=== PATIENT | female | born 1940 | race Caucasian/White ===

== ENCOUNTER → 2017-08-13 13:48 | Outpatient (CLI) | payer MEDICARE, OTHER, SELFPAY ==
[2017-08-13 14:34] LABS: Absolute Lymphocyte Count 2.51 X10^3/ul (0.83-4.51); Absolute Neutrophil Count 3.9 X10^3/uL (2.0-7.7); Basophil# 0.02 X10^3/uL; Basophil% 0.3 % (0-1); Eosinophil# 0.12 X10^3/uL; Eosinophils% 1.7 % (0-5); Hematocrit 40.3 % (37-47); Hemoglobin 13.5 g/dl (12.0-15.0); Lymphocyte # 2.51 X10^3/ul (4.0); Lymphocyte % 35.5 % (19-41); Mean Corp Hgb Conc 33.5 g/gl (32-36); Mean Corpuscular Volume 98.5 fL (81-99); Mean Platelet Vol. 10.6 fl (6.2-12.0); Monocyte# 0.53 X10^3/uL; Monocyte% 7.5 % (0-10); Neutrophil # 3.89 X10^3/uL (2.7-7.7); Neutrophil % 54.9 % (47-70); Platelet Count 187 K/mm3 (150-450); RBC Distribution Width CV 12.5 % (11.6-14.6); Red Blood Count 4.09 M/mm3 (4.2-5.4); White Blood Count 7.1 K/mm3 (4.4-11.0)
[2017-08-13 14:36] LABS: POSITIVE COUNT NO; POSITIVE DIFFERENTIAL NO; POSITIVE MORPHOLOGY NO
[2017-08-13 14:52] LABS: ALB/GLOB Ratio 0.8 RATIO (0.9-2.4); AST(SGOT) 29 U/L (15-37); Alanine Aminotransfer ALT/SGPT 38 U/L (13-56); Albumin, Serum 3.3 g/dL (3.2-5.0); Alkaline Phosphatase 55 U/L (45-117); Anion Gap 8 (5-15); BUN 12 mg/dL (7-18); Calcium,Total 9.1 mg/dL (8.5-10.1); Chloride 104 mmol/L (98-107); Creatinine, Serum 0.86 mg/dL (0.55-1.02); EST Glomerular Filtration Rate 68 mL/min (>60); Est Glom Filt Rate - Afr Amer 82 mL/min (>60); Glucose 127 mg/dL (74-106); Potassium 4.2 mmol/L (3.5-5.1); Protein, Total 7.3 g/dL (6.4-8.2); Sodium Level 137 mmol/L (136-145); Thyroid Stim Hormone (TSH) 1.18 uIU/mL (0.358-3.74)
[2017-08-14 09:05] LABS: Vitamin D,25 Hydroxy 72.5 ng/mL (19.95-100.01)
== END ==
PROVIDERS: Family Provider Family Medicine Geriatric Medicine; PCP Family Medicine Geriatric Medicine; Visit Provider Family Medicine Geriatric Medicine
DX: E11.9 Type 2 diabetes mellitus without complications (principal); I10 Essential (primary) hypertension; E55.9 Vitamin D deficiency, unspecified
CPT/HCPCS: 36415; 80053; 82306; 84443; 85025

== ENCOUNTER → 2017-09-24 14:10 | Outpatient (CLI) | payer MEDICARE, OTHER, SELFPAY ==
--- NOTE | 2017-09-24 14:12 | RAD_ITS ---
STUDY: X-RAY - LUMBAR SPINE REASON FOR EXAM: Female, 77 years old. Lower back pain. TECHNIQUE: 3 view(s) of the lumbar spine were obtained. COMPARISON: None FINDINGS: There is an exaggerated lumbar lordosis. There is no substantial scoliosis. There is a normal alignment of the vertebrae. There is diffuse demineralization with multi-level endplate spondylosis. There is multi-level degenerative disc disease with multi-level disc space narrowing. This is most marked at L4-5. There is no evidence of acute fracture or loss of vertebral axial height. There is degenerative facet disease. There is atherosclerotic calcification of the abdominal aorta without a demonstrated aneurysm. RAD/Lumbar Spine 2 or 3 Views IMPRESSION: Degenerative changes of the spine, as detailed above. Electronically Signed: Jez Blackwell DO at 16:58 EDT Tel [phone], Service support ,
== END ==
PROVIDERS: Family Provider Family Medicine Geriatric Medicine; PCP Family Medicine Geriatric Medicine; Visit Provider Family Medicine Geriatric Medicine
DX: M54.5 Low back pain (principal)
CPT/HCPCS: 72100

== ENCOUNTER → 2017-10-02 06:49 | Outpatient (CLI) | payer MEDICARE, OTHER, SELFPAY ==
--- NOTE | 2017-10-02 09:03 | CDU_ITS ---
Reason For Study: vertigo Rt. Velocities/BP Lt. Velocities/BP Prox CCA 88.3/12.5 cm/sec. Prox CCA 104.0/15.2 cm/sec. Mid CCA 85.6/16.4 cm/sec. Mid CCA 99.7/19.3 cm/sec. Dist CCA 79.2/15.2 cm/sec. Dist CCA 73.9/13.5 cm/sec. Prox ICA 72.7/18.5 cm/sec. Prox ICA 59.8/13.5 cm/sec. Mid ICA 77.4/21.1 cm/sec. Mid ICA 72.7/21.7 cm/sec. Dist ICA 102.0/29.9 cm/sec. Dist ICA 116.0/32.2 cm/sec. Rt. ICA/CCA = 102.0/85.6=1.2. Lt. ICA/CCA = 116.0/99.7=1.2. Prox ECA 73.9/0.0 cm/sec. Prox ECA 62.7/0.0 cm/sec. Rt. Vert. 61.7/16.9 cm/sec. Lt. Vert. 50.3/9.04 cm/sec. Right Extracranial There is intimal thickening but no significant atherosclerotic plaque noted in the right common carotid artery. There is heterogeneous, irregular atherosclerotic plaque noted in the right internal carotid artery. There is no significant atherosclerotic plaque noted in the right external carotid artery. Antegrade flow is noted in the right vertebral artery. Left Extracranial There is intimal thickening but no significant atherosclerotic plaque noted in the left common carotid artery. There is homogeneous, smooth atherosclerotic plaque noted in the left internal carotid artery. There is no significant atherosclerotic plaque noted in the left external carotid artery. Antegrade flow is noted in the left vertebral artery. Procedure Carotid Duplex [id number]. Exam performed in department. Interpretation Summary Calcific irregular plague at the proximal right internal carotid with <50% stenosis. Minimal smooth plague at the proximal left internal carotid with <50% stenosis. Normal flow bilateral external carotids Patent and antegrade vertebrals bilaterally. Ordering Physician: Trent Marie Referring Physician: Bud Duncan Chi Performed By: Sienna Davison, FILIPPO, RVT
--- NOTE | 2017-10-02 13:56 | STRESSREP ---
Stress Test Report Pharmacologic myocardial perfusion stress test. 77-year-old lady with a history of atypical chest pain. Stress protocol: Resting EKG demonstrates normal sinus rhythm with a rate of 74 bpm normal intervals are noted. 0.4 mg regadenoson was infused per usual protocol followed by rapid intravenous saline flush injection. Continuous EKG monitoring was performed. The patient maintained sinus rhythm throughout the recording. At rest there were no ST or T-wave changes noted suggest abnormal flow reserve at peak infusion no ST or T-wave changes were noted suggest abnormal flow reserve maximum heart rate attained was 95 beats minute which was 66% maximum predicted heart rate. Myocardial perfusion protocol. 14.6 mCi of technetium 99m sestamibi was injected at rest. 0.4 mg regadenoson was infused per usual protocol. Continuous EKG monitoring was performed. At peak infusion 44.7 mCi of technetium 99m sestamibi was injected stress images were obtained stress and rest images were reconstructed and compared in the short axis vertical long horizontal long axis. Gated images were also obtained. Perfusion SPECT analysis. Review of the images demonstrate normal uptake of tracer noted in all areas of the myocardium. The resting images similarly demonstrate normal uptake of tracer noted in all areas of the myocardium. No areas of ischemia are noted and no infarct is present. Gated SPECT analysis: The gated ejection fraction is noted to be 61%. Conclusion: Normal pharmacologic myocardial perfusion stress test. Preserved ejection fraction.
== END ==
PROVIDERS: Family Provider Family Medicine Geriatric Medicine; PCP Family Medicine Geriatric Medicine; Visit Provider Internal Medicine Cardiovascular Disease
DX: R07.89 Other chest pain (principal); R09.89 Other specified symptoms and signs involving the circulatory and respiratory systems; R42 Dizziness and giddiness
CPT/HCPCS: 78452; 93017; 93880; A9500; A4216; J2785

== ENCOUNTER → 2017-10-09 09:24 | Outpatient (CLI) | payer MEDICARE, OTHER, SELFPAY ==
[2017-10-09 13:26] LABS: Absolute Lymphocyte Count 2.99 X10^3/ul (0.83-4.51); Absolute Neutrophil Count 5.7 X10^3/uL (2.0-7.7); Basophil# 0.04 X10^3/uL; Basophil% 0.4 % (0-1); Eosinophil# 0.13 X10^3/uL; Eosinophils% 1.4 % (0-5); Hematocrit 41.4 % (37-47); Hemoglobin 13.6 g/dl (12.0-15.0); Lymphocyte # 2.99 X10^3/ul (4.0); Lymphocyte % 31.3 % (19-41); Mean Corp Hgb Conc 32.9 g/gl (32-36); Mean Corpuscular Hgb 33.1 pg (27.0-32.0); Mean Corpuscular Volume 100.7 fL (81-99); Mean Platelet Vol. 10.8 fl (6.2-12.0); Monocyte# 0.72 X10^3/uL; Monocyte% 7.5 % (0-10); Neutrophil # 5.67 X10^3/uL (2.7-7.7); Neutrophil % 59.3 % (47-70); Platelet Count 176 K/mm3 (150-450); RBC Distribution Width CV 13.2 % (11.6-14.6); RBC Distribution Width SD 48.4 fl (35.1-43.9); Red Blood Count 4.11 M/mm3 (4.2-5.4); White Blood Count 9.6 K/mm3 (4.4-11.0)
[2017-10-09 13:28] LABS: POSITIVE COUNT NO; POSITIVE DIFFERENTIAL NO; POSITIVE MORPHOLOGY NO
[2017-10-09 13:52] LABS: Anion Gap 5 (5-15); BUN 20 mg/dL (7-18); BUN/Creat Ratio 21.3 RATIO (10-20); Calcium,Total 8.9 mg/dL (8.5-10.1); Chloride 105 mmol/L (98-107); Creatinine, Serum 0.94 mg/dL (0.55-1.02); EST Glomerular Filtration Rate 61 mL/min (>60); Est Glom Filt Rate - Afr Amer 74 mL/min (>60); Glucose 127 mg/dL (74-106); Potassium 4.7 mmol/L (3.5-5.1); Sodium Level 138 mmol/L (136-145)
== END ==
PROVIDERS: Family Provider Family Medicine Geriatric Medicine; PCP Family Medicine Geriatric Medicine; Visit Provider Family Medicine Geriatric Medicine
DX: E86.0 Dehydration (principal); R53.83 Other fatigue
CPT/HCPCS: 36415; 80048; 84443; 85025

== ENCOUNTER 2017-11-05 13:46 | Outpatient (RCR) | payer MEDICARE, OTHER, SELFPAY | END 2017-11-05 15:48 | disposition home or self-care (01) | LOC: PT 13:46 | PROVIDERS: Family Provider Family Medicine Geriatric Medicine; PCP Family Medicine Geriatric Medicine; Visit Provider Family Medicine Geriatric Medicine | DX: M17.0 Bilateral primary osteoarthritis of knee (principal) ==

== ENCOUNTER → 2017-11-19 14:11 | Outpatient (CLI) | payer MEDICARE, OTHER, SELFPAY ==
[2017-11-19 17:23] LABS: Thyroid Stim Hormone (TSH) 2.37 uIU/mL (0.358-3.74)
== END ==
PROVIDERS: Family Provider Family Medicine Geriatric Medicine; PCP Family Medicine Geriatric Medicine; Visit Provider Family Medicine Geriatric Medicine
DX: E03.9 Hypothyroidism, unspecified (principal)
CPT/HCPCS: 36415; 84443

== ENCOUNTER → 2018-02-18 13:33 | Outpatient (CLI) | payer MEDICARE, OTHER, SELFPAY ==
[2018-02-18 16:13] LABS: Absolute Lymphocyte Count 2.58 X10^3/ul (0.83-4.51); Absolute Neutrophil Count 3.8 X10^3/uL (2.0-7.7); Basophil# 0.02 X10^3/uL; Basophil% 0.3 % (0-1); Eosinophil# 0.14 X10^3/uL; Hemoglobin 13.5 g/dl (12.0-15.0); Lymphocyte # 2.58 X10^3/ul (4.0); Lymphocyte % 36.9 % (19-41); Mean Corp Hgb Conc 32.9 g/gl (32-36); Mean Corpuscular Hgb 32.8 pg (27.0-32.0); Mean Corpuscular Volume 99.8 fL (81-99); Mean Platelet Vol. 10.1 fl (6.2-12.0); Monocyte# 0.45 X10^3/uL; Monocyte% 6.4 % (0-10); Neutrophil # 3.79 X10^3/uL (2.7-7.7); Neutrophil % 54.3 % (47-70); Platelet Count 209 K/mm3 (150-450); RBC Distribution Width CV 12.4 % (11.6-14.6); RBC Distribution Width SD 44.8 fl (35.1-43.9); Red Blood Count 4.11 M/mm3 (4.2-5.4)
[2018-02-18 16:21] LABS: POSITIVE COUNT NO; POSITIVE DIFFERENTIAL NO; POSITIVE MORPHOLOGY NO
[2018-02-18 17:09] LABS: ALB/GLOB Ratio 0.9 RATIO (0.9-2.4); AST(SGOT) 32 U/L (15-37); Alanine Aminotransfer ALT/SGPT 45 U/L (13-56); Albumin, Serum 3.4 g/dL (3.2-5.0); Alkaline Phosphatase 55 U/L (45-117); Anion Gap 12 (5-15); BUN 15 mg/dL (7-18); BUN/Creat Ratio 15.9 RATIO (10-20); Calcium,Total 9.3 mg/dL (8.5-10.1); Chloride 105 mmol/L (98-107); Creatinine, Serum 0.94 mg/dL (0.55-1.02); EST Glomerular Filtration Rate 61 mL/min (>60); Est Glom Filt Rate - Afr Amer 74 mL/min (>60); Globulin 3.9 g/dL (2.2-4.2); Glucose 204 mg/dL (74-106); Potassium 4.3 mmol/L (3.5-5.1); Protein, Total 7.3 g/dL (6.4-8.2); Sodium Level 141 mmol/L (136-145); Thyroid Stim Hormone (TSH) 1.01 uIU/mL (0.358-3.74)
[2018-02-19 09:14] LABS: Vitamin D,25 Hydroxy 89.2 ng/mL (29.95-100.01)
== END ==
PROVIDERS: Family Provider Family Medicine Geriatric Medicine; PCP Family Medicine Geriatric Medicine; Visit Provider Family Medicine Geriatric Medicine
DX: E11.9 Type 2 diabetes mellitus without complications (principal); I10 Essential (primary) hypertension; E55.9 Vitamin D deficiency, unspecified; R19.7 Diarrhea, unspecified
CPT/HCPCS: 36415; 74019; 80053; 82306; 84443; 85025

== ENCOUNTER → 2018-04-29 14:23 | Outpatient (CLI) | payer MEDICARE, OTHER, SELFPAY ==
--- NOTE | 2018-04-29 14:24 | BI_ITS ---
MAMMOGRAPHY - BILATERAL SCREENING REASON FOR EXAM: Female, 77 years old. Routine annual screening examination. PERTINENT HISTORY: Aunt with breast cancer. Keratosis. TECHNIQUE: Digital bilateral breast jeff (3D mammographic acquisition) in the CC and MLO projections. 2-D mediolateral oblique (MLO) and craniocaudad (CC) views of both breasts were obtained. CAD: Full Field Digital Mammography with Computer Added Detection was performed. COMPARISON: Comparison is made with prior study dated March 26, 2017 and February 28, 2016. FINDINGS: Breast Composition: The breasts are almost entirely fatty. There are no dominant masses or suspicious calcifications. Stable small well-defined nodules in both breasts. Stable 7.4 mm nodule in the mid lateral portion of the right breast and stable 5.3 mm nodule in the upper lateral portion of the left breast. No other significant abnormalities are identified. There has been no significant change since the prior study. BI/SCREENING MAMM (CAD), BILAT IMPRESSION: Stable bilateral screening mammogram. Yearly follow-up mammogram recommended. (A) ASSESSMENT CATEGORY: BIRADS Category 2: Benign. A letter regarding these results will be sent to the patient by the facility within 30 days. Approximately 10% of breast cancers are not detected by mammography. A normal mammogram should not delay biopsy of a clinically suspicious abnormality. [id number] Electronically Signed: Tony Grover MD at 15:38 EDT Tel [phone], Service support ,
== END ==
PROVIDERS: Family Provider Family Medicine Geriatric Medicine; PCP Family Medicine Geriatric Medicine; Referring Provider Family Medicine Geriatric Medicine; Visit Provider Family Medicine Geriatric Medicine
DX: Z12.31 Encounter for screening mammogram for malignant neoplasm of breast (principal)
CPT/HCPCS: 77063; 77067

== ENCOUNTER → 2018-08-19 14:28 | Outpatient (CLI) | payer MEDICARE, OTHER, SELFPAY ==
[2017-10-08 14:47] VITALS: BMI 34.4
[2018-08-19 16:27] LABS: Absolute Lymphocyte Count 2.59 X10^3/ul (0.83-4.51); Absolute Neutrophil Count 3.7 X10^3/uL (2.0-7.7); Basophil# 0.04 X10^3/uL; Basophil% 0.6 % (0-1); Eosinophil# 0.36 X10^3/uL; Hematocrit 37.9 % (37-47); Hemoglobin 12.7 g/dl (12.0-15.0); Lymphocyte # 2.59 X10^3/ul (4.0); Mean Corp Hgb Conc 33.5 g/gl (32-36); Mean Corpuscular Volume 98.4 fL (81-99); Mean Platelet Vol. 10.6 fl (6.2-12.0); Monocyte# 0.53 X10^3/uL; Monocyte% 7.4 % (0-10); Neutrophil # 3.67 X10^3/uL (2.7-7.7); Neutrophil % 50.9 % (47-70); Platelet Count 188 K/mm3 (150-450); RBC Distribution Width CV 12.4 % (11.6-14.6); RBC Distribution Width SD 44.8 fl (35.1-43.9); Red Blood Count 3.85 M/mm3 (4.2-5.4); White Blood Count 7.2 K/mm3 (4.4-11.0)
[2018-08-19 16:32] LABS: POSITIVE COUNT NO; POSITIVE DIFFERENTIAL NO; POSITIVE MORPHOLOGY NO
[2018-08-19 16:37] LABS: Vitamin D,25 Hydroxy 66.6 ng/mL (29.95-100.01)
[2018-08-19 16:45] LABS: ALB/GLOB Ratio 0.9 RATIO (0.9-2.4); AST(SGOT) 31 U/L (15-37); Alanine Aminotransfer ALT/SGPT 43 U/L (13-56); Albumin, Serum 3.2 g/dL (3.2-5.0); Alkaline Phosphatase 59 U/L (45-117); Anion Gap 7 (5-15); BUN 14 mg/dL (7-18); BUN/Creat Ratio 14.9 RATIO (10-20); Calcium,Total 8.6 mg/dL (8.5-10.1); Chloride 104 mmol/L (98-107); Creatinine, Serum 0.94 mg/dL (0.55-1.02); EST Glomerular Filtration Rate 61 mL/min (>60); Est Glom Filt Rate - Afr Amer 74 mL/min (>60); Globulin 3.5 g/dL (2.2-4.2); Glucose 307 mg/dL (74-106); Potassium 4.2 mmol/L (3.5-5.1); Protein, Total 6.7 g/dL (6.4-8.2); Sodium Level 135 mmol/L (136-145); Thyroid Stim Hormone (TSH) 1.63 uIU/mL (0.358-3.74)
== END ==
PROVIDERS: Family Provider Family Medicine Geriatric Medicine; PCP Family Medicine Geriatric Medicine; Visit Provider Family Medicine Geriatric Medicine
DX: E11.9 Type 2 diabetes mellitus without complications (principal); E55.9 Vitamin D deficiency, unspecified; I10 Essential (primary) hypertension
CPT/HCPCS: 36415; 80053; 82306; 84443; 85025

== ENCOUNTER → 2018-10-21 | Outpatient (CLI) | payer MEDICARE, OTHER, SELFPAY ==
[2018-09-10 12:39] VITALS: BMI 35.3
[2018-10-21 16:23] LABS: Thyroid Stim Hormone (TSH) 3.52 uIU/mL (0.358-3.74)
== END | disposition home or self-care (01) ==
LOC: POLAB3 14:39
PROVIDERS: Family Provider Family Medicine Geriatric Medicine; PCP Family Medicine Geriatric Medicine; Visit Provider Family Medicine Geriatric Medicine
DX: E03.9 Hypothyroidism, unspecified (principal)
CPT/HCPCS: 36415; 84443

== ENCOUNTER → 2018-10-26 16:21 | Outpatient (CLI) | payer MEDICARE, OTHER, SELFPAY ==
[2018-09-10 12:39] VITALS: BMI 35.3
--- NOTE | 2018-10-26 09:00 | LES_PTH ---
PATIENT: BEN SHAFFER LOC: [facility] U#:[id number] AGE/SX: 84/F ROOM: RE10/26/[address]: Dr. Bud Duncan MD : 1940 BED: DIS: SPEC #: [id number] RECD: 10/26/18 09:00 STATUS: LYLY CANDELARIA #: [id number] PATRIC: 10/26/18 09:[address]: Bud Duncan Chi DEPT: SURGICAL PATHOLOGY RECD BY: Agustin Garibay Tissues: A - Skin of neck, NOS B - Skin of neck, NOS C - Skin of neck, NOS Procedures: Surgery Specimen Level IV HEADER OPERATION: Not noted PRE-OP DIAGNOSIS: Not noted TISSUE SUBMITTED: A - Right neck, B - Middle neck, C - Left neck MICROSCOPIC DIAGNOSIS A. Right neck lesion, biopsy: Seborrheic keratosis. B. Middle neck lesion, biopsy: Seborrheic keratosis. C. Left neck lesion, biopsy: Seborrheic keratosis. SJ:norma 10/29/18 MICROSCOPIC DESCRIPTION Slides are reviewed. GROSS DESCRIPTION A - Received in fixative is one container labeled with the patient's name and designated right neck. The specimen consists of a huston portion of skin measuring 1.5 x 1 cm and shaved to a depth of 0.3 cm. The skin surface is covered by a huston-brown irregular, slightly verrucoid lesion. The base of the specimen is inked black and the tissue is serially cross-sectioned. The specimen is totally submitted in one cassette. B - Received in fixative is one container labeled with the patient's name and designated middle neck. The specimen consists of a circular skin biopsy measuring 1.3 x 1.3 cm and shaved to a depth of 0.4 cm. The skin surface is huston-brown with a diffuse verrucoid appearance. The base of the specimen is inked black and the tissue is serially cross-sectioned. The specimen is totally submitted in one cassette. C - Received in fixative is one container labeled with the patient's name and designated left neck. The specimen consists of an elongated skin biopsy measuring 2.5 x 0.5 x 0.4 cm. The skin surface is huston-brown with a verrucoid appearance. The base of the specimen is inked black. The specimen is totally submitted in one cassette. / CE:norma 10/28/18 TC:1 CPT: 22271 x3
== END ==
PROVIDERS: Family Provider Family Medicine Geriatric Medicine; PCP Family Medicine Geriatric Medicine; Visit Provider Family Medicine Geriatric Medicine
DX: L98.9 Disorder of the skin and subcutaneous tissue, unspecified (principal)
CPT/HCPCS: 88305

== ENCOUNTER → 2018-11-18 | Outpatient (CLI) | payer MEDICARE, OTHER, SELFPAY ==
[2018-09-10 12:39] VITALS: BMI 35.3
[2018-11-18 17:35] LABS: Absolute Lymphocyte Count 2.57 X10^3/ul (0.83-4.51); Absolute Neutrophil Count 3.5 X10^3/uL (2.0-7.7); Basophil# 0.02 X10^3/uL; Basophil% 0.3 % (0-1); Eosinophil# 0.14 X10^3/uL; Eosinophils% 2.1 % (0-5); Hematocrit 40.2 % (37-47); Hemoglobin 13.5 g/dl (12.0-15.0); Lymphocyte # 2.57 X10^3/ul (4.0); Lymphocyte % 38.8 % (19-41); Mean Corp Hgb Conc 33.6 g/gl (32-36); Mean Corpuscular Hgb 32.8 pg (27.0-32.0); Mean Corpuscular Volume 97.8 fL (81-99); Mean Platelet Vol. 10.5 fl (6.2-12.0); Monocyte# 0.44 X10^3/uL; Monocyte% 6.6 % (0-10); Neutrophil # 3.45 X10^3/uL (2.7-7.7); Platelet Count 181 K/mm3 (150-450); RBC Distribution Width CV 12.1 % (11.6-14.6); RBC Distribution Width SD 42.5 fl (35.1-43.9); Red Blood Count 4.11 M/mm3 (4.2-5.4); White Blood Count 6.6 K/mm3 (4.4-11.0)
[2018-11-18 17:47] LABS: POSITIVE COUNT NO; POSITIVE DIFFERENTIAL NO; POSITIVE MORPHOLOGY NO
[2018-11-18 17:54] LABS: Vitamin D,25 Hydroxy 75.2 ng/mL (29.95-100.01)
[2018-11-18 17:56] LABS: ALB/GLOB Ratio 0.9 RATIO (0.9-2.4); AST(SGOT) 22 U/L (15-37); Alanine Aminotransfer ALT/SGPT 42 U/L (13-56); Albumin, Serum 3.3 g/dL (3.2-5.0); Alkaline Phosphatase 71 U/L (45-117); Anion Gap 5 (5-15); BUN 17 mg/dL (7-18); BUN/Creat Ratio 15.6 RATIO (10-20); Calcium,Total 8.6 mg/dL (8.5-10.1); Chloride 104 mmol/L (98-107); Creatinine, Serum 1.09 mg/dL (0.55-1.02); EST Glomerular Filtration Rate 51 mL/min (>60); Est Glom Filt Rate - Afr Amer 62 mL/min (>60); Globulin 3.7 g/dL (2.2-4.2); Glucose 304 mg/dL (74-106); Potassium 4.6 mmol/L (3.5-5.1); Sodium Level 137 mmol/L (136-145)
== END | disposition home or self-care (01) ==
LOC: POLAB3 13:32
PROVIDERS: Family Provider Family Medicine Geriatric Medicine; PCP Family Medicine Geriatric Medicine; Visit Provider Family Medicine Geriatric Medicine
DX: E11.9 Type 2 diabetes mellitus without complications (principal); E55.9 Vitamin D deficiency, unspecified; I10 Essential (primary) hypertension
CPT/HCPCS: 36415; 80053; 82306; 84443; 85025

== ENCOUNTER → 2019-02-24 | Outpatient (CLI) | payer MEDICARE, OTHER, SELFPAY ==
[2018-09-10 12:39] VITALS: BMI 35.3
[2019-02-24 17:12] LABS: Absolute Lymphocyte Count 2.17 X10^3/uL (0.83-4.51); Absolute Neutrophil Count 3.1 X10^3/uL (2.0-7.7); Basophil# 0.04 X10^3/uL; Basophil% 0.7 % (0-1); Eosinophil# 0.11 X10^3/uL; Eosinophils% 1.9 % (0-5); Hematocrit 38.9 % (37-47); Lymphocyte # 2.17 X10^3/ul (4.0); Lymphocyte % 36.8 % (19-41); Mean Corp Hgb Conc 33.4 g/dL (32-36); Mean Corpuscular Volume 98.7 fL (81-99); Mean Platelet Vol. 10.9 fl (6.2-12.0); Monocyte# 0.49 X10^3/uL; Monocyte% 8.3 % (0-10); NRBC Flagged by Analyzer 0 % (0-5); Neutrophil # 3.07 X10^3/uL (2.7-7.7); Neutrophil % 52.1 % (47-70); Platelet Count 182 K/mm3 (150-450); RBC Distribution Width CV 12.4 % (11.6-14.6); Red Blood Count 3.94 M/mm3 (4.2-5.4); White Blood Count 5.9 K/mm3 (4.4-11.0)
[2019-02-24 17:51] LABS: Vitamin D,25 Hydroxy 59.9 ng/mL (29.95-100.01)
[2019-02-24 18:22] LABS: ALB/GLOB Ratio 0.9 RATIO (0.9-2.4); AST(SGOT) 35 U/L (15-37); Alanine Aminotransfer ALT/SGPT 54 U/L (13-56); Albumin, Serum 3.3 g/dL (3.2-5.0); Alkaline Phosphatase 68 U/L (45-117); Anion Gap 10 (5-15); BUN 14 mg/dL (7-18); Calcium,Total 8.9 mg/dL (8.5-10.1); Chloride 104 mmol/L (98-107); Creatinine, Serum 1.08 mg/dL (0.55-1.02); EST Glomerular Filtration Rate 52 mL/min (>60); Est Glom Filt Rate - Afr Amer 63 mL/min (>60); Globulin 3.7 g/dL (2.2-4.2); Glucose 323 mg/dL (74-106); Potassium 4.3 mmol/L (3.5-5.1); Sodium Level 138 mmol/L (136-145); Thyroid Stim Hormone (TSH) 3.26 uIU/mL (0.358-3.74)
== END | disposition home or self-care (01) ==
LOC: POLAB3 09:03
PROVIDERS: Family Provider Family Medicine Geriatric Medicine; PCP Family Medicine Geriatric Medicine; Visit Provider Family Medicine Geriatric Medicine
DX: E11.9 Type 2 diabetes mellitus without complications (principal); E55.9 Vitamin D deficiency, unspecified; I10 Essential (primary) hypertension
CPT/HCPCS: 36415; 80053; 82306; 84443; 85025

== ENCOUNTER → 2019-05-12 | Outpatient (CLI) | payer MEDICARE, OTHER, SELFPAY ==
[2018-09-10 12:39] VITALS: BMI 35.3
--- NOTE | 2019-05-12 13:17 | BI_ITS ---
MAMMOGRAPHY - BILATERAL SCREENING REASON FOR EXAM: Female, 78 years old. Routine annual screening examination. PERTINENT HISTORY: Aunt with breast cancer. TECHNIQUE: Digital bilateral breast fallon (3D mammographic acquisition) in the CC and MLO projections. 2-D mediolateral oblique (MLO) and craniocaudad (CC) views of both breasts were obtained. CAD: Full Field Digital Mammography with Computer Added Detection was performed. COMPARISON: Comparison is made with prior study dated April 29, 2018 and March 26, 2017. FINDINGS: Breast Composition: The breasts are almost entirely fatty. There are no dominant masses or suspicious calcifications. Stable 7.8 mm well-defined nodule in the mid lateral portion of the right breast. Stable 5.3 mm well-defined nodule in the upper lateral aspect of the left breast. These are unchanged and most likely represents small intramammary lymph nodes. No other significant abnormalities are identified. There has been no significant change since the prior study. BI/SCREEN MAMM (CAD) W/[place] BILAT IMPRESSION: Stable bilateral screening mammogram. Yearly follow-up mammogram recommended. (A) ASSESSMENT CATEGORY: BIRADS Category 2: Benign. A letter regarding these results will be sent to the patient by the facility within 30 days. Approximately 10% of breast cancers are not detected by mammography. A normal mammogram should not delay biopsy of a clinically suspicious abnormality. [id number] Electronically Signed: Tony Grover, at 14:25 EST , Service support ,
== END | disposition home or self-care (01) ==
LOC: OPBI 13:15
PROVIDERS: Family Provider Family Medicine Geriatric Medicine; PCP Family Medicine Geriatric Medicine; Referring Provider Family Medicine Geriatric Medicine; Visit Provider Family Medicine Geriatric Medicine
DX: Z12.31 Encounter for screening mammogram for malignant neoplasm of breast (principal)
CPT/HCPCS: 77063; 77067

== ENCOUNTER → 2019-06-08 14:07 | Outpatient (CLI) | payer MEDICARE, OTHER, SELFPAY ==
[2018-09-10 12:39] VITALS: BMI 35.3
[2019-06-08 17:30] LABS: Absolute Lymphocyte Count 2.91 X10^3/uL (0.83-4.51); Absolute Neutrophil Count 3.8 X10^3/uL (2.0-7.7); Basophil# 0.05 X10^3/uL; Basophil% 0.6 % (0-1); Eosinophil# 0.21 X10^3/uL; Eosinophils% 2.7 % (0-5); Hematocrit 41.7 % (37-47); Hemoglobin 14.2 g/dL (12.0-15.0); Lymphocyte # 2.91 X10^3/ul (4.0); Lymphocyte % 37.8 % (19-41); Mean Corp Hgb Conc 34.1 g/dL (32-36); Mean Corpuscular Hgb 34.4 pg (27.0-32.0); Mean Platelet Vol. 10.6 fl (6.2-12.0); Monocyte# 0.69 X10^3/uL; NRBC Flagged by Analyzer 0 % (0-5); Neutrophil # 3.82 X10^3/uL (2.7-7.7); Neutrophil % 49.6 % (47-70); Platelet Count 173 K/mm3 (150-450); RBC Distribution Width CV 11.9 % (11.6-14.6); Red Blood Count 4.13 M/mm3 (4.2-5.4); White Blood Count 7.7 K/mm3 (4.4-11.0)
[2019-06-08 17:38] LABS: Vitamin D,25 Hydroxy 52.2 ng/mL (29.95-100.01)
[2019-06-08 17:48] LABS: ALB/GLOB Ratio 0.9 RATIO (0.9-2.4); AST(SGOT) 27 U/L (15-37); Alanine Aminotransfer ALT/SGPT 41 U/L (13-56); Albumin, Serum 3.5 g/dL (3.2-5.0); Alkaline Phosphatase 60 U/L (45-117); Anion Gap 5 (5-15); BUN 19 mg/dL (7-18); BUN/Creat Ratio 20.5 RATIO (10-20); Calcium,Total 9.3 mg/dL (8.5-10.1); Chloride 105 mmol/L (98-107); Creatinine, Serum 0.93 mg/dL (0.55-1.02); EST Glomerular Filtration Rate 62 mL/min (>60); Est Glom Filt Rate - Afr Amer 75 mL/min (>60); Globulin 3.8 g/dL (2.2-4.2); Glucose 107 mg/dL (74-106); Potassium 4.1 mmol/L (3.5-5.1); Protein, Total 7.3 g/dL (6.4-8.2); Sodium Level 139 mmol/L (136-145); Thyroid Stim Hormone (TSH) 1.98 uIU/mL (0.358-3.74)
== END ==
PROVIDERS: Family Provider Family Medicine Geriatric Medicine; PCP Family Medicine Geriatric Medicine; Visit Provider Family Medicine Geriatric Medicine
DX: E11.9 Type 2 diabetes mellitus without complications (principal); E55.9 Vitamin D deficiency, unspecified; I10 Essential (primary) hypertension
CPT/HCPCS: 36415; 80053; 82306; 84443; 85025

== ENCOUNTER → 2019-07-18 15:00 | Outpatient (CLI) | payer MEDICARE, OTHER, SELFPAY ==
[2018-09-10 12:39] VITALS: BMI 35.3
--- NOTE | 2019-07-18 15:08 | RAD_ITS ---
HISTORY: RIGHT HIP AND LOWER BACK PAIN, HX OF OSTEOARTHRITIS TECHNIQUE: Lumbar spine 3 views Number of images including paperwork: 3 COMPARISON: 09/24/2017 FINDINGS: VERTEBRAE: No acute fracture. VERTEBRAL ALIGNMENT: No traumatic subluxation. DISKS AND JOINTS: Moderate to severe discogenic degenerative changes at L4-5. Mild discogenic degenerative changes elsewhere in the lumbar spine. Facet arthropathy. SOFT TISSUES: Vascular calcifications. RAD/Lumbar Spine 2 or 3 Views IMPRESSION: 1. No acute findings. 2. Lumbar spondylosis. at 0436 Reported and signed by: Maren Liu MD Electronically Signed: Maren Liu MD at 4:36 EST Tel , Service support ,
--- NOTE | 2019-07-18 15:08 | RAD_ITS ---
HISTORY: RIGHT HIP AND LOWER BACK PAIN, HX OF OSTEOARTHRITIS ADDITIONAL HISTORY: None provided. TECHNIQUE: AP and lateral views of the right hip, AP and lateral views of the left hip and AP pelvis Number of images including paperwork: 5 COMPARISON: None FINDINGS: BONES: No acute fracture. JOINTS: No subluxation. Mild degenerative changes of the hips. Degenerative changes of the visualized spine, sacroiliac joints and symphysis pubis. SOFT TISSUES: No distinct foreign body. RAD/HIP, UNI W/ Pelvis 2-3 Views IMPRESSION: Degenerative changes without acute osseous abnormality. at 0438 Reported and signed by: Maren iLu MD Electronically Signed: Maren Liu MD at 4:38 EST Tel , Service support ,
== END ==
PROVIDERS: PCP Family Medicine Geriatric Medicine; Referring Provider Family Medicine Geriatric Medicine; Visit Provider Family Medicine Geriatric Medicine
DX: M54.30 Sciatica, unspecified side (principal); M16.9 Osteoarthritis of hip, unspecified
CPT/HCPCS: 72100; 73502

== ENCOUNTER 2019-07-24 10:58 | Inpatient (IN) | payer MEDICARE, OTHER, SELFPAY ==
[2018-09-10 12:39] VITALS: BMI 35.3
[2019-07-24 10:59] VITALS: BP 152/82; PULSE 76; RESP 16; TEMP 36.7; O2SAT 97; BMI 40.7
--- NOTE | 2019-07-24 11:13 | CT_ITS ---
STUDY: CT BRAIN WITHOUT CONTRAST REASON FOR EXAM: Female, 78 years old. Fell 3 days ago hitting couch, left eye and forehead bruising, no LOC. Hx diabetes. RADIATION DOSAGE (If Supplied By Facility): CTDIvol = ( 44.99 ) mGy, DLP = ( 796.11 ) mGycm TECHNIQUE: Transaxial CT imaging of the brain was performed without administration of intravenous contrast material. Individualized dose optimization techniques were used for this CT. COMPARISON: No relevant priors. FINDINGS: There is slight soft tissue swelling of the left frontal/periorbital scalp. Normal calvarium. Normal size ventricles and extra-axial spaces for the patient''s age. Normal white matter tracts of the cerebral hemispheres. Very small lipoma of the anterior falx is of doubtful significance. No associated mass effect. Normal basal ganglia and thalami. Normal brainstem. Normal cerebellum. There is no intracranial hemorrhage. There are no findings of an acute ischemic infarction. Normal visualized paranasal sinuses. CT/Brain/Head without Contrast IMPRESSION: No acute intracranial hemorrhage or mass effect. Left frontal and periorbital soft tissue swelling/injury. No underlying fracture. Electronically Signed: Franklyn Parra MD ([place]) at 12:14 EST , Service support ,
--- NOTE | 2019-07-24 11:14 | RAD_ITS ---
STUDY: X-RAY - LUMBAR SPINE REASON FOR EXAM: Female, 78 years old. RIGHT HIP PAIN TECHNIQUE: 3 view(s) of the lumbar spine were obtained. COMPARISON: None FINDINGS: Normal lumbar lordosis. There is no substantial scoliosis. There is a normal alignment of the vertebrae. There is multilevel endplate spondylosis of the lumbar vertebrae. There is multi-level degenerative disc disease with multi-level disc space narrowing. There is no demonstrated fracture. There is atherosclerotic calcification of the abdominal aorta without a demonstrated aneurysm. RAD/Lumbar Spine 2 or 3 Views IMPRESSION: Degenerative changes without acute findings Electronically Signed: Matt Bush DO at 12:51 EST Tel , Service support ,
--- NOTE | 2019-07-24 11:14 | RAD_ITS ---
STUDY: X-RAY - PELVIS AND RIGHT HIP REASON FOR EXAM: Female, 78 years old. FALL X 3 DAYS. RIGHT HIP PAIN TECHNIQUE: 3 views of the pelvis and hip. COMPARISON: None. FINDINGS: There is a non-specific bowel gas pattern. Normal visualized soft tissue structures. Normal bilateral iliac wings, sacroiliac joints and visualized sacrum. Normal bilateral superior and inferior pubic rami. Normal pubic symphysis. Normal bilateral ischial tuberosities. There are osteoarthritic changes of the femoral head with marginal osteophyte formation. Normal acetabulum. There is mild articular joint space narrowing of the hip. RAD/HIP, UNI W/ Pelvis 2-3 Views IMPRESSION: No acute findings Electronically Signed: Matt Bush DO at 12:51 EST Tel , Service support ,
--- NOTE | 2019-07-24 11:16 | ED.DCSUM_ITS ---
History of Present Illness Chief Complaint: Lower Extremity Injury Detail of Chief Complaint: Right hip and back pain Informant: Patient Onset: Days Current Severity: Mild Maximum Severity: Moderate Worsened by: Movement Narrative: Patient has been having trouble with her right lower back and hip. She has been treated by her primary care physician for sciatica. Patient states that she had a fall last Thursday and went to her doctor on . He had placed her on prednisone, diclofenac, gabapentin, and baclofen. The patient was woozy and had another fall after taking this medication for only 1 day. He told her to stop the prednisone, diclofenac, and gabapentin but continue the baclofen. Patient presents today with continued pain. The most recent fall she had also involved a head injury was striking her left forehead against the wooden arm of a sofa. - Past Medical History (1) Essential (primary) hypertension Status: Chronic (2) Hyperlipidemia Status: Chronic (3) Paroxysmal atrial fibrillation Status: Chronic Past Medical History - Allergies and Home Meds Allergies/Adverse Reactions: Allergies atenolol [From Tenormin] Adverse Reaction (Severe, Verified 07/24/19 11:03) Unknown Primary Care Physician: Bud Duncan Chi, MD [Primary Care Provider] - Prior records reviewed: Yes Lives: Spouse/ Significant Other Smoking Status: Never smoker Review of Systems General: Denies: Chills, Fever Eyes: Denies: Visual changes - bilaterally ENT: Denies: Bilateral ear pain Cardiovascular: Denies: Chest pain Respiratory: Denies: Dyspnea, Cough Musculoskeletal: Reports: Back pain Neurological: Reports: Headache. Denies: Parasthesia, Numbness Physical Exam Vital Signs/Narrative: Vital Signs Temp Pulse Resp BP Pulse Ox 07/24/19 10:59 98.1 F 76 16 152/82 H 97 Inital Vital Signs reviewed: Yes General: Well nourished Head: Normocephalic Eyes: Perrl, EOMI, - - Left periorbital ecchymosis. ENT: Moist mucous membranes Neck: Supple Cardiovascular: Regular rate, Regular rhythm Respiratory: No distress, CTA bilaterally Abdomen: Soft, Nontender Back: - - No midline spinal tenderness. She does have tenderness in the right low lumbar paraspinal muscles and over the SI joint on the right posterior pelvis. Extremities: Nontender Skin: Normal color, No rash Neurological: Alert, Oriented x3 Psychological: Normal affect Diagnostic/Tx/Re-eval 07/24/19 11:13 CT Head [Brain/Head without Contrast] [CT] Stat No acute intracranial hemorrhage or mass-effect. Left frontal and periorbital soft tissue swelling/injury. No underlying fracture. 07/24/19 11:14 HIP, UNI W/ Pelvis 2-3 Views [RAD] Stat No acute findings Lumbar Spine 2 or 3 Views [RAD] Stat Degenerative changes without acute findings Laboratory Results 07/24/19 07/24/19 10:46 10:46 WBC 12.2 H RBC 5.05 Hgb 16.8 H Hct 49.5 H MCV 98.0 MCH 33.3 H MCHC 33.9 RDW Std Deviation 45.5 H RDW Coeff of Dalia 12.8 Plt Count 226 MPV 9.8 Immature Gran % (Auto) 0.700 Neut % (Auto) 63.5 Lymph % (Auto) 25.0 Grayson % (Auto) 8.5 Eos % (Auto) 2.0 Baso % (Auto) 0.3 Absolute Neuts (auto) 7.8 H Absolute Lymphs (auto) 3.06 Nucleated RBC % 0 Sodium 135 L Potassium 4.4 Chloride 103 Carbon Dioxide 26.0 Anion Gap 6 BUN 20 H Creatinine 1.09 H Estim Creat Clear Calc 34.62 Est GFR (MDRD) Af Amer 62 Est GFR (MDRD) Non-Af 51 L BUN/Creatinine Ratio 18.3 Glucose 220 H Calcium 9.6 - Medical Decision Making Patient was initially given 25 mcg of fentanyl for pain. When the patient was taken to radiology she developed motion sickness and started vomiting. She was given a dose of Zofran. Upon returning to the room she still describes a feeling of motion sickness. She was given 0.5 mg of IV Ativan for vertigo. Test results are discussed with her. Her dizziness is completely resolved. Nursing attempted to get her up at bedside but patient has extreme pain with any weightbearing on her left leg. She is already had multiple falls at home. I feel she will need admission for physical therapy and possible rehab. Patient's blood pressure is starting to climb but she has not had her normal hypertensive meds. Her home meds are ordered for her. ED Disposition - Plan for ED Patient: Disposition: Acute Care Hospital [facility] Diagnosis: Sciatica Referrals: Bud Duncan Chi, MD [Primary Care Provider] -
[2019-07-24] MEDS: fentaNYL 100 MCG/2 ML Ampul 25 MCG IV (11:25)
[2019-07-24] MEDS: Ondansetron 4 MG/2 ML Vial IV (12:02)
[2019-07-24 12:31] LABS: Absolute Lymphocyte Count 3.06 X10^3/uL (0.83-4.51); Absolute Neutrophil Count 7.8 X10^3/uL (2.0-7.7); Basophil# 0.04 X10^3/uL; Basophil% 0.3 % (0-1); Eosinophil# 0.25 X10^3/uL; Hematocrit 49.5 % (37-47); Hemoglobin 16.8 g/dL (12.0-15.0); Lymphocyte # 3.06 X10^3/ul (4.0); Mean Corp Hgb Conc 33.9 g/dL (32-36); Mean Corpuscular Hgb 33.3 pg (27.0-32.0); Mean Platelet Vol. 9.8 fl (6.2-12.0); Monocyte# 1.04 X10^3/uL; Monocyte% 8.5 % (0-10); NRBC Flagged by Analyzer 0 % (0-5); Neutrophil # 7.75 X10^3/uL (2.7-7.7); Neutrophil % 63.5 % (47-70); Platelet Count 226 K/mm3 (150-450); RBC Distribution Width CV 12.8 % (11.6-14.6); RBC Distribution Width SD 45.5 fl (35.1-43.9); Red Blood Count 5.05 M/mm3 (4.2-5.4); White Blood Count 12.2 K/mm3 (4.4-11.0)
[2019-07-24] MEDS: LORazepam 2 MG/ML Syringe 0.5 MG IV (12:32)
[2019-07-24 12:42] LABS: Anion Gap 6 (5-15); BUN 20 mg/dL (7-18); BUN/Creat Ratio 18.3 RATIO (10-20); Calcium,Total 9.6 mg/dL (8.5-10.1); Chloride 103 mmol/L (98-107); Creatinine, Serum 1.09 mg/dL (0.55-1.02); EST Glomerular Filtration Rate 51 mL/min (>60); Est Glom Filt Rate - Afr Amer 62 mL/min (>60); Estimated Creatinine Clearance 34.62 ml/min; Glucose 220 mg/dL (74-106); Potassium 4.4 mmol/L (3.5-5.1); Sodium Level 135 mmol/L (136-145)
[2019-07-24] MEDS: Losartan Potassium 100 MG Tablet PO (13:53)
[2019-07-24] MEDS: Metoprolol Tartrate 25 MG Tablet PO ×2 (13:53→21:19)
[2019-07-24 14:00] VITALS: BP 170/90; PULSE 78
--- NOTE | 2019-07-24 14:03 | HP.PCM_ITS ---
Problem List (1) Right hip pain Status: Acute History of Present Illness Date of Admission: 07/24/19 Chief Complaint: right hip pain The patient is a 78 year old F presents with right hip pain. Last week she had pain, then received some shots and medications from her PCP. The medications she received were prednisone, diclofenac, gabapentin and baclofen. Those medications made her feel dizzy, then she had a fall landing on her face. In the process of the fall, she twisted her right hip that caused significant pain. Since then, she has had continued pain in the right hip and unable to perform ADLs. Presented to ED and had imaging that was unremarkable for any acute process. She received IV fentanyl and IV ativan. Still feels woozy. The hospitalist service asked to admit the patient rehab/SNF evaluation.[] Past Medical History Past Medical History (Chronic Problems): Chronic Problems (Last Reviewed 09/10/18 @ 14:19 by Trent Marie MD) Left carotid bruit (Chronic) Essential (primary) hypertension (Chronic) Hyperlipidemia (Chronic) Paroxysmal atrial fibrillation (Chronic) Family history of sudden cardiac (Chronic) Medical History: Medical History (Last Reviewed 07/24/19 @ 14:09 by Elroy Alegre DO) Left carotid bruit (Chronic) R09.89 Essential (primary) hypertension (Chronic) I10 Hyperlipidemia (Chronic) E78.5 Family history of sudden cardiac (Chronic) Z82.41 DDD (degenerative disc disease), lumbar 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 Abnormal electrocardiogram (Inactive) R94.31 On statin therapy (Inactive) Z79.899 Allergies atenolol [From Tenormin] Adverse Reaction (Severe, Verified 07/24/19 11:03) Unknown Home Medications: Ambulatory Orders Medication Instructions Recorded aspirin 81 mg tablet,delayed 81 mg PO QDAY tab 08/26/17 release atorvastatin 40 mg tablet 40 mg PO QDAY 08/26/17 citalopram 20 mg tablet 20 mg PO QDAY 08/26/17 levothyroxine 88 mcg capsule 88 mcg PO QDAY cap 08/26/17 losartan 100 mg tablet 100 mg PO QDAY 08/26/17 metoprolol tartrate 25 mg tablet 25 mg PO BID 08/26/17 folic acid 1 mg tablet 1 mg PO QDAY 09/01/17 antiarthritic combination no.2 900 1 tablet PO DAILY tab 09/10/18 mg tablet biotin 1 mg capsule 1 mg PO DAILY 09/10/18 triamcinolone acetonide 0.1 % 1 applic TOPICAL DAILY 09/10/18 topical cream Ergocalciferol [Vitamin D] 50,000 unit PO Q7D 07/24/19 Insulin Lispro [Humalog Kwikpen 50 unit SQ BID 07/24/19 U-100] Surgical History: Surgical History (Last Reviewed 07/24/19 @ 14:09 by Elroy Alegre DO) Hx of repair of rotator cuff Z98.890 Lives: Spouse/ Significant Other Smoking Status: Never smoker - *Family History Paternal Family History: Family History (Last Reviewed 07/24/19 @ 14:09 by Elroy Alegre DO) Father H/O carotid endarterectomy, Onset Age: 70 Mother Diabetes Brother CAD (coronary artery disease) Myocardial infarction Sudden cardiac Daughter Hypertension Hyperlipidemia Other Family history of hyperlipidemia Family history of hypertension Family history of sudden cardiac Review of Systems Constitutional: Denies: Anorexia, Chills, Fever Eyes: Denies: Blurred vision, Double vision HEENT: Denies: Head Aches, Sinus Congestion, Sinus Drainage Cardiovascular: Reports: Chest Pain - along with abdominal pain. Denies: Palpitations Respiratory: Denies: Cough, Shortness of breath at rest, Sputum production Gastrointestinal: Reports: Abdominal Pain - along with chest pain Genitourinary: Reports: Frequency, - - incomplete voiding. Musculoskeletal: Denies: Joint Pain, Joint Tenderness Skin: Reports: - - bruising around left eye. numerous skin tags. Neurological: Denies: Numbness, Tingling, Focal weakness Psychiatric: Denies: Anxiety, Depression Endocrine: Denies: Change in Body Habitus, Heat/ Cold Intolerance Hematologic/ Lymphatic: Denies: Easy Bruising, Easy Bleeding, Hx of blood clot - All review systems otherwise negative except for as mentioned above and in HPI. VTE Information - Inpt Only VTE Present on Admission: No VTE Mechan Device Prophylaxis: None VTE Pharm Prophylaxis ordered?: Yes Patient Problems: Active and Suspected Problems (Last Reviewed 09/10/18 @ 14:19 by Trent Marie MD) Sciatica (Acute) Right hip pain (Acute) - Physical Exam Vitals/I&O's: Vital Signs Temp Pulse Resp BP Pulse Ox 36.7 C 78 16 170/90 H 97 07/24/19 10:59 07/24/19 14:00 07/24/19 10:59 07/24/19 14:00 07/24/19 10:59 Oxygen Delivery Method Room Air Weight: 104.3 kg Body Mass Index (BMI) 40.7 General: Alert, Cooperative, No apparent distress HEENT: PERRLA, EOMI, Normocephalic Oral: Moist Mucosa, No Gingival or Mucosal Lesions/ Ulcerations Neck: No Nodes, Trachea Midline Lungs: Clear to auscultation, Normal air movement, No rhonchi, No wheeze Cardiovascular: Regular rate, Regular Rhythm, Normal S1, Normal S2, No murmurs Abdomen: Bowel Sounds Present, Soft, Non Tender, Non-Distended, No Hepato- splenomegaly Extremities: No edema, No Calf Tenderness Skin: No rashes, No breakdown, - - skin tags around eyes and on eyelids. the skin tags on her left eye lids were not eccymotic. bruising around left eye including eye lid. Musculoskeletal: No Muscle Wasting, - - Full range of motion of her right hip. Reproducible right buttock pain. Neurological: Cranial nerves II-XII grossly intact Psych/Mental Status: Normal Affect, Appropriate Laboratory Results 07/24/19 10:46: WBC 12.2 H, RBC 5.05, Hgb 16.8 H, Hct 49.5 H, MCV 98.0, MCH 33.3 H, MCHC 33.9, RDW Std Deviation 45.5 H, RDW Coeff of Dalia 12.8, Plt Count 226, MPV 9.8, Immature Gran % (Auto) 0.700, Neut % (Auto) 63.5, Lymph % (Auto) 25.0, Richardson % (Auto) 8.5, Eos % (Auto) 2.0, Baso % (Auto) 0.3, Absolute Neuts (auto) 7.8 H, Absolute Lymphs (auto) 3.06, Nucleated RBC % 0 07/24/19 10:46: Sodium 135 L, Potassium 4.4, Chloride 103, Carbon Dioxide 26.0, Anion Gap 6, BUN 20 H, Creatinine 1.09 H, Estim Creat Clear Calc 34.62, Est GFR (MDRD) Af Amer 62, Est GFR (MDRD) Non-Af 51 L, BUN/Creatinine Ratio 18.3, Glucose 220 H, Calcium 9.6 Clinical Impression(s) from Imaging Studies Brain CT 07/24/19 11:13 IMPRESSION: No acute intracranial hemorrhage or mass effect. Left frontal and periorbital soft tissue swelling/injury. No underlying fracture. Electronically Signed: Franklyn Parra MD (Brooks) at 12:14 EST , Service support , Left hip x-ray personally reviewed, final report still pending, and showed no acute fracture. Assessment/Plan All Active Problems (Last Reviewed 09/10/18 @ 14:19 by Trent Marie MD) Sciatica (Acute) Right hip pain (Acute) Chest tightness (Resolved) Dizziness and giddiness (Resolved) Fatigue (Resolved) Segmental and somatic dysfunction of lumbar region (Resolved) Segmental and somatic dysfunction of pelvic region (Resolved) Segmental and somatic dysfunction of thoracic region (Resolved) 1. Debility * Plan is for physical therapy evaluation and as patient is unable to care for herself and does not have adequate resources at home to be cared for, ultimate plan for her to go to a senior living facility. * Case management to assist with discharge planning. * Will check a UA and urine culture to see if she has a underlying UTI. 2. Right hip pain * Patient states that occurred when she twisted after she fell and hit her left thigh * Pain is reproducible consistent with muscle strain. * She is able to demonstrate of active range of motion though she does have some pain. * My suspicion for an occult fracture is extremely low so I do not feel any additional imaging is necessary at this time, such as an MRI. * Pain control but caution as patient has been symptomatic with what is been performed before. Patient will have acetaminophen and ibuprofen. Oxycodone if the pain is severe enough. 3. Diabetes mellitus type 2 * Patient is only on prandial insulin twice daily * Sliding scale insulin and consider adding basal insulin depending on how her blood sugars play out. 4. VTE prophylaxis: Moderate risk. Patient will be on enoxaparin. 5. Disposition: Patient does not meet medical necessity for admission so patient will be made observation status. Despite being observation status anticipate her hospitalization being greater than 24hours as patient will need to get insurance authorization and then await on their approval prior to her being able to be discharged 6. Advanced care planning: Asked patient about cardiac arrest and if she would want to have CPR. Patient wishes to be full CODE STATUS. Code Visit OBSV E&M: 29243 Initial observation care L3
[2019-07-24 14:41] VITALS: BMI 38.9
[2019-07-24 14:55] VITALS: BMI 39.0
[2019-07-24 15:18] VITALS: BP 143/54; PULSE 72; RESP 18; TEMP 36.6; O2SAT 96
[2019-07-24 15:36] LABS: Bedside Glucose 239 mg/dL (70-110)
[2019-07-24] MEDS: Insulin Lispro 100 UNIT/ML INSULN.PEN SC (15:45)
[2019-07-24] MEDS: Lidocaine 5% Patch 1 PATCH TOPICAL (15:55)
[2019-07-24 16:47] LABS: Hemoglobin A1c 7.9 % (4.2-6.3)
[2019-07-24 17:09] LABS: Color, Urine Yellow (Yellow); Glucose, Dipstick 50 mg/dl (Normal); Ketone-Dipstick 5 mg/dl (Negative); Leukocyte Esterase-Dipstick 25 /ul (Negative); Nitrite-Dipstick Negative (Negative); Occult Blood-Urine 10 /ul (Negative); Protein-Dipstick 30 mg/dl (Negative); Specific Gravity, Urine 1.025 (1.002-1.030); Urine Bilirubin Dipstick Negative (Negative); Urine Clarity Clear (Clear); Urine Urobilinogen 1 mg/dl (Normal)
[2019-07-24 17:15] LABS: Bacteria 2+ /hpf (None Seen); Red Blood Cells-Urine 0-5 SEEN /hpf (0-5); Squamous Epithelial Cells - UA 10-25 SEEN /hpf (5-10); White Blood Cells 0-5 SEEN /hpf (0-5)
[2019-07-24 17:16] LABS: Hyaline Cast 0-5 SEEN /lpf (0-5); Mucous, Urine 2+ /hpf (<or=2+)
[2019-07-24] MEDS: Glucerna Shake 120 ML LIQUID PO (17:24)
[2019-07-24 21:00] VITALS: BP 146/45; PULSE 73; RESP 16; RESP 18; TEMP 36.8; O2SAT 93
[2019-07-24] MEDS: Atorvastatin Calcium 40 MG Tablet PO (21:17)
[2019-07-24] MEDS: Insulin Lispro 100 UNIT/ML INSULN.PEN 50 UNIT SC (21:18)
[2019-07-24 21:19] VITALS: PULSE 73
[2019-07-24] MEDS: Nystatin Powder 15gm Bottle 1 APPLIC TOPICAL (21:19)
[2019-07-24] MEDS: oxyCODONE 5 MG Tablet PO (21:26)
[2019-07-25] VITALS (14 sets, daily range): BP systolic 97–150; BP diastolic 52–66; PULSE 65–73; RESP 16–18; TEMP 36.5–36.7; O2SAT 94–96
[2019-07-25 00:41] LABS: Bedside Glucose 261 mg/dL (70-110)
--- NOTE | 2019-07-25 06:16 | EKG12_ITS ---
Test Reason : SYNCOPE Blood Pressure : / mmHG Vent. Rate : 067 BPM Atrial Rate : 067 BPM P-R Int : 118 ms QRS Dur : 090 ms QT Int : 434 ms P-R-T Axes : 011 -25 034 degrees QTc Int : 458 ms Normal sinus rhythm Normal ECG No previous ECGs available Confirmed by DARRICK MATHEW, ALBER ([id number]), brands editor LY BOTELLO ([id number]) on 07/27/2019 2:12:04 PM Referred By: Ladarius PEREZ Confirmed By:ALBER HOLLINGSWORTH MD
[2019-07-25] MEDS: Levothyroxine 88 MCG Tablet PO (06:28)
--- NOTE | 2019-07-25 06:31 | NURSING ---
Pt up to bsc w/vp delivery; felt weak and everything went black; pt slumped over unresponsive with a blank stare; pt hoisted into bed by nursing staff; [employer] called; pt became responsive; VSS; Blood sugar 114; EKG performed by SERVICE DELIVERY ANALYST; pt put on telemetry.
--- NOTE | 2019-07-25 06:44 | ECHOCS_ITS ---
Version 2 Reason For Study: AFIB/FLUTTER Procedure This was a 2D Doppler, Color Flow transthoracic echocardiogram. Exam performed portable in patient room. Left Ventricle Normal LV size. Moderate concentric left ventricular hypertrophy. Left ventricular systolic function is hyperdynamic. The estimated ejection fraction is 70 %. Stage 1 diastolic dysfunction. No regional wall motion abnormalities noted. Right Ventricle Normal RV size. Normal systolic function. Atria Normal left atrium. Normal right atrium. Mitral Valve Normal mitral valve. Tricuspid Valve Normal tricuspid valve. Mild (1+) tricuspid valve insufficiency. Pulmonary artery systolic pressure is 28 mmHg. Aortic Valve Mild focal aortic valve calcification. Pulmonic Valve The pulmonic valve is not well visualized. Great Vessels Normal aortic root. The pulmonary artery is normal size. Normal inferior vena cava. Pericardium/Pleural No pericardial effusion. Medication Diluted definity 4.0ml given slow IV push to enhance endocardial definition. MMode/2D Measurements & Calculations LVIDd: 3.9 cm IVSd: 1.3 cm Ao root diam: 2.8 cm LVIDs: 2.1 cm LVPWd: 1.2 cm RVDd: 3.0 cm FS: 45.6 % LAV(MOD-bp): 32.9 ml LVAd ap4: 17.4 cm2 SV(MOD-sp4): 25.6 ml LAV(MOD-bp) Indexed: 16.4 ml/m2 EDV(MOD-sp4): 38.2 ml LAV(MOD-sp2): 30.1 ml EDV(sp4-el): 38.6 ml LAV(MOD-sp4): 33.6 ml LVAs ap4: 9.3 cm2 ESV(MOD-sp4): 12.6 ml ESV(sp4-el): 11.8 ml EF(MOD-sp4): 67.1 % EF(sp4-el): 69.5 % SV(sp4-el): 26.8 ml LA A4 area: 14.1 cm2 LA dimension(2D): 3.8 cm RA A4 area: 10.5 cm2 Time Measurements MV dec time: 0.44 sec Doppler Measurements & Calculations MV E max pk: 54.4 cm/sec Lat Peak E' Pk: 7.4 cm/sec Med Peak E' Pk: 5.7 cm/sec MV A max pk: 76.7 cm/sec E/E' lat: 7.3 E/E' med: 9.5 MV E/A: 0.71 Ao V2 max: 162.9 cm/sec LV V1 max: 100.5 cm/sec TR max pk: 243.5 cm/sec Ao max P.6 mmHg LV V1 max P.0 mmHg TR max P.8 mmHg Interpretation Summary Normal LV size. Moderate concentric left ventricular hypertrophy. Left ventricular systolic function is hyperdynamic. The estimated ejection fraction is 70 %. Mild (1+) tricuspid valve insufficiency. Stage 1 diastolic dysfunction. Contrast injection was performed. Ordering Physician: Josefina Stanley Referring Physician: ISRAEL CHRISTY CHI Performed By: Luna Santillan, FILIPPO, RVT
--- NOTE | 2019-07-25 06:44 | PCM.RRT.BLA ---
Rapid Response Note - Blank Rapid response note: Rapid response was called because patient while sitting on her bedside commode after urination slumped over and passed out. She was unresponsive briefly. At the time of examination patient was alert and oriented x3. Vital signs was stable. Placed the patient on telemetry. EKG showed sinus rhythm. Discussed with incoming rounding attending.
[2019-07-25 07:00] LABS: Bedside Glucose 114 mg/dL (70-110)
--- NOTE | 2019-07-25 07:00 | CDU_ITS ---
Reason For Study: Syncope Rt. Velocities/BP Lt. Velocities/BP Prox CCA 106/7 cm/sec. Prox CCA 116/8 cm/sec. Mid CCA 117/13 cm/sec. Mid CCA 122/10 cm/sec. Dist CCA 100/9 cm/sec. Dist CCA 109/7 cm/sec. Prox ICA 147/16 cm/sec. Prox ICA 91/15 cm/sec. Mid ICA 124/19 cm/sec. Mid ICA 96/14 cm/sec. Dist ICA 101/19 cm/sec. Dist ICA 124/19 cm/sec. Rt. ICA/CCA = 1.26. Lt. ICA/CCA = 1.0. Prox ECA 114 cm/sec. Prox ECA 125 cm/sec. Rt. Vert. 77/13 cm/sec. Lt. Vert. 83 cm/sec. Right Extracranial There is heterogeneous, irregular atherosclerotic plaque noted in the right common carotid artery. There is heterogeneous, irregular atherosclerotic plaque noted in the right internal carotid artery. There is intimal thickening but no significant atherosclerotic plaque noted in the right external carotid artery. Antegrade flow is noted in the right vertebral artery. Left Extracranial There is intimal thickening but no significant atherosclerotic plaque noted in the left common carotid artery. There is heterogeneous, irregular atherosclerotic plaque noted in the left internal carotid artery. There is no significant atherosclerotic plaque noted in the left external carotid artery. Antegrade flow is noted in the left vertebral artery. High resistant waveform noted Lt Vert A. Procedure Carotid Duplex 84521. Exam performed portable in patient room. Interpretation Summary Irregular calcific plaque of the proximal right internal carotid 50-69% stenosis right internal carotid <50% stenosis right external carotid Irregular calcific plaque at the proximal and mid left internal carotid <50% stenosis left internal carotid <50% stenosis left external carotid Patent, antegrade, <50% stenosis bilateral vertebrals Slight progression of disease on the right from 10/02/17 Ordering Physician: Josefina Stanley Referring Physician: Bud Duncan Chi Performed By: Francesca Mcmahan, FILIPPO, RVT
--- NOTE | 2019-07-25 07:00 | PCM.PN.HOSP ---
Patient Problems: Active and Suspected Problems (Last Reviewed 07/24/19 @ 14:09 by Elroy Alegre DO) Sciatica (Acute) Right hip pain (Acute) Subjective: Patient w/ syncopal event while on the toilet urinating, short duration, noted history of frequent falls, recently discontinued coumadin therapy given history. Rapid response, changed to telemetry status, discussed case and added ECHO, noted carotid bruit history, added carotid US, UA w/ elevated SG, orthostatics added with MIVF, fall precautions, cardiac enzymes. Patient denies any lightheadedness, dizziness prior to onset. She notes ongoing fatigue and malaise. Currently her right hip discomfort is mildly lessened. Patient denies fevers, chills, nausea, emesis, abdominal pain, chest pain or dyspnea. Objective: Physical Examination: General: awake, alert, oriented x 3 and cooperative, seated upright in the MS bed in no apparent distress. Skin: normal color, turgor, no icterus, cyanosis except noted very staged ecchymoses, notable recent left eye ecchymoses status post fall. HEENT: AT/NC step notable left eye ecchymoses, able to move open without issue, no market lid edema, EOMI, PERRLA, MMM. Lungs: CTA bilaterally, moderate effort, moderate decrease BL bases, no rales, ronchi or wheezing. Heart: Regular rate and rhythm; no gallop, rub audible. Abdomen: soft, obese, NTTP, ND, normal BS. Extremities: no cyanosis, clubbing, bilateral extremity ankle edema, still ongoing right hip discomfort with movement. Neurological: patient awake, alert, oriented x 3; cognitive function intact; pupils equally reactive to light and accomodation; cranial nerves II-XII grossly normal, moving all 4 extremities with some limitation given ongoing right hip discomfort, strain, strength moderately to severely global decrease secondary to acute presentation and underlying comorbidities. Psychiatric: affect appears fatigued, no acute evidence of depressive or anxiety feelings. Vitals/I&O's: Vital Signs Temp Pulse Resp BP Pulse Ox 97.9 F 68 16 142/52 H 96 07/25/19 06:09 07/25/19 06:09 07/25/19 06:09 07/25/19 06:09 07/25/19 06:09 Oxygen Flow Rate (L/min) 2 Oxygen Delivery Method Room Air Weight: 219 lb 14.4 oz Body Mass Index (BMI) 38.9 Intake and Output for Last 24 Hours 07/23/19 07/24/19 07/25/19 23:59 23:59 23:59 Intake Total 440 / 740 500 / 500 Output Total 225 / 225 Balance 440 / 740 275 / 275 Laboratory Results 07/24/19 10:46: WBC 12.2 H, RBC 5.05, Hgb 16.8 H, Hct 49.5 H, MCV 98.0, MCH 33.3 H, MCHC 33.9, RDW Std Deviation 45.5 H, RDW Coeff of Dalia 12.8, Plt Count 226, MPV 9.8, Immature Gran % (Auto) 0.700, Neut % (Auto) 63.5, Lymph % (Auto) 25.0, Isabella % (Auto) 8.5, Eos % (Auto) 2.0, Baso % (Auto) 0.3, Absolute Neuts (auto) 7.8 H, Absolute Lymphs (auto) 3.06, Nucleated RBC % 0 07/24/19 10:46: Sodium 135 L, Potassium 4.4, Chloride 103, Carbon Dioxide 26.0, Anion Gap 6, BUN 20 H, Creatinine 1.09 H, Estim Creat Clear Calc 34.62, Est GFR (MDRD) Af Amer 62, Est GFR (MDRD) Non-Af 51 L, BUN/Creatinine Ratio 18.3, Glucose 220 H, Calcium 9.6 07/24/19 10:46: Hemoglobin A1c 7.9 H 07/24/19 15:30: POC Glucose 239 H 07/24/19 16:45: Urine Color Yellow, Urine Clarity Clear, Urine pH 6.0, Ur Specific [place] 1.025, Urine Protein 30 H, Urine Glucose (UA) 50 H, Urine Ketones 5 H, Urine Occult Blood 10 H, Urine Nitrite Negative, Urine Bilirubin Negative, Urine Urobilinogen 1 H, Ur Leukocyte Esterase 25 H, Urine RBC 0-5 SEEN, Urine WBC 0-5 SEEN, Ur Squamous Epith Cells 10-25 SEEN, Urine Bacteria 2+, Hyaline Casts 0-5 SEEN, Urine Mucus 2+ 07/24/19 21:15: POC Glucose 261 H Current Medications Acetaminophen (Tylenol) 650 mg PO Q6H PRN PRN PRN Reason: pain 1-10/10 [facility] Atorvastatin Calcium (Lipitor) 40 mg PO QHS [facility] Last Admin: 07/24/19 21:17 Dose: 40 mg Documented by: Citalopram Hydrobromide (Celexa) 20 mg PO DAILY [facility] Enoxaparin Sodium (Lovenox) 40 mg SC DAILY [facility] Ergocalciferol (Vitamin D) 50,000 unit PO We@1000 [facility] Folic Acid (Folic Acid) [facility] Glucagon () 1 mg IM .X1 PRN PRN Reason: Hypoglycemia Sodium Chloride () 1,000 mls @ 100 mls/hr IV .Q10H [facility] Ibuprofen (Motrin) 400 mg PO Q4H PRN PRN PRN Reason: Pain Score 1-3/Temp > 100.7 F Insulin Human Lispro (Humalog Kwikpen (Bkc)) 50 unit SC BID [facility] Last Admin: 07/24/19 21:18 Dose: 50 u Documented by: Insulin Human Lispro (Humalog Kwikpen (Bkc)) 0 unit SC TIDAC [facility]; Protocol Last Admin: 07/25/19 06:29 Dose: Not Given Documented by: Levothyroxine Sodium (Synthroid) 88 mcg PO DAILY@0600 [facility] Last Admin: 07/25/19 06:28 Dose: 88 mcg Documented by: Lidocaine (Lidoderm Patch) 1 patch TOPICAL DAILY [facility]; Protocol Last Admin: 07/24/19 15:55 Dose: 1 patch Documented by: Losartan Potassium (Cozaar) 100 mg PO DAILY [facility] Metoprolol Tartrate (Lopressor (Beta Allan)) 25 mg PO BID [facility] Last Admin: 07/24/19 21:19 Dose: 25 mg Documented by: Nutritional Formula (Lactose Free) (Glucerna Shake) 120 ml PO TIDCM [facility] Last Admin: 07/24/19 17:24 Dose: 120 ml Documented by: Nystatin (Mycostatin Powder) 1 applic TOPICAL BID [facility]; Protocol Last Admin: 07/24/19 21:19 Dose: 1 applicatio Documented by: Ondansetron HCl (Zofran) 4 mg IV Q8H PRN PRN PRN Reason: NAUSEA/VOMITING Oxycodone HCl (Oxyir) 5 mg PO Q6H PRN PRN PRN Reason: Pain Score 6-10/10 Last Admin: 07/24/19 21:26 Dose: 5 mg Documented by: Sodium Chloride () 10 - 40 ml IV UD PRN PRN Reason: SALINE FLUSH Triamcinolone Acetonide (Triamcinolone Acetonide) 1 applic TOPICAL DAILY [facility] Vital Signs/Narrative: Vital Signs Temp Pulse Resp BP BP Pulse Ox 07/25/19 06:09 97.9 F 68 16 142/52 H 96 07/25/19 06:00 97.9 F 66 16 142/65 H 96 Medical Necessity - Tobacco Use Smoking Status: Never smoker Assessment/Plan All Active Problems (Last Reviewed 07/24/19 @ 14:09 by Elroy Alegre DO) Sciatica (Acute) Right hip pain (Acute) Chest tightness (Resolved) Dizziness and giddiness (Resolved) Fatigue (Resolved) Segmental and somatic dysfunction of lumbar region (Resolved) Segmental and somatic dysfunction of pelvic region (Resolved) Segmental and somatic dysfunction of thoracic region (Resolved) The patient is a 78 y/o F w/ PMHx: Anxiety and Depression, Diabetes mellitus type II, HTN, HLD, PAF previously on coumadin recently discontinued secondary to frequent falls who presents to the [facility] ED on 07/24/19 with history of frequent falls and ongoing chronic right hip pain despite injections as well as recent prednisone, diclofenac, gabapentin and baclofen x 1 day noting that her recent regimen has made her feel lightheaded and dizzy, prompting her to unfortunately have repeat fall, landing on her face, twisting her RLE in the process with acute on chronic R hip pain. 1. Frequent Mechanical Falls w/ Acute on Chronic Right Hip Pain s/p Fall: CT brain with no acute intracranial hemorrhage or mass-effect with left frontal and periorbital soft tissue swelling with no underlying fracture, plain film of the lumbar spine and pelvis as well as right hip with no acute findings with degenerative changes, UA poor sample with urine culture pending, evidence dehydration on PA and noted elevation of specific gravity, mid to medical surgical floor, maintain on fall precautions, given recent complaints with new regimen likely contributing to frequent falls and dizziness transition to lidocaine patches, PRN motrin, may need to add regimen given history, may need CT hip if ongoing pain. If evaluation is noted #1 and #2 not market appearing would plan transition of patient to acute rehab per discussion with her physician possibly this evening versus more likely in a.m. early sure evaluation per rehab physician prior to noon. 2. Syncopal Event: Unclear etiololgy, while on toilet urinating, EKG requested, requested AM CBC, BMP, mag, cardiac enzymes, ECHO, carotid US, maintained on transition to telemetry MS status, maintain on fall precautions, obtain orthostatic VS with noted elevated SG on UA, PT/OT consultation to ascertain stability and discharge needs. UA obtained, poor sample w/ SEC 10-25, no WBC noted but noted urine bacteria, UCx pending. 3. Acute kidney injury: Secondary to likely poor intake, medications. Admission BUN/Cr 20/1.09 but increased 07/25/19 BUN/Cr 47/1,48, prior baseline creatinine noted to be 0.9. Will hydrate, hold nephrotoxic medications and repeat chemistry in AM. If no improvement would plan FeNa and renal US assessment. 4. Diabetes mellitus type II: HgbA1c 7.9%, hold oral home regimen, continue home insulin regimen however if noted hypoglycemia will decrease regimen, ADA diet, accu checks w/ ISS. 5. Anxiety and Depression: Maintain on home citalopram. 6. Hypothyroidism: Continue home synthroid regimen, TSH elevated w/ normal FT4, subclinical, discussed w/ rehab physician and may opt to repeat in 4-6 weeks and if still symptomatic with subclinical presentation may treat. 7. Hypertension: Continue home regimen including metoprolol with hold parameters, apparently holding losartan given MELVIN as noted #3, PRN hydralazine. 8. Hyperlipidemia: Continue home statin regimen. 9. PAF: Continued on metoprolol, Coumadin discontinued secondary to history of frequent falls. 10. DVT prophylaxis: SCD, Lovenox cautiously. Code Visit Inpatient E&M: 84739 Subs Hosp L3
[2019-07-25 07:27] LABS: Absolute Lymphocyte Count 2.77 X10^3/uL (0.83-4.51); Absolute Neutrophil Count 8.9 X10^3/uL (2.0-7.7); Basophil# 0.04 X10^3/uL; Basophil% 0.3 % (0-1); Hematocrit 46.4 % (37-47); Hemoglobin 15.9 g/dL (12.0-15.0); Lymphocyte # 2.77 X10^3/ul (4.0); Lymphocyte % 20.5 % (19-41); Mean Corp Hgb Conc 34.3 g/dL (32-36); Mean Corpuscular Hgb 33.9 pg (27.0-32.0); Mean Corpuscular Volume 98.9 fL (81-99); Mean Platelet Vol. 9.4 fl (6.2-12.0); Monocyte# 1.26 X10^3/uL; Monocyte% 9.3 % (0-10); NRBC Flagged by Analyzer 0 % (0-5); Neutrophil # 8.93 X10^3/uL (2.7-7.7); Neutrophil % 66.3 % (47-70); Platelet Count 218 K/mm3 (150-450); RBC Distribution Width CV 13.1 % (11.6-14.6); RBC Distribution Width SD 47.6 fl (35.1-43.9); Red Blood Count 4.69 M/mm3 (4.2-5.4); White Blood Count 13.5 K/mm3 (4.4-11.0)
[2019-07-25 07:52] LABS: Magnesium 2.3 mg/dL (1.6-2.6)
[2019-07-25 07:52] LABS: Anion Gap 6 (5-15); BUN 47 mg/dL (7-18); BUN/Creat Ratio 31.8 RATIO (10-20); Calcium,Total 9.2 mg/dL (8.5-10.1); Chloride 103 mmol/L (98-107); Creatinine, Serum 1.48 mg/dL (0.55-1.02); EST Glomerular Filtration Rate 36 mL/min (>60); Est Glom Filt Rate - Afr Amer 44 mL/min (>60); Glucose 143 mg/dL (74-106); Potassium 4.2 mmol/L (3.5-5.1); Sodium Level 135 mmol/L (136-145); T4 Free Direct 0.87 ng/dL (0.76-1.46)
[2019-07-25] MEDS: Folic Acid 1 MG Tablet PO (09:02)
[2019-07-25] MEDS: Aspirin E.C. 81 MG Tablet PO (09:02)
[2019-07-25] MEDS: Glucerna Shake 120 ML LIQUID PO (09:04)
[2019-07-25] MEDS: 0.9% Normal Saline 1,000 ML 100 ML IV ×3 (09:09→23:17)
[2019-07-25] MEDS: 0.9% Saline Lock 10 ML Syringe IV ×2 (09:09→21:30)
[2019-07-25] MEDS: Acetaminophen 325 MG Tablet 650 MG PO ×3 (09:14→23:14)
[2019-07-25] MEDS: Losartan Potassium 100 MG Tablet PO (10:37)
[2019-07-25] MEDS: Metoprolol Tartrate 25 MG Tablet PO ×2 (10:37→22:57)
[2019-07-25] MEDS: Citalopram 20 MG Tablet PO (10:37)
[2019-07-25] MEDS: Enoxaparin 40 MG/0.4 ML Syringe SC (10:38)
[2019-07-25] MEDS: Nystatin Powder 15gm Bottle 1 APPLIC TOPICAL ×2 (10:38→22:57)
[2019-07-25] MEDS: Triamcinolone 0.5% Cream 1 APPLIC TOPICAL (10:38)
--- NOTE | 2019-07-25 10:39 | CASEMGMT ---
Social Work Assessment Referral Date: 07/25/2019 Date of Assessment: 07/25/2019 Reason for consult: SNF placement vs RU Informant: SW Personal Status: SW met with pt to complete initial assessment. SW introduced self and role at [facility]. Pt is alert and orientated x3. Pt states that she lives with her in a one story home with two steps to enter. DME including cane, crutches, and walker. Pt states that she was somewhat independent with ADLS but states that her is able to assist her when needed. PCP is Dr. Duncan and Pharmacy is [facility] in [place]. Mental Health: Pt states that she has history of depression and currently takes medication for OCD prescribed through Dr. Duncan. Substance Abuse: Pt denied Pt states that she doesn't really want to go to SNF. JUAN DANIEL informed pt that PT/OT will work with pt today and make recommendations but per handoff SNF is recommended for pt. JUAN DANIEL educated pt on Medicare rules and guidelines and three midnight stay at [facility]. SW also educated pt on RU at discharge as pt may benefit from RU. SW informed pt that PT/OT will work with pt and make recommendations. SW provided pt with list of SNF that accept pt's insurance. JUAN DANIEL spoke with PT/OT regarding RU vs SNF. JUAN DANIEL placed a call to Maribel with RU who states as long as PT/OT notes look ok she would be able to accept pt on RU. SW waiting for PT/OT to work with pt. Plan: RU vs SNF Margo Kunz INSTRUCTOR FLYING, LATHE SANDER
[2019-07-25] MEDS: Lidocaine 5% Patch 1 PATCH TOPICAL (10:41)
--- NOTE | 2019-07-25 11:44 | CASEMGMT ---
Social Work Note SW received call from Maribel with RU stating physician on RU is asking if pt is able to discharge to RU today or before 12:00pm tomorrow. SW updated hospitalist who will speak with physician on RU. Margo Kunz STRETCHER LEVELER OPERATOR HELPER, BAR TACKER SEWING MACHINE
[2019-07-25 12:26] LABS: Bedside Glucose 312 mg/dL (70-110)
[2019-07-25] MEDS: Insulin Lispro 100 UNIT/ML INSULN.PEN SC ×3 (13:46→22:58)
--- NOTE | 2019-07-25 16:09 | CHAPLAIN ---
Type of Pastoral Visit _x__ Initial Visit ___ Follow-up Visit ___ On-call Visit ___ General Patient Visit ___ Spiritual Assessment ___ Family Conference ___ Bereavement ___ Rapid Response ___ Code Blue ___ Other (describe below) Pastoral Care Referral From _x__ Patient ___ Family ___ Nurse ___ Physician ___ Mail Teller ___ Clinical Faculty ___ Other (describe below) Sacrament/Intervention _x__ Active listening ___ Anointing ___ Anabaptist ___ Bereavement ___ Communion ___ Jailyn exploration ___ _x__ Life review _x__ Prayer ___ Reconciliation ___ Sacrament of Sick _x__ Supportive presence ___ Wedding ___ Other (describe below) Pastoral Comments
[2019-07-25 17:06] LABS: Bedside Glucose 223 mg/dL (70-110)
[2019-07-25] MEDS: Atorvastatin Calcium 40 MG Tablet PO (22:57)
[2019-07-26 00:11] LABS: Bedside Glucose 203 mg/dL (70-110)
[2019-07-26 02:00] VITALS: PULSE 59
[2019-07-26 03:18] VITALS: BP 126/53; PULSE 63; RESP 18; TEMP 36.2; O2SAT 94
[2019-07-26 06:00] VITALS: PULSE 61
--- NOTE | 2019-07-26 06:14 | PN_ITS ---
Patient Problems: Active and Suspected Problems (Last Reviewed 07/24/19 @ 14:09 by Elroy Alegre DO) Sciatica (Acute) Right hip pain (Acute) Subjective: Patient with no acute events overnight per self and per nursing staff. Patient with positive orthostatics although lessened since day prior this a.m. and now asymptomatic. She notes she is fatigued and weak but has clinically been improving. She still has discomfort in the right hip but this is been also improving. Patient is amenable to transition to acute rehab for ongoing therapies. Discussed her current insulin diabetic regimen with plans likely for transition to oral therapy with insulin sliding scale only as hemoglobin A1c not markedly elevated and concern for hypoglycemia with recent poor oral intake and abnormal regimen which was also discussed with rehab physician. Patient is amenable to changes as needed. Patient denies fevers, chills, nausea, emesis, abdominal pain, chest pain or dyspnea. Objective: Physical Examination: General: awake, alert, oriented x 3 and cooperative, seated upright in the MS bed in no apparent distress, but notes some ongoing discomfort to the right hip but feeling improved since initial presentation. Skin: normal color, turgor, no icterus, cyanosis except noted very staged ecchymoses, notable recent left eye ecchymoses status post fall. HEENT: AT/NC step notable left eye ecchymoses, able to move open without issue, no market lid edema, EOMI, PERRLA, MMM. Lungs: CTA bilaterally, moderate effort, moderate decrease BL bases, no rales, ronchi or wheezing. Heart: Regular rate and rhythm; no gallop, rub audible. Abdomen: soft, obese, NTTP, ND, normal BS. Extremities: no cyanosis, clubbing, bilateral extremity ankle edema, still ongoing right hip discomfort with movement. Neurological: patient awake, alert, oriented x 3; cognitive function intact; pupils equally reactive to light and accomodation; cranial nerves II-XII grossly normal, moving all 4 extremities with some limitation given ongoing right hip discomfort, strain, strength moderately to severely globally decreased secondary to acute presentation and underlying comorbidities. Psychiatric: affect appears improved from day prior, less fatigued, more interactive, no acute evidence of depressive or anxiety feelings. Vitals/I&O's: Vital Signs Temp Pulse Resp BP Pulse Ox 97.2 F L 63 18 126/53 H 94 07/26/19 03:18 07/26/19 03:18 07/26/19 03:18 07/26/19 03:18 07/26/19 03:18 Oxygen Flow Rate (L/min) 2 Oxygen Delivery Method Room Air Weight: 219 lb 14.4 oz Body Mass Index (BMI) 38.9 Orthostatic Vital Signs Start: 07/25/19 16:22 Freq: q24h Status: Active Protocol: Activity Type Activity Date Activity User E-Sign Co-Sign Detail Recorded Client Recorded Date Recorded By Document 07/25/19 16:22 AEC [id number] 07/25/19 16:23 AEC 07/25/19 16:22 Orthostatic Vitals Sitting -Blood Pressure (90/60-120/80 mm Hg) 114/52 L -Extremity Use Left Arm -Pulse Rate (60-100 beats/min) 73 Lying -Blood Pressure (90/60-120/80 mm Hg) 97/53 L -Extremity Use Left Arm -Pulse Rate (60-100 beats/min) 71 Intake and Output for Last 24 Hours 07/24/19 07/25/19 07/26/19 23:59 23:59 23:59 Intake Total 440 / 740 3463.33 / 3463.33 Output Total 1325 / 1325 Balance 440 / 740 2138.33 / 2138.33 Laboratory Results 07/25/19 05:30: Magnesium 2.3 07/25/19 06:04: POC Glucose 114 H 07/25/19 07:20: WBC 13.5 H, RBC 4.69, Hgb 15.9 H, Hct 46.4, MCV 98.9, MCH 33.9 H , MCHC 34.3, RDW Std Deviation 47.6 H, RDW Coeff of Dalia 13.1, Plt Count 218, MPV 9.4, Immature Gran % (Auto) 0.600, Neut % (Auto) 66.3, Lymph % (Auto) 20.5, [place] % (Auto) 9.3, Eos % (Auto) 3.0, Baso % (Auto) 0.3, Absolute Neuts (auto) 8.9 H, Absolute Lymphs (auto) 2.77, Nucleated RBC % 0 07/25/19 07:20: Sodium 135 L, Potassium 4.2, Chloride 103, Carbon Dioxide 26.0, Anion Gap 6, BUN 47 H, Creatinine 1.48 H, Estim Creat Clear Calc 25.50, Est GFR (MDRD) Af Amer 44 L, Est GFR (MDRD) Non-Af 36 L, BUN/Creatinine Ratio 31.8 H, Glucose 143 H, Calcium 9.2, TSH 17.90 H, Free T4 0.87 07/25/19 07:20: Troponin I < 0.015 07/25/19 10:29: Troponin I < 0.015 07/25/19 11:58: POC Glucose 312 H 07/25/19 13:20: Troponin I < 0.015 07/25/19 16:49: POC Glucose 223 H 07/25/19 23:02: POC Glucose 203 H 07/26/19 05:12: WBC Pending, RBC Pending, Hgb Pending, Hct Pending, MCV Pending, MCH Pending, MCHC Pending, RDW Std Deviation Pending, RDW Coeff of Dalia Pending, Plt Count Pending, Neut % (Auto) Pending, Absolute Neuts (auto) Pending 07/26/19 05:12: Sodium Pending, Potassium Pending, Chloride Pending, Carbon Dioxide Pending, Anion Gap Pending, BUN Pending, Creatinine Pending, Est GFR (MDRD) Af Amer Pending, Est GFR (MDRD) Non-Af Pending, BUN/Creatinine Ratio Pending, Glucose Pending, Calcium Pending Current Medications Acetaminophen (Tylenol) 650 mg PO Q6H PRN PRN PRN Reason: pain 1-04/07 Last Admin: 07/25/19 23:14 Dose: 650 mg Documented by: [facility]cot[facility]) [facility] Last Admin: 07/25/19 09:02 Dose: 81 mg Documented by: Atorvastatin Calcium (Lipitor) 40 mg PO QHS [facility] Last Admin: 07/25/19 22:57 Dose: 40 mg Documented by: Citalopram Hydrobromide (Celexa) 20 mg PO DAILY [facility] Last Admin: 07/25/19 10:37 Dose: 20 mg Documented by: Enoxaparin Sodium (Lovenox) 40 mg SC DAILY [facility] Last Admin: 07/25/19 10:38 Dose: 40 mg Documented by: Ergocalciferol (Vitamin D) 50,000 unit PO We@1000 [facility] Folic Acid (Folic Acid) 1 [facility] Last Admin: 07/25/19 09:02 Dose: 1 mg Documented by: Glucagon () 1 mg IM .X1 PRN PRN Reason: Hypoglycemia Hydralazine HCl (Apresoline Iv) 10 mg IV Q4H PRN PRN PRN Reason: SBP > 160 Sodium Chloride () 1,000 mls @ 100 mls/hr IV .Q10H [facility] Last Admin: 07/25/19 23:17 Dose: 100 mls/hr Documented by: Dextrose (Dextrose 10%-Water) 250 mls @ 999 mls/hr IV .Q16M PRN; Protocol PRN Reason: HYPOGLYCEMIA Ibuprofen (Motrin) 400 mg PO Q4H PRN PRN PRN Reason: Pain Score 1-3/Temp > 100.7 F Insulin Human Lispro (Humalog Kwikpen (Bkc)) 0 unit SC ACHS [facility]; Protocol Last Admin: 07/25/19 22:58 Dose: 2 units Documented by: Insulin Human Lispro (Humalog Kwikpen (Bkc)) [facility] Last Admin: 07/25/19 16:59 Dose: Not Given Documented by: Levothyroxine Sodium (Synthroid) 88 mcg PO DAILY@0600 [facility] Last Admin: 07/25/19 06:28 Dose: 88 mcg Documented by: Lidocaine (Lidoderm Patch) 1 patch TOPICAL DAILY [facility]; Protocol Last Admin: 07/25/19 10:41 Dose: 1 patch Documented by: Metoprolol Tartrate (Lopressor (Beta Allan)) 25 mg PO BID [facility] Last Admin: 07/25/19 22:57 Dose: 25 mg Documented by: Nutritional Formula (Lactose Free) (Glucerna Shake) 120 ml PO TIDCM [facility] Last Admin: 07/25/19 16:59 Dose: Not Given Documented by: Nystatin (Mycostatin Powder) 1 applic TOPICAL BID [facility]; Protocol Last Admin: 07/25/19 22:57 Dose: 1 applicatio Documented by: Ondansetron HCl (Zofran) 4 mg IV Q8H PRN PRN PRN Reason: NAUSEA/VOMITING Oxycodone HCl (Oxyir) 5 mg PO Q6H PRN PRN PRN Reason: Pain Score 6-10/10 Last Admin: 07/24/19 21:26 Dose: 5 mg Documented by: Sodium Chloride () 10 - 40 ml IV UD PRN PRN Reason: SALINE FLUSH Last Admin: 07/25/19 21:30 Dose: 10 ml Documented by: Triamcinolone Acetonide (Triamcinolone Acetonide) 1 applic TOPICAL DAILY [facility] Last Admin: 07/25/19 10:38 Dose: 1 applicatio Documented by: STROKE Vital Signs/Narrative: Vital Signs Temp Pulse Resp BP Pulse Ox 07/26/19 03:18 97.2 F L 63 18 126/53 H 94 Medical Necessity - Tobacco Use Smoking Status: Never smoker Assessment/Plan All Active Problems (Last Reviewed 07/24/19 @ 14:09 by Elroy Alegre DO) Sciatica (Acute) Right hip pain (Acute) Chest tightness (Resolved) Dizziness and giddiness (Resolved) Fatigue (Resolved) Segmental and somatic dysfunction of lumbar region (Resolved) Segmental and somatic dysfunction of pelvic region (Resolved) Segmental and somatic dysfunction of thoracic region (Resolved) The patient is a 78 y/o F w/ PMHx: Anxiety and Depression, Diabetes mellitus type II, HTN, HLD, PAF previously on coumadin recently discontinued secondary to frequent falls who presents to the [facility] ED on 07/24/19 with history of frequent falls and ongoing chronic right hip pain despite injections as well as recent prednisone, diclofenac, gabapentin and baclofen x 1 day noting that her recent regimen has made her feel lightheaded and dizzy, prompting her to unfortunately have repeat fall, landing on her face, twisting her RLE in the process with acute on chronic R hip pain. 1. Frequent Mechanical Falls w/ Acute on Chronic Right Hip Pain s/p Fall: CT brain with no acute intracranial hemorrhage or mass-effect with left frontal and periorbital soft tissue swelling with no underlying fracture, plain film of the lumbar spine and pelvis as well as right hip with no acute findings with degenerative changes, UA poor sample with urine culture pending, evidence dehydration on PA and noted elevation of specific gravity. Patient admitted to medical surgical floor, maintained on fall precautions, given recent complaints with new regimen likely contributing to frequent falls and dizziness transitioned to lidocaine patches, PRN motrin, hip pain felt likely strain but if ongoing may need to consider further imaging. + Orthostatic VS, continued hydration with repeat this AM, ECHO w/ normal LV size, moderate concentric LVH, LV systolic function hyperdynamic with EF 70%, mild TBI, stage I diastolic dys function, Carotid ultrasound with irregular calcific plaques of the proximal right ICA with a 50 to 69% stenosis of the right internal carotid, less than 50% stenosis right external carotid, irregular calcific plaque at the proximal and mid left internal carotid, less than 50% stenosis left internal carotid, less than 50% stenosis left external carotid, patent antegrade, less than 50% stenosis bilateral vertebrals with slight progression of patient's disease on the right from 10/12/2017. PT/OT assessments ongoing, planned transition to Acute Rehabilitation for ongoing therapies today, discussed current presentation and plan of care with rehab physician. 2. Syncopal Event: Unclear etiololgy, while on toilet urinating, EKG requested w/ noted SR without acute findings, mag normal, serial cardiac enzymes unremarkable, + Orthostatic VS, continued hydration with repeat this AM, ECHO w/ normal LV size, moderate concentric LVH, LV systolic function hyperdynamic with EF 70%, mild TBI, stage I diastolic dysfunction, Carotid ultrasound with irregular calcific plaques of the proximal right ICA with a 50 to 69% stenosis of the right internal carotid, less than 50% stenosis right external carotid, irregular calcific plaque at the proximal and mid left internal carotid, less than 50% stenosis left internal carotid, less than 50% stenosis left external carotid, patent antegrade, less than 50% stenosis bilateral vertebrals with slight progression of patient's disease on the right from 10/12/2017. Will need follow-up with vascular surgery to continue to monitor her carotid disease. 3. Acute kidney injury: Secondary to likely poor intake, medications. Admission BUN/Cr 20/1.09 but increased 07/25/19 BUN/Cr 47/1,48, prior baseline creatinine noted to be 0.9. Hydrated, temporarily held nephrotoxic medications w/ repeat 07/26/19 BUN/Cr 35/0.98. 4. Diabetes mellitus type II: HgbA1c 7.9%, hold oral home regimen, continue home insulin regimen however if noted hypoglycemia will decrease regimen, ADA diet, accu checks w/ ISS. Upon transition to rehab will per discussion with rehab physician discontinue short acting insulin, possible long-acting transition however likely transition to oral diabetic regimen given hemoglobin A1c not markedly elevated with sliding scale only. This was also discussed with patient and she is amenable. 5. Anxiety and Depression: Maintain on home citalopram. 6. Hypothyroidism: Continue home synthroid regimen, TSH elevated w/ normal FT4, subclinical, discussed w/ rehab physician and may opt to repeat in 4-6 weeks and if still symptomatic with subclinical presentation may treat. 7. Hypertension: Continue home regimen including metoprolol with hold parameters, apparently holding losartan given MELVIN as noted #3, PRN hydralazine. 8. Hyperlipidemia: Continue home statin regimen. 9. PAF: Continued on metoprolol, Coumadin discontinued secondary to history of frequent falls. 10. DVT prophylaxis: SCD, Lovenox cautiously given fall history.
[2019-07-26 06:20] LABS: Absolute Lymphocyte Count 2.52 X10^3/uL (0.83-4.51); Absolute Neutrophil Count 5.4 X10^3/uL (2.0-7.7); Basophil# 0.05 X10^3/uL; Basophil% 0.5 % (0-1); Eosinophil# 0.49 X10^3/uL; Eosinophils% 5.2 % (0-5); Hemoglobin 14.1 g/dL (12.0-15.0); Lymphocyte # 2.52 X10^3/ul (4.0); Mean Corp Hgb Conc 33.6 g/dL (32-36); Mean Corpuscular Hgb 33.8 pg (27.0-32.0); Mean Corpuscular Volume 100.7 fL (81-99); Mean Platelet Vol. 9.7 fl (6.2-12.0); Monocyte# 0.82 X10^3/uL; Monocyte% 8.8 % (0-10); NRBC Flagged by Analyzer 0 % (0-5); Neutrophil # 5.42 X10^3/uL (2.7-7.7); Neutrophil % 58.1 % (47-70); Platelet Count 157 K/mm3 (150-450); RBC Distribution Width CV 13.1 % (11.6-14.6); RBC Distribution Width SD 48.1 fl (35.1-43.9); Red Blood Count 4.17 M/mm3 (4.2-5.4); White Blood Count 9.3 K/mm3 (4.4-11.0)
[2019-07-26 06:45] LABS: Anion Gap 5 (5-15); BUN 35 mg/dL (7-18); BUN/Creat Ratio 35.5 RATIO (10-20); Calcium,Total 8.4 mg/dL (8.5-10.1); Chloride 111 mmol/L (98-107); Creatinine, Serum 0.98 mg/dL (0.55-1.02); EST Glomerular Filtration Rate 58 mL/min (>60); Est Glom Filt Rate - Afr Amer 70 mL/min (>60); Estimated Creatinine Clearance 38.51 ml/min; Glucose 169 mg/dL (74-106); Potassium 4.4 mmol/L (3.5-5.1); Sodium Level 138 mmol/L (136-145)
[2019-07-26] MEDS: Levothyroxine 88 MCG Tablet PO (06:49)
[2019-07-26] MEDS: Insulin Lispro 100 UNIT/ML INSULN.PEN SC (06:51)
[2019-07-26 07:20] LABS: Bedside Glucose 180 mg/dL (70-110)
[2019-07-26 07:41] VITALS: PULSE 66
--- NOTE | 2019-07-26 07:58 | PCM.DC ---
- Discharge Diagnoses Current Active Problems: Current Active and Chronic Problems (Last Reviewed 07/24/19 @ 14:09 by Elroy Alegre DO) 1. Frequent Mechanical Falls w/ Acute on Chronic Right Hip Pain s/p Fall, Suspected secondary to Strain w/ #2 as noted 2. Syncopal Event, Suspected secondary to Orthostasis, Dehydration w/ concurrent #2, Improved w/ incidentally noted progressing proximal right ICA stenosis 50 to 69% stenosis 3. Acute kidney injury, secondary to likely poor intake, medications 4. Diabetes mellitus type II 5. Anxiety and Depression 6. Hypothyroidism w/ noted TSH elevatation w/ normal FT4, subclinical, recommendation repeat in 4-6 weeks 7. Hypertension 8. Hyperlipidemia 9. PAF 10. Obesity You will use the following diet at home:: Calorie/Carbohydrate Controlled (specify 1200, 1400, etc) - 1800 ADA/Cardiac diet Your food should be the consistency of: Regular Your liquids should be the consistency of: Regular/Thin Discharge Activity: Use Walker, - - Maintain fall precautions Weight Bearing Status: Weight bearing as tolerated Call your doctor if you observe: Fever of 101 or Higher, Inability to urinate, Inability to have a bowel movement, Shortness of breath, Dizziness, Fainting spells, Chest pain, Uncontrolled pain Instructions: Back Exercises: Hip Rotator Stretch, Lower Body Exercises: Hip Flexor, What Is Syncope?, Causes of Syncope, Treating Syncope: Prevention, Carotid Artery Problems: Blockage Additional Instructions: During the admission you had noted syncopal event, your work-up included normal cardiac enzymes, normal EKG, normal echocardiogram with noted advanced findings since 09/2017 of your right carotid artery narrowing. We recommend at this time only follow-up with Dr. Arias, Vascular Surgery. During the admission you temporarily had increased renal function and appeared dehydrated with notable vital sign changes with positional changes. We gave you additional IV fluids and recommend given now asymptomatic, you continue to make slow positional changes. While in rehabilitation we will plan to work on your insulin regimen as during admission it was occasionally held secondary to poor appetite and lower blood sugars. Allergies/Adverse Reactions: Allergies atenolol [From Tenormin] Adverse Reaction (Severe, Verified 07/24/19 11:03) Unknown Medications to take at Discharge aspirin 81 mg tablet,delayed release 81 mg PO QDAY tab 08/26/17 atorvastatin 40 mg tablet 40 mg PO QDAY 08/26/17 citalopram 20 mg tablet 20 mg PO QDAY 08/26/17 levothyroxine 88 mcg capsule 88 mcg PO QDAY cap 08/26/17 losartan 100 mg tablet 100 mg PO QDAY 08/26/17 metoprolol tartrate 25 mg tablet 25 mg PO BID 08/26/17 folic acid 1 mg tablet 1 mg PO QDAY 09/01/17 antiarthritic combination no.2 900 mg tablet 1 tablet PO DAILY tab 09/10/18 biotin 1 mg capsule 1 mg PO DAILY 09/10/18 triamcinolone acetonide 0.1 % topical cream 1 applic TOPICAL DAILY 09/10/18 Ergocalciferol [Vitamin D] 50,000 unit PO Q7D 07/24/19 Insulin Lispro [Humalog KwikPen] 50 unit SQ BID 07/24/19 Lidocaine [Lidoderm Patch] 1 patch TOPICAL DAILY #1 patch 07/26/19 Nystatin Powder [Mycostatin Powder] 1 applic TOPICAL BID #1 bottle 07/26/19 The following prescriptions were given: Lidocaine [Lidoderm Patch] 1 patch TOPICAL DAILY #1 patch Transmission Status: Pending to [id number] Nystatin Powder [Mycostatin Powder] 1 applic TOPICAL BID #1 bottle Transmission Status: Pending to [id number] Primary Care Physician: Bud Duncan Chi, MD [Primary Care Provider] - Please follow up with your Primary Care Physician in: Follow-up within 3-5 days discharge from rehabilitation. Test Results: Test results from this visit will be discussed in further detail at your follow-up appointment, if applicable. Please Follow Up With: Richi Arias MD When: Follow-up for carotid stenosis, progressing, 2-6 weeks. Proposed Discharge Date: 07/26/19
[2019-07-26 08:00] VITALS: BP 101/67; BP 135/61; BP 149/52; PULSE 69; PULSE 76; PULSE 78; RESP 18; TEMP 36.5; O2SAT 96
[2019-07-26] MEDS: Folic Acid 1 MG Tablet PO (08:19)
[2019-07-26] MEDS: Aspirin E.C. 81 MG Tablet PO (08:19)
[2019-07-26] MEDS: Glucerna Shake 120 ML LIQUID PO (08:21)
[2019-07-26] MEDS: Acetaminophen 325 MG Tablet 650 MG PO (08:25)
--- NOTE | 2019-07-26 08:47 | CASEMGMT ---
Addendum entered by Margo Kunz 07/26/19 09:09: SW placed a call to Maribel with and updated her that pt will be discharged to today. Original Note: Social Work Note JUAN DANIEL met with pt to confirm discharge plans as discharge is in for pt. Pt agreeable to . Plan: today Margo Kunz ELECTRICIAN THIRD, PLANNING INTERN
--- NOTE | 2019-07-26 09:06 | DS.PCM_ITS ---
Discharge Date and Diagnosis - Problem List Patient Problems: Active and Suspected Problems (Last Reviewed 07/24/19 @ 14:09 by Elroy Alegre DO) Sciatica (Acute) Right hip pain (Acute) Date of Admission: 07/24/19 Date of Discharge: 07/26/19 - Primary Discharge Diagnosis Active and Suspected Problems (Last Reviewed 07/24/19 @ 14:09 by Elroy Alegre DO) 1. Frequent Mechanical Falls w/ Acute on Chronic Right Hip Pain s/p Fall 2. Syncopal Event, suspected secondary to orthostasis, dehydration with incidentally noted progressive R ICA stenosis 3. Acute kidney injury, Secondary to likely poor intake, medications 4. Diabetes mellitus type II with episodes Hypoglycemia 5. Anxiety and Depression 6. Hypothyroidism 7. Hypertension 8. Hyperlipidemia 9. PAF 10. Obesity - Secondary Discharge Diagnosis Chronic Problems (Last Reviewed 07/24/19 @ 14:09 by Elroy Alegre DO) Left carotid bruit (Chronic) Essential (primary) hypertension (Chronic) Hyperlipidemia (Chronic) Paroxysmal atrial fibrillation (Chronic) Family history of sudden cardiac (Chronic) Hospital Course and Treatment Operations: None Procedures: 2-D Echocardiogram, EKG Summary of Care Provided: The patient is a 78 y/o F w/ PMHx: Anxiety and Depression, Diabetes mellitus type II, HTN, HLD, PAF previously on coumadin recently discontinued secondary to frequent falls who presented to the [facility] ED on 07/24/19 with history of frequent falls and ongoing chronic right hip pain despite injections as well as recent pr ednisone, diclofenac, gabapentin and baclofen x 1 day noting that her recent regimen has made her feel lightheaded and dizzy, prompting her to unfortunately have repeat fall, landing on her face, twisting her RLE in the process with acute on chronic R hip pain. CT brain with no acute intracranial hemorrhage or mass-effect with left frontal and periorbital soft tissue swelling with no underlying fracture, plain film of the lumbar spine and pelvis as well as right hip with no acute findings with degenerative changes, UA poor sample with urine culture pending, evidence dehydration on PA and noted elevation of specific gravity. Patient admitted to medical surgical floor, maintained on fall precautions, given recent complaints with new regimen likely contributing to frequent falls and dizziness transitioned to lidocaine patches, PRN motrin, hip pain felt likely strain but if ongoing may need to consider further imaging. + Orthostatic VS, continued hydration with repeat 07/26/19 AM orthostatic VS improved but still + although now asymptomatic with additional 500 cc NS bolus administered. ECHO w/ normal LV size, moderate concentric LVH, LV systolic function hyperdynamic with EF 70%, mild TBI, stage I diastolic dysfunction, Carotid ultrasound with irregular calcific plaques of the proximal right ICA with a 50 to 69% stenosis of the right internal carotid, less than 50% stenosis right external carotid, irregular calcific plaque at the proximal and mid left internal carotid, less than 50% stenosis left internal carotid, less than 50% stenosis left external carotid, patent antegrade, less than 50% stenosis bilateral vertebrals with slight progression of patient's disease on the right from 10/12/2017. PT/OT assessments ongoing, transition to Acute Rehabilitation for ongoing therapies today, discussed current presentation and plan of care with rehab physician. Additionally, during admission noted acute kidney injury, secondary to likely poor intake, medications w/ admission BUN/Cr 20/1.09 but increased 07/25/19 BUN/Cr 47/1,48, prior baseline creatinine noted to be 0.9. Hydrated, temporarily held nephrotoxic medications w/ repeat 07/26/19 BUN/Cr 35/0.98. Also, of note during admission, patient w/ episodes hypoglycemia on short acting high dose BID regimen, patient unable to given reason and notes she does occasionally hold it. Obtained HgbA1c 7.9% and noted upon transition to rehab per discussion with rehab physician will plan likely to discontinue short acting insulin, possible long-acting transition however likely transition to oral diabetic regimen given hemoglobin A1c not markedly elevated with sliding scale only. This was also discussed with patient and she is amenable. Also, during admission patient continued on home synthroid regimen, noted TSH elevated w/ normal FT4, subclinical, discussed w/ rehab physician and may opt to repeat in 4-6 weeks and if still symptomatic with subclinical presentation may treat. Patient Problems: Active and Suspected Problems (Last Reviewed 07/24/19 @ 14:09 by Elroy Alegre DO) Sciatica (Acute) Right hip pain (Acute) - Physical Exam Vitals/I&O's: Vital Signs Temp Pulse Resp BP Pulse Ox 97.7 F L 69 18 149/52 H 96 07/26/19 08:00 07/26/19 08:00 07/26/19 08:00 07/26/19 08:00 07/26/19 08:00 Oxygen Flow Rate (L/min) 2 Oxygen Delivery Method Room Air Weight: 219 lb 14.4 oz Body Mass Index (BMI) 38.9 Orthostatic Vital Signs Start: 07/25/19 16:22 Freq: q24h Status: Active Protocol: Activity Type Activity Date Activity User E-Sign Co-Sign Detail Recorded Client Recorded Date Recorded By Document 07/26/19 08:00 [facility] [id number] 07/26/19 08:02 [facility] 07/26/19 08:00 Orthostatic Vitals Standing -Blood Pressure (90/60-120/80 mm Hg) 101/67 -Extremity Use Left Arm -Pulse Rate (60-100 beats/min) 78 Sitting -Blood Pressure (90/60-120/80 mm Hg) 135/61 H -Extremity Use Left Arm -Pulse Rate (60-100 beats/min) 76 Lying -Blood Pressure (90/60-120/80 mm Hg) 149/52 H -Extremity Use Left Arm -Pulse Rate (60-100 beats/min) 69 Intake and Output for Last 24 Hours 07/24/19 07/25/19 07/26/19 23:59 23:59 23:59 Intake Total 440 / 740 3463.33 / 3463.33 200 / 200 Output Total 1325 / 1325 1400 / 1400 Balance 440 / 740 2138.33 / 2138.33 -1200 / -1200 Laboratory Results 07/25/19 10:29: Troponin I < 0.015 07/25/19 11:58: POC Glucose 312 H 07/25/19 13:20: Troponin I < 0.015 07/25/19 16:49: POC Glucose 223 H 07/25/19 23:02: POC Glucose 203 H 07/26/19 05:12: WBC 9.3, RBC 4.17 L, Hgb 14.1, Hct 42.0, MCV 100.7 H, MCH 33.8 H , MCHC 33.6, RDW Std Deviation 48.1 H, RDW Coeff of Dalia 13.1, Plt Count 157, MPV 9.7, Immature Gran % (Auto) 0.400, Neut % (Auto) 58.1, Lymph % (Auto) 27.0, [place] % (Auto) 8.8, Eos % (Auto) 5.2 H, Baso % (Auto) 0.5, Absolute Neuts (auto) 5.4, Absolute Lymphs (auto) 2.52, Nucleated RBC % 0 07/26/19 05:12: Sodium 138, Potassium 4.4, Chloride 111 H, Carbon Dioxide 22.0, Anion Gap 5, BUN 35 H, Creatinine 0.98, Estim Creat Clear Calc 38.51, Est GFR (MDRD) Af Amer 70, Est GFR (MDRD) Non-Af 58 L, BUN/Creatinine Ratio 35.5 H, Glucose 169 H, Calcium 8.4 L 07/26/19 06:50: POC Glucose 180 H Current Medications Acetaminophen (Tylenol) 650 mg PO Q6H PRN PRN PRN Reason: pain -04/07 Last Admin: 07/26/19 08:25 Dose: 650 mg Documented by: [facility] Last Admin: 07/26/19 08:19 Dose: 81 mg Documented by: Atorvastatin Calcium (Lipitor) 40 mg PO QHS [facility] Last Admin: 07/25/19 22:57 Dose: 40 mg Documented by: Citalopram Hydrobromide (Celexa) 20 mg PO DAILY [facility] Last Admin: 07/25/19 10:37 Dose: 20 mg Documented by: Enoxaparin Sodium (Lovenox) 40 mg SC DAILY [facility] Last Admin: 07/25/19 10:38 Dose: 40 mg Documented by: Ergocalciferol (Vitamin D) 50,000 unit PO We@1000 [facility] Folic Acid (Folic Acid) [facility] Last Admin: 07/26/19 08:19 Dose: 1 mg Documented by: Glucagon () 1 mg IM .X1 PRN PRN Reason: Hypoglycemia Hydralazine HCl (Apresoline Iv) 10 mg IV Q4H PRN PRN PRN Reason: SBP > 160 Sodium Chloride () 1,000 mls @ 100 mls/hr IV .Q10H [facility] Last Admin: 07/25/19 23:17 Dose: 100 mls/hr Documented by: Dextrose (Dextrose 10%-Water) 250 mls @ 999 mls/hr IV .Q16M PRN; Protocol PRN Reason: HYPOGLYCEMIA Ibuprofen (Motrin) 400 mg PO Q4H PRN PRN PRN Reason: Pain Score 1-3/Temp > 100.7 F Insulin Human Lispro (Humalog Kwikpen (Bkc)) 0 unit SC ACHS [facility]; Protocol Last Admin: 07/26/19 06:51 Dose: 1 units Documented by: Insulin Human Lispro (Humalog Kwikpen (Bkc)) 50 unit SC BIDCM [facility] Last Admin: 07/25/19 16:59 Dose: Not Given Documented by: Levothyroxine Sodium (Synthroid) 88 mcg PO DAILY@0600 [facility] Last Admin: 07/26/19 06:49 Dose: 88 mcg Documented by: Lidocaine (Lidoderm Patch) 1 patch TOPICAL DAILY [facility]; Protocol Last Admin: 07/25/19 10:41 Dose: 1 patch Documented by: Metoprolol Tartrate (Lopressor (Beta Allan)) 25 mg PO BID [facility] Last Admin: 07/25/19 22:57 Dose: 25 mg Documented by: Nutritional Formula (Lactose Free) (Glucerna Shake) 120 ml PO TIDCM [facility] Last Admin: 07/26/19 08:21 Dose: 120 ml Documented by: Nystatin (Mycostatin Powder) 1 applic TOPICAL BID [facility]; Protocol Last Admin: 07/25/19 22:57 Dose: 1 applicatio Documented by: Ondansetron HCl (Zofran) 4 mg IV Q8H PRN PRN PRN Reason: NAUSEA/VOMITING Oxycodone HCl (Oxyir) 5 mg PO Q6H PRN PRN PRN Reason: Pain Score 6-10/10 Last Admin: 07/24/19 21:26 Dose: 5 mg Documented by: Sodium Chloride () 10 - 40 ml IV UD PRN PRN Reason: SALINE FLUSH Last Admin: 07/25/19 21:30 Dose: 10 ml Documented by: Triamcinolone Acetonide (Triamcinolone Acetonide) 1 applic TOPICAL DAILY [facility] Last Admin: 07/25/19 10:38 Dose: 1 applicatio Documented by: Discharge Activity: Use Walker, - - Maintain fall precautions Weight Bearing Status: Weight bearing as tolerated Call your doctor if you observe: Fever of 101 or Higher, Inability to urinate, Inability to have a bowel movement, Shortness of breath, Dizziness, Fainting spells, Chest pain, Uncontrolled pain Home Medications: Medications to take at Discharge aspirin 81 mg tablet,delayed release 81 mg PO QDAY tab 08/26/17 atorvastatin 40 mg tablet 40 mg PO QDAY 08/26/17 citalopram 20 mg tablet 20 mg PO QDAY 08/26/17 levothyroxine 88 mcg capsule 88 mcg PO QDAY cap 08/26/17 losartan 100 mg tablet 100 mg PO QDAY 08/26/17 metoprolol tartrate 25 mg tablet 25 mg PO BID 08/26/17 folic acid 1 mg tablet 1 mg PO QDAY 09/01/17 antiarthritic combination no.2 900 mg tablet 1 tablet PO DAILY tab 09/10/18 biotin 1 mg capsule 1 mg PO DAILY 09/10/18 triamcinolone acetonide 0.1 % topical cream 1 applic TOPICAL DAILY 09/10/18 Ergocalciferol [Vitamin D] 50,000 unit PO Q7D 07/24/19 Insulin Lispro [Humalog KwikPen] 50 unit SQ BID 07/24/19 Lidocaine [Lidoderm Patch] 1 patch TOPICAL DAILY #1 patch 07/26/19 Nystatin Powder [Mycostatin Powder] 1 applic TOPICAL BID #1 bottle 07/26/19 Following Prescrptions Were Given to Patient: Lidocaine [Lidoderm Patch] 1 patch TOPICAL DAILY #1 patch Transmission Status: Received by [facility] Nystatin Powder [Mycostatin Powder] 1 applic TOPICAL BID #1 bottle Transmission Status: Received by [id number] Primary Care Physician: Bud Duncan Chi, MD [Primary Care Provider] - Please follow up with your Primary Care Physician in: Follow-up within 3-5 days discharge from rehabilitation. Please Follow Up With: Richi Arias MD When: Follow-up for carotid stenosis, progressing, 2-6 weeks. Patient Instructions: Carotid Artery Problems: Blockage, What Is Syncope?, Causes of Syncope, Treating Syncope: Prevention, Back Exercises: Hip Rotator Stretch, Lower Body Exercises: Hip Flexor Disposition: Inpt Rehab Unit/Facility Minutes spent on discharge:: 35 Patient Condition:: Fair Medical Necessity - Tobacco Use Smoking Status: Never smoker Meaningful Use Info Meaningful Use Diagnoses (Choose all that apply): None applicable Code Visit Inpatient E&M: 12079 Disch Hosp
[2019-07-26 10:03] VITALS: BP 158/56; PULSE 66
[2019-07-26] MEDS: Metoprolol Tartrate 25 MG Tablet PO (10:03)
[2019-07-26] MEDS: Citalopram 20 MG Tablet PO (10:03)
[2019-07-26] MEDS: Enoxaparin 40 MG/0.4 ML Syringe SC (10:04)
[2019-07-26] MEDS: Lidocaine 5% Patch 1 PATCH TOPICAL (10:04)
[2019-07-26] MEDS: Nystatin Powder 15gm Bottle 1 APPLIC TOPICAL (10:05)
== END 2019-07-26 11:00 | DRG 641 ==
LOC: ED 13:33 → MS3 14:07
PROVIDERS: Emergency Provider Emergency Medicine; PCP Family Medicine Geriatric Medicine; Visit Provider Family Medicine
DX: E86.0 Dehydration (principal); N17.9 Acute kidney failure, unspecified; R29.6 Repeated falls; R53.81 Other malaise; M54.41 Lumbago with sciatica, right side; M25.551 Pain in right hip; G89.29 Other chronic pain; F32.9 Major depressive disorder, single episode, unspecified; F41.9 Anxiety disorder, unspecified; E11.649 Type 2 diabetes mellitus with hypoglycemia without coma; E03.9 Hypothyroidism, unspecified; I10 Essential (primary) hypertension; E78.5 Hyperlipidemia, unspecified; I48.0 Paroxysmal atrial fibrillation; E66.9 Obesity, unspecified; Z79.82 Long term (current) use of aspirin; Z79.4 Long term (current) use of insulin; Z79.899 Other long term (current) drug therapy; I95.1 Orthostatic hypotension; I65.23 Occlusion and stenosis of bilateral carotid arteries; Z91.81 History of falling
CPT/HCPCS: 36415; 70450; 72100; 73502; 80048; 81001; 82962; 83036; 83735; 84439; 84443; 84484; 85025; 93005; 93306; 93880; 97116; 97162; 97166; 97530; 97802; 99285; J7030; J7040; Q9957; A4216; C8929; J2405

== ENCOUNTER 2019-07-26 11:17 | Inpatient (IN) | payer MEDICARE, OTHER, SELFPAY ==
--- NOTE | 2019-07-26 11:39 | PCM.HP.STD ---
Problem List (1) Orthostatic hypotension Status: Acute (2) MELVIN (acute kidney injury) Status: Acute (3) Hypocalcemia Status: Acute (4) Diabetes mellitus type 2 in obese Status: Chronic (5) Elevated TSH Status: Acute (6) Macrocytosis Status: Chronic (7) Concentric left ventricular hypertrophy Status: Chronic (8) Grade I diastolic dysfunction Status: Chronic (9) Carotid stenosis Status: Acute Qualifiers: Laterality: bilateral Qualified Code(s): I65.23 - Occlusion and stenosis of bilateral carotid arteries (10) Sciatica Status: Suspected Qualifiers: Laterality: right Qualified Code(s): M54.31 - Sciatica, right side (11) Right hip pain Status: Acute (12) Essential (primary) hypertension Status: Chronic (13) Hyperlipidemia Status: Chronic Qualifiers: Hyperlipidemia type: pure hypercholesterolemia Qualified Code(s): E78.00 - Pure hypercholesterolemia, unspecified; E78.0 - Pure hypercholesterolemia (14) Paroxysmal atrial fibrillation Status: Chronic (15) Family history of sudden cardiac Status: Chronic (16) Carotid stenosis, bilateral Status: Chronic Comment: R>L (17) Hepatic steatosis Status: Chronic (18) Morbid (severe) obesity due to excess calories Status: Chronic (19) Traumatic periorbital ecchymosis of left eye Status: Acute Qualifiers: Encounter type: subsequent encounter Qualified Code(s): S05.12XD - Contusion of eyeball and orbital tissues, left eye, subsequent encounter (20) Degenerative disc disease Status: Chronic Qualifiers: Spinal region: lumbosacral Qualified Code(s): M51.37 - Other intervertebral disc degeneration, lumbosacral region (21) Osteoarthritis Status: Chronic Qualifiers: Osteoarthritis location: hip Osteoarthritis type: primary Laterality: right Qualified Code(s): M16.11 - Unilateral primary osteoarthritis, right hip (22) Osteopenia Status: Chronic (23) Hypothyroidism Status: Chronic History of Present Illness Date of Admission: 07/26/19 Chief Complaint: R hip and buttock pain secondary to a fall with inability to ambulate. The patient is a 78 year old F with a past medical history of hypertension, diabetes mellitus type 2 x20 years, hepatic steatosis, hyperlipidemia, morbid obesity, osteoarthritis, chronic right hip pain, degenerative disc disease of the lumbosacral spine and also degenerative joint disease in the lumbosacral spine, periodic elevation in TSH, osteopenia on a DEXA done in 2013, recent acute kidney injury more likely than not secondary to dehydration, orthostatic hypotension and PAF, just recently taken off Warfarin for frequent falls who was recently admitted to [facility] after a fall at home that resulted in severe R hip pain causing her to be unable to walk/bear weight. She tells me that she has hypoglycemic reactions at least 3-4 times a week at home and has passed out in the past. When her sugar drops she eats Eclairs. Her HGBA1C is 7.9%. She fell prior to admission because she tripped over the heater they have for the dog in the living room and fell against the couch striking her Left eye and then onto the floor landing on her R hip. She is c/o pain in the R anterior thigh and the right buttock. Sometimes the pain radiates down to the foot but it is not in a dermatomal distribution. She has never had any spinal or hip injections. Review of the LS spine XRAY shows marked disc disease at L4-5 and L5-1. I can not r/o a compression fracture of L5. XRAYS of the R hip show some joint space narrowing but, no severe. There is no fracture observed. She has negative SLR BL and she has a negative Ashish Debo test BL......she completely rotate both hips externally with no increase in the pain. She has been treated with a Lidocaine patch and Tylenol PRN and neither is really helping. she rates her pain at a 7 laying in bed and an 8 with weight bearing. sitting causes the pain to increase as well.She is admitted to the Inpatient rehab unit at [facility] on 07/26/2019 for debility secondary to severe right hip pain status post fall for greater than 3 hours of therapy daily with a goal of returning home at or near prior level of independence. The patient lives at at home with her spouse. The patient was independent with ADL's, mobility and driving prior to hospitalization. Echocardiogram on 07/25/2019 showed a 70% ejection fraction with stage I diastolic dysfunction and moderate concentric left ventricular hypertrophy. There was no significant valvular heart disease. Carotid ultrasound showed 50 to 69% stenosis in the right internal carotid artery and less than 50% stenosis in the left internal carotid artery. She has bilateral carotid bruits. There is also evidence of calcification of the abdominal aorta on the lumbar spine x-rays. All lab was personally reviewed from the recent hospital stay. The TSH is elevated at 17.9 however the free T4 is within normal limits. Vitamin D level was recently normal at 52.2. No lipid panel since 2011 in the EMR. LFTs are unremarkable. Creatinine at admission to the hospital on 07/24/2019 was 1.09 and increased 1.48. Intravenous fluids were started and the creatinine today is 0.98. A clean catch urine shows 10-25 urine squamous epithelial cells with 0-5 WBCs and 0-5 RBCs. There was 2+ bacteria reported. She has been afebrile with a white blood cell count of 9.3 and an unremarkable differential other than a mild increase in eosinophils at 5.2%. Hemoglobin is 14.1 with an MCV of 100.7-I suspect that this is secondary to hepatic steatosis. Past Medical History Past Medical History (Chronic Problems): Chronic Problems (Last Reviewed 07/26/19 @ 12:40 by Mali Renee DO) Diabetes mellitus type 2 in obese (Chronic) Macrocytosis (Chronic) Concentric left ventricular hypertrophy (Chronic) Grade I diastolic dysfunction (Chronic) Carotid stenosis, bilateral (Chronic) R>L Hepatic steatosis (Chronic) Morbid (severe) obesity due to excess calories (Chronic) Degenerative disc disease (Chronic) Osteoarthritis (Chronic) Osteopenia (Chronic) Hypothyroidism (Chronic) Essential (primary) hypertension (Chronic) Hyperlipidemia (Chronic) Paroxysmal atrial fibrillation (Chronic) Family history of sudden cardiac (Chronic) Medical History: Medical History (Last Reviewed 07/26/19 @ 12:40 by Mali Renee DO) Essential (primary) hypertension (Chronic) I10 Hyperlipidemia (Chronic) E78.5 Family history of sudden cardiac (Chronic) Z82.41 DDD (degenerative disc disease), lumbar 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 Abnormal electrocardiogram (Inactive) R94.31 On statin therapy (Inactive) Z79.899 Allergies atenolol [From Tenormin] Adverse Reaction (Severe, Verified 07/24/19 11:03) Unknown Home Medications: Ambulatory Orders Medication Instructions Recorded aspirin 81 mg tablet,delayed 81 mg PO QDAY tab 08/26/17 release atorvastatin 40 mg tablet 40 mg PO QDAY 08/26/17 citalopram 20 mg tablet 20 mg PO QDAY 08/26/17 levothyroxine 88 mcg capsule 88 mcg PO QDAY cap 08/26/17 losartan 100 mg tablet 100 mg PO QDAY 08/26/17 metoprolol tartrate 25 mg tablet 25 mg PO BID 08/26/17 folic acid 1 mg tablet 1 mg PO QDAY 09/01/17 antiarthritic combination no.2 900 1 tablet PO DAILY tab 09/10/18 mg tablet biotin 1 mg capsule 1 mg PO DAILY 09/10/18 triamcinolone acetonide 0.1 % 1 applic TOPICAL DAILY 09/10/18 topical cream Ergocalciferol [Vitamin D] 50,000 unit PO Q7D 07/24/19 Insulin Lispro [Humalog KwikPen] 50 unit SQ BID 07/24/19 Lidocaine [Lidoderm Patch] 1 patch TOPICAL DAILY 07/26/19 Nystatin Powder [Mycostatin Powder] 1 applic TOPICAL BID 07/26/19 Surgical History: Surgical History (Last Reviewed 07/26/19 @ 12:40 by Mali Renee DO) Hx of repair of rotator cuff Z98.890 Surgical History: - - Left rotator cuff repair and carpal tunnel release on the left. 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 history Lives: Spouse/ Significant Other Smoking Status: Former smoker - she smoked very briefly as a teenager and then quit Tobacco Use: Non-smoker Alcohol: None Drugs: None - *Family History Maternal Family History: Family History (Last Reviewed 07/26/19 @ 12:41 by Mali Renee DO) Father H/O carotid endarterectomy, Onset Age: 70 Mother Diabetes Brother CAD (coronary artery disease) Myocardial infarction Sudden cardiac Daughter Hypertension Hyperlipidemia Other Family history of hyperlipidemia Family history of hypertension Family history of sudden cardiac Review of Systems Constitutional: Reports: Weight Change - She has gained about 20-30 lbs since she went off Victoza and on Trujeo instead.. Denies: Chills, Fever Eyes: Denies: Blurred vision HEENT: Denies: Head Aches, Sinus Congestion, Sinus Drainage, Sore Throat Cardiovascular: Reports: Light Headedness - when she stands. Denies: Chest Pain, Edema, Palpitations Respiratory: Reports: Shortness of breath upon exertion. Denies: Cough, Hemoptysis, Pleuritic Pain, Shortness of breath at rest, Sputum production Gastrointestinal: Denies: Abdominal Pain, Diarrhea, Nausea, Vomiting Genitourinary: Denies: Dysuria Gynecological: Denies: Breast symptoms, Vaginal bleeding, Vaginal discharge Musculoskeletal: Reports: Joint Pain - r hip. Denies: Joint Tenderness Skin: Denies: Jaundice, Rash, Wounds Neurological: Denies: Slurred speech, Confusion, Focal weakness, Headaches, Numbness, Tingling, Tremor, Seizures Psychiatric: Denies: Anxiety, Depression, Homicidal Ideations, Suicidal Ideations Hematologic/ Lymphatic: Denies: Easy Bruising, Easy Bleeding, Hx of blood clot VTE Information - Inpt Only VTE Present on Admission: No VTE Mechan Device Prophylaxis: Knee High SONALI Hose VTE Pharm Prophylaxis ordered?: Yes Patient Problems: Active and Suspected Problems (Last Reviewed 07/26/19 @ 12:40 by Mali Renee DO) Orthostatic hypotension (Acute) MELVIN (acute kidney injury) (Acute) Hypocalcemia (Acute) Elevated TSH (Acute) Carotid stenosis (Acute) Traumatic periorbital ecchymosis of left eye (Acute) - Physical Exam Vitals/I&O's: Body Mass Index (BMI) 38.9 General: Alert, Oriented x3, Cooperative, No apparent distress, - - she is lying on her R side in the bed.....states this helps with the pain. HEENT: PERRLA, EOMI, Normocephalic, - - And ecchymosis secondary to recent fall there is periorbital swelling Oral: No Gingival or Mucosal Lesions/ Ulcerations, Dry Mucosa Neck: Supple, No JVD, Carotid Bruits, Bilateral - She has a soft bruit on the right side of the neck and a louder carotid bruit on the left. Lungs: Clear to auscultation, Normal air movement, No rhonchi, No wheeze, No rales, Diminished - More likely than not secondary to body habitus Cardiovascular: Regular rate, Regular Rhythm, Normal S1, Normal S2, No murmurs, No Ectopic Activity, No rub noted, No Gallop Abdomen: Bowel Sounds Present, Soft, Non Tender, Non-Distended, Obese, - - No guarding with palpation Extremities: No clubbing, No cyanosis, No edema, No Calf Tenderness, Peripheral Pulses Normal, - - She has negative SLR BL and also has negative Ashish Debo BL. She has tenderness to palpation over the Left greater trochanter and review of the pelvic XRAYS shows a spur off the greater trochanter on the left Skin: No rashes, No breakdown Musculoskeletal: No Muscle Wasting Neurological: Cranial nerves II-XII grossly intact, Neuro grossly intact, Motor Exam 5/5 strength throughout Psych/Mental Status: Normal Affect, Appropriate Assessment/Plan All Active Problems (Last Reviewed 07/26/19 @ 12:40 by Mali Renee DO) Right hip pain (Acute) Orthostatic hypotension (Acute) MELVIN (acute kidney injury) (Acute) Hypocalcemia (Acute) Elevated TSH (Acute) Carotid stenosis (Acute) Traumatic periorbital ecchymosis of left eye (Acute) Chest tightness (Resolved) Dizziness and giddiness (Resolved) Fatigue (Resolved) Segmental and somatic dysfunction of lumbar region (Resolved) Segmental and somatic dysfunction of pelvic region (Resolved) Segmental and somatic dysfunction of thoracic region (Resolved) Impressions 1. Debility secondary to severe acute on chronic R Hip pain and inability to bear weight after recent fall. She is known to have OA of the R hip with mild-mod joint space narrowing. In actuality she is primarily c/o R buttock pain and R anterior thigh pain. Negative SLR and Ashish Debo test BL. 2. Left periorbital swelling and ecchymosis secondary to fall 3. Left trochanteric bursitis with calcification and a spur off the greater trochanter 4. Acute kidney injury-more likely than not secondary to dehydration. Resolving with IV fluids. 5. Orthostatic hypotension-due to dehydration 6. Elevated TSH with a normal T4. 7. frequent Hypoglycemic episodes at home leading her to have to eat ECLAIR to keep her blood sugars up leading to a 20-30 lb weight gain 8. Chronic medical conditions including essential hypertension/hyperlipidemia/morbid obesity/diabetes mellitus type 2/osteopenia/osteoarthritis/PAF/formerly on chronic anticoagulation-recently stopped due to falls/hypothyroidism/anxiety/depression - continue home medications PLAN PT for gait stability OT for ADL's Analgesics as needed-Tylenol 1 g p.o. every 8 hours, tramadol 50 mg p.o. every 6 hours as needed pain greater than 4 Bowel protocol Fall precautions Assess for Anxiety/Depression GI prophylaxis with famotidine 20 mg p.o. twice daily DVT prophylaxis with Lovenox 40 mg subcu daily Follow up with Dr. Duncan following DC from IP Rehab CT scan of the lumbosacral spine today secondary to radicular pain to the right lower extremity post trauma Start Celebrex 100 mg p.o. twice daily to treat chronic osteoarthritis pain-may increase to 200 mg twice daily if the creatinine stabilizes Instructed her to continue increased fluid intake Recheck lab in the a.m. Unclear to me whether the pain in the right buttock and the right anterior thigh are secondary to disease of the right hip or to disease of the lumbosacral spine, worst at L3-L5, with foraminal stenosis or canal stenosis. Hopefully this will become more clear following CT. She may benefit from an injection once we determine if the pain is secondary to hip disease or spine disease. Patient will be placed on a 1600-calorie, low-fat, high-fiber diet and will discontinue Humalog. Will start Amaryl and SSI with Lantus at HS only. Pt eats only 2 meals daily at home.....snacks on ECLAIR. Refused diabetic education by guitar instructor earlier in the admission. does not always check BS's at home. Will encourage her to take better care of herself, increase fluids, check BS at least once a day and monitor her card intake more closely. Code Visit Inpatient E&M: 36235 Init Hosp L3
[2019-07-26 11:49] VITALS: BP 132/64; PULSE 66; RESP 16; TEMP 36.4; O2SAT 98
[2019-07-26 12:06] LABS: Bedside Glucose 239 mg/dL (70-110)
[2019-07-26 12:08] VITALS: BMI 41.1
[2019-07-26 12:12] VITALS: BMI 41.1
--- NOTE | 2019-07-26 12:56 | CT_ITS ---
STUDY: CT LUMBAR SPINE WITHOUT CONTRAST REASON FOR EXAM: Female, 78 years old. FELL AND LANDED ON RIGHT HIP. RIGHT BUTTOCK PAIN. RADIATION DOSAGE (If Supplied By Facility): CTDIvol = ( 31.01 ) mGy, DLP = ( 1009.36 ) mGycm TECHNIQUE: The patient was scanned in a multi detector CT scanner. High resolution transaxial imaging was performed. Images were obtained from L1 to S1 level. Sagittal and coronal images were reconstructed. Individualized dose optimization techniques were used for this CT. COMPARISON: None FINDINGS: Normal lumbar lordosis. There is no substantial scoliosis. Normal vertebrae of the lumbar spine. L1-2: Mild degree of disc space narrowing and spondylosis. This is worse on the left side. L2-3: Mild degree of diffuse posterior disc bulge. Mild degree of bilateral neural foraminal stenosis. L3-4: Facet joint osteoarthritis. Hypertrophy of the facet joints. Moderate degree of central and bilateral neural foraminal stenosis. L4-5: Marked degree of disc space narrowing and spondylosis. Mild degree of central canal stenosis. L5-S1: Spondylolisthesis. This is worse on the left side. Atherosclerotic calcification of the abdominal aorta. CT/Spine Lumbar without Contrast IMPRESSION: Multilevel degenerative changes, as described above. Electronically Signed: Tony Grover, at 14:57 EST , Service support ,
--- NOTE | 2019-07-26 13:21 | REHABEVAL_ITS ---
Admission Information Status Changes from Prescreening?: No changes Identified Actual Problem List:: Falls, Depression, Bowel, Constipation, Alteration in Sleep, Alteration in Nutrition, Mobility Impaired, Self Care Deficit, Know.Dfct/Disease Process, BP, Hypertension, BP, Hypotension, Fluid Change- Dehydration Potential Problem List:: DVT, UTI, Falls, Skin Integrity, Depression Risk of Complications DVT: LMWH, SONALI Hose Bleeding: Monitor Lab Values, Nursing to Teach Precautions for anti-coagulation therapy., Wound, if applicable, to be assessed every shift., Stroke patients assessed for lethargy or change in status. Infection: Clinical Staff to Monitor for S/S of infection:, S/S of infection include fever, redness, warmth, etc. Urinary Tract Infection: Monitor for frequency, burning, discomfort, or incontinence., Nursing will obtain urine sample for urinalysis and C&S when ordered. Aspiration: Clinical staff will monitor for coughing, drooling, congestion., Speech will evaluate swallowing and dsyphasia., Nursing will monitor patient swallowing during meals. Falls: Patient will be evaluated for Fall Precautions, Patient will be placed on Fall Precautions as indicated per protocol. Skin Breakdown: Nursing will assess skin daily using assessment tool., Nursing will place on Skin Breakdown Precautions as indicated. Pain: Clinical staff will assess patient's pain level per protocol., Medications will be given, if needed, and the pain level reassessed., Other methods: Massage, distraction, decrease stimulus, etc. used PRN. Plan of Care Patient requires physician specializing in physical medicine and rehab oversight to provide close medical supervision of rehab issues including: Pain Management, Sleep Problems, Bowel and Bladder, Medical and co-morbidity Management, DVT prophylaxis, Rehabilitation Leadership, Coordination of treatment team Patient needs Physical Therapy: For a minimum of 1 hour, At least 5 out of 7 days Patient needs Physical Therapy to improve:: Mobility, Mobility, Mobility, Strengthening, Transfers, Stretching, ROM, Endurance, Stairs, Gait, Balance Patient needs Occupational Therapy: For a minimum of 1 hour, At least 5 out of 7 days Patient needs Occupational Therapy to improve ADL's incl.: Eating, Grooming, Bathing, Dressing, Toileting, Toilet transfers, Community Reintegration, Higher functioning activities, Household tasks, Adaptive Equipment, Splinting, Other activities as determined Patient requires 24/ Rehabilitation Nursing for: Pain Issues, Identifying and preventing risk factors, Monitoring and reporting current medical conditions, Assisting with ambulation, transfer, and all ADL's, Teaching patients about disease process and medications, Family teaching, Providing safe environment, Bowel and Bladder Issues, Skin integrity, Medication Management Patient needs Document Specialist/ Case Management for: Discharge Planning, Arr anging Home Equipment or Services, Family Interventions Patient needs Dietary and Nutrition Services for: Adequate Nutrition, Nutritional Supplements, Nutritional Education Goals Patient will remain: free from falls, or injury at time of discharge. Patient will perform bed mobility at: MOD I level of assist. Patient will complete transfers from bed to chair at: MOD I level of assist. Patient will ambulate: 100 feet, with MOD I assist, with LRD Patient will complete upper body dressing at: MOD I level of assist. Patient will complete lower body dressing at: MOD I level of assist. Patient will complete toileting at: MOD I level of assist. Patient will perform bathing at: MOD I level of assist. Patient will complete grooming at: MOD I level of assist. Patient will complete home management skills at: MOD I level of assist. Patient will achieve: 12 stairs, at MOD I assist Patient will have pain level of: of 3 or less Patient's skin will: remain intact, free from infection. Patient will receive: adequate nutrition. Discharge Planning Pt Prognosis for Sig. Practical Improv. w/in Reasonable Time: Good Estimated Length of stay (days): 10 Anticipated D/C Destination: Home Was Preadmission Assessment Accurate?: Yes
[2019-07-26] MEDS: Acetaminophen 500 MG Tablet 1000 MG PO ×2 (16:21→21:08)
--- NOTE | 2019-07-26 16:29 | NURSING ---
pt refused dulcolax and mirilax, states had a good bm today. clarita luther aware.
[2019-07-26 16:51] LABS: Bedside Glucose 260 mg/dL (70-110)
[2019-07-26] MEDS: Insulin Lispro 100 UNIT/ML INSULN.PEN SC ×2 (17:57→21:13)
[2019-07-26] MEDS: Glimepiride 1 MG Tablet PO (18:31)
[2019-07-26 19:40] VITALS: BP 134/66; PULSE 68; RESP 16; TEMP 36.6; O2SAT 98
--- NOTE | 2019-07-26 21:06 | NURSING ---
pt reports pain of 7/10 in rt hip area with constant aching pain. Scheduled Tylenol and PRN Ultram provided. Staff assisted with repositioning in bed and will continue to monitor.
[2019-07-26] MEDS: traMADol 50 MG Tablet PO (21:08)
[2019-07-26] MEDS: Famotidine 20 MG Tablet PO (21:09)
[2019-07-26] MEDS: Nystatin Powder 15gm Bottle 1 APPLIC TOPICAL (21:09)
[2019-07-26 21:10] VITALS: PULSE 68
[2019-07-26 21:10] LABS: Bedside Glucose 312 mg/dL (70-110)
[2019-07-26] MEDS: Metoprolol Tartrate 25 MG Tablet PO (21:10)
[2019-07-26] MEDS: Celecoxib 100 MG Capsule PO (21:11)
[2019-07-26] MEDS: Atorvastatin Calcium 40 MG Tablet PO (21:14)
[2019-07-27] MEDS: traMADol 50 MG Tablet PO ×3 (05:06→22:14)
[2019-07-27] MEDS: Acetaminophen 500 MG Tablet 1000 MG PO ×3 (05:06→22:13)
[2019-07-27] MEDS: Levothyroxine 88 MCG Tablet PO (05:06)
[2019-07-27 06:01] LABS: ALB/GLOB Ratio 0.7 RATIO (0.9-2.4); AST(SGOT) 22 U/L (15-37); Alanine Aminotransfer ALT/SGPT 38 U/L (13-56); Albumin, Serum 2.7 g/dL (3.2-5.0); Alkaline Phosphatase 60 U/L (45-117); Anion Gap 3 (5-15); BUN 19 mg/dL (7-18); BUN/Creat Ratio 21.2 RATIO (10-20); Chloride 107 mmol/L (98-107); Cholesterol 126 mg/dL (200); EST Glomerular Filtration Rate 65 mL/min (>60); Est Glom Filt Rate - Afr Amer 78 mL/min (>60); Estimated Creatinine Clearance 40.09 ml/min; Globulin 3.8 g/dL (2.2-4.2); Glucose 178 mg/dL (74-106); High Density Lipoprotein 57 mg/dL; Magnesium 1.9 mg/dL (1.6-2.6); Phosphorus 2.4 mg/dL (2.5-4.9); Potassium 4.5 mmol/L (3.5-5.1); Protein, Total 6.5 g/dL (6.4-8.2); Sodium Level 138 mmol/L (136-145); Triglycerides 114 mg/dL; Very Low Density Lipoprotein 23 mg/dL (5-40)
[2019-07-27 06:05] LABS: Erythrocyte Sedimentation Rate 35 mm/hr (0-30)
[2019-07-27 07:41] LABS: Bedside Glucose 186 mg/dL (70-110)
[2019-07-27 07:43] VITALS: BP 165/78; PULSE 61
[2019-07-27] MEDS: Glimepiride 1 MG Tablet PO ×2 (07:43→16:32)
[2019-07-27] MEDS: Celecoxib 100 MG Capsule PO ×2 (07:43→22:17)
[2019-07-27] MEDS: Citalopram 20 MG Tablet PO (07:43)
[2019-07-27] MEDS: Folic Acid 1 MG Tablet PO (07:43)
[2019-07-27] MEDS: Metoprolol Tartrate 25 MG Tablet PO ×2 (07:43→22:16)
[2019-07-27] MEDS: Losartan Potassium 100 MG Tablet PO (07:44)
[2019-07-27] MEDS: Aspirin E.C. 81 MG Tablet PO (07:44)
[2019-07-27] MEDS: Enoxaparin 40 MG/0.4 ML Syringe SC (07:44)
[2019-07-27] MEDS: Nystatin Powder 15gm Bottle 1 APPLIC TOPICAL ×2 (07:45→22:15)
[2019-07-27] MEDS: Insulin Lispro 100 UNIT/ML INSULN.PEN SC ×4 (07:46→22:22)
[2019-07-27] MEDS: Famotidine 20 MG Tablet PO ×2 (07:47→22:15)
[2019-07-27 09:02] VITALS: BP 165/78; PULSE 61; RESP 16; TEMP 36.6; O2SAT 93
[2019-07-27 11:20] LABS: Bedside Glucose 253 mg/dL (70-110)
[2019-07-27 16:45] LABS: Bedside Glucose 286 mg/dL (70-110)
[2019-07-27 21:02] VITALS: BP 148/69; PULSE 58; RESP 16; TEMP 36.8; O2SAT 94
[2019-07-27 22:16] VITALS: BP 148/69; PULSE 58
[2019-07-27] MEDS: Atorvastatin Calcium 40 MG Tablet PO (22:17)
[2019-07-27 22:30] LABS: Bedside Glucose 244 mg/dL (70-110)
[2019-07-28] VITALS (9 sets, daily range): BP systolic 130–154; BP diastolic 55–99; PULSE 58–72; RESP 16–18; TEMP 36.1–36.5; O2SAT 94–99
[2019-07-28] MEDS: Levothyroxine 88 MCG Tablet PO (06:00)
[2019-07-28] MEDS: traMADol 50 MG Tablet PO ×2 (06:00→22:00)
[2019-07-28] MEDS: Acetaminophen 500 MG Tablet 1000 MG PO ×2 (06:00→21:59)
[2019-07-28 06:46] LABS: Bedside Glucose 172 mg/dL (70-110)
[2019-07-28] MEDS: Insulin Lispro 100 UNIT/ML INSULN.PEN SC ×3 (08:00→21:55)
[2019-07-28] MEDS: Folic Acid 1 MG Tablet PO (08:01)
[2019-07-28] MEDS: Citalopram 20 MG Tablet PO (08:01)
[2019-07-28] MEDS: Losartan Potassium 100 MG Tablet PO (08:01)
[2019-07-28] MEDS: Metoprolol Tartrate 25 MG Tablet PO ×2 (08:01→21:58)
[2019-07-28] MEDS: Glimepiride 1 MG Tablet PO ×2 (08:01→16:51)
[2019-07-28] MEDS: Famotidine 20 MG Tablet PO ×2 (08:02→21:59)
[2019-07-28] MEDS: Nystatin Powder 15gm Bottle 1 APPLIC TOPICAL ×2 (08:03→22:00)
[2019-07-28 11:36] LABS: Bedside Glucose 235 mg/dL (70-110)
--- NOTE | 2019-07-28 12:00 | RAD_ITS ---
PROCEDURE: L5-S1 epidural block. DATE OF EXAMINATION: July 28, 2019. INDICATION: Female, 78 years old. Low back pain. FLUOROSCOPY TIME (if supplied): (6.3 seconds.) minutes/seconds Fluoroscopic services provided for right L5-S1 epidural block. RAD/Spine 1 View Any Level IMPRESSION: Fluoroscopic services provided for right L5-S1 epidural block. Electronically Signed: Tony Grover, at 9:34 EST , Service support ,
[2019-07-28] MEDS: Lactated Ringers 1,000 ML 75 ML IV (14:08)
[2019-07-28] MEDS: Triamcinolone Acetonide 40 MG/ML Vial (15:00)
--- NOTE | 2019-07-28 16:04 | PCM.PN.BLA ---
Progress Note Afebile VSS Maintaining appropriate oxygen saturation on RA Oral intake is good. Patient is eating outside food and the other night had a milkshake brought by her friend which increased her blood sugar to 312. The blood sugar record was reviewed. Blood sugars are high prior to lunch and prior to supper. She has had no hypoglycemia. She tells me she basically eats 2 meals a day and sometimes does not eat her breakfast till after noon. Discussed with nursing - no problems that need addressed Reviewed the PT/OT/ST notes Medication list reviewed. Blood sugar record reviewed. NO hypoglycemia but, the BS's are all high. She is to have a epidural today. She is still c/o R buttock pain. The thigh pain is a little better. PHYSICAL EXAM: GENERAL: alert, oriented X 3, Cooperative, NAD ORAL: moist mucosa, no mucosal lesions NECK: No JVD, supple, trachea midline LUNGS: CTA, symmetric chest expansion HEART: RRR, Normal S1 and S2, no rub, no gallop ABDOMEN: soft, NT, ND, BS present, no guarding with palpation EXTREMITIES: no edema, no cyanosis, no calf tenderness SKIN: No rashes, no breakdown NEUROLOGIC: no focal neurologic deficits PSYCH: appropriate, normal affect, pleasant Impressions 1. DDD and DJD of the Lumbosacral spine with radiculitis RLE - for epidural today. 2. DM II - uncontrolled. Increase Amaryl and adjust Lantus. If I can not get the BS's under control will consult Dr. Masterson. STROKE Vital Signs/Narrative: Vital Signs Temp Pulse Resp BP Pulse Ox 07/28/19 15:30 97.5 F L 58 L 16 148/65 H 98 07/28/19 15:25 59 L 16 147/68 H 98 07/28/19 15:20 59 L 16 130/99 H 99 07/28/19 15:17 97.0 F L 58 L 16 130/77 H 98 Code Visit Inpatient E&M: 50692 Subs Hosp L2
[2019-07-28 16:26] LABS: Bedside Glucose 205 mg/dL (70-110)
[2019-07-28 21:11] LABS: Bedside Glucose 357 mg/dL (70-110)
[2019-07-28] MEDS: Celecoxib 100 MG Capsule PO (21:55)
[2019-07-28] MEDS: Atorvastatin Calcium 40 MG Tablet PO (21:57)
[2019-07-29] MEDS: Acetaminophen 500 MG Tablet 1000 MG PO ×3 (05:16→21:29)
[2019-07-29] MEDS: Levothyroxine 88 MCG Tablet PO (05:16)
[2019-07-29] MEDS: traMADol 50 MG Tablet PO ×3 (05:17→21:28)
--- NOTE | 2019-07-29 05:23 | NURSING ---
REVIEWED AND AGREE WITH MEDICAL OBSERVER'S FUNCTIONAL ASSESSMENT AND HANDOFF CHARTING.
[2019-07-29 06:31] LABS: Bedside Glucose 298 mg/dL (70-110)
[2019-07-29 08:01] VITALS: PULSE 77
[2019-07-29] MEDS: Folic Acid 1 MG Tablet PO (08:01)
[2019-07-29] MEDS: Citalopram 20 MG Tablet PO (08:01)
[2019-07-29] MEDS: Metoprolol Tartrate 25 MG Tablet PO ×2 (08:01→21:29)
[2019-07-29] MEDS: Aspirin E.C. 81 MG Tablet PO (08:01)
[2019-07-29] MEDS: Losartan Potassium 100 MG Tablet PO (08:01)
[2019-07-29] MEDS: Glimepiride 2 MG Tablet PO (08:02)
[2019-07-29] MEDS: Famotidine 20 MG Tablet PO ×2 (08:02→21:29)
[2019-07-29] MEDS: Celecoxib 100 MG Capsule PO ×2 (08:02→21:31)
[2019-07-29] MEDS: Enoxaparin 40 MG/0.4 ML Syringe SC (08:03)
[2019-07-29] MEDS: Insulin Lispro 100 UNIT/ML INSULN.PEN SC ×4 (08:04→21:31)
[2019-07-29] MEDS: Nystatin Powder 15gm Bottle 1 APPLIC TOPICAL ×2 (08:06→21:32)
[2019-07-29] MEDS: Polyethylene Glycol 3350 17 GM PACKET PO (08:09)
[2019-07-29 08:23] VITALS: O2SAT 96
[2019-07-29 08:47] VITALS: BP 124/70; PULSE 63; RESP 16; TEMP 36.6; O2SAT 97
[2019-07-29 12:11] LABS: Bedside Glucose 285 mg/dL (70-110)
[2019-07-29 13:42] VITALS: BP 117/74; BP 133/63; BP 137/79; PULSE 63; PULSE 66
[2019-07-29] MEDS: Glimepiride 1 MG Tablet PO (16:15)
[2019-07-29 16:25] LABS: Bedside Glucose 360 mg/dL (70-110)
[2019-07-29 21:00] LABS: Bedside Glucose 351 mg/dL (70-110)
[2019-07-29 21:29] VITALS: PULSE 64
[2019-07-29] MEDS: Atorvastatin Calcium 40 MG Tablet PO (21:29)
[2019-07-29 22:00] VITALS: BP 111/49; PULSE 60; RESP 16; TEMP 36.5; O2SAT 96
[2019-07-30] MEDS: Levothyroxine 88 MCG Tablet PO (05:49)
[2019-07-30] MEDS: Acetaminophen 500 MG Tablet 1000 MG PO ×3 (05:49→21:20)
[2019-07-30] MEDS: Enoxaparin 40 MG/0.4 ML Syringe SC (05:49)
[2019-07-30 06:45] LABS: Bedside Glucose 298 mg/dL (70-110)
[2019-07-30] MEDS: traMADol 50 MG Tablet PO ×2 (06:53→13:11)
[2019-07-30 07:00] VITALS: BP 146/61; PULSE 65; RESP 18; TEMP 36.6; O2SAT 97
[2019-07-30 07:08] VITALS: O2SAT 96
[2019-07-30] MEDS: Nystatin Powder 15gm Bottle 1 APPLIC TOPICAL ×2 (07:48→21:21)
[2019-07-30 07:49] VITALS: PULSE 65
[2019-07-30] MEDS: Aspirin E.C. 81 MG Tablet PO (07:49)
[2019-07-30] MEDS: Citalopram 20 MG Tablet PO (07:49)
[2019-07-30] MEDS: Metoprolol Tartrate 25 MG Tablet PO ×2 (07:49→21:21)
[2019-07-30] MEDS: Celecoxib 100 MG Capsule PO ×2 (07:49→21:24)
[2019-07-30] MEDS: Famotidine 20 MG Tablet PO ×2 (07:49→21:21)
[2019-07-30] MEDS: Glimepiride 2 MG Tablet PO (07:49)
[2019-07-30] MEDS: Losartan Potassium 100 MG Tablet PO (07:49)
[2019-07-30] MEDS: Folic Acid 1 MG Tablet PO (07:49)
[2019-07-30] MEDS: Insulin Lispro 100 UNIT/ML INSULN.PEN SC ×4 (07:50→21:23)
[2019-07-30] MEDS: Polyethylene Glycol 3350 17 GM PACKET PO (07:53)
[2019-07-30 12:06] LABS: Bedside Glucose 337 mg/dL (70-110)
[2019-07-30 17:20] LABS: Bedside Glucose 342 mg/dL (70-110)
[2019-07-30] MEDS: Glimepiride 1 MG Tablet PO (17:37)
[2019-07-30 19:42] VITALS: BP 146/67; PULSE 61; RESP 20; TEMP 36.4; O2SAT 96
[2019-07-30 21:06] LABS: Bedside Glucose 331 mg/dL (70-110)
[2019-07-30 21:21] VITALS: BP 146/67; PULSE 61
[2019-07-30] MEDS: Atorvastatin Calcium 40 MG Tablet PO (21:22)
[2019-07-31] MEDS: traMADol 50 MG Tablet PO ×3 (05:59→18:11)
[2019-07-31] MEDS: Enoxaparin 40 MG/0.4 ML Syringe SC (06:00)
[2019-07-31] MEDS: Acetaminophen 500 MG Tablet 1000 MG PO ×3 (06:00→21:42)
[2019-07-31] MEDS: Levothyroxine 88 MCG Tablet PO (06:00)
[2019-07-31 07:12] VITALS: BP 125/59; PULSE 65; RESP 12; TEMP 36.8; O2SAT 99
[2019-07-31 07:22] VITALS: O2SAT 94
[2019-07-31] MEDS: Insulin Lispro 100 UNIT/ML INSULN.PEN SC ×4 (08:39→21:45)
[2019-07-31] MEDS: Glimepiride 2 MG Tablet PO (08:42)
[2019-07-31] MEDS: Polyethylene Glycol 3350 17 GM PACKET PO (08:42)
[2019-07-31] MEDS: Losartan Potassium 100 MG Tablet PO (08:42)
[2019-07-31] MEDS: Celecoxib 100 MG Capsule PO ×2 (08:42→21:46)
[2019-07-31] MEDS: Citalopram 20 MG Tablet PO (08:42)
[2019-07-31] MEDS: Folic Acid 1 MG Tablet PO (08:42)
[2019-07-31] MEDS: Famotidine 20 MG Tablet PO ×2 (08:42→21:43)
[2019-07-31 08:43] VITALS: BP 125/59; PULSE 65
[2019-07-31] MEDS: Metoprolol Tartrate 25 MG Tablet PO ×2 (08:43→21:43)
[2019-07-31] MEDS: Aspirin E.C. 81 MG Tablet PO (08:43)
[2019-07-31] MEDS: Nystatin Powder 15gm Bottle 1 APPLIC TOPICAL ×2 (08:47→21:43)
[2019-07-31 08:51] LABS: Bedside Glucose 283 mg/dL (70-110)
[2019-07-31 11:50] LABS: Bedside Glucose 355 mg/dL (70-110)
[2019-07-31 17:10] LABS: Bedside Glucose 259 mg/dL (70-110)
[2019-07-31] MEDS: Glimepiride 1 MG Tablet PO (17:30)
--- NOTE | 2019-07-31 18:00 | NURSING ---
Dr. Renee aware this AM about patient's refusal of MOM or any laxative measure. Patient states she goes every 5 days at home. Denies any discomfort. No distention. BS x 4
[2019-07-31 19:19] VITALS: BP 134/62; PULSE 60; RESP 16; TEMP 36.6; O2SAT 98
[2019-07-31 21:01] LABS: Bedside Glucose 317 mg/dL (70-110)
[2019-07-31 21:43] VITALS: BP 134/62; PULSE 60
[2019-07-31] MEDS: Atorvastatin Calcium 40 MG Tablet PO (21:44)
[2019-08-01] MEDS: Acetaminophen 500 MG Tablet 1000 MG PO ×3 (05:51→22:04)
[2019-08-01] MEDS: traMADol 50 MG Tablet PO ×2 (05:51→16:26)
[2019-08-01] MEDS: Enoxaparin 40 MG/0.4 ML Syringe SC (05:52)
[2019-08-01] MEDS: Levothyroxine 88 MCG Tablet PO (05:52)
[2019-08-01 06:31] LABS: Bedside Glucose 290 mg/dL (70-110)
[2019-08-01] MEDS: Insulin Lispro 100 UNIT/ML INSULN.PEN SC ×4 (07:41→22:09)
[2019-08-01] MEDS: Polyethylene Glycol 3350 17 GM PACKET PO (07:43)
[2019-08-01 07:45] VITALS: BP 135/66; PULSE 60
[2019-08-01] MEDS: Aspirin E.C. 81 MG Tablet PO (07:45)
[2019-08-01] MEDS: Famotidine 20 MG Tablet PO ×2 (07:45→22:05)
[2019-08-01] MEDS: Citalopram 20 MG Tablet PO (07:45)
[2019-08-01] MEDS: Losartan Potassium 100 MG Tablet PO (07:45)
[2019-08-01] MEDS: Celecoxib 100 MG Capsule PO ×2 (07:45→22:04)
[2019-08-01] MEDS: Metoprolol Tartrate 25 MG Tablet PO ×2 (07:45→22:05)
[2019-08-01] MEDS: Glimepiride 2 MG Tablet PO ×2 (07:46→16:26)
[2019-08-01] MEDS: Folic Acid 1 MG Tablet PO (07:46)
[2019-08-01] MEDS: Nystatin Powder 15gm Bottle 1 APPLIC TOPICAL ×2 (07:49→22:12)
[2019-08-01 07:58] VITALS: BP 135/66; PULSE 60; RESP 16; TEMP 36.5; O2SAT 94
--- NOTE | 2019-08-01 10:35 | CASEMGMT ---
Social Work IDT met with pt, , daughter for Team Meeting. Pt is walking 165 ft FWW SBA, trialed cane CGA-Min assist-not as safe, will continue to work with walker. Pt completed 12 steps CGA-min, SBA for all ADLs. Pt having increased back pain, physician adjusted medications. Encouraging pt to increase fluid intake. Explained medicare coverage with [facility] 12 days with DC date: 08/07. Will continue to follow. Erma Saleh, Social work sales and marketing intern Julianna Bah, ANIMAL HUSBANDRY PROFESSOR CRIBBER
--- NOTE | 2019-08-01 10:50 | PCM.PROGNOTE ---
Patient Problems: Active and Suspected Problems (Last Reviewed 07/26/19 @ 12:40 by Mali Renee DO) Orthostatic hypotension (Acute) MELVIN (acute kidney injury) (Acute) Hypocalcemia (Acute) Elevated TSH (Acute) Carotid stenosis (Acute) Traumatic periorbital ecchymosis of left eye (Acute) Subjective: Raquel was seen on team rounds today and her Martin and her daughter Maribel were present. Afebile VSS Maintaining appropriate oxygen saturation on RA Oral intake is good Discussed with nursing - no problems that need addressed Reviewed the PT/OT/ST notes Medication list reviewed. Blood sugar record was reviewed. Currently on Lantus at HS and Amaryl. BS's consistently high. Talked with her today and she eats a mixture of Cheerios, pretzels, cashews and other carbs at HS so that her sugar does not drop at night. She was having frequent low blood sugars at home on the previous regimen of 50 units of Humalog BID and Toujeo. She was also eating Eclairs and other carbs during the day to keep her blood sugars up. She has gained 30 lbs.....which she states she lost on Victoza( but, insurance will not cover). The pt and her family are all frustrated. The patient told the filler mixer during her acute admission that she did not need education but, she is now agreeable. Her family would also like to be there. She tells me that she is still having 7/10 pain at baseline......it does not change with therapy. She is having a hard time sleeping at night due to pain every time she attempts to roll over. The pain in the R anterior thigh is gone since the epidural. She is still having pain in the R buttock and the low back. - Physical Exam Vitals/I&O's: Vital Signs Temp Pulse Resp BP Pulse Ox 97.7 F L 60 16 135/66 H 94 08/01/19 07:58 08/01/19 07:58 08/01/19 07:58 08/01/19 07:58 08/01/19 07:58 Oxygen Delivery Method Room Air Weight: 225 lb 2 oz Body Mass Index (BMI) 41.1 Intake and Output for Last 24 Hours 07/30/19 07/31/19 08/01/19 23:59 23:59 23:59 Intake Total 180 / 180 1440 / 1440 610 / 610 Output Total 300 / 300 Balance 180 / 180 1440 / 1440 310 / 310 General: Alert, Oriented x3, Cooperative, No apparent distress - sitting in a recliner with the legs up...this helps with the back pain. HEENT: PERRLA, EOMI, Normocephalic Oral: Moist Mucosa Neck: Supple, No Nodes, Trachea Midline Lungs: Clear to auscultation Cardiovascular: Regular rate, Regular Rhythm, Normal S1, Normal S2, No Gallop Abdomen: Bowel Sounds Present, Soft, Non Tender, Non-Distended, Obese, - - She has not had a BM since 07/26. She tells me that she only moves her bowels every 5 days at home but, sometimes she has diarrhea also. She refuses MOM because she does not to have diarrhea? She is on Miralax.....will add senna S. Agrees to Dulcolax 10 mg PO today. Extremities: No clubbing, No cyanosis, No edema Skin: No rashes, No breakdown Neurological: Cranial nerves II-XII grossly intact, Neuro grossly intact Psych/Mental Status: Normal Affect, Appropriate Laboratory Results 07/31/19 11:48: POC Glucose 355 H 07/31/19 17:05: POC Glucose 259 H 07/31/19 20:56: POC Glucose 317 H 08/01/19 05:54: POC Glucose 290 H Current Medications Acetaminophen (Tylenol) 1,000 mg PO Q8 [facility] Last Admin: 08/01/19 05:51 Dose: 1,000 mg Documented by: Aspirin (Ecotrin) 81 mg PO DAILY [facility] Last Admin: 08/01/19 07:45 Dose: 81 mg Documented by: Atorvastatin Calcium (Lipitor) 40 mg PO QHS [facility] Last Admin: 07/31/19 21:44 Dose: 40 mg Documented by: Bisacodyl (Dulcolax) 10 mg RECTAL .PRN X 1 PRN PRN Reason: Constipation Celecoxib (Celebrex) 100 mg PO BID [facility] Last Admin: 08/01/19 07:45 Dose: 100 mg Documented by: Citalopram Hydrobromide (Celexa) 20 mg PO DAILY [facility] Last Admin: 08/01/19 07:45 Dose: 20 mg Documented by: Enoxaparin Sodium (Lovenox) 40 mg SC DAILY@0600 [facility] Last Admin: 08/01/19 05:52 Dose: 40 mg Documented by: Ergocalciferol (Vitamin D) 50,000 unit PO We [facility] Last Admin: 07/27/19 07:43 Dose: 50,000 unit Documented by: Famotidine (Pepcid) 20 mg PO BID [facility] Last Admin: 08/01/19 07:45 Dose: 20 mg Documented by: Folic Acid (Folic Acid) 1 mg PO DAILYCM [facility] Last Admin: 08/01/19 07:46 Dose: 1 mg Documented by: Gabapentin (Neurontin) 0 mg PO TIDCM [facility] Glimepiride (Amaryl) 2 mg PO BID [facility] Glucagon () 1 mg IM .X1 PRN PRN Reason: Hypoglycemia Dextrose (Dextrose 10%-Water) 250 mls @ 999 mls/hr IV .Q16M PRN; Protocol PRN Reason: HYPOGLYCEMIA Insulin Glargine (Lantus (Bkc)) 32 units SC QHS [facility] Last Admin: 07/31/19 21:44 Dose: 32 u Documented by: Insulin Human Lispro (Humalog Kwikpen (Bkc)) 0 unit SC ACHS [facility]; Protocol Last Admin: 08/01/19 07:41 Dose: 4 u Documented by: Levothyroxine Sodium (Synthroid) 88 mcg PO DAILY@0600 [facility] Last Admin: 08/01/19 05:52 Dose: 88 mcg Documented by: Lidocaine (Lidoderm Patch) 2 patch TOPICAL DAILY [facility]; Protocol Losartan Potassium (Cozaar) 100 mg PO DAILY [facility] Last Admin: 08/01/19 07:45 Dose: 100 mg Documented by: Magnesium Hydroxide (Milk Of Magnesia) 30 ml PO .PRN X 1 PRN PRN Reason: Constipation Metoprolol Tartrate (Lopressor (Beta Allan)) 25 mg PO BID [facility] Last Admin: 08/01/19 07:45 Dose: 25 mg Documented by: Nystatin (Mycostatin Powder) 1 applic TOPICAL BID [facility]; Protocol Last Admin: 08/01/19 07:49 Dose: 1 applicatio Documented by: Polyethylene Glycol (Miralax) 17 gm PO DAILY [facility] Last Admin: 08/01/19 07:43 Dose: 17 gm Documented by: Senna (Senokot) 2 tablet PO BID [facility] Tramadol HCl (Ultram) 50 mg PO Q6H PRN PRN PRN Reason: pain >4 Last Admin: 08/01/19 05:51 Dose: 50 mg Documented by: Medical Necessity - Tobacco Use Smoking Status: Former smoker - she smoked very briefly as a teenager and then quit Tobacco Use: Non-smoker Assessment/Plan All Active Problems (Last Reviewed 07/26/19 @ 12:40 by Mali Renee DO) Right hip pain (Acute) Orthostatic hypotension (Acute) MELVIN (acute kidney injury) (Acute) Hypocalcemia (Acute) Elevated TSH (Acute) Carotid stenosis (Acute) Traumatic periorbital ecchymosis of left eye (Acute) Chest tightness (Resolved) Dizziness and giddiness (Resolved) Fatigue (Resolved) Segmental and somatic dysfunction of lumbar region (Resolved) Segmental and somatic dysfunction of pelvic region (Resolved) Segmental and somatic dysfunction of thoracic region (Resolved) Impressions 1. Debility secondary to severe acute on chronic R Hip pain and inability to bear weight after recent fall. She is known to have OA of the R hip with mild-mod joint space narrowing. In actuality she is primarily c/o R buttock pain and R anterior thigh pain. Negative SLR and Ashish Debo test BL. A CT scan of the lumbosacral spine showed spondylolisthesis at L5-S1, marked degree of disc space narrowing and spondylosis at L4-L5 with mild degree of central canal stenosis, facet joint osteoarthritis and hypertrophy of facet joints at L3-L4 with moderate degree of central and bilateral neural foraminal stenosis, mild degree of diffuse posterior disc bulge at L2-L3 causing bilateral neural foraminal stenosis. Dr. Duarte was consulted and an epidural was given. The thigh pain resolved with an Epidural. She continues to have R Buttock pain and pain in the low back. She is currently on Tylenol 1 g p.o. every 8 hours, Celebrex 100 mg p.o. twice daily, and tramadol which she is taking 2-3 times daily. Will add gabapentin 200 mg twice daily and 400 mg at at bedtime. We will also order a lidocaine patch for the low back. At some point she may require an MRI of the back if she continues to fail treatment. May need referral to surgeon. May want to consider weaning the citalopram and considering Cymbalta or Effexor which will likely help with pain control. 2. Left periorbital swelling and ecchymosis secondary to fall-resolving 3. Left trochanteric bursitis with calcification and a spur off the greater trochanter-denies pain 4. Acute kidney injury-more likely than not secondary to dehydration. Resolved. She does not like to drink water because then she has to urinate. I told her she needs to regularly drink fluids if she is going to avoid dehydration and orthostatic hypotension in the future. This is the likely reason for falls at home. the falls exacerbated the DDD and DJD in the low back. 5. Orthostatic hypotension-due to dehydration. Resolved 6. Elevated TSH with a normal T4. 7. frequent Hypoglycemic episodes at home leading her to have to eat ECLAIR to keep her blood sugars up leading to a 20-30 lb weight gain - pt is not agreeable to meeting with the filler mixer for education and her family would like to be present. Dr. Masterson has been consulted to get her on a good drug regimen to control BS's without causing hypoglycemic episodes requiring her to overload on carbs to keep her BS's up. 8. Chronic medical conditions including essential hypertension/hyperlipidemia/morbid obesity/diabetes mellitus type 2/osteopenia/osteoarthritis/PAF/formerly on chronic anticoagulation-recently stopped due to falls/hypothyroidism/anxiety/depression - continue home medications The patient and her family were given the opportunity to ask questions and I spent 30 minutes with them for education and explaining what is causing the pain. Code Visit Inpatient E&M: 05699 Subs Hosp L2
[2019-08-01] MEDS: Lidocaine 5% Patch 2 PATCH TOPICAL (11:53)
[2019-08-01] MEDS: Bisacodyl 5 MG Tablet 10 MG PO (11:55)
--- NOTE | 2019-08-01 11:58 | PCM.CONS.GEN ---
Problem List (1) Diabetes mellitus type 2 in obese Status: Chronic Reason for Consult History of Present Illness: The patient is a 78 year old F []admitted to rehabilitation center after a fall. She has longstanding history (20 years) of type 2 diabetes. She states she has been on basal insulin about 5 years and meal time insulin for about 2 months. She was taking 100 units of Toujeo and 50 units of Humalog at breakfast and supper. She denies complications of diabetes. Her diet is not balanced as she does not like to eat proteins. She eats vegetables and carbohydrates. She reports that she has been getting low every day at about 2 pm, so she started eating eclairs to get her blood sugar back up. Past Medical History Past Medical History (Chronic Problems): Chronic Problems (Last Reviewed 07/26/19 @ 12:40 by Mali Renee DO) Diabetes mellitus type 2 in obese (Chronic) Macrocytosis (Chronic) Concentric left ventricular hypertrophy (Chronic) Grade I diastolic dysfunction (Chronic) Carotid stenosis, bilateral (Chronic) R>L Hepatic steatosis (Chronic) Morbid (severe) obesity due to excess calories (Chronic) Degenerative disc disease (Chronic) Osteoarthritis (Chronic) Osteopenia (Chronic) Hypothyroidism (Chronic) Essential (primary) hypertension (Chronic) Hyperlipidemia (Chronic) Paroxysmal atrial fibrillation (Chronic) Family history of sudden cardiac (Chronic) Medical History: Medical History (Last Reviewed 07/26/19 @ 12:40 by Mali Renee DO) Essential (primary) hypertension (Chronic) I10 Hyperlipidemia (Chronic) E78.5 Family history of sudden cardiac (Chronic) Z82.41 DDD (degenerative disc disease), lumbar 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 Abnormal electrocardiogram (Inactive) R94.31 On statin therapy (Inactive) Z79.899 Allergies atenolol [From Tenormin] Adverse Reaction (Severe, Verified 07/28/19 13:41) Unknown Home Medications: Ambulatory Orders Medication Instructions Recorded aspirin 81 mg tablet,delayed 81 mg PO QDAY tab 08/26/17 release atorvastatin 40 mg tablet 40 mg PO QDAY 08/26/17 citalopram 20 mg tablet 20 mg PO QDAY 08/26/17 levothyroxine 88 mcg capsule 88 mcg PO QDAY cap 08/26/17 losartan 100 mg tablet 100 mg PO QDAY 08/26/17 metoprolol tartrate 25 mg tablet 25 mg PO BID 08/26/17 folic acid 1 mg tablet 1 mg PO QDAY 09/01/17 antiarthritic combination no.2 900 1 tablet PO DAILY tab 09/10/18 mg tablet biotin 1 mg capsule 1 mg PO DAILY 09/10/18 triamcinolone acetonide 0.1 % 1 applic TOPICAL DAILY 09/10/18 topical cream Ergocalciferol [Vitamin D] 50,000 unit PO Q7D 07/24/19 Insulin Lispro [Humalog KwikPen] 50 unit SQ BID 07/24/19 Lidocaine [Lidoderm Patch] 1 patch TOPICAL DAILY 07/26/19 Nystatin Powder [Mycostatin Powder] 1 applic TOPICAL BID 07/26/19 Surgical History: Surgical History (Last Reviewed 07/26/19 @ 12:40 by Mali Renee DO) Hx of repair of rotator cuff Z98.890 Surgical History: - - Left rotator cuff repair and carpal tunnel release on the left. Psychiatric History: No pertinent psych hx CRISIS INTERVENTION SPECIALIST History: No pertinent CRISIS INTERVENTION SPECIALIST history Lives: Spouse/ Significant Other Smoking Status: Former smoker - she smoked very briefly as a teenager and then quit Tobacco Use: Non-smoker Alcohol: None Drugs: None - *Family History Maternal Family History: Family History (Last Reviewed 07/26/19 @ 12:41 by Mali Renee DO) Father H/O carotid endarterectomy, Onset Age: 70 Mother Diabetes Brother CAD (coronary artery disease) Myocardial infarction Sudden cardiac Daughter Hypertension Hyperlipidemia Other Family history of hyperlipidemia Family history of hypertension Family history of sudden cardiac Review of Systems Constitutional: Reports: Weight Change - gained 30 pounds recently Eyes: Reports: Blurred vision Musculoskeletal: Reports: Joint Pain - right hip pain, with sciatica symptoms Patient Problems: Active and Suspected Problems (Last Reviewed 07/26/19 @ 12:40 by Mali Renee DO) Orthostatic hypotension (Acute) MELVIN (acute kidney injury) (Acute) Hypocalcemia (Acute) Elevated TSH (Acute) Carotid stenosis (Acute) Traumatic periorbital ecchymosis of left eye (Acute) - Physical Exam Vitals/I&O's: Vital Signs Temp Pulse Resp BP Pulse Ox 97.7 F L 60 16 135/66 H 94 08/01/19 07:58 08/01/19 07:58 08/01/19 07:58 08/01/19 07:58 08/01/19 07:58 Oxygen Delivery Method Room Air Weight: 225 lb 2 oz Body Mass Index (BMI) 41.1 Intake and Output for Last 24 Hours 07/30/19 07/31/19 08/01/19 23:59 23:59 23:59 Intake Total 180 / 180 1440 / 1440 610 / 610 Output Total 300 / 300 Balance 180 / 180 1440 / 1440 310 / 310 General: Alert, Oriented x3, Cooperative, Well nourished HEENT: PERRLA, EOMI, - - bruising left eye Oral: Moist Mucosa Neck: Supple, No JVD, Thyroid Normal Size and Texture Lungs: Clear to auscultation Abdomen: Soft, Non Tender Extremities: No edema, - - legs are wrapped Neurological: Cranial nerves II-XII grossly intact Laboratory Results 07/31/19 17:05: POC Glucose 259 H 07/31/19 20:56: POC Glucose 317 H 08/01/19 05:54: POC Glucose 290 H Current Medications Acetaminophen (Tylenol) 1,000 mg PO Q8 [facility] Last Admin: 08/01/19 05:51 Dose: 1,000 mg Documented by: Aspirin (Ecotrin) 81 mg PO DAILY [facility] Last Admin: 08/01/19 07:45 Dose: 81 mg Documented by: Atorvastatin Calcium (Lipitor) 40 mg PO QHS [facility] Last Admin: 07/31/19 21:44 Dose: 40 mg Documented by: Bisacodyl (Dulcolax) 10 mg RECTAL .PRN X 1 PRN PRN Reason: Constipation Celecoxib (Celebrex) 100 mg PO BID [facility] Last Admin: 08/01/19 07:45 Dose: 100 mg Documented by: Citalopram Hydrobromide (Celexa) 20 mg PO DAILY [facility] Last Admin: 08/01/19 07:45 Dose: 20 mg Documented by: Enoxaparin Sodium (Lovenox) 40 mg SC DAILY@0600 [facility] Last Admin: 08/01/19 05:52 Dose: 40 mg Documented by: Ergocalciferol (Vitamin D) 50,000 unit PO We [facility] Last Admin: 07/27/19 07:43 Dose: 50,000 unit Documented by: Famotidine (Pepcid) 20 mg PO BID [facility] Last Admin: 08/01/19 07:45 Dose: 20 mg Documented by: [facility] Last Admin: 08/01/19 07:46 Dose: 1 mg Documented by: Gabapentin (Neurontin) 200 mg PO BID@0800,1400 [facility] Gabapentin (Neurontin) 400 mg PO QHS [facility] Glucagon () 1 mg IM .X1 PRN PRN Reason: Hypoglycemia Dextrose (Dextrose 10%-Water) 250 mls @ 999 mls/hr IV .Q16M PRN; Protocol PRN Reason: HYPOGLYCEMIA Insulin Glargine (Lantus (Bkc)) 60 units SC QHS [facility] Insulin Human Lispro (Humalog Kwikpen (Bkc)) 0 unit SC ACHS [facility]; Protocol Last Admin: 08/01/19 11:54 Dose: 4 u Documented by: Insulin Human Lispro (Humalog Kwikpen (Bkc)) 20 unit SC TIDAC [facility] Levothyroxine Sodium (Synthroid) 88 mcg PO DAILY@0600 [facility] Last Admin: 08/01/19 05:52 Dose: 88 mcg Documented by: Lidocaine (Lidoderm Patch) 2 patch TOPICAL DAILY [facility]; Protocol Last Admin: 08/01/19 11:53 Dose: 2 patch Documented by: Losartan Potassium (Cozaar) 100 mg PO DAILY [facility] Last Admin: 08/01/19 07:45 Dose: 100 mg Documented by: Magnesium Hydroxide (Milk Of Magnesia) 30 ml PO .PRN X 1 PRN PRN Reason: Constipation Metoprolol Tartrate (Lopressor (Beta Allan)) 25 mg PO BID [facility] Last Admin: 08/01/19 07:45 Dose: 25 mg Documented by: Nystatin (Mycostatin Powder) 1 applic TOPICAL BID [facility]; Protocol Last Admin: 08/01/19 07:49 Dose: 1 applicatio Documented by: Polyethylene Glycol (Miralax) 17 gm PO DAILY [facility] Last Admin: 08/01/19 07:43 Dose: 17 gm Documented by: Senna (Senokot) 2 tablet PO BID [facility] Tramadol HCl (Ultram) 50 mg PO Q6H PRN PRN PRN Reason: pain >4 Last Admin: 08/01/19 05:51 Dose: 50 mg Documented by: Assessment/Plan All Active Problems (Last Reviewed 07/26/19 @ 12:40 by Mali Renee, ) Right hip pain (Acute) Orthostatic hypotension (Acute) MELVIN (acute kidney injury) (Acute) Hypocalcemia (Acute) Elevated TSH (Acute) Carotid stenosis (Acute) Traumatic periorbital ecchymosis of left eye (Acute) Chest tightness (Resolved) Dizziness and giddiness (Resolved) Fatigue (Resolved) Segmental and somatic dysfunction of lumbar region (Resolved) Segmental and somatic dysfunction of pelvic region (Resolved) Segmental and somatic dysfunction of thoracic region (Resolved) Diabetes mellitus type 2 with insulin I believe that her low blood sugars were from too much basal insulin. Will readjust doses and adjust daily as needed. I will encourage her to eat more protein and senior counsel commercial her regarding her diet. Code Visit Inpatient E&M: 93500 Init Hosp L2
[2019-08-01 12:06] LABS: Bedside Glucose 291 mg/dL (70-110)
[2019-08-01] MEDS: Gabapentin 100 MG Capsule 200 MG PO (13:55)
--- NOTE | 2019-08-01 16:24 | CHAPLAIN ---
Type of Pastoral Visit ___ Initial Visit _x__ Follow-up Visit ___ On-call Visit ___ General Patient Visit ___ Spiritual Assessment ___ Family Conference ___ Bereavement ___ Rapid Response ___ Code Blue ___ Other (describe below) Pastoral Care Referral From _x__ Patient ___ Family ___ Nurse ___ Physician ___ Unix Systems Administrator ___ Senior Quality Technician ___ Other (describe below) Sacrament/Intervention _x__ Active listening ___ Anointing ___ Worship ___ Bereavement ___ Communion _x__ Jailyn exploration ___ ___ Life review _x__ Prayer ___ Reconciliation ___ Sacrament of Sick _x__ Supportive presence ___ Wedding ___ Other (describe below) Pastoral Comments
[2019-08-01] MEDS: Insulin Lispro 100 UNIT/ML INSULN.PEN 20 UNIT SC (16:32)
[2019-08-01 17:21] LABS: Bedside Glucose 332 mg/dL (70-110)
[2019-08-01 20:30] LABS: Bedside Glucose 322 mg/dL (70-110)
[2019-08-01 21:01] VITALS: BP 130/67; PULSE 59; RESP 16; TEMP 36.5; O2SAT 98
[2019-08-01 22:02] VITALS: BP 133/75; PULSE 65
[2019-08-01] MEDS: Atorvastatin Calcium 40 MG Tablet PO (22:04)
[2019-08-01 22:05] VITALS: BP 133/75; PULSE 65
[2019-08-01] MEDS: Gabapentin 400 MG Capsule PO (22:24)
[2019-08-02] MEDS: Levothyroxine 88 MCG Tablet PO (05:47)
[2019-08-02] MEDS: Acetaminophen 500 MG Tablet 1000 MG PO ×3 (05:47→21:18)
[2019-08-02] MEDS: Enoxaparin 40 MG/0.4 ML Syringe SC (05:48)
[2019-08-02 06:55] LABS: Bedside Glucose 307 mg/dL (70-110)
[2019-08-02 07:35] VITALS: BP 140/82; PULSE 61; RESP 16; TEMP 36.6; O2SAT 95
[2019-08-02] MEDS: Insulin Lispro 100 UNIT/ML INSULN.PEN SC ×3 (07:37→21:24)
[2019-08-02] MEDS: Gabapentin 100 MG Capsule 200 MG PO ×2 (07:38→13:41)
[2019-08-02] MEDS: Folic Acid 1 MG Tablet PO (07:38)
[2019-08-02] MEDS: Insulin Lispro 100 UNIT/ML INSULN.PEN 20 UNIT SC ×3 (07:38→17:19)
[2019-08-02] MEDS: Glimepiride 2 MG Tablet PO ×2 (07:38→17:19)
[2019-08-02 07:39] VITALS: BP 140/82; PULSE 61
[2019-08-02] MEDS: Losartan Potassium 100 MG Tablet PO (07:39)
[2019-08-02] MEDS: Famotidine 20 MG Tablet PO ×2 (07:39→21:18)
[2019-08-02] MEDS: Aspirin E.C. 81 MG Tablet PO (07:39)
[2019-08-02] MEDS: Celecoxib 100 MG Capsule PO ×2 (07:39→21:18)
[2019-08-02] MEDS: Polyethylene Glycol 3350 17 GM PACKET PO (07:39)
[2019-08-02] MEDS: Citalopram 20 MG Tablet PO (07:39)
[2019-08-02] MEDS: Metoprolol Tartrate 25 MG Tablet PO ×2 (07:39→21:18)
[2019-08-02] MEDS: traMADol 50 MG Tablet PO ×2 (07:42→21:18)
[2019-08-02] MEDS: Nystatin Powder 15gm Bottle 1 APPLIC TOPICAL ×2 (07:48→21:19)
[2019-08-02] MEDS: Lidocaine 5% Patch 2 PATCH TOPICAL (09:02)
[2019-08-02 12:00] LABS: Bedside Glucose 115 mg/dL (70-110)
--- NOTE | 2019-08-02 13:35 | CASEMGMT ---
Social Work Met with pt to discuss DC plans. pt requested to DC on 08/06. Discussed HHC vs. OP. Pt requested OP at [facility]- referral made for PT/OT. Provided shower chair pricing and information to purchase privately. Made referral to [employer] for FWW. Plan: DC 08/06, Home with , OP: [facility] for PT/OT, [employer] FWW Erma Saleh, social work internet programmer Julianna Bah, MANAGER NICU OPINION POLLS SURVEY WORKER
--- NOTE | 2019-08-02 16:19 | CASEMGMT ---
Social Work Reviewed and agreed with Social Work Heel Molder documentation on this date. Julianna Bah, SUPERVISOR LOCOMOTIVE SERVICE REPRESENTATIVE
[2019-08-02 17:00] LABS: Bedside Glucose 278 mg/dL (70-110)
[2019-08-02 19:41] VITALS: BP 123/67; PULSE 71; RESP 16; TEMP 36.4; O2SAT 97
[2019-08-02 20:51] LABS: Bedside Glucose 242 mg/dL (70-110)
[2019-08-02 21:18] VITALS: BP 123/67; PULSE 71
[2019-08-02] MEDS: Atorvastatin Calcium 40 MG Tablet PO (21:18)
[2019-08-02] MEDS: Gabapentin 400 MG Capsule PO (21:18)
[2019-08-03] MEDS: Enoxaparin 40 MG/0.4 ML Syringe SC (06:24)
[2019-08-03] MEDS: Levothyroxine 88 MCG Tablet PO (06:24)
[2019-08-03] MEDS: Acetaminophen 500 MG Tablet 1000 MG PO ×3 (06:24→21:49)
[2019-08-03 07:05] LABS: Bedside Glucose 176 mg/dL (70-110)
[2019-08-03] MEDS: Folic Acid 1 MG Tablet PO (07:28)
[2019-08-03] MEDS: Glimepiride 2 MG Tablet PO ×2 (07:28→17:17)
[2019-08-03] MEDS: Gabapentin 100 MG Capsule 200 MG PO ×2 (07:28→14:07)
[2019-08-03] MEDS: Celecoxib 100 MG Capsule PO ×2 (07:28→21:52)
[2019-08-03 07:29] VITALS: BP 159/63; PULSE 63
[2019-08-03] MEDS: Aspirin E.C. 81 MG Tablet PO (07:29)
[2019-08-03] MEDS: Losartan Potassium 100 MG Tablet PO (07:29)
[2019-08-03] MEDS: Citalopram 20 MG Tablet PO (07:29)
[2019-08-03] MEDS: Metoprolol Tartrate 25 MG Tablet PO ×2 (07:29→21:52)
[2019-08-03] MEDS: Lidocaine 5% Patch 2 PATCH TOPICAL (07:29)
[2019-08-03] MEDS: Famotidine 20 MG Tablet PO ×2 (07:30→21:51)
[2019-08-03] MEDS: Polyethylene Glycol 3350 17 GM PACKET PO (07:30)
[2019-08-03] MEDS: Insulin Lispro 100 UNIT/ML INSULN.PEN 20 UNIT SC ×2 (07:31→11:50)
[2019-08-03] MEDS: Insulin Lispro 100 UNIT/ML INSULN.PEN SC ×3 (07:31→21:55)
[2019-08-03] MEDS: Nystatin Powder 15gm Bottle 1 APPLIC TOPICAL ×2 (07:41→21:51)
[2019-08-03 08:51] VITALS: BP 159/63; PULSE 63; RESP 18; TEMP 36.3; O2SAT 97
[2019-08-03 11:05] LABS: Bedside Glucose 249 mg/dL (70-110)
[2019-08-03] MEDS: traMADol 50 MG Tablet PO ×2 (11:52→20:00)
[2019-08-03] MEDS: Insulin Lispro 100 UNIT/ML INSULN.PEN 14 UNIT SC (17:16)
[2019-08-03 17:20] LABS: Bedside Glucose 86 mg/dL (70-110)
[2019-08-03 19:32] VITALS: BP 115/54; PULSE 61; RESP 18; TEMP 36.4; O2SAT 96
[2019-08-03] MEDS: Gabapentin 400 MG Capsule PO (21:51)
[2019-08-03 21:52] VITALS: BP 115/54; PULSE 61
[2019-08-03] MEDS: Atorvastatin Calcium 40 MG Tablet PO (21:52)
[2019-08-03 22:10] LABS: Bedside Glucose 195 mg/dL (70-110)
[2019-08-04 02:26] LABS: Bedside Glucose 191 mg/dL (70-110)
[2019-08-04] MEDS: Levothyroxine 88 MCG Tablet PO (05:43)
[2019-08-04] MEDS: Acetaminophen 500 MG Tablet 1000 MG PO ×3 (05:43→21:15)
[2019-08-04] MEDS: Enoxaparin 40 MG/0.4 ML Syringe SC (05:43)
[2019-08-04] MEDS: traMADol 50 MG Tablet PO ×3 (05:45→21:22)
[2019-08-04 06:45] LABS: Bedside Glucose 180 mg/dL (70-110)
[2019-08-04 07:52] VITALS: BP 150/83; PULSE 63; RESP 16; TEMP 36.4; O2SAT 99
[2019-08-04] MEDS: Insulin Lispro 100 UNIT/ML INSULN.PEN 20 UNIT SC ×3 (08:17→16:59)
[2019-08-04] MEDS: Insulin Lispro 100 UNIT/ML INSULN.PEN SC ×2 (08:17→21:17)
[2019-08-04] MEDS: Folic Acid 1 MG Tablet PO (08:18)
[2019-08-04] MEDS: Gabapentin 100 MG Capsule 200 MG PO ×2 (08:18→13:08)
[2019-08-04] MEDS: Glimepiride 2 MG Tablet PO (08:18)
[2019-08-04] MEDS: Losartan Potassium 100 MG Tablet PO (08:19)
[2019-08-04] MEDS: Aspirin E.C. 81 MG Tablet PO (08:19)
[2019-08-04] MEDS: Citalopram 20 MG Tablet PO (08:19)
[2019-08-04] MEDS: Lidocaine 5% Patch 2 PATCH TOPICAL (08:19)
[2019-08-04] MEDS: Celecoxib 100 MG Capsule PO ×2 (08:19→21:12)
[2019-08-04 08:21] VITALS: BP 150/83; PULSE 63
[2019-08-04] MEDS: Metoprolol Tartrate 25 MG Tablet PO ×2 (08:21→21:13)
[2019-08-04] MEDS: Famotidine 20 MG Tablet PO ×2 (08:21→21:14)
[2019-08-04] MEDS: Polyethylene Glycol 3350 17 GM PACKET PO (08:22)
[2019-08-04] MEDS: Nystatin Powder 15gm Bottle 1 APPLIC TOPICAL ×2 (10:11→21:15)
[2019-08-04 11:40] LABS: Bedside Glucose 142 mg/dL (70-110)
--- NOTE | 2019-08-04 16:00 | PCM.PN.BLA ---
Progress Note Patient's blood sugars are improving. Thursday, she ate pizza and egg salad sandwich for lunch. I spoke to her about adding vegetables and limiting flour in her diet. I gave her a Plate Method diet sheet that includes lists of proteins and veggies. Will stop glimepiride and increase basal insulin a tad. Fabien Masterson M.D. Code Visit Inpatient E&M: 27882 Subs Hosp L1
[2019-08-04 17:06] LABS: Bedside Glucose 103 mg/dL (70-110)
[2019-08-04 20:36] LABS: Bedside Glucose 257 mg/dL (70-110)
[2019-08-04 21:07] VITALS: BP 113/57; PULSE 63; RESP 16; TEMP 36.5; O2SAT 95
[2019-08-04] MEDS: Atorvastatin Calcium 40 MG Tablet PO (21:12)
[2019-08-04 21:13] VITALS: BP 113/57; PULSE 63
[2019-08-04] MEDS: Gabapentin 400 MG Capsule PO (21:13)
[2019-08-05] MEDS: Levothyroxine 88 MCG Tablet PO (05:18)
[2019-08-05] MEDS: Enoxaparin 40 MG/0.4 ML Syringe SC (05:18)
[2019-08-05] MEDS: Acetaminophen 500 MG Tablet 1000 MG PO ×3 (05:18→22:26)
[2019-08-05] MEDS: traMADol 50 MG Tablet PO ×2 (05:22→22:33)
[2019-08-05 06:36] LABS: Bedside Glucose 119 mg/dL (70-110)
[2019-08-05] MEDS: Polyethylene Glycol 3350 17 GM PACKET PO (07:51)
[2019-08-05] MEDS: Lidocaine 5% Patch 2 PATCH TOPICAL (07:51)
[2019-08-05 07:52] VITALS: BP 156/70; PULSE 61
[2019-08-05] MEDS: Losartan Potassium 100 MG Tablet PO (07:52)
[2019-08-05] MEDS: Famotidine 20 MG Tablet PO ×2 (07:52→22:25)
[2019-08-05] MEDS: Folic Acid 1 MG Tablet PO (07:52)
[2019-08-05] MEDS: Citalopram 20 MG Tablet PO (07:52)
[2019-08-05] MEDS: Celecoxib 100 MG Capsule PO ×2 (07:52→22:24)
[2019-08-05] MEDS: Gabapentin 100 MG Capsule 200 MG PO ×2 (07:52→13:03)
[2019-08-05] MEDS: Metoprolol Tartrate 25 MG Tablet PO ×2 (07:52→22:28)
[2019-08-05] MEDS: Aspirin E.C. 81 MG Tablet PO (07:52)
[2019-08-05] MEDS: Insulin Lispro 100 UNIT/ML INSULN.PEN 20 UNIT SC ×3 (07:53→17:16)
[2019-08-05] MEDS: Nystatin Powder 15gm Bottle 1 APPLIC TOPICAL (07:59)
[2019-08-05 08:05] VITALS: BP 156/70; PULSE 61; RESP 18; TEMP 36.3; O2SAT 97
[2019-08-05 11:25] LABS: Bedside Glucose 149 mg/dL (70-110)
--- NOTE | 2019-08-05 15:02 | DCINST_ITS ---
- Discharge Diagnoses Current Active Problems: Current Active and Chronic Problems (Last Reviewed 07/26/19 @ 12:40 by Mali Renee DO) Orthostatic hypotension (Acute) MELVIN (acute kidney injury) (Acute) Hypocalcemia (Acute) Diabetes mellitus type 2 in obese (Chronic) Elevated TSH (Acute) Macrocytosis (Chronic) Concentric left ventricular hypertrophy (Chronic) Grade I diastolic dysfunction (Chronic) Carotid stenosis (Acute) Carotid stenosis, bilateral (Chronic) R>L Hepatic steatosis (Chronic) Morbid (severe) obesity due to excess calories (Chronic) Traumatic periorbital ecchymosis of left eye (Acute) Degenerative disc disease (Chronic) Osteoarthritis (Chronic) Osteopenia (Chronic) Hypothyroidism (Chronic) You will use the following diet at home:: Calorie/Carbohydrate Controlled (specify 1200, 1400, etc) - 1600 calories Make sure to stay well hydrated. Your food should be the consistency of: Regular Your liquids should be the consistency of: Regular/Thin Discharge Activity: - - activity as tolerated. Follow the restrictions given to you by the physical therapist and do your exercised twice a day. Weight Bearing Status: Full weight bearing Call your doctor if you observe: Fever of 101 or Higher, Inability to urinate, Inability to have a bowel movement, Shortness of breath, Dizziness, Fainting spells, Chest pain, Calf discomfort, Uncontrolled pain, - - BS's consistently > 250 or less than 90 - call Dr. Masterson. Instructions: Hypoglycemia (Low Blood Sugar), Understanding Sciatica, MyPlate Worksheet: 1,600 Calories Additional Instructions: 1. You have a lot of arthritis in your low back and this is causing pressure on the nerves that travel out from the spinal cord into your legs. The R buttock pain, R groin pain and R anterior thigh pain are likely coming fron the arthritis in the back and not the arthritis in the hip. This is not going to go away but, the pain can be controlled and we can work to keep you functional. There are many things we have done in rehab to help control the pain and get you walking again. You got an injection in your back from Dr. Duarte. You are on Tylenol every 8 hours. You are taking Gabapentin three times a day which is a pill to help control nerve pain. You are on an anti-inflamatory drug called Celebrex twice a day and you are taking Tramadol 2- 3 times a day for breakthrough pain. you will likely have pain from the arthritis in the spine for the rest of your life.....just like the knees. Our goal is to keep the pain 4 or less and keep you comfortable. Your job is to lose weight and do your exercises every day so that the abdominal muscles, backmuscles and leg muscles stay strong. 2. The [employer] run a weight management program at the hospital called [facility]. All you need is a referral from Dr. Duncan and they will set you up with an apt. Dr. Masterson could also refer you to the [facility] program. Losing wieght will help control the blood sugars and will help with back pain as well. 3. Dr. Masterson is the doctor you saw in rehab to get the blood sugars under control. She is an site interpreter and her office is here in the hospital. We are going to have you follow up with her in a few weeks to keep the blood sugars controlled. You are going to be on a long acting insulin at night called Lantus......this is much less expensive than Trujeo. You will slo eat a MEALS a day and take 20 units of Lispro/humalog prior to each meal. This is a short acting insulin. Make sure to bring your glucometer to the appt with Dr. Masterson so she can see how the blood sugars have been doing at home. We are going to make you an appt to follow up with Dr. Masterson in [address] Duarte is the pain management doctor who gave you the shot in the back. His office is in the medical specialty office on the second floor. We will make you an appt to follow up with him in 1 month. 5. You should follow up with Dr. Duncan in the next 7-10 days. 6. It is a pleasure to have met you Raquel and I am very happy we could help you with the pain and get you walking again. Take care of yourself and if you ever need our help in the future we would be happy to see you again. Pending Tests on Discharge: none Allergies/Adverse Reactions: Allergies atenolol [From Tenormin] Adverse Reaction (Severe, Verified 07/28/19 13:41) Unknown Medications to take at Discharge aspirin 81 mg tablet,delayed release 81 mg PO QDAY tab 08/26/17 atorvastatin 40 mg tablet 40 mg PO QDAY 08/26/17 citalopram 20 mg tablet 20 mg PO QDAY 08/26/17 levothyroxine 88 mcg capsule 88 mcg PO QDAY cap 08/26/17 losartan 100 mg tablet 100 mg PO QDAY 08/26/17 metoprolol tartrate 25 mg tablet 25 mg PO BID 08/26/17 folic acid 1 mg tablet 1 mg PO QDAY 09/01/17 antiarthritic combination no.2 900 mg tablet 1 tablet PO DAILY tab 09/10/18 biotin 1 mg capsule 1 mg PO DAILY 09/10/18 triamcinolone acetonide 0.1 % topical cream 1 applic TOPICAL DAILY 09/10/18 Ergocalciferol [Vitamin D] 50,000 unit PO Q7D 07/24/19 Lidocaine [Lidoderm Patch] 1 patch TOPICAL DAILY 07/26/19 Nystatin Powder [Mycostatin Powder] 1 applic TOPICAL BID 07/26/19 Acetaminophen [Tylenol] 1,000 mg PO Q8 tablet 08/05/19 Celecoxib [Celebrex] 100 mg PO BID #60 cap 08/05/19 Gabapentin [Neurontin] 300 mg PO TID #90 cap 08/05/19 Insulin Glargine [Lantus SoloStar Pen] 64 units SUBCUT QHS 30 Days #7 pen 08/05/19 Insulin Lispro [Humalog KwikPen] 20 unit SC TIDAC insuln.pen 08/05/19 Polyethylene Glycol 3350 [Miralax] 17 gm PO DAILY #30 packet 08/05/19 traMADol [Ultram] 50 mg PO Q6H PRN PRN 21 Days #60 tablet 08/05/19 The following prescriptions were given: Celecoxib [Celebrex] 100 mg PO BID #60 cap Transmission Status: Pending to [facility] Insulin Glargine [Lantus SoloStar Pen] 64 units SUBCUT QHS 30 Days #7 pen Transmission Status: Pending to [facility] Polyethylene Glycol 3350 [Miralax] 17 gm PO DAILY #30 packet Transmission Status: Pending to [facility] Gabapentin [Neurontin] 300 mg PO TID #90 cap Transmission Status: Pending to [facility] traMADol [Ultram] 50 mg PO Q6H PRN PRN 21 Days #60 tablet PRN Reason: pain >4 Transmission Status: Sent to [facility] Primary Care Physician: Bud Duncan Chi, MD [Primary Care Provider] - Test Results: Test results from this visit will be discussed in further detail at your follow- up appointment, if applicable. Please Follow Up With: Dr. Bud Duncan When: at 2:40 PM Please Follow Up With: Narayan Duarte MD When: 08/25/19 at 12:15 PM Please Follow Up With: Fabien Masterson MD When: 08/19/19 at 11:30 AM Proposed Discharge Date: 08/06/19
--- NOTE | 2019-08-05 15:07 | PCM.PN.BLA ---
Progress Note This is a late entry for 08/04/19. Afebrile, VSS Good oral intake maintaining appropriate oxygen saturation on RA BS's are much better controlled Her pain is down to a 3 at times. It increases to a 5 with weight bearing. She is sleeping well. Denies daytime drowsiness with the Gabapentin. She told me she wished the shot would have worked better but, I told her there would be no cure for her and she will always have some pain in her back. I pointed out the when she came to us she was non-ambulatory and could not sleep due to severe pain and now she is ambulating in the halls and standing tall. She is sleeping well and when she is sitting or when she first gets up in the morning her pain is a 3. She told me that she has had pain in her knees for years and she has learned how to adjust. We talked about how weight loss would help with back pain. I also explained that pain is best treated with several different modalities NSAID's, massage, Lidocaine patches Tylenol and in some instances low dose Narcotic for break thru. I recommended she follow up with Dr. Duarte post DC. Alert and oriented X 3. Pleasant, appropriate. sitting in the recliner at the bedside Lungs - CTA HRRR, no gallop abd - soft, NT, ND, BS's heard in all quadrants. no peripheral edema Impression. 1. 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 2. Diabetes mellitus type 2-uncontrolled at admission but blood sugars are much improved. Patient has decided to follow-up with Dr. Fabien Masterson at discharge for management of her diabetes. 3. Osteoarthritis DC is planned for tomorrow. I answered all questions and we discussed the meds she will take take at CT She will follow up with Dr. Duncan in 1 week Increase the Gabapentin dose she will also follow up with Dr. Masterson and with Dr. Duarte going forward. I total of 40 minutes was spent with the patient, > 50% of the time was in counselling and arranging follow up Code Visit Inpatient E&M: 79449 Subs Hosp L2
--- NOTE | 2019-08-05 16:10 | PCM.DC.SUM ---
Discharge Date and Diagnosis Date of Admission: 07/26/19 Date of Discharge: 08/05/19 - Primary Discharge Diagnosis Active and Suspected Problems (Last Reviewed 07/26/19 @ 12:40 by Mali Renee DO) Debility due to acute exacerbation of chronic lumbar radiculitis RLE due to a fall Radiculitis, lumbosacral (Acute) RLE Orthostatic hypotension (Acute) MELVIN (acute kidney injury) (Acute) - resolved Hypocalcemia (Acute)- resolved Elevated TSH (Acute) with a normal T4 Traumatic periorbital ecchymosis of left eye (Acute) S/P epidural steroid injection (Acute) - 07/28/[address] Duarte - Secondary Discharge Diagnosis Chronic Problems (Last Reviewed 07/26/19 @ 12:40 by Mali Renee DO) Facet arthritis of lumbar region (Chronic) Lumbar foraminal stenosis (Chronic) Lumbar canal stenosis (Chronic) Diabetes mellitus type 2 in obese (Chronic) Macrocytosis (Chronic) Concentric left ventricular hypertrophy (Chronic) Grade I diastolic dysfunction (Chronic) Carotid stenosis, bilateral (Chronic) R>L Hepatic steatosis (Chronic) Morbid (severe) obesity due to excess calories (Chronic) Degenerative disc disease (Chronic) Osteoarthritis (Chronic) Osteopenia (Chronic) Hypothyroidism (Chronic) Essential (primary) hypertension (Chronic) Hyperlipidemia (Chronic) Paroxysmal atrial fibrillation (Chronic) Family history of sudden cardiac (Chronic) Hospital Course and Treatment Imaging Results: Clinical Impression(s) from Imaging Studies Lumbar Spine CT 07/26/19 12:56 IMPRESSION: Multilevel degenerative changes, as described above. Electronically Signed: Tony Grover, at 14:57 EST , Service support , Spine X-Ray 07/28/19 12:00 IMPRESSION: Fluoroscopic services provided for right L5-S1 epidural block. Electronically Signed: Tony Grover, at 9:34 EST , Service support , Laboratory Tests 08/05/19 08/05/19 08/04/19 Range/Units 11:23 06:27 20:28 ESR (0-30) mm/hr Sodium (136-145) mmol/L Potassium (3.5-5.1) mmol/L Chloride (98-107) mmol/L Carbon Dioxide (21.0-32.0) mmol/L Anion Gap (5-15) BUN (7-18) mg/dL Creatinine (0.55-1.02) mg/dL Estim Creat Clear Calc ml/min Est GFR (MDRD) Af Amer (>60) mL/min Est GFR (MDRD) Non-Af (>60) mL/min BUN/Creatinine Ratio (10-20) RATIO Glucose (74-106) mg/dL Calcium (8.5-10.1) mg/dL Phosphorus (2.5-4.9) mg/dL Magnesium (1.6-2.6) mg/dL Total Bilirubin (0.20-1.00) mg/dL AST (15-37) U/L ALT (13-56) U/L Alkaline Phosphatase (45-117) U/L Total Protein (6.4-8.2) g/dL Albumin (3.2-5.0) g/dL Globulin (2.2-4.2) g/dL Albumin/Globulin Ratio (0.9-2.4) RATIO Triglycerides ( - 199) mg/dL Cholesterol (200) mg/dL LDL Cholesterol (0-130) mg/dL VLDL Cholesterol (5-40) mg/dL HDL Cholesterol (40 - ) mg/dL POC Glucose 149 H 119 H 257 H (70-110) mg/dL 08/04/19 08/04/19 08/04/19 Range/Units 16:54 11:35 06:39 ESR (0-30) mm/hr Sodium (136-145) mmol/L Potassium (3.5-5.1) mmol/L Chloride (98-107) mmol/L Carbon Dioxide (21.0-32.0) mmol/L Anion Gap (5-15) BUN (7-18) mg/dL Creatinine (0.55-1.02) mg/dL Estim Creat Clear Calc ml/min Est GFR (MDRD) Af Amer (>60) mL/min Est GFR (MDRD) Non-Af (>60) mL/min BUN/Creatinine Ratio (10-20) RATIO Glucose (74-106) mg/dL Calcium (8.5-10.1) mg/dL Phosphorus (2.5-4.9) mg/dL Magnesium (1.6-2.6) mg/dL Total Bilirubin (0.20-1.00) mg/dL AST (15-37) U/L ALT (13-56) U/L Alkaline Phosphatase (45-117) U/L Total Protein (6.4-8.2) g/dL Albumin (3.2-5.0) g/dL Globulin (2.2-4.2) g/dL Albumin/Globulin Ratio (0.9-2.4) RATIO Triglycerides ( - 199) mg/dL Cholesterol (200) mg/dL LDL Cholesterol (0-130) mg/dL VLDL Cholesterol (5-40) mg/dL HDL Cholesterol (40 - ) mg/dL POC Glucose 103 142 H 180 H (70-110) mg/dL 08/04/19 08/03/19 08/03/19 Range/Units 02:16 21:48 16:31 ESR (0-30) mm/hr Sodium (136-145) mmol/L Potassium (3.5-5.1) mmol/L Chloride (98-107) mmol/L Carbon Dioxide (21.0-32.0) mmol/L Anion Gap (5-15) BUN (7-18) mg/dL Creatinine (0.55-1.02) mg/dL Estim Creat Clear Calc ml/min Est GFR (MDRD) Af Amer (>60) mL/min Est GFR (MDRD) Non-Af (>60) mL/min BUN/Creatinine Ratio (10-20) RATIO Glucose (74-106) mg/dL Calcium (8.5-10.1) mg/dL Phosphorus (2.5-4.9) mg/dL Magnesium (1.6-2.6) mg/dL Total Bilirubin (0.20-1.00) mg/dL AST (15-37) U/L ALT (13-56) U/L Alkaline Phosphatase (45-117) U/L Total Protein (6.4-8.2) g/dL Albumin (3.2-5.0) g/dL Globulin (2.2-4.2) g/dL Albumin/Globulin Ratio (0.9-2.4) RATIO Triglycerides ( - 199) mg/dL Cholesterol (200) mg/dL LDL Cholesterol (0-130) mg/dL VLDL Cholesterol (5-40) mg/dL HDL Cholesterol (40 - ) mg/dL POC Glucose 191 H 195 H 86 (70-110) mg/dL 08/03/19 08/03/19 08/02/19 Range/Units 11:00 06:40 20:45 ESR (0-30) mm/hr Sodium (136-145) mmol/L Potassium (3.5-5.1) mmol/L Chloride (98-107) mmol/L Carbon Dioxide (21.0-32.0) mmol/L Anion Gap (5-15) BUN (7-18) mg/dL Creatinine (0.55-1.02) mg/dL Estim Creat Clear Calc ml/min Est GFR (MDRD) Af Amer (>60) mL/min Est GFR (MDRD) Non-Af (>60) mL/min BUN/Creatinine Ratio (10-20) RATIO Glucose (74-106) mg/dL Calcium (8.5-10.1) mg/dL Phosphorus (2.5-4.9) mg/dL Magnesium (1.6-2.6) mg/dL Total Bilirubin (0.20-1.00) mg/dL AST (15-37) U/L ALT (13-56) U/L Alkaline Phosphatase (45-117) U/L Total Protein (6.4-8.2) g/dL Albumin (3.2-5.0) g/dL Globulin (2.2-4.2) g/dL Albumin/Globulin Ratio (0.9-2.4) RATIO Triglycerides ( - 199) mg/dL Cholesterol (200) mg/dL LDL Cholesterol (0-130) mg/dL VLDL Cholesterol (5-40) mg/dL HDL Cholesterol (40 - ) mg/dL POC Glucose 249 H 176 H 242 H (70-110) mg/dL 08/02/19 08/02/19 08/02/19 Range/Units 16:36 11:58 06:50 ESR (0-30) mm/hr Sodium (136-145) mmol/L Potassium (3.5-5.1) mmol/L Chloride (98-107) mmol/L Carbon Dioxide (21.0-32.0) mmol/L Anion Gap (5-15) BUN (7-18) mg/dL Creatinine (0.55-1.02) mg/dL Estim Creat Clear Calc ml/min Est GFR (MDRD) Af Amer (>60) mL/min Est GFR (MDRD) Non-Af (>60) mL/min BUN/Creatinine Ratio (10-20) RATIO Glucose (74-106) mg/dL Calcium (8.5-10.1) mg/dL Phosphorus (2.5-4.9) mg/dL Magnesium (1.6-2.6) mg/dL Total Bilirubin (0.20-1.00) mg/dL AST (15-37) U/L ALT (13-56) U/L Alkaline Phosphatase (45-117) U/L Total Protein (6.4-8.2) g/dL Albumin (3.2-5.0) g/dL Globulin (2.2-4.2) g/dL Albumin/Globulin Ratio (0.9-2.4) RATIO Triglycerides ( - 199) mg/dL Cholesterol (200) mg/dL LDL Cholesterol (0-130) mg/dL VLDL Cholesterol (5-40) mg/dL HDL Cholesterol (40 - ) mg/dL POC Glucose 278 H 115 H 307 H (70-110) mg/dL 08/01/19 08/01/19 08/01/19 Range/Units 20:27 16:29 11:54 ESR (0-30) mm/hr Sodium (136-145) mmol/L Potassium (3.5-5.1) mmol/L Chloride (98-107) mmol/L Carbon Dioxide (21.0-32.0) mmol/L Anion Gap (5-15) BUN (7-18) mg/dL Creatinine (0.55-1.02) mg/dL Estim Creat Clear Calc ml/min Est GFR (MDRD) Af Amer (>60) mL/min Est GFR (MDRD) Non-Af (>60) mL/min BUN/Creatinine Ratio (10-20) RATIO Glucose (74-106) mg/dL Calcium (8.5-10.1) mg/dL Phosphorus (2.5-4.9) mg/dL Magnesium (1.6-2.6) mg/dL Total Bilirubin (0.20-1.00) mg/dL AST (15-37) U/L ALT (13-56) U/L Alkaline Phosphatase (45-117) U/L Total Protein (6.4-8.2) g/dL Albumin (3.2-5.0) g/dL Globulin (2.2-4.2) g/dL Albumin/Globulin Ratio (0.9-2.4) RATIO Triglycerides ( - 199) mg/dL Cholesterol (200) mg/dL LDL Cholesterol (0-130) mg/dL VLDL Cholesterol (5-40) mg/dL HDL Cholesterol (40 - ) mg/dL POC Glucose 322 H 332 H 291 H (70-110) mg/dL 08/01/19 07/31/19 07/31/19 Range/Units 05:54 20:56 17:05 ESR (0-30) mm/hr Sodium (136-145) mmol/L Potassium (3.5-5.1) mmol/L Chloride (98-107) mmol/L Carbon Dioxide (21.0-32.0) mmol/L Anion Gap (5-15) BUN (7-18) mg/dL Creatinine (0.55-1.02) mg/dL Estim Creat Clear Calc ml/min Est GFR (MDRD) Af Amer (>60) mL/min Est GFR (MDRD) Non-Af (>60) mL/min BUN/Creatinine Ratio (10-20) RATIO Glucose (74-106) mg/dL Calcium (8.5-10.1) mg/dL Phosphorus (2.5-4.9) mg/dL Magnesium (1.6-2.6) mg/dL Total Bilirubin (0.20-1.00) mg/dL AST (15-37) U/L ALT (13-56) U/L Alkaline Phosphatase (45-117) U/L Total Protein (6.4-8.2) g/dL Albumin (3.2-5.0) g/dL Globulin (2.2-4.2) g/dL Albumin/Globulin Ratio (0.9-2.4) RATIO Triglycerides ( - 199) mg/dL Cholesterol (200) mg/dL LDL Cholesterol (0-130) mg/dL VLDL Cholesterol (5-40) mg/dL HDL Cholesterol (40 - ) mg/dL POC Glucose 290 H 317 H 259 H (70-110) mg/dL 07/31/19 07/31/19 07/30/19 Range/Units 11:48 08:36 21:01 ESR (0-30) mm/hr Sodium (136-145) mmol/L Potassium (3.5-5.1) mmol/L Chloride (98-107) mmol/L Carbon Dioxide (21.0-32.0) mmol/L Anion Gap (5-15) BUN (7-18) mg/dL Creatinine (0.55-1.02) mg/dL Estim Creat Clear Calc ml/min Est GFR (MDRD) Af Amer (>60) mL/min Est GFR (MDRD) Non-Af (>60) mL/min BUN/Creatinine Ratio (10-20) RATIO Glucose (74-106) mg/dL Calcium (8.5-10.1) mg/dL Phosphorus (2.5-4.9) mg/dL Magnesium (1.6-2.6) mg/dL Total Bilirubin (0.20-1.00) mg/dL AST (15-37) U/L ALT (13-56) U/L Alkaline Phosphatase (45-117) U/L Total Protein (6.4-8.2) g/dL Albumin (3.2-5.0) g/dL Globulin (2.2-4.2) g/dL Albumin/Globulin Ratio (0.9-2.4) RATIO Triglycerides ( - 199) mg/dL Cholesterol (200) mg/dL LDL Cholesterol (0-130) mg/dL VLDL Cholesterol (5-40) mg/dL HDL Cholesterol (40 - ) mg/dL POC Glucose 355 H 283 H 331 H (70-110) mg/dL 07/30/19 07/30/19 07/30/19 Range/Units 17:14 11:56 06:31 ESR (0-30) mm/hr Sodium (136-145) mmol/L Potassium (3.5-5.1) mmol/L Chloride (98-107) mmol/L Carbon Dioxide (21.0-32.0) mmol/L Anion Gap (5-15) BUN (7-18) mg/dL Creatinine (0.55-1.02) mg/dL Estim Creat Clear Calc ml/min Est GFR (MDRD) Af Amer (>60) mL/min Est GFR (MDRD) Non-Af (>60) mL/min BUN/Creatinine Ratio (10-20) RATIO Glucose (74-106) mg/dL Calcium (8.5-10.1) mg/dL Phosphorus (2.5-4.9) mg/dL Magnesium (1.6-2.6) mg/dL Total Bilirubin (0.20-1.00) mg/dL AST (15-37) U/L ALT (13-56) U/L Alkaline Phosphatase (45-117) U/L Total Protein (6.4-8.2) g/dL Albumin (3.2-5.0) g/dL Globulin (2.2-4.2) g/dL Albumin/Globulin Ratio (0.9-2.4) RATIO Triglycerides ( - 199) mg/dL Cholesterol (200) mg/dL LDL Cholesterol (0-130) mg/dL VLDL Cholesterol (5-40) mg/dL HDL Cholesterol (40 - ) mg/dL POC Glucose 342 H 337 H 298 H (70-110) mg/dL 07/29/19 07/29/19 07/29/19 Range/Units 20:54 16:15 12:06 ESR (0-30) mm/hr Sodium (136-145) mmol/L Potassium (3.5-5.1) mmol/L Chloride (98-107) mmol/L Carbon Dioxide (21.0-32.0) mmol/L Anion Gap (5-15) BUN (7-18) mg/dL Creatinine (0.55-1.02) mg/dL Estim Creat Clear Calc ml/min Est GFR (MDRD) Af Amer (>60) mL/min Est GFR (MDRD) Non-Af (>60) mL/min BUN/Creatinine Ratio (10-20) RATIO Glucose (74-106) mg/dL Calcium (8.5-10.1) mg/dL Phosphorus (2.5-4.9) mg/dL Magnesium (1.6-2.6) mg/dL Total Bilirubin (0.20-1.00) mg/dL AST (15-37) U/L ALT (13-56) U/L Alkaline Phosphatase (45-117) U/L Total Protein (6.4-8.2) g/dL Albumin (3.2-5.0) g/dL Globulin (2.2-4.2) g/dL Albumin/Globulin Ratio (0.9-2.4) RATIO Triglycerides ( - 199) mg/dL Cholesterol (200) mg/dL LDL Cholesterol (0-130) mg/dL VLDL Cholesterol (5-40) mg/dL HDL Cholesterol (40 - ) mg/dL POC Glucose 351 H 360 H 285 H (70-110) mg/dL 07/29/19 07/28/19 07/28/19 Range/Units 06:13 20:44 16:15 ESR (0-30) mm/hr Sodium (136-145) mmol/L Potassium (3.5-5.1) mmol/L Chloride (98-107) mmol/L Carbon Dioxide (21.0-32.0) mmol/L Anion Gap (5-15) BUN (7-18) mg/dL Creatinine (0.55-1.02) mg/dL Estim Creat Clear Calc ml/min Est GFR (MDRD) Af Amer (>60) mL/min Est GFR (MDRD) Non-Af (>60) mL/min BUN/Creatinine Ratio (10-20) RATIO Glucose (74-106) mg/dL Calcium (8.5-10.1) mg/dL Phosphorus (2.5-4.9) mg/dL Magnesium (1.6-2.6) mg/dL Total Bilirubin (0.20-1.00) mg/dL AST (15-37) U/L ALT (13-56) U/L Alkaline Phosphatase (45-117) U/L Total Protein (6.4-8.2) g/dL Albumin (3.2-5.0) g/dL Globulin (2.2-4.2) g/dL Albumin/Globulin Ratio (0.9-2.4) RATIO Triglycerides ( - 199) mg/dL Cholesterol (200) mg/dL LDL Cholesterol (0-130) mg/dL VLDL Cholesterol (5-40) mg/dL HDL Cholesterol (40 - ) mg/dL POC Glucose 298 H 357 H 205 H (70-110) mg/dL 07/28/19 07/28/19 07/27/19 Range/Units 11:26 06:43 21:59 ESR (0-30) mm/hr Sodium (136-145) mmol/L Potassium (3.5-5.1) mmol/L Chloride (98-107) mmol/L Carbon Dioxide (21.0-32.0) mmol/L Anion Gap (5-15) BUN (7-18) mg/dL Creatinine (0.55-1.02) mg/dL Estim Creat Clear Calc ml/min Est GFR (MDRD) Af Amer (>60) mL/min Est GFR (MDRD) Non-Af (>60) mL/min BUN/Creatinine Ratio (10-20) RATIO Glucose (74-106) mg/dL Calcium (8.5-10.1) mg/dL Phosphorus (2.5-4.9) mg/dL Magnesium (1.6-2.6) mg/dL Total Bilirubin (0.20-1.00) mg/dL AST (15-37) U/L ALT (13-56) U/L Alkaline Phosphatase (45-117) U/L Total Protein (6.4-8.2) g/dL Albumin (3.2-5.0) g/dL Globulin (2.2-4.2) g/dL Albumin/Globulin Ratio (0.9-2.4) RATIO Triglycerides ( - 199) mg/dL Cholesterol (200) mg/dL LDL Cholesterol (0-130) mg/dL VLDL Cholesterol (5-40) mg/dL HDL Cholesterol (40 - ) mg/dL POC Glucose 235 H 172 H 244 H (70-110) mg/dL 07/27/19 07/27/19 07/27/19 Range/Units 16:26 11:14 06:18 ESR (0-30) mm/hr Sodium (136-145) mmol/L Potassium (3.5-5.1) mmol/L Chloride (98-107) mmol/L Carbon Dioxide (21.0-32.0) mmol/L Anion Gap (5-15) BUN (7-18) mg/dL Creatinine (0.55-1.02) mg/dL Estim Creat Clear Calc ml/min Est GFR (MDRD) Af Amer (>60) mL/min Est GFR (MDRD) Non-Af (>60) mL/min BUN/Creatinine Ratio (10-20) RATIO Glucose (74-106) mg/dL Calcium (8.5-10.1) mg/dL Phosphorus (2.5-4.9) mg/dL Magnesium (1.6-2.6) mg/dL Total Bilirubin (0.20-1.00) mg/dL AST (15-37) U/L ALT (13-56) U/L Alkaline Phosphatase (45-117) U/L Total Protein (6.4-8.2) g/dL Albumin (3.2-5.0) g/dL Globulin (2.2-4.2) g/dL Albumin/Globulin Ratio (0.9-2.4) RATIO Triglycerides ( - 199) mg/dL Cholesterol (200) mg/dL LDL Cholesterol (0-130) mg/dL VLDL Cholesterol (5-40) mg/dL HDL Cholesterol (40 - ) mg/dL POC Glucose 286 H 253 H 186 H (70-110) mg/dL 07/27/19 07/27/19 07/26/19 Range/Units 05:27 05:27 21:03 ESR 35 H (0-30) mm/hr Sodium 138 (136-145) mmol/L Potassium 4.5 (3.5-5.1) mmol/L Chloride 107 (98-107) mmol/L Carbon Dioxide 28.0 (21.0-32.0) mmol/L Anion Gap 3 L (5-15) BUN 19 H (7-18) mg/dL Creatinine 0.90 (0.55-1.02) mg/dL Estim Creat Clear Calc 40.09 ml/min Est GFR (MDRD) Af Amer 78 (>60) mL/min Est GFR (MDRD) Non-Af 65 (>60) mL/min BUN/Creatinine Ratio 21.2 H (10-20) RATIO Glucose 178 H (74-106) mg/dL Calcium 9.0 (8.5-10.1) mg/dL Phosphorus 2.4 L (2.5-4.9) mg/dL Magnesium 1.9 (1.6-2.6) mg/dL Total Bilirubin 0.60 (0.20-1.00) mg/dL AST 22 (15-37) U/L ALT 38 (13-56) U/L Alkaline Phosphatase 60 (45-117) U/L Total Protein 6.5 (6.4-8.2) g/dL Albumin 2.7 L (3.2-5.0) g/dL Globulin 3.8 (2.2-4.2) g/dL Albumin/Globulin Ratio 0.7 L (0.9-2.4) RATIO Triglycerides 114 ( - 199) mg/dL Cholesterol 126 (200) mg/dL LDL Cholesterol 46 (0-130) mg/dL VLDL Cholesterol 23 (5-40) mg/dL HDL Cholesterol 57 (40 - ) mg/dL POC Glucose 312 H (70-110) mg/dL 07/26/19 07/26/19 Range/Units 16:32 12:00 ESR (0-30) mm/hr Sodium (136-145) mmol/L Potassium (3.5-5.1) mmol/L Chloride (98-107) mmol/L Carbon Dioxide (21.0-32.0) mmol/L Anion Gap (5-15) BUN (7-18) mg/dL Creatinine (0.55-1.02) mg/dL Estim Creat Clear Calc ml/min Est GFR (MDRD) Af Amer (>60) mL/min Est GFR (MDRD) Non-Af (>60) mL/min BUN/Creatinine Ratio (10-20) RATIO Glucose (74-106) mg/dL Calcium (8.5-10.1) mg/dL Phosphorus (2.5-4.9) mg/dL Magnesium (1.6-2.6) mg/dL Total Bilirubin (0.20-1.00) mg/dL AST (15-37) U/L ALT (13-56) U/L Alkaline Phosphatase (45-117) U/L Total Protein (6.4-8.2) g/dL Albumin (3.2-5.0) g/dL Globulin (2.2-4.2) g/dL Albumin/Globulin Ratio (0.9-2.4) RATIO Triglycerides ( - 199) mg/dL Cholesterol (200) mg/dL LDL Cholesterol (0-130) mg/dL VLDL Cholesterol (5-40) mg/dL HDL Cholesterol (40 - ) mg/dL POC Glucose 260 H 239 H (70-110) mg/dL Dr. Narayan Duarte - pain management Operations: None Procedures: - - Epidural at L5-S1 by Dr. Duarte Summary of Care Provided: The patient is a 78 year old F with a past medical history of hypertension, diabetes mellitus type 2 x20 years, hepatic steatosis, hyperlipidemia, morbid obesity, osteoarthritis, chronic right hip pain, degenerative disc disease of the lumbosacral spine and also degenerative joint disease in the lumbosacral spine, periodic elevation in TSH with a normal T4, osteopenia on a DEXA done in 2013, recent acute kidney injury more likely than not secondary to dehydration, orthostatic hypotension and PAF, just recently taken off Warfarin for frequent falls who was recently admitted to [facility] after a fall at home that resulted in severe R hip/buttock pain causing her to be unable to walk/bear weight. She fell prior to admission because she tripped over the heater they have for the dog in the living room and fell against the couch striking her Left eye and then onto the floor landing on her R hip. She c/o pain in the R anterior thigh, R groin and the right buttock. Sometimes the pain radiates down to the foot but it is not in a dermatomal distribution. She has never had any spinal or hip injections. Review of the LS spine XRAY showed marked disc disease at L4-5 and L5-1. I could not r/o a compression fracture of L5. XRAYS of the R hip showed some joint space narrowing but, not severe. There was no fracture observed. She had negative SLR BL and she had a negative Ashish Debo test BL......she completely rotated both hips externally with no increase in the pain and this basically rules out significant hip disease. She had been treated with a Lidocaine patch and Tylenol PRN and neither was really helping. She rated her pain at a 7 laying in bed and an 8 with weight bearing. Sitting caused the pain to increase as well. She was admitted to the Inpatient rehab unit at [facility] on 07/26/2019 for debility secondary to severe right hip/R buttock pain status post fall for greater than 3 hours of therapy daily with a goal of returning home at or near prior level of independence. The patient lives at at home with her spouse. The patient was independent with ADL's, mobility and driving prior to hospitalization. She was started on Gabapentin, ATC Tylenol and Celebrex [address] scan of the LS spine was obtained and showed a mild degree of diffuse posterior disc bulge at L2-L3 with a mild degree of bilateral neural foraminal stenosis, facet joint osteoarthritis at L3-4 with hypertrophy of the facet joints and a moderate degree of central canal stenosis and bilateral neural foraminal stenosis, marked degree of disc space narrowing and spondylosis at L4-5 with a mild degree of central canal stenosis and spondylolisthesis at L5-S1, worse on the left side. Dr. Duarte was consulted for pain management and the pt was taken for an L5-S1 epidural on 07/28/27. she got some good relief about 24-48 hours after the injection. The Gabapentin dose was slowly walked up. She started sleeping better at night and improved significantly with ability to ambulate with the FWW. On 08/05/19 she was standing upright while ambulating the walker and did several laps in the valiente. She told me that her pain when she arose in the morning was minimal but, increased to a 5 after weight/bearing. Gabapentin was increased to 300 mg TID. She has had no adverse effects with the gabapentin. She was discharged home on 08/06/19 and will continue OP PT at [facility]. BS's were very erratic prior to admission and Dr. Fabien Masterson was consulted to participate in management of DM II. She had been getting Lantus at and Humalog with meals since admission to the [facility] and Dr. Masterson adjusted the doses. Prior to [place] the BS's were much improved. The pt expressed an interest in following up with Dr. Masterson as an OP to keep her BS's controlled and an appt was made for her on 08/19/19 at 11:30 AM. She will follow-up with Dr. Dr. Duarte on 08/25/2019 at 12:[address] Duncan on 08/11/2019 at 14:40 p.m. Her prescriptions were faxed to the [facility] retail pharmacy so that she would have her RX's in her hand at [place]. PHYSICAL EXAM: GENERAL: alert, oriented X 3, Cooperative, NAD ORAL: moist mucosa, no mucosal lesions NECK: No JVD, supple, trachea midline LUNGS: CTA, symmetric chest expansion HEART: RRR, Normal S1 and S2, no rub, no gallop,no MM ABDOMEN: soft, NT, ND, BS present, no guarding with palpation EXTREMITIES: no edema, no cyanosis, no calf tenderness, Negative Debo's test, negative SLR SKIN: No rashes, no breakdown NEUROLOGIC: no focal neurologic deficits PSYCH: appropriate, normal affect, pleasant This note was generated with [employer] dictation software. It may contain incorrect words, spelling, and punctuation that were not noted in checking the note before signing. - Physical Exam Vitals/I&O's: Vital Signs Temp Pulse Resp BP Pulse Ox 97.3 F L 61 18 156/70 H 97 08/05/19 08:05 08/05/19 08:05 08/05/19 08:05 08/05/19 08:05 08/05/19 08:05 Oxygen Delivery Method Room Air Weight: 217 lb 13.067 oz Body Mass Index (BMI) 41.1 Intake and Output for Last 24 Hours 08/03/19 08/04/19 08/05/19 23:59 23:59 23:59 Intake Total 1320 / 1320 960 / 960 720 / 720 Output Total 450 / 450 500 / 500 300 / 300 Balance 870 / 870 460 / 460 420 / 420 Laboratory Results 08/04/19 16:54: POC Glucose 103 08/04/19 20:28: POC Glucose 257 H 08/05/19 06:27: POC Glucose 119 H 08/05/19 11:23: POC Glucose 149 H Current Medications Acetaminophen (Tylenol) 1,000 mg PO Q8 [facility] Last Admin: 08/05/19 13:03 Dose: 1,000 mg Documented by: Aspirin (Ecotrin) 81 mg PO DAILY [facility] Last Admin: 08/05/19 07:52 Dose: 81 mg Documented by: Atorvastatin Calcium (Lipitor) 40 mg PO QHS [facility] Last Admin: 08/04/19 21:12 Dose: 40 mg Documented by: Bisacodyl (Dulcolax) 10 mg RECTAL .PRN X 1 PRN PRN Reason: Constipation Celecoxib (Celebrex) 100 mg PO BID [facility] Last Admin: 08/05/19 07:52 Dose: 100 mg Documented by: Citalopram Hydrobromide (Celexa) 20 mg PO DAILY [facility] Last Admin: 08/05/19 07:52 Dose: 20 mg Documented by: Enoxaparin Sodium (Lovenox) 40 mg SC DAILY@0600 [facility] Last Admin: 08/05/19 05:18 Dose: 40 mg Documented by: Ergocalciferol (Vitamin D) 50,000 unit PO We [facility] Last Admin: 08/03/19 07:31 Dose: 50,000 unit Documented by: Famotidine (Pepcid) 20 mg PO BID [facility] Last Admin: 08/05/19 07:52 Dose: 20 mg Documented by: Folic Acid (Folic Acid) 1 mg PO DAILYCM [facility] Last Admin: 08/05/19 07:52 Dose: 1 mg Documented by: Gabapentin (Neurontin) 200 mg PO BID@0800,1400 [facility] Last Admin: 08/05/19 13:03 Dose: 200 mg Documented by: Gabapentin (Neurontin) 400 mg PO QHS [facility] Last Admin: 08/04/19 21:13 Dose: 400 mg Documented by: Glucagon () 1 mg IM .X1 PRN PRN Reason: Hypoglycemia Dextrose (Dextrose 10%-Water) 250 mls @ 999 mls/hr IV .Q16M PRN; Protocol PRN Reason: HYPOGLYCEMIA Insulin Glargine (Lantus (Bkc)) 64 units SC QHS [facility] Last Admin: 08/04/19 21:16 Dose: 64 u Documented by: Insulin Human Lispro (Humalog Kwikpen (Bkc)) 0 unit SC ACHS [facility]; Protocol Last Admin: 08/05/19 11:28 Dose: Not Given Documented by: Insulin Human Lispro (Humalog Kwikpen (Bkc)) 20 unit SC TIDAC [facility] Last Admin: 08/05/19 11:53 Dose: 20 u Documented by: Levothyroxine Sodium (Synthroid) 88 mcg PO DAILY@0600 [facility] Last Admin: 08/05/19 05:18 Dose: 88 mcg Documented by: Lidocaine (Lidoderm Patch) 2 patch TOPICAL DAILY [facility]; Protocol Last Admin: 08/05/19 07:51 Dose: 2 patch Documented by: Losartan Potassium (Cozaar) 100 mg PO DAILY [facility] Last Admin: 08/05/19 07:52 Dose: 100 mg Documented by: Magnesium Hydroxide (Milk Of Magnesia) 30 ml PO .PRN X 1 PRN PRN Reason: Constipation Metoprolol Tartrate (Lopressor (Beta Allan)) 25 mg PO BID [facility] Last Admin: 08/05/19 07:52 Dose: 25 mg Documented by: Nystatin (Mycostatin Powder) 1 applic TOPICAL BID [facility]; Protocol Last Admin: 08/05/19 07:59 Dose: 1 applicatio Documented by: Polyethylene Glycol (Miralax) 17 gm PO DAILY [facility] Last Admin: 08/05/19 07:51 Dose: 17 gm Documented by: Senna (Senokot) 2 tablet PO BID [facility] Last Admin: 08/05/19 07:49 Dose: Not Given Documented by: Tramadol HCl (Ultram) 50 mg PO Q6H PRN PRN PRN Reason: pain >4 Last Admin: 08/05/19 05:22 Dose: 50 mg Documented by: Discharge Activity: - - activity as tolerated. Follow the restrictions given to you by the physical therapist and do your exercised twice a day. Weight Bearing Status: Full weight bearing Call your doctor if you observe: Fever of 101 or Higher, Inability to urinate, Inability to have a bowel movement, Shortness of breath, Dizziness, Fainting spells, Chest pain, Calf discomfort, Uncontrolled pain, - - BS's consistently > 250 or less than 90 - call Dr. Masterson. Home Medications: Medications to take at Discharge aspirin 81 mg tablet,delayed release 81 mg PO QDAY tab 08/26/17 atorvastatin 40 mg tablet 40 mg PO QDAY 08/26/17 citalopram 20 mg tablet 20 mg PO QDAY 08/26/17 levothyroxine 88 mcg capsule 88 mcg PO QDAY cap 08/26/17 losartan 100 mg tablet 100 mg PO QDAY 08/26/17 metoprolol tartrate 25 mg tablet 25 mg PO BID 08/26/17 folic acid 1 mg tablet 1 mg PO QDAY 09/01/17 antiarthritic combination no.2 900 mg tablet 1 tablet PO DAILY tab 09/10/18 biotin 1 mg capsule 1 mg PO DAILY 09/10/18 triamcinolone acetonide 0.1 % topical cream 1 applic TOPICAL DAILY 09/10/18 Ergocalciferol [Vitamin D] 50,000 unit PO Q7D 07/24/19 Lidocaine [Lidoderm Patch] 1 patch TOPICAL DAILY 07/26/19 Nystatin Powder [Mycostatin Powder] 1 applic TOPICAL BID 07/26/19 Acetaminophen [Tylenol] 1,000 mg PO Q8 tab 08/05/19 Celecoxib [Celebrex] 100 mg PO BID #60 cap 08/05/19 Gabapentin [Neurontin] 300 mg PO TID #90 cap 08/05/19 Insulin Glargine [Lantus SoloStar Pen] 64 units SUBCUT QHS 30 Days #7 pen 08/05/19 Insulin Lispro [Humalog KwikPen] 20 unit SUBCUT TIDAC insuln.pen 08/05/19 Polyethylene Glycol 3350 [Miralax] 17 gm PO DAILY #30 packet 08/05/19 traMADol [Ultram] 50 mg PO Q6H PRN PRN 21 Days #60 tab 08/05/19 Following Prescrptions Were Given to Patient: Celecoxib [Celebrex] 100 mg PO BID #60 cap Transmission Status: Received by [facility] Insulin Glargine [Lantus SoloStar Pen] 64 units SUBCUT QHS 30 Days #7 pen Transmission Status: Received by [facility] Polyethylene Glycol 3350 [Miralax] 17 gm PO DAILY #30 packet Transmission Status: Received by [facility] Gabapentin [Neurontin] 300 mg PO TID #90 cap Transmission Status: Received by [facility] traMADol [Ultram] 50 mg PO Q6H PRN PRN 21 Days #60 tab PRN Reason: pain >4 Transmission Status: Received by [facility] Primary Care Physician: Bud Duncan Chi, MD [Primary Care Provider] - Please Follow Up With: Dr. Bud Duncan When: at 2:40 PM Please Follow Up With: Narayan Duarte MD When: 08/25/19 at 12:15 PM Please Follow Up With: Fabien Masterson MD When: 08/19/19 at 11:30 AM Patient Instructions: Hypoglycemia (Low Blood Sugar), Understanding Sciatica, MyPlate Worksheet: 1,600 Calories Disposition: Home - with OP PT Minutes spent on discharge:: 35 Medical Necessity - Tobacco Use Smoking Status: Former smoker - she smoked very briefly as a teenager and then quit Tobacco Use: Non-smoker Meaningful Use Info Meaningful Use Diagnoses (Choose all that apply): None applicable Code Visit Inpatient E&M: 22357 Disch Hosp
[2019-08-05 16:36] LABS: Bedside Glucose 90 mg/dL (70-110)
[2019-08-05 22:00] VITALS: BP 96/64; PULSE 63; RESP 16; TEMP 36.4; O2SAT 98
[2019-08-05] MEDS: Insulin Lispro 100 UNIT/ML INSULN.PEN SC (22:21)
[2019-08-05] MEDS: Atorvastatin Calcium 40 MG Tablet PO (22:25)
[2019-08-05] MEDS: Gabapentin 400 MG Capsule PO (22:26)
[2019-08-05 22:28] VITALS: BP 96/64; PULSE 63
[2019-08-05 22:51] LABS: Bedside Glucose 230 mg/dL (70-110)
[2019-08-06] MEDS: Acetaminophen 500 MG Tablet 1000 MG PO (05:09)
[2019-08-06] MEDS: Levothyroxine 88 MCG Tablet PO (05:09)
[2019-08-06] MEDS: Enoxaparin 40 MG/0.4 ML Syringe SC (05:10)
[2019-08-06 06:40] LABS: Bedside Glucose 179 mg/dL (70-110)
[2019-08-06] MEDS: Famotidine 20 MG Tablet PO (07:42)
[2019-08-06] MEDS: Celecoxib 100 MG Capsule PO (07:42)
[2019-08-06] MEDS: Gabapentin 100 MG Capsule 200 MG PO (07:42)
[2019-08-06] MEDS: Folic Acid 1 MG Tablet PO (07:42)
[2019-08-06] MEDS: Citalopram 20 MG Tablet PO (07:42)
[2019-08-06 07:43] VITALS: PULSE 65
[2019-08-06] MEDS: Losartan Potassium 100 MG Tablet PO (07:43)
[2019-08-06] MEDS: Aspirin E.C. 81 MG Tablet PO (07:43)
[2019-08-06] MEDS: Lidocaine 5% Patch 2 PATCH TOPICAL (07:43)
[2019-08-06] MEDS: Metoprolol Tartrate 25 MG Tablet PO (07:43)
[2019-08-06] MEDS: Insulin Lispro 100 UNIT/ML INSULN.PEN 20 UNIT SC (07:44)
[2019-08-06] MEDS: Insulin Lispro 100 UNIT/ML INSULN.PEN SC (07:44)
[2019-08-06 08:54] VITALS: BP 138/87; PULSE 65; RESP 18; TEMP 36.6; O2SAT 98
== END 2019-08-06 09:08 | disposition home or self-care (01) | DRG 552 ==
PROVIDERS: Anesthesiology Pain Medicine; Admitting Provider Internal Medicine; PCP Family Medicine Geriatric Medicine; Referring Provider Internal Medicine; Visit Provider Internal Medicine
PROC: 3E0S3BZ Introduction of Anesthetic Agent into Epidural Space, Percutaneous Approach (ICD-10-PCS; CPT 62322; principal; 2019-07-28 14:25)
DX: M48.061 Spinal stenosis, lumbar region without neurogenic claudication (principal); Z68.41 Body mass index [BMI] 40.0-44.9, adult; I48.20 Chronic atrial fibrillation, unspecified; S00.12XD Contusion of left eyelid and periocular area, subsequent encounter; W19.XXXD Unspecified fall, subsequent encounter; M16.11 Unilateral primary osteoarthritis, right hip; M51.17 Intervertebral disc disorders with radiculopathy, lumbosacral region; M47.26 Other spondylosis with radiculopathy, lumbar region; M43.17 Spondylolisthesis, lumbosacral region; E66.01 Morbid (severe) obesity due to excess calories; E03.9 Hypothyroidism, unspecified; E78.5 Hyperlipidemia, unspecified; I48.0 Paroxysmal atrial fibrillation; E11.22 Type 2 diabetes mellitus with diabetic chronic kidney disease; N18.9 Chronic kidney disease, unspecified; I12.9 Hypertensive chronic kidney disease with stage 1 through stage 4 chronic kidney disease, or unspecified chronic kidney disease; Z71.3 Dietary counseling and surveillance; Z87.891 Personal history of nicotine dependence; F41.9 Anxiety disorder, unspecified; F32.9 Major depressive disorder, single episode, unspecified; M70.62 Trochanteric bursitis, left hip
CPT/HCPCS: 36415; 64483; 72020; 72131; 80053; 80061; 82962; 83735; 84100; 85652; 97110; 97116; 97163; 97167; 97530; 97535; 97802; 99251; J7120; G0463

== ENCOUNTER → 2019-09-08 | Outpatient (CLI) | payer MEDICARE, OTHER, SELFPAY ==
[2019-08-19 11:28] VITALS: BMI 41.1
[2019-09-08 16:42] LABS: Absolute Lymphocyte Count 3.12 X10^3/uL (0.83-4.51); Absolute Neutrophil Count 5.7 X10^3/uL (2.0-7.7); Basophil# 0.03 X10^3/uL; Basophil% 0.3 % (0-1); Eosinophil# 0.07 X10^3/uL; Eosinophils% 0.7 % (0-5); Hematocrit 40.6 % (37-47); Hemoglobin 13.7 g/dL (12.0-15.0); Lymphocyte # 3.12 X10^3/ul (4.0); Lymphocyte % 31.5 % (19-41); Mean Corp Hgb Conc 33.7 g/dL (32-36); Mean Corpuscular Hgb 34.7 pg (27.0-32.0); Mean Corpuscular Volume 102.8 fL (81-99); Mean Platelet Vol. 10.6 fl (6.2-12.0); Monocyte# 0.93 X10^3/uL; Monocyte% 9.4 % (0-10); NRBC Flagged by Analyzer 0 % (0-5); Neutrophil % 57.5 % (47-70); Platelet Count 227 K/mm3 (150-450); RBC Distribution Width CV 14.6 % (11.6-14.6); RBC Distribution Width SD 55.7 fl (35.1-43.9); Red Blood Count 3.95 M/mm3 (4.2-5.4); White Blood Count 9.9 K/mm3 (4.4-11.0)
[2019-09-08 17:05] LABS: ALB/GLOB Ratio 0.8 RATIO (0.9-2.4); AST(SGOT) 15 U/L (15-37); Alanine Aminotransfer ALT/SGPT 37 U/L (13-56); Albumin, Serum 3.1 g/dL (3.2-5.0); Alkaline Phosphatase 77 U/L (45-117); Anion Gap 8 (5-15); BUN 33 mg/dL (7-18); BUN/Creat Ratio 28.9 RATIO (10-20); Calcium,Total 8.8 mg/dL (8.5-10.1); Chloride 110 mmol/L (98-107); Creatinine, Serum 1.14 mg/dL (0.55-1.02); EST Glomerular Filtration Rate 49 mL/min (>60); Est Glom Filt Rate - Afr Amer 59 mL/min (>60); Globulin 3.7 g/dL (2.2-4.2); Glucose 97 mg/dL (74-106); Potassium 3.9 mmol/L (3.5-5.1); Protein, Total 6.8 g/dL (6.4-8.2); Sodium Level 140 mmol/L (136-145); Thyroid Stim Hormone (TSH) 7.59 uIU/mL (0.358-3.74)
[2019-09-10 08:18] LABS: Vitamin D,25 Hydroxy 58.1 ng/mL
== END | disposition home or self-care (01) ==
LOC: POLAB3 14:10
PROVIDERS: PCP Family Medicine Geriatric Medicine; Visit Provider Family Medicine Geriatric Medicine
DX: E11.9 Type 2 diabetes mellitus without complications (principal); E55.9 Vitamin D deficiency, unspecified; I10 Essential (primary) hypertension
CPT/HCPCS: 36415; 80053; 82306; 84443; 85025

== ENCOUNTER → 2019-10-20 16:20 | Outpatient (CLI) | payer MEDICARE, OTHER, SELFPAY ==
[2019-08-19 11:28] VITALS: BMI 41.1
--- NOTE | 2019-10-20 16:39 | RAD_ITS ---
STUDY: X-RAY - RIGHT KNEE REASON FOR EXAM: Female, 79 years old. Pain. TECHNIQUE: 4 view(s) of the knee. COMPARISON: June 06, 2011. FINDINGS: Normal visualized distal femur. Normal visualized proximal tibia and fibula. Normal proximal tibiofibular articulation. There is no acute fracture, dislocation or destructive osseous pathology. There is mild degenerative arthrosis of the medial femorotibial compartment. There is mild degenerative arthrosis of the lateral femorotibial compartment. Normal patellofemoral articulation. There is no demonstrated joint effusion. The soft tissue structures are unremarkable. RAD/Knee 4 or More Views IMPRESSION: Degenerative arthrosis. Electronically Signed: Jez Blackwell DO at 17:13 EDT Tel [phone], Service support ,
--- NOTE | 2019-10-20 16:40 | RAD_ITS ---
STUDY: X-RAY - LEFT KNEE REASON FOR EXAM: Female, 79 years old. Pain. TECHNIQUE: 4 view(s) of the knee. COMPARISON: March 07, 2011. FINDINGS: Normal visualized distal femur. Normal visualized proximal tibia and fibula. Normal proximal tibiofibular articulation. There is no acute fracture, dislocation or destructive osseous pathology. There is moderate degenerative arthrosis of the medial femorotibial compartment with moderate joint space narrowing. There is mild degenerative arthrosis of the lateral femorotibial compartment. There is moderate degenerative arthrosis of the patellofemoral articulation. There is no demonstrated joint effusion. The soft tissue structures are unremarkable. RAD/Knee 4 or More Views IMPRESSION: Stable arthrosis of the left knee without acute abnormality. Electronically Signed: Jez Blackwell DO at 17:40 EDT Tel [phone], Service support ,
== END ==
PROVIDERS: PCP Family Medicine Geriatric Medicine; Referring Provider Anesthesiology Pain Medicine; Visit Provider Anesthesiology Pain Medicine
DX: M25.561 Pain in right knee (principal); M25.562 Pain in left knee
CPT/HCPCS: 73564

== ENCOUNTER → 2019-10-24 | Outpatient (CLI) | payer MEDICARE, OTHER, SELFPAY ==
[2019-08-19 11:28] VITALS: BMI 41.1
[2019-10-24 15:43] LABS: Thyroid Stim Hormone (TSH) 2.17 uIU/mL (0.358-3.74)
== END | disposition home or self-care (01) ==
PROVIDERS: PCP Family Medicine Geriatric Medicine; Referring Provider Family Medicine Geriatric Medicine; Visit Provider Family Medicine Geriatric Medicine
DX: E03.9 Hypothyroidism, unspecified (principal)
CPT/HCPCS: 36415; 84443

== ENCOUNTER → 2020-01-25 | Outpatient (CLI) | payer MEDICARE, OTHER, SELFPAY ==
[2019-12-22 13:02] VITALS: BMI 41.3
[2020-01-25 16:37] LABS: Absolute Lymphocyte Count 2.96 X10^3/uL (0.83-4.51); Absolute Neutrophil Count 4.8 X10^3/uL (2.0-7.7); Basophil# 0.04 X10^3/uL; Basophil% 0.5 % (0-1); Eosinophils% 2.3 % (0-5); Hemoglobin 12.6 g/dL (12.0-15.0); Lymphocyte # 2.96 X10^3/ul (4.0); Lymphocyte % 33.5 % (19-41); Mean Corp Hgb Conc 33.2 g/dL (32-36); Mean Corpuscular Hgb 35.1 pg (27.0-32.0); Mean Corpuscular Volume 105.8 fL (81-99); Monocyte# 0.81 X10^3/uL; Monocyte% 9.2 % (0-10); NRBC Flagged by Analyzer 0 % (0-5); Neutrophil % 54.2 % (47-70); Platelet Count 187 K/mm3 (150-450); RBC Distribution Width CV 12.5 % (11.6-14.6); RBC Distribution Width SD 48.7 fl (35.1-43.9); Red Blood Count 3.59 M/mm3 (4.2-5.4); White Blood Count 8.8 K/mm3 (4.4-11.0)
[2020-01-25 16:52] LABS: Vitamin D,25 Hydroxy 70.9 ng/mL
[2020-01-25 17:07] LABS: ALB/GLOB Ratio 0.9 RATIO (0.9-2.4); AST(SGOT) 18 U/L (15-37); Alanine Aminotransfer ALT/SGPT 35 U/L (13-56); Albumin, Serum 3.2 g/dL (3.2-5.0); Alkaline Phosphatase 49 U/L (45-117); Anion Gap 5 (5-15); BUN 29 mg/dL (7-18); BUN/Creat Ratio 26.9 RATIO (10-20); Calcium,Total 8.9 mg/dL (8.5-10.1); Chloride 111 mmol/L (98-107); Creatinine, Serum 1.08 mg/dL (0.55-1.02); EST Glomerular Filtration Rate 52 mL/min (>60); Est Glom Filt Rate - Afr Amer 63 mL/min (>60); Globulin 3.5 g/dL (2.2-4.2); Glucose 96 mg/dL (74-106); Potassium 4.2 mmol/L (3.5-5.1); Protein, Total 6.7 g/dL (6.4-8.2); Sodium Level 140 mmol/L (136-145)
== END | disposition home or self-care (01) ==
LOC: POLAB3 14:34
PROVIDERS: PCP Family Medicine Geriatric Medicine; Visit Provider Family Medicine Geriatric Medicine
DX: E11.9 Type 2 diabetes mellitus without complications (principal); E55.9 Vitamin D deficiency, unspecified; I10 Essential (primary) hypertension
CPT/HCPCS: 36415; 80053; 82306; 84443; 85025

== ENCOUNTER → 2020-01-30 | Outpatient (CLI) | payer MEDICARE, OTHER, SELFPAY ==
[2019-12-22 13:02] VITALS: BMI 41.3
== END | disposition home or self-care (01) ==
LOC: POLAB3 15:43
PROVIDERS: PCP Family Medicine Geriatric Medicine; Visit Provider Family Medicine Geriatric Medicine
DX: N39.0 Urinary tract infection, site not specified (principal)
CPT/HCPCS: 87077; 87086; 87088; 87186

== ENCOUNTER → 2020-03-08 | Outpatient (CLI) | payer MEDICARE, OTHER, SELFPAY ==
[2019-12-22 13:02] VITALS: BMI 41.3
[2020-03-08 15:55] LABS: Absolute Lymphocyte Count 2.89 X10^3/uL (0.83-4.51); Absolute Neutrophil Count 4.6 X10^3/uL (2.0-7.7); Basophil# 0.06 X10^3/uL; Basophil% 0.7 % (0-1); Eosinophil# 0.21 X10^3/uL; Eosinophils% 2.4 % (0-5); Hematocrit 38.8 % (37-47); Lymphocyte # 2.89 X10^3/ul (4.0); Lymphocyte % 33.4 % (19-41); Mean Corp Hgb Conc 33.5 g/dL (32-36); Mean Corpuscular Hgb 34.3 pg (27.0-32.0); Mean Corpuscular Volume 102.4 fL (81-99); Mean Platelet Vol. 10.3 fl (6.2-12.0); Monocyte# 0.89 X10^3/uL; Monocyte% 10.3 % (0-10); NRBC Flagged by Analyzer 0 % (0-5); Neutrophil # 4.58 X10^3/uL (2.7-7.7); Platelet Count 227 K/mm3 (150-450); RBC Distribution Width CV 12.4 % (11.6-14.6); RBC Distribution Width SD 46.6 fl (35.1-43.9); Red Blood Count 3.79 M/mm3 (4.2-5.4); White Blood Count 8.7 K/mm3 (4.4-11.0)
[2020-03-08 16:11] LABS: Vitamin D,25 Hydroxy 68.3 ng/mL
[2020-03-08 16:20] LABS: ALB/GLOB Ratio 0.9 RATIO (0.9-2.4); AST(SGOT) 21 U/L (15-37); Alanine Aminotransfer ALT/SGPT 32 U/L (13-56); Albumin, Serum 3.5 g/dL (3.2-5.0); Alkaline Phosphatase 50 U/L (45-117); Anion Gap 5 (5-15); BUN 21 mg/dL (7-18); BUN/Creat Ratio 20.6 RATIO (10-20); Calcium,Total 9.9 mg/dL (8.5-10.1); Chloride 106 mmol/L (98-107); Creatinine, Serum 1.02 mg/dL (0.55-1.02); EST Glomerular Filtration Rate 55 mL/min (>60); Est Glom Filt Rate - Afr Amer 67 mL/min (>60); Globulin 3.7 g/dL (2.2-4.2); Glucose 125 mg/dL (74-106); Potassium 4.1 mmol/L (3.5-5.1); Protein, Total 7.2 g/dL (6.4-8.2); Sodium Level 139 mmol/L (136-145); Thyroid Stim Hormone (TSH) 2.05 uIU/mL (0.358-3.74)
== END | disposition home or self-care (01) ==
LOC: POLAB3 13:30
PROVIDERS: PCP Family Medicine Geriatric Medicine; Visit Provider Family Medicine Geriatric Medicine
DX: E55.9 Vitamin D deficiency, unspecified (principal); I10 Essential (primary) hypertension
CPT/HCPCS: 36415; 80053; 82306; 84443; 85025

== ENCOUNTER → 2020-03-16 | Outpatient (CLI) | payer MEDICARE, OTHER, SELFPAY ==
[2019-12-22 13:02] VITALS: BMI 41.3
[2020-03-15 09:19] VITALS: BMI 41.3
--- NOTE | 2020-03-16 16:00 | MRI_ITS ---
STUDY: MRI LUMBAR SPINE WITHOUT CONTRAST REASON FOR EXAM: Female, 79 years old. Back pain for one year, spinal stenosis evaluation TECHNIQUE: Standardized fat and water weighted pulse sequences were obtained in the sagittal and axial planes. COMPARISON: July 26 2019 FINDINGS: There is chronic stage compression fracture of T12 involving the superior endplate with mild anterior wedging deformity without kyphosis. There is 50% loss of height ventrally and 25% loss of height dorsally with minimal posterior superior corner cortical retropulsion. There is mild canal stenosis due to superimposed degenerative posterior element change without cord compression. The fracture is new since June of current year. Conus medullaris terminates at inferior L1 with normal cauda equina. Lumbar spine is intact with chronic multilevel degenerative changes and grade 1 degenerative stable L3-L4 anterolisthesis, less than 2 mm. Diffuse marrow is normal without destructive lesions. Paraspinous soft tissues and SI joints are intact. L3-L4 has mild canal stenosis without underlying thecal sac compression. Lateral recesses are patent at all levels. There is no moderate or severe foraminal stenosis. MRI/Spine Lumbar (Routine) IMPRESSION: 1. Chronic stage T12 compression fracture, new since June of this year. 2. Spondylosis without neural compression. Electronically Signed: Silvia Pressley, at 22:25 EDT Tel , Service support ,
== END | disposition home or self-care (01) ==
LOC: MRI 15:32
PROVIDERS: PCP Family Medicine Geriatric Medicine; Referring Provider Family Medicine Geriatric Medicine; Visit Provider Family Medicine Geriatric Medicine
DX: M47.816 Spondylosis without myelopathy or radiculopathy, lumbar region (principal)
CPT/HCPCS: 72148

== ENCOUNTER → 2020-03-29 | Outpatient (CLI) | payer MEDICARE, OTHER, SELFPAY ==
[2020-03-21 14:57] VITALS: BMI 42.0
--- NOTE | 2020-03-29 09:52 | NM_ITS ---
CLINICAL: 79-year-old female with reported history of radiographically depicted 12th thoracic vertebral compression fracture with current complaint of back discomfort. WHOLE BODY 99m Tc MDP RADIONUCLIDE BONE SCINTIGRAPHY COMPARISON: Plain film radiograph report lumbar spine 03/21/2020, MRI of the lumbar spine report 03/16/2020 FINDINGS: Following the intravenous administration of 26.0 mCi of 99m Tc MDP, whole body bone images reveal: 1. Relatively intense increased radiopharmaceutical concentration is demonstrated in the 12th thoracic vertebra. 2. Increased tracer distribution is demonstrated in the acromioclavicular and sternoclavicular compartments of both shoulders, glenohumeral compartment of the right shoulder, mid cervical spine posteriorly on the left, lower cervical spine posteriorly on the right, the fifth-11th thoracic vertebra posteriorly on the left and right, first-second and fourth lumbar vertebra, the bilateral posterior sacrum, visualized right and left wrists, hands, bilateral knees. 3. The remaining skeletal structures are scintigraphically unremarkable with normal-appearing renal images and urinary bladder activity identified. An increase in radiotracer uptake is noted in the bilateral mandible consistent with periodontal disease and/or periostitis. NM/Bone Scan Whole Body IMPRESSION: 1. The increase in radiopharmaceutical concentration identified in the 12th thoracic vertebra is consistent with trauma-compression fracture. In patients > 65 years of age, increased radiopharmaceutical concentration on bone scintigraphy in uncomplicated documented fracture, may take > 18 months for complete resolution. (Meño et al, Seminars of Nuclear Medicine, 13:104, 1983). 2. Degenerative arthritis appears expressed in the cervical, thoracic and lumbar spine, sacrum, bilateral shoulders, right and left wrist articulations, both hands, knees bilaterally. Electronically Signed: Nixon Strong DO at 9:52 EDT Tel , Service support ,
== END | disposition home or self-care (01) ==
LOC: NM 09:52
PROVIDERS: PCP Family Medicine Geriatric Medicine; Referring Provider Orthopaedic Surgery; Visit Provider Orthopaedic Surgery
DX: M54.9 Dorsalgia, unspecified (principal)
CPT/HCPCS: 78306

== ENCOUNTER 2020-04-23 15:00 | Outpatient (RCR) | payer MEDICARE, OTHER, SELFPAY ==
[2020-04-05 13:15] VITALS: BMI 42.0
--- NOTE | 2020-04-20 07:59 | HP.PTEVAL_ITS ---
Patient's Visit Information BEN SHAFFER is a 79 year old F referred to Physical Therapy by Dr. Yvan Gayle DO with a diagnosis of Bilateral Piriforis Syndrom. Date of Evaluation: 04/19/20 Physical Therapist: Crystal Brown DPT - Visit Plan Frequency: 1x/Week Duration: 6 Weeks Plan: Focus on HEP- gentle core strength/stabilization - Subjective Patient reports that Dr. Gayle sent her here- she has had back pain for a long time. They have narrowed it down to piriformis syndrom on both sides. The pain is constant unless she is sitting or laying down. If she is sitting at home she can use a heating pad. Dr. Duarte has been giving her injections which have not helped but now going to try injections in the piriforims syndrome. Has had lots of recent scans which showed a fracture in her spine but not where she has pain. Plans to have the injections in the muscles next Thursday. Pain is described as more of a constant pain. Agg: cleaning the toilet, stooping forwards, getting in/out of the washer- everything makes it hurt. Worst: 9/10 Eases: sitting for an hour Best: 0/10 Sleep: not distrurbed but wakes a lot to urinate. The last week of June and she has been falling when the pain was down the legs but she has not had pain down the leg. The pain is now just located in the piriformis muscle. Feels that this is limiting her lifystyle- the older she gets the worse it gets. No recent falls since July. Goals: get the pain to go away and more move. No history of trauma or MVA's. PMHx/Meds:see list in chart - Objective Posture: Fh, RS, increased kyphosis- does not correct with verbal and tactile cues. Gait: slow sona- guarded- poor trunk rotation and no arm swing. HR/TR: able with UE A. SLS: unable but does weight shift to both LE. ROM: Lumbar: all ROM diminished by 50% and reports discomfort, hip/knee/ankle: WNL. Strength: Core: poor, Hip: 4-/5 throughout, Knee: 4+/5, Ankle:5/5. Special Test: Piriformis Stretch: positive, KATT:positive, Scour: negative, Dural Signs: positive, LLD: negative. Flex: HS: severe pain evoked in lumbar spine with left LE stretching,Gastroc: moderate - Goals Goal 1:: Patient will be I with HEP and progression Goal Time Frame: 4-6 Weeks Goal 2:: Patient will maintain fair posture to demo increased core s/s Goal Time Frame: 4-6 Weeks Goal 3:: Patient will report no more than 3/10 pain for 1 week Goal Time Frame: 4-6 Weeks - Rehabilitation Potential Physical Therapy Diagnosis: Patient presents with hypomobility- she has decreased painfree ROM, strength, flex and msucular endurance leading to poor posture and increase pain with ADL's. Rehabilitation Potential: Fair - Anticipated Interventions Patient/Client Instruction: Educate patient on: Benefits of Fitness Program Therapeutic Exercise to Include: Strength training, Endurance training, Coordination, Agility training, Body mechanics, Postural training, Flexibilty training, Neuromotor development, Passive ROM, Active ROM, Dynamic Lumbar Stabilization, Scapular Strength/Stabilization For the Purpose of:: To improve muscle performance and motor function Thank you for the opportunity to evaluate your patient. For Medicare and Medicare HMO plans, please review the plan of care and approve it. It will need to be FAXED BACK to us at [phone] for Medicare purposes. For Medicare only, by signing this I certify the plan of care. Please let me know if there are questions or concerns regarding this plan of car vinay. Physician Signature: Date:
--- NOTE | 2020-05-30 16:37 | HP.PT.NRP ---
BEN SHAFFER was seen in my office for initial evaluation on 04/19/20. The following Plan of Care was established for this patient: Initial Frequency: 1x/Week Initial Duration: 6 Weeks Patient/Client Instruction: Educate patient on: Benefits of Fitness Program Therapeutic Exercise to Include: Strength training, Endurance training, Coordination, Agility training, Body mechanics, Postural training, Flexibilty training, Neuromotor development, Passive ROM, Active ROM, Dynamic Lumbar Stabilization, Scapular Strength/Stabilization For the Purpose of:: To improve muscle performance and motor function This patient was last seen in our office . Pertinent comments regarding their Physical therapy will appear below: Patient did not want to return to due to COVID concerns. At this point I will be discontinuing this patient from physical therapy. I would be happy to see this patient again in the future if found appropriate by the physician. Thank you! MANDEEP KellyT
== END 2020-04-23 19:00 | disposition home or self-care (01) ==
LOC: PT 15:00
PROVIDERS: PCP Family Medicine Geriatric Medicine; Referring Provider Orthopaedic Surgery; Visit Provider Orthopaedic Surgery
DX: G57.03 Lesion of sciatic nerve, bilateral lower limbs (principal)
CPT/HCPCS: 97110; 97162

== ENCOUNTER → 2020-04-24 16:26 | Outpatient (CLI) | payer MEDICARE, OTHER, SELFPAY ==
[2020-04-24 15:24] VITALS: BMI 43.0
--- NOTE | 2020-04-24 16:29 | RAD_ITS ---
STUDY: X-RAY CHEST REASON FOR EXAM: Female, 79 years old. CAD TECHNIQUE: Frontal and lateral views COMPARISON: None. FINDINGS: The lungs are clear and expanded. There is no demonstrated pleural abnormality. Normal size heart. Normal mediastinum and angela. Normal visualized pulmonary arteries. Normal visualized aortic arch and descending thoracic aorta. Degenerative changes of the thoracic spine. Moderate wedge compression of probable L1 segment. Normal visualized ribs, clavicles, and shoulders. There is no demonstrated abnormality of the visualized soft tissue structures of the upper abdomen. RAD/Chest PA and Lateral IMPRESSION: No acute pulmonary pathology of the chest. Electronically Signed: Reggie Leach DO at 23:54 EDT Tel [phone], Service support ,
[2020-04-24 17:03] LABS: Absolute Lymphocyte Count 1.81 X10^3/uL (0.83-4.51); Absolute Neutrophil Count 4.1 X10^3/uL (2.0-7.7); Basophil# 0.04 X10^3/uL; Basophil% 0.6 % (0-1); Eosinophil# 0.08 X10^3/uL; Eosinophils% 1.2 % (0-5); Hematocrit 42.6 % (37-47); Hemoglobin 13.9 g/dL (12.0-15.0); Lymphocyte # 1.81 X10^3/ul (4.0); Lymphocyte % 27.3 % (19-41); Mean Corp Hgb Conc 32.6 g/dL (32-36); Mean Corpuscular Hgb 34.2 pg (27.0-32.0); Mean Corpuscular Volume 104.7 fL (81-99); Mean Platelet Vol. 9.9 fl (6.2-12.0); Monocyte# 0.55 X10^3/uL; Monocyte% 8.3 % (0-10); NRBC Flagged by Analyzer 0 % (0-5); Neutrophil # 4.13 X10^3/uL (2.7-7.7); Neutrophil % 62.3 % (47-70); Platelet Count 179 K/mm3 (150-450); RBC Distribution Width CV 12.1 % (11.6-14.6); Red Blood Count 4.07 M/mm3 (4.2-5.4); White Blood Count 6.6 K/mm3 (4.4-11.0)
[2020-04-24 17:49] LABS: Anion Gap 6 (5-15); BUN 19 mg/dL (7-18); BUN/Creat Ratio 16.2 RATIO (10-20); Calcium,Total 9.4 mg/dL (8.5-10.1); Chloride 102 mmol/L (98-107); Creatinine, Serum 1.17 mg/dL (0.55-1.02); EST Glomerular Filtration Rate 47 mL/min (>60); Est Glom Filt Rate - Afr Amer 57 mL/min (>60); Glucose 280 mg/dL (74-106); Potassium 4.1 mmol/L (3.5-5.1); Sodium Level 137 mmol/L (136-145)
== END ==
PROVIDERS: PCP Family Medicine Geriatric Medicine; Referring Provider Internal Medicine Cardiovascular Disease; Visit Provider Internal Medicine Cardiovascular Disease
DX: R06.00 Dyspnea, unspecified (principal); R07.9 Chest pain, unspecified
CPT/HCPCS: 36415; 71046; 80048; 85025

== ENCOUNTER 2020-04-30 08:52 | Day surgery (SDC) | payer MEDICARE, OTHER, SELFPAY ==
[2020-04-24 15:24] VITALS: BMI 43.0
[2020-04-27 08:57] VITALS: BMI 43.0
--- NOTE | 2020-04-30 10:50 | CL.D_ITS ---
Patient Name: BEN SHAFFER Study Date: 04/30/2020 Performing: Trent Marie MD Ht: 62 inches 157 cm : 1940 Wt: 236.2 lbs 107 kg Age: 79 Gender: female BSA: 2.05 PROCEDURE(S) PERFORMED [id number]/COR/LV CLINICAL PROFILE AND INDICATIONS Indications: New Onset Angina <= 2 months Heart Failure: None Stress/Imaging Stress/Image Study Performed: No CAD Presentations: Stable angina. CONCLUSIONS Normal coronary arteries Normal LV size, wall motion,and systolic function RECOMMENDATIONS Medical therapy DESCRIPTION OF PROCEDURE The patient arrived to the procedure lab. The risks and benefits of the procedure as well as a full d escription of our services here and current unavailability of surgical backup were fully explained to the patient and/or their significant other prior to the catheterization. The Timeout was completed, verifying the correct patient and procedure. The patient's procedural site was prepped and draped in the usual fashion. Local anesthetic was given subcutaneously to right radial region with Lidocaine 2% . Using a modified Seldinger technique, arterial access was obtained via the right radial artery, a 6 Fr sheath was inserted. Left Coronary Artery selective angiography was performed in multiple views u sing a 5 Fr. 4.0 [place] catheter. Right Coronary Artery selective angiography was then performed in mu ltiple views using a 5 Fr. 4.0 [place] catheter. Left Ventriculography was performed in [place] projection using a 5 Fr. [place] catheter. LV to AO pullback pressures were then recorded.The arterial sheath was pulled and a TR Band was applied for hemostasis CORONARY ANGIOGRAPHY DOMINANCE: Right Dominant LEFT HEART ASSESSMENT Left Ventricular Ejection Fraction: by LV Gram 60 % Normal LV wall motion Normal Left Ventricular systolic function Normal Left Ventricular systolic function LEFT MAIN: Angiographically normal LEFT ANTERIOR DESCENDING ARTERY: Angiographically normal CIRCUMFLEX ARTERY: Angiographically normal RIGHT CORONARY ARTERY: Angiographically normal COMPLICATIONS No Complications PROCEDURE MEDICATIONS Fentanyl 50 mcg IV Versed 1 mg IV Oxygen: 2 L/min via nasal cannula Heparin diluted in 23cc Heparinized saline. Patient given 10cc IA of this solution. 04/30/2020 10:12: 27 Verapamil 2.5mg, Ntg 100mcgs, 2000 units of Heparin diluted in 23cc Heparinized saline. Patient give n 10cc IA of this solution. 04/30/2020 10:12:27 SUMMARY OF HEMODYNAMIC DATA Time AIR REST ECG 09:37:59 ECG 09:58:36 AO 168/74 (113) SA 10:29:57 LV 184/11, 16 10:34:51 LV 182/11, 18 10:34:57 LV 156/14, 19 10:35:30 LVp 153/10, 14 10:35:45 AOp 164/64 (102) 10:35:50 Signed By Trent Marie MD On 04/30/2020 10:49:47 AM Trent Marie MD
== END 2020-04-30 12:55 | disposition home or self-care (01) ==
LOC: CLSP 08:52
PROVIDERS: PCP Family Medicine Geriatric Medicine; Referring Provider Internal Medicine Cardiovascular Disease; Visit Provider Internal Medicine Cardiovascular Disease
DX: I20.9 Angina pectoris, unspecified (principal); R07.9 Chest pain, unspecified; R06.00 Dyspnea, unspecified; I48.0 Paroxysmal atrial fibrillation; I12.9 Hypertensive chronic kidney disease with stage 1 through stage 4 chronic kidney disease, or unspecified chronic kidney disease; E11.22 Type 2 diabetes mellitus with diabetic chronic kidney disease; N18.9 Chronic kidney disease, unspecified; E03.9 Hypothyroidism, unspecified; E78.5 Hyperlipidemia, unspecified; E66.01 Morbid (severe) obesity due to excess calories; Z68.41 Body mass index [BMI] 40.0-44.9, adult; M19.90 Unspecified osteoarthritis, unspecified site; Z79.4 Long term (current) use of insulin; Z79.82 Long term (current) use of aspirin; Z79.899 Other long term (current) drug therapy; Z87.891 Personal history of nicotine dependence
CPT/HCPCS: 93458; 99152; 99153; J7040; C1769; C1894; Q9967

== ENCOUNTER → 2020-05-17 12:40 | Outpatient (CLI) | payer MEDICARE, OTHER, SELFPAY ==
[2020-04-27 08:57] VITALS: BMI 43.0
[2020-05-17 13:26] LABS: Amphetamine Urine VISTA NEGATIVE (<1000 ng/mL); Barbiturate Urine VISTA NEGATIVE (< 200 ng/mL); Benzodiazepine Urine VISTA NEGATIVE (< 200 ng/mL); Cocaine Urine VISTA NEGATIVE (< 300 ng/mL); Ecstacy Urine VISTA NEGATIVE (< 500 ng/mL); Methadone Urine VISTA NEGATIVE (< 300 ng/mL); PCP Urine VISTA NEGATIVE (< 25 ng/mL); THC Urine VISTA NEGATIVE (< 50 ng/mL); Vista UDS pH Range 5
== END ==
PROVIDERS: PCP Family Medicine Geriatric Medicine; Referring Provider Anesthesiology Pain Medicine; Visit Provider Anesthesiology Pain Medicine
DX: F11.20 Opioid dependence, uncomplicated (principal)
CPT/HCPCS: 80307

== ENCOUNTER → 2020-06-19 13:08 | Outpatient (CLI) | payer MEDICARE, OTHER, SELFPAY ==
[2020-04-27 08:57] VITALS: BMI 43.0
[2020-06-19 14:34] LABS: Absolute Lymphocyte Count 3.11 X10^3/uL (0.83-4.51); Absolute Neutrophil Count 7.5 X10^3/uL (2.0-7.7); Basophil# 0.05 X10^3/uL; Basophil% 0.4 % (0-1); Eosinophil# 0.04 X10^3/uL; Eosinophils% 0.3 % (0-5); Hematocrit 42.5 % (37-47); Hemoglobin 14.7 g/dL (12.0-15.0); Lymphocyte # 3.11 X10^3/ul (4.0); Mean Corp Hgb Conc 34.6 g/dL (32-36); Mean Corpuscular Hgb 34.8 pg (27.0-32.0); Mean Corpuscular Volume 100.5 fL (81-99); Mean Platelet Vol. 10.4 fl (6.2-12.0); Monocyte# 1.26 X10^3/uL; Monocyte% 10.5 % (0-10); NRBC Flagged by Analyzer 0 % (0-5); Neutrophil # 7.45 X10^3/uL (2.7-7.7); Neutrophil % 62.2 % (47-70); Platelet Count 253 K/mm3 (150-450); RBC Distribution Width CV 12.3 % (11.6-14.6); RBC Distribution Width SD 45.2 fl (35.1-43.9); Red Blood Count 4.23 M/mm3 (4.2-5.4)
[2020-06-19 14:47] LABS: Vitamin D,25 Hydroxy 48.5 ng/mL
[2020-06-19 14:54] LABS: ALB/GLOB Ratio 0.9 RATIO (0.9-2.4); AST(SGOT) 15 U/L (15-37); Alanine Aminotransfer ALT/SGPT 34 U/L (13-56); Albumin, Serum 3.6 g/dL (3.2-5.0); Alkaline Phosphatase 68 U/L (45-117); Anion Gap 6 (5-15); BUN 26 mg/dL (7-18); BUN/Creat Ratio 21.1 RATIO (10-20); Calcium,Total 9.5 mg/dL (8.5-10.1); Chloride 110 mmol/L (98-107); Creatinine, Serum 1.23 mg/dL (0.55-1.02); EST Glomerular Filtration Rate 45 mL/min (>60); Est Glom Filt Rate - Afr Amer 54 mL/min (>60); Glucose 136 mg/dL (74-106); Potassium 4.2 mmol/L (3.5-5.1); Protein, Total 7.6 g/dL (6.4-8.2); Sodium Level 140 mmol/L (136-145); Thyroid Stim Hormone (TSH) 1.51 uIU/mL (0.358-3.74)
== END ==
PROVIDERS: PCP Family Medicine Geriatric Medicine; Visit Provider Family Medicine Geriatric Medicine
DX: E11.9 Type 2 diabetes mellitus without complications (principal); E55.9 Vitamin D deficiency, unspecified; I10 Essential (primary) hypertension
CPT/HCPCS: 36415; 80053; 82306; 84443; 85025

== ENCOUNTER → 2020-09-06 13:30 | Outpatient (CLI) | payer MEDICARE, OTHER, SELFPAY ==
[2020-09-06 17:09] LABS: Absolute Lymphocyte Count 3.39 X10^3/uL (0.83-4.51); Absolute Neutrophil Count 6.7 X10^3/uL (2.0-7.7); Basophil# 0.05 X10^3/uL; Basophil% 0.5 % (0-1); Eosinophil# 0.15 X10^3/uL; Eosinophils% 1.4 % (0-5); Hematocrit 41.8 % (37-47); Hemoglobin 13.5 g/dL (12.0-15.0); Lymphocyte # 3.39 X10^3/ul (4.0); Lymphocyte % 30.6 % (19-41); Mean Corp Hgb Conc 32.3 g/dL (32-36); Mean Corpuscular Hgb 33.8 pg (27.0-32.0); Mean Corpuscular Volume 104.8 fL (81-99); Mean Platelet Vol. 10.3 fl (6.2-12.0); Monocyte# 0.75 X10^3/uL; Monocyte% 6.8 % (0-10); NRBC Flagged by Analyzer 0 % (0-5); Neutrophil % 60.4 % (47-70); Platelet Count 211 K/mm3 (150-450); RBC Distribution Width CV 12.4 % (11.6-14.6); RBC Distribution Width SD 48.3 fl (35.1-43.9); Red Blood Count 3.99 M/mm3 (4.2-5.4); White Blood Count 11.1 K/mm3 (4.4-11.0)
[2020-09-06 17:30] LABS: Vitamin D,25 Hydroxy 64.9 ng/mL
[2020-09-06 17:36] LABS: ALB/GLOB Ratio 0.8 RATIO (0.9-2.4); AST(SGOT) 20 U/L (15-37); Alanine Aminotransfer ALT/SGPT 35 U/L (13-56); Albumin, Serum 3.4 g/dL (3.2-5.0); Alkaline Phosphatase 64 U/L (45-117); Anion Gap 7 (5-15); BUN 29 mg/dL (7-18); BUN/Creat Ratio 26.1 RATIO (10-20); Calcium,Total 9.5 mg/dL (8.5-10.1); Chloride 106 mmol/L (98-107); Creatinine, Serum 1.11 mg/dL (0.55-1.02); EST Glomerular Filtration Rate 50 mL/min (>60); Est Glom Filt Rate - Afr Amer 61 mL/min (>60); Glucose 62 mg/dL (74-106); Potassium 4.1 mmol/L (3.5-5.1); Protein, Total 7.4 g/dL (6.4-8.2); Sodium Level 140 mmol/L (136-145); Thyroid Stim Hormone (TSH) 0.53 uIU/mL (0.358-3.74)
== END ==
PROVIDERS: PCP Family Medicine Geriatric Medicine; Visit Provider Family Medicine Geriatric Medicine
DX: E11.9 Type 2 diabetes mellitus without complications (principal); E55.9 Vitamin D deficiency, unspecified; I10 Essential (primary) hypertension
CPT/HCPCS: 36415; 80053; 82306; 84443; 85025

== ENCOUNTER → 2020-11-07 13:46 | Outpatient (CLI) | payer MEDICARE, OTHER, SELFPAY ==
[2020-10-25 13:02] VITALS: BMI 41.1
--- NOTE | 2020-11-07 13:49 | CDU_ITS ---
Reason For Study: BRUIT Rt. Velocities/BP Lt. Velocities/BP Prox CCA 127/18 cm/sec. Prox CCA 125/14 cm/sec. Mid CCA 116/18 cm/sec. Mid CCA 142/12 cm/sec. Dist CCA 113/14 cm/sec. Dist CCA 107/10 cm/sec. Prox ICA 81/18 cm/sec. Prox ICA 102/16 cm/sec. Mid ICA 103/19 cm/sec. Mid ICA 142/34 cm/sec. Dist ICA 107/18 cm/sec. Dist ICA 75/14 cm/sec. Rt. ICA/CCA = .9. Lt. ICA/CCA = 1.1. Prox ECA 102/0 cm/sec. Prox ECA 87/0 cm/sec. Rt. Vert. 74/18 cm/sec. Lt. Vert. 47/7 cm/sec. Right Extracranial There is heterogeneous, irregular atherosclerotic plaque noted in the right common carotid artery. There is heterogeneous, irregular atherosclerotic plaque noted in the right internal carotid artery. There is no significant atherosclerotic plaque noted in the right external carotid artery. Antegrade flow is noted in the right vertebral artery. There is heterogeneous, irregular atherosclerotic plaque noted in the right bulb. Left Extracranial There is homogeneous, smooth atherosclerotic plaque noted in the left common carotid artery. There is heterogeneous, irregular atherosclerotic plaque noted in the left internal carotid artery. There is no significant atherosclerotic plaque noted in the left external carotid artery. Antegrade flow is noted in the left vertebral artery. Procedure Carotid Duplex 39816. The study was technically difficult. Exam performed in department. VL/Carotid Duplex Ultrasound Interpretation Summary Irregular calcific plaque at the proximal and mid right internal carotid artery with less than 50% stenosis Less than 50% stenosis right external carotid artery Irregular calcific plaque of the proximal left internal carotid artery with 50 to 69% stenosis of the left mid internal carotid Less than 50% stenosis left external carotid artery Patent and antegrade vertebrals bilaterally Slight variability bilaterally as noted from the previous examination of Delon Mohr 2019. Hemodynamically significant stenosis does not appear to be present. Ordering Physician: Davina Rodríguez/Trent Marie Referring Physician: ISRAEL CHRISTY CHI Performed By: Luna Santillan, FILIPPO, RVT
== END ==
PROVIDERS: PCP Family Medicine Geriatric Medicine; Referring Provider Physician Assistant Medical; Visit Provider Physician Assistant Medical
DX: I65.23 Occlusion and stenosis of bilateral carotid arteries (principal)
CPT/HCPCS: 93880

== ENCOUNTER → 2020-12-20 13:49 | Outpatient (CLI) | payer MEDICARE, OTHER, SELFPAY ==
[2020-10-25 13:02] VITALS: BMI 41.1
[2020-12-20 17:23] LABS: Absolute Lymphocyte Count 2.58 X10^3/uL (0.83-4.51); Absolute Neutrophil Count 5.3 X10^3/uL (2.0-7.7); Basophil# 0.04 X10^3/uL; Basophil% 0.5 % (0-1); Eosinophil# 0.16 X10^3/uL; Eosinophils% 1.8 % (0-5); Hematocrit 39.1 % (37-47); Hemoglobin 12.7 g/dL (12.0-15.0); Lymphocyte # 2.58 X10^3/ul (0.83-4.51); Lymphocyte % 29.8 % (19-41); Mean Corp Hgb Conc 32.5 g/dL (32-36); Mean Corpuscular Hgb 33.7 pg (27.0-32.0); Mean Corpuscular Volume 103.7 fL (81-99); Mean Platelet Vol. 10.6 fl (6.2-12.0); Monocyte# 0.57 X10^3/uL; Monocyte% 6.6 % (0-10); NRBC Flagged by Analyzer 0 % (0-5); Neutrophil # 5.27 X10^3/uL (2.7-7.7); Platelet Count 233 K/mm3 (150-450); RBC Distribution Width CV 12.7 % (11.6-14.6); Red Blood Count 3.77 M/mm3 (4.2-5.4); White Blood Count 8.7 K/mm3 (4.4-11.0)
[2020-12-20 17:41] LABS: Vitamin D,25 Hydroxy 45.5 ng/mL
[2020-12-20 17:55] LABS: ALB/GLOB Ratio 0.8 RATIO (0.9-2.4); AST(SGOT) 22 U/L (15-37); Alanine Aminotransfer ALT/SGPT 30 U/L (13-56); Albumin, Serum 3.3 g/dL (3.2-5.0); Alkaline Phosphatase 62 U/L (45-117); Anion Gap 7 (5-15); BUN 25 mg/dL (7-18); BUN/Creat Ratio 19.4 RATIO (10-20); Calcium,Total 9.2 mg/dL (8.5-10.1); Chloride 106 mmol/L (98-107); Creatinine, Serum 1.29 mg/dL (0.55-1.02); EST Glomerular Filtration Rate 42 mL/min (>60); Est Glom Filt Rate - Afr Amer 51 mL/min (>60); Globulin 3.9 g/dL (2.2-4.2); Glucose 159 mg/dL (74-106); Protein, Total 7.2 g/dL (6.4-8.2); Sodium Level 138 mmol/L (136-145); Thyroid Stim Hormone (TSH) 1.16 uIU/mL (0.358-3.74)
== END ==
PROVIDERS: PCP Family Medicine Geriatric Medicine; Visit Provider Family Medicine Geriatric Medicine
DX: E55.9 Vitamin D deficiency, unspecified (principal); E11.9 Type 2 diabetes mellitus without complications; I10 Essential (primary) hypertension
CPT/HCPCS: 36415; 80053; 82306; 84443; 85025

== ENCOUNTER → 2021-02-14 14:25 | Outpatient (CLI) | payer MEDICARE, OTHER, SELFPAY ==
[2021-02-14 17:39] LABS: Albumin, Serum 3.5 g/dL (3.2-5.0); BUN 28 mg/dL (7-18); Calcium,Total 9.5 mg/dL (8.5-10.1); Chloride 107 mmol/L (98-107); Creatinine, Serum 1.12 mg/dL (0.55-1.02); EST Glomerular Filtration Rate 50 mL/min (>60); Est Glom Filt Rate - Afr Amer 60 mL/min (>60); Glucose 54 mg/dL (74-106); Phosphorus 2.7 mg/dL (2.5-4.9); Potassium 3.6 mmol/L (3.5-5.1); Sodium Level 139 mmol/L (136-145)
[2021-02-14 18:00] LABS: Microalbumin,Random Urine 17.4 mg/L (NO RANGE EST.); Microalbumin:Creatinine Ratio 12.5 mg/g CRE (<30 mg/g CRE)
== END ==
PROVIDERS: PCP Family Medicine Geriatric Medicine; Visit Provider Internal Medicine Nephrology
DX: N18.32 Chronic kidney disease, stage 3b (principal)
CPT/HCPCS: 36415; 80069; 82043; 82570

== ENCOUNTER → 2021-02-22 13:24 | Outpatient (CLI) | payer MEDICARE, OTHER, SELFPAY ==
--- NOTE | 2021-02-22 13:27 | US_ITS ---
STUDY: RENAL ULTRASOUND - COMPLETE REASON FOR EXAM: Female, 80 years old. Age 2 chronic kidney disease. TECHNIQUE: Ultrasound evaluation of the kidneys was performed with real-time and static quesada-scale imaging. COMPARISON: None. FINDINGS: RIGHT KIDNEY: Normal location of the right kidney, which is normal in size. The right kidney measures 10.5 cm. There is a normal cortex of the right kidney. The renal cortex measures 1.1 cm. There is no right renal mass or cyst. There are no right renal calculi. There is no right hydronephrosis. DISTAL RIGHT URETER: There is non-visualization of the distal right ureter. There is no demonstrated right ureterovesical junction calculus. There is a visualized right ureteral jet. LEFT KIDNEY: Normal location of the left kidney, which is normal in size. The left kidney measures 10.3 cm. There is a normal cortex of the left kidney. The renal cortex measures 1.1 cm. There is no left renal mass or cyst. There is an echogenic focus in the lower pole measuring 5 x 4 x 3 mm . Question renal calculus There is no left hydronephrosis. DISTAL LEFT URETER: There is non-visualization of the distal left ureter. There is no demonstrated left ureterovesical junction calculus. There is a visualized left ureteral jet. BLADDER: The poorly distended urinary bladder has a volume of surgery for ml. There is a normal wall thickness of the distended urinary bladder. There is no demonstrated mass within the urinary bladder. There are no demonstrated bladder calculi. US/Kidney and Bladder IMPRESSION: 1. Question nonobstructing left renal calculi. There is a lower pole renal calculus seen CT of the lumbar spine dated 07/26/2019. 2. Otherwise normal renal ultrasound. Electronically Signed: Jez Blackwell DO at 16:54 EDT Tel [phone], Service support ,
== END ==
PROVIDERS: PCP Family Medicine Geriatric Medicine; Referring Provider Internal Medicine Nephrology; Visit Provider Internal Medicine Nephrology
DX: N18.32 Chronic kidney disease, stage 3b (principal)
CPT/HCPCS: 76770

== ENCOUNTER → 2021-03-14 14:59 | Outpatient (CLI) | payer MEDICARE, OTHER, SELFPAY ==
[2021-03-14 17:07] LABS: Amphetamine Urine VISTA NEGATIVE (<1000 ng/mL); Barbiturate Urine VISTA NEGATIVE (< 200 ng/mL); Benzodiazepine Urine VISTA NEGATIVE (< 200 ng/mL); Cocaine Urine VISTA NEGATIVE (< 300 ng/mL); Ecstacy Urine VISTA NEGATIVE (< 500 ng/mL); Methadone Urine VISTA NEGATIVE (< 300 ng/mL); PCP Urine VISTA NEGATIVE (< 25 ng/mL); THC Urine VISTA NEGATIVE (< 50 ng/mL); Vista UDS pH Range 5
== END ==
PROVIDERS: PCP Family Medicine Geriatric Medicine; Referring Provider Anesthesiology Pain Medicine; Visit Provider Anesthesiology Pain Medicine
DX: F11.20 Opioid dependence, uncomplicated (principal)
CPT/HCPCS: 80307

== ENCOUNTER → 2021-04-02 13:46 | Outpatient (CLI) | payer MEDICARE, OTHER, SELFPAY ==
[2021-04-02 16:01] LABS: Albumin, Serum 3.2 g/dL (3.2-5.0); BUN 19 mg/dL (7-18); BUN/Creat Ratio 18.8 RATIO (10-20); Calcium,Total 9.4 mg/dL (8.5-10.1); Chloride 105 mmol/L (98-107); Creatinine, Serum 1.01 mg/dL (0.55-1.02); EST Glomerular Filtration Rate 56 mL/min (>60); Est Glom Filt Rate - Afr Amer 68 mL/min (>60); Glucose 135 mg/dL (74-106); Phosphorus 2.8 mg/dL (2.5-4.9); Potassium 3.9 mmol/L (3.5-5.1); Sodium Level 139 mmol/L (136-145)
== END ==
PROVIDERS: PCP Family Medicine Geriatric Medicine; Visit Provider Internal Medicine Nephrology
DX: N18.32 Chronic kidney disease, stage 3b (principal)
CPT/HCPCS: 36415; 80069

== ENCOUNTER 2021-09-05 13:37 | Outpatient (CLI) | payer MEDICARE, OTHER, SELFPAY ==
--- NOTE | 2021-09-05 13:41 | RAD_ITS ---
STUDY: X-RAY - RIGHT KNEE REASON FOR EXAM: Female, 80 years old. KNEE PAIN TECHNIQUE: 4 view(s) of the knee. COMPARISON: None. FINDINGS: Normal visualized distal femur. Normal visualized proximal tibia and fibula. Normal proximal tibiofibular articulation. There is moderate degenerative arthrosis of the medial femorotibial compartment with moderate joint space narrowing. There is moderate degenerative arthrosis of the lateral femorotibial compartment with moderate joint space narrowing. Normal patellofemoral articulation. The soft tissue structures are unremarkable. RAD/Knee 4 or More Views IMPRESSION: Degenerative arthrosis. Electronically Signed: Nixon Guzmán MD at 14:29 EST ,
--- NOTE | 2021-09-05 13:45 | RAD_ITS ---
STUDY: X-RAY - LEFT KNEE REASON FOR EXAM: Female, 80 years old. KNEE PAIN TECHNIQUE: 4 view(s) of the knee. COMPARISON: None. FINDINGS: Normal visualized distal femur. Normal visualized proximal tibia and fibula. Normal proximal tibiofibular articulation. There is moderate degenerative arthrosis of the medial femorotibial compartment with moderate joint space narrowing. There is mild degenerative arthrosis of the lateral femorotibial compartment. There is mild degenerative arthrosis of the patellofemoral articulation. The soft tissue structures are unremarkable. RAD/Knee 4 or More Views IMPRESSION: Degenerative arthrosis. Electronically Signed: Nixon Guzmán MD at 14:31 EST ,
[2021-09-05 15:55] LABS: Amphetamine Urine VISTA NEGATIVE (<1000 ng/mL); Barbiturate Urine VISTA NEGATIVE (< 200 ng/mL); Benzodiazepine Urine VISTA NEGATIVE (< 200 ng/mL); Cocaine Urine VISTA NEGATIVE (< 300 ng/mL); Ecstacy Urine VISTA NEGATIVE (< 500 ng/mL); Methadone Urine VISTA NEGATIVE (< 300 ng/mL); PCP Urine VISTA NEGATIVE (< 25 ng/mL); THC Urine VISTA NEGATIVE (< 50 ng/mL); Vista UDS pH Range 6
== END 2021-09-05 23:59 | disposition home or self-care (01) ==
PROVIDERS: PCP Family Medicine Geriatric Medicine; Referring Provider Anesthesiology Pain Medicine; Visit Provider Anesthesiology Pain Medicine
DX: F11.20 Opioid dependence, uncomplicated (principal); M25.561 Pain in right knee; M25.562 Pain in left knee
CPT/HCPCS: 73564; 80307

== ENCOUNTER 2021-09-19 13:33 | Outpatient (CLI) | payer MEDICARE, OTHER, SELFPAY ==
[2021-09-19 17:05] LABS: Vitamin D,25 Hydroxy 41.3 ng/mL
[2021-09-19 17:14] LABS: Absolute Lymphocyte Count 2.91 X10^3/uL (0.83-4.51); Absolute Neutrophil Count 3.6 X10^3/uL (2.0-7.7); Basophil# 0.04 X10^3/uL; Basophil% 0.6 % (0-1); Eosinophil# 0.11 X10^3/uL; Eosinophils% 1.5 % (0-5); Hematocrit 38.6 % (37-47); Hemoglobin 13.2 g/dL (12.0-15.0); Lymphocyte # 2.91 X10^3/ul (0.83-4.51); Lymphocyte % 40.4 % (19-41); Mean Corp Hgb Conc 34.2 g/dL (32-36); Mean Corpuscular Hgb 34.4 pg (27.0-32.0); Mean Corpuscular Volume 100.5 fL (81-99); Mean Platelet Vol. 10.5 fl (6.2-12.0); Monocyte# 0.52 X10^3/uL; Monocyte% 7.2 % (0-10); NRBC Flagged by Analyzer 0 % (0-5); Neutrophil # 3.61 X10^3/uL (2.7-7.7); Platelet Count 210 K/mm3 (150-450); RBC Distribution Width CV 12.7 % (11.6-14.6); RBC Distribution Width SD 46.5 fl (35.1-43.9); Red Blood Count 3.84 M/mm3 (4.2-5.4); White Blood Count 7.2 K/mm3 (4.4-11.0)
[2021-09-19 17:16] LABS: ALB/GLOB Ratio 0.8 RATIO (0.9-2.4); AST(SGOT) 25 U/L (15-37); Alanine Aminotransfer ALT/SGPT 32 U/L (13-56); Albumin, Serum 3.2 g/dL (3.2-5.0); Alkaline Phosphatase 52 U/L (45-117); Anion Gap 6 (5-15); BUN 14 mg/dL (7-18); BUN/Creat Ratio 16.8 RATIO (10-20); Calcium,Total 9.4 mg/dL (8.5-10.1); Chloride 104 mmol/L (98-107); Creatinine, Serum 0.84 mg/dL (0.55-1.02); EST Glomerular Filtration Rate 70 mL/min (>60); Est Glom Filt Rate - Afr Amer 84 mL/min (>60); Globulin 3.9 g/dL (2.2-4.2); Glucose 146 mg/dL (74-106); Potassium 3.8 mmol/L (3.5-5.1); Protein, Total 7.1 g/dL (6.4-8.2); Sodium Level 138 mmol/L (136-145); Thyroid Stim Hormone (TSH) 0.64 uIU/mL (0.358-3.74)
== END 2021-09-19 23:59 | disposition home or self-care (01) ==
LOC: POLAB3 13:35
PROVIDERS: PCP Family Medicine Geriatric Medicine; Visit Provider Family Medicine Geriatric Medicine
DX: E11.9 Type 2 diabetes mellitus without complications (principal); E55.9 Vitamin D deficiency, unspecified; I10 Essential (primary) hypertension
CPT/HCPCS: 36415; 80053; 82306; 84443; 85025

== ENCOUNTER → 2021-11-05 | Outpatient (CLI) | payer MEDICARE, OTHER, SELFPAY ==
--- NOTE | 2021-11-05 13:30 | CT_ITS ---
STUDY: CT SCAN OF LOWER EXTREMITY LEFT.[facility] protocol. REASON FOR EXAM: Female, 81 years old. UNILATERAL PRIMARY OSTEOARTHRITIS, L KNEE RADIATION DOSAGE (If Supplied By Facility): CTDIvol = ( 18.76 ) mGy, DLP = ( 2324.93 ) mGycm. Individualized dose optimization techniques were used for this CT.? TECHNIQUE: Multiple axial tomographic images of the left hip joint, knee joint and ankle joint were obtained. Coronal and sagittal constructions was obtained as well. COMPARISON: None. FINDINGS: Imaging of the left hip joint was obtained. Mild degree of prominence of the greater trochanter suggestive of possible calcific bursitis. Imaging of the knee joint was obtained. There is a moderate degree of joint space narrowing with degenerative spur formation at the medial tibial plateau and medial femoral condyle. Imaging of the ankle was performed. No significant abnormality is seen. CT/Extremity Lower without Contra IMPRESSION: Moderate degree of joint space narrowing with a degenerative spur formation involving the medial compartment of knee joint. Electronically Signed: Tony Grover MD at 10:55 EDT ,
== END | disposition home or self-care (01) ==
LOC: CT 13:26
PROVIDERS: PCP Family Medicine Geriatric Medicine; Referring Provider Physician Assistant; Visit Provider Physician Assistant
DX: M17.12 Unilateral primary osteoarthritis, left knee (principal); M25.562 Pain in left knee; G89.29 Other chronic pain
CPT/HCPCS: 73700

== ENCOUNTER 2021-11-18 15:38 | Observation (INO) | payer MEDICARE, OTHER, SELFPAY ==
--- NOTE | 2021-11-05 13:28 | EKG12_ITS ---
Test Reason : PRE-OP Blood Pressure : / mmHG Vent. Rate : 064 BPM Atrial Rate : 064 BPM P-R Int : 128 ms QRS Dur : 092 ms QT Int : 432 ms P-R-T Axes : 077 -24 015 degrees QTc Int : 445 ms Normal sinus rhythm Leftward axis Poor R wave progression Confirmed by NASIM MATHEW, OTF ([id number]), sound editor AWA RUEDA ([id number]) on 11/06/2021 11:13:36 AM Referred By: Dominic Olsen Confirmed By:OTF ROUSE MD
[2021-11-05 13:49] LABS: International Normalized Ratio 1.1; Prothrombin Time (Protime)PT. 13.7 SECONDS (11.7-14.9)
[2021-11-05 13:50] LABS: Partial Thromboplast Time 28.3 Seconds (24.1-36.2)
[2021-11-05 13:59] LABS: Magnesium 1.5 mg/dL (1.6-2.6)
[2021-11-05 14:12] LABS: Hemoglobin A1c 7.5 % (3.8-5.6)
[2021-11-06 06:38] LABS: Hematocrit 39.7 % (37-47); Mean Corp Hgb Conc 32.7 g/dL (32-36); Mean Corpuscular Hgb 33.7 pg (27.0-32.0); Mean Corpuscular Volume 102.8 fL (81-99); Mean Platelet Vol. 11.7 fl (6.2-12.0); Platelet Count 175 K/mm3 (150-450); RBC Distribution Width CV 12.5 % (11.6-14.6); RBC Distribution Width SD 46.7 fl (35.1-43.9); Red Blood Count 3.86 M/mm3 (4.2-5.4); White Blood Count 7.5 K/mm3 (4.4-11.0)
[2021-11-06 06:57] LABS: Anion Gap 7 (5-15); BUN 19 mg/dL (7-18); BUN/Creat Ratio 18.3 RATIO (10-20); Calcium,Total 9.3 mg/dL (8.5-10.1); Chloride 107 mmol/L (98-107); Creatinine, Serum 1.04 mg/dL (0.55-1.02); EST Glomerular Filtration Rate 54 mL/min (>60); Est Glom Filt Rate - Afr Amer 65 mL/min (>60); Glucose 121 mg/dL (74-106); Potassium 4.1 mmol/L (3.5-5.1); Sodium Level 141 mmol/L (136-145)
[2021-11-18] VITALS (15 sets, daily range): BP systolic 100–176; BP diastolic 48–76; PULSE 65–88; RESP 14–20; TEMP 36.4–36.8; O2SAT 93–100; BMI 41.0
--- NOTE | 2021-11-18 | KNEE_PTH ---
PATIENT: BEN SHAFFER LOC: MS3 U#:[id number] AGE/SX: 81/F ROOM: AK318 RE11/18/[address]: Dr. Dominic Olsen DO : [id number] BED: 1 DIS: 11/20/2021 SPEC #: [id number] RECD: 11/18/21 13:40 STATUS: LYLY RECamila #: [id number] PATRIC: 11/18/21 00:[address]: Dominic Olsen DEPT: SURGICAL PATHOLOGY RECD BY: Ramakrishna Barajas ENTERED: 11/18/21 13:40 SP TYPE: TOTAL KNEE OTHR DR: Dr. Bud Duncan MD Tissues: Knee, NOS Procedures: Decalcification bone/plaque Surgery Specimen Level IV HEADER OPERATION: ERAS, total knee replacement robotic arm assist PRE-OP DIAGNOSIS: Osteoarthritis left knee TISSUE SUBMITTED: Debrided bone and tissue left knee MICROSCOPIC DIAGNOSIS Bone of left knee, total knee resection: Severe degenerative joint disease. AM:norma 11/26/2021 MICROSCOPIC DESCRIPTION Slides are reviewed. GROSS DESCRIPTION Received is one container designated debrided bone and tissue left knee. The specimen consists of multiple fragments of huston-yellow bone measuring in aggregate 11 x 8 x 3 cm. No soft tissue is identified. A number of bony fragments contain articular surfaces consistent with tibial plateau and femoral condyle and displaying prominent osteophyte formation, eburnation, and bone erosion. Metal Rolling Mill Operator sections are submitted in one cassette after decalcification. / SJ:norma 11/18/2021 TC:5 CPT: 12657, 91261
[2021-11-18 06:15] LABS: Bedside Glucose 207 mg/dL (74-106)
[2021-11-18] MEDS: Lactated Ringers 1,000 ML 15 ML IV (06:24)
[2021-11-18] MEDS: Acetaminophen 500 MG Tablet 1000 MG PO ×3 (06:25→21:13)
[2021-11-18] MEDS: Gabapentin 600 MG Tablet PO (06:25)
[2021-11-18] MEDS: Insulin Lispro 100 UNIT/ML INSULN.PEN SC (06:33)
[2021-11-18] MEDS: Cefazolin 2 GM in 0.9% Normal Saline 100 ML IV (07:51)
[2021-11-18] MEDS: TXA 1000mg in NS100 100ml (IVPB at Incision) 660 MG IV (08:05)
[2021-11-18] MEDS: TXA 1000mg in NS100 100ml (IVPB at Closure) 660 MG IV (08:55)
[2021-11-18] MEDS: Lactated Ringers 1,000 ML 999 ML IV (09:30)
--- NOTE | 2021-11-18 09:40 | RAD_ITS ---
STUDY: X-RAY - LEFT KNEE REASON FOR EXAM: Postoperative evaluation of left total knee arthroplasty. TECHNIQUE: 2 view(s) of the knee. COMPARISON: Radiographs 10/28/2021. FINDINGS: There is a left total knee arthroplasty without evidence of complication. There is postoperative gas in the soft tissues and overlying skin emile. RAD/Knee 1 or 2 Views IMPRESSION: Uncomplicated left total knee arthroplasty. Electronically Signed: Pako Coleman MD at 10:39 EDT ,
[2021-11-18 10:36] LABS: Bedside Glucose 196 mg/dL (74-106)
[2021-11-18] MEDS: Lactated Ringers 1,000 ML 125 ML IV (10:45)
[2021-11-18] MEDS: Insulin Lispro 100 UNIT/ML INSULN.PEN 25 UNIT SC ×2 (11:00→17:00)
--- NOTE | 2021-11-18 11:11 | PCM.OPRPT ---
Report of Operation Date of Procedure: 11/18/21 Pre-Operative Diagnosis: OA left knee Post-Operative Diagnosis: same Surgery/Procedure Performed:: left TKR Description of Surgical Findings:: Report of Operation Date of Procedure: 11/18/2021 Preoperative Diagnosis: [left ] knee primary osteoarthritis Postoperative Diagnosis: [ left ] knee primary osteoarthritis Operation: Robotic Assisted Knee Total Arthroplasty, [left ] knee Surgeon: Dr Dominic Olsen DO Public Health Service Officer: Gregor Humphries PA-C Anesthesia: spinal Anesthesiologist: David Juárez M.D. Findings: Stable knee with good patella tracking Specimen(s): Bony cuts Complications: No intraoperative complications Estimated Blood Loss: 20 cc IV Fluids: 1000 cc crystalloid Implants Used: 1. [place] [employer] press-fit CR size 2 femur 2. [place] [employer] size 3 tibia 3. 35 mm patella 4. 9 mm CS polyethylene Brief History Operative Indications: [ (81 y/o female) ] with history of [left ] knee osteoarthrosis with radiographic findings with loss of joint space, osteophyte formation and subchondral sclerosis. Failed conservative measures as mentioned in the H&P. Discussion of total knee arthroplasty as well as risk and benefits were discussed with the patient including but not limited to blood loss, DVTs, PEs, neurovascular damage, general risk of anesthesia including loss of life, and stiffness or instability were also discussed with the patient. Patient demonstrated understanding and was able to sign informed consent. Procedure: On the date of procedure, patient's [left ] lower extremity was marked in the preoperative area. The patient was then taken back to the operating room where that patient was placed on the table in the supine position. All bony prominences were identified and well-padded. Anesthesia assumed control of the C-spine and airway throughout the remainder of the procedure. A tourniquet was placed on the [ left ] upper thigh and the leg was prepped in a sterile fashion. The surgeon then scrubbed at this time. Upon reentering the room, the [left ] lower extremity was draped in a standard orthopedic fashion. A timeout was then called and everyone agreed upon the side, the site, the procedure to be performed, patient's identity and antibiotics given. Esmarch bandage was used to exsanguinate the extremity and the tourniquet was placed up to 250 mmHg with the knee in flexion. A midline skin incision was made and a sharp dissection was taken down through skin, subcutaneous tissue and fat. The standard medial parapatellar incision was made and the patella was subluxed laterally. An appropriate deep MCL release was done and the fat pad was resected. Our attention was then directed to the patella. The patella was everted and a flat resection was made. The knee was then flexed up and 2 femoral pins were placed inside the incision and 2 tibial pins were placed outside the incision in the medial tibia bicortically. Once this was completed, the 2 checkpoints in the femur and tibia were placed. Knee was then flexed up and the bony landmarks were registered. Once the was completed, the knee taken through range of motion and manually stressed allowing us to plan for an appropriate tibial cut. The robotic arm was brought into the field sterilely and checkpoint and saw were registered. Based on the patient's deformity, the tibial cut was made in [2 degrees varus ]. At this time, the tensioner was then placed in the joint and ligament tension was checked at 90 degrees and full extension. Based on the patient's ligamentous tension, appropriate adjustments were made to the operative plan and ligament releases were done. Once we were happy with our operative plan with balanced flexion and extension gaps, our attention was directed to the femur. The robot was brought into the field sterilely and registered. Posterior condylar cuts, anterior chamfer cuts and anterior cuts were appropriately made for a [size 2 ] femur. When these were completed, the saws were switched out in the distal femoral and posterior chamfer cuts were made. Protecting the soft tissue throughout this time. A [ size 3 ] base plate was selected. The knee was flexed to 90 degrees and soft tissues and posterior osteophytes were removed from the joint. 40 cc of the periarticular injection was injected into the posterior medial corner of the joint. The appropriate trials were then placed on the femur and tibia. A trial polyethylene was trialed to ensure proper balancing and stability of the knee. The appropriate tibial internal rotation was then marked with a bovie. Our attention was then directed to the patella. The lug holes were drilled and the patella trial was placed. Patellar tracking was checked and deemed appropriate. Once we were happy, lug holes were drilled for the femur and trial components were removed. The tibia was subluxed and pinned into place and the keel was punched and drilled appropriately. Final components were verified and opened. The wound was copiously irrigated with normal saline. The components were impacted into place with the tibia, femur and finally the patella. The trial poly component was placed and the knee was placed in full extension. The tracking, alignment and balance were verified and a [9 mm CS ] polyethylene component was placed. Once the final components were placed an Irrisept lavage was performed and the wound was copiously irrigated with normal saline solution and the periarticular injection was given. the wound was closed in a layer-chapa fashion using #1 vicryl interrupted sutures for the arthrotomy, 2-0 interrupted vicryl suture for the subcuticular layer and emile for final skin closure. A sterile compressive dressing was then placed. The patient was then awakened from anesthesia, transferred to the rbritt and transferred to the PACU for recovery. My physician autopsy assistant was a vital part of this case. He was important in appropriate retraction during the case, and protection of soft tissues during bony cuts. His intimate knowledge of the case and my steps aided in safe and expedient completion of the procedure as well as appropriate position of the leg during the case. He was also vital in assisting with closure under my direct supervision. Due to the complexity of this case, robotic arm was used to assist in the surgery to improve accuracy and clinical outcomes. Post-op Plan: DVT ppx; ASA 81 mg BID, thigh high compression stockings Follow up: in office in 2 weeks for wound check PT: to start POD #0 at hospital, outpatient PT should be arranged. Preoperative antibiotic: Ancef 2 grams IV Dominic Olsen DO Surgeon: Dominic Olsen freight car cleaner: Gregor Humphries Type of Anesthesia: Spinal Anesthesiologist: David Juárez Estimated Blood Loss (mL): 20 cc Fluids Replaced: 1000 cc crystalloid Admit VTE Documentation VTE Present on Admission: No VTE Mechan Device Prophylaxis: SCD's VTE Pharm Prophylaxis ordered?: Yes
[2021-11-18 11:16] LABS: Bedside Glucose 233 mg/dL (74-106)
[2021-11-18] MEDS: oxyCODONE 5 MG Tablet PO ×3 (12:27→21:10)
[2021-11-18] MEDS: Cefazolin 1 GM/50 ML BAG IV ×2 (15:30→23:36)
[2021-11-18] MEDS: Losartan Potassium 100 MG Tablet PO (15:36)
[2021-11-18] MEDS: Citalopram 20 MG Tablet PO (15:37)
[2021-11-18] MEDS: Metoprolol Tartrate 25 MG Tablet 12.5 MG PO ×2 (15:37→21:11)
--- NOTE | 2021-11-18 15:45 | CASEMGMT ---
Pt nurse requested RN AZALEA see pt. RN AZALEA in to pt room, pt states she would like to go to TCU tomorrow instead of home. She is aware that CM is aware of this and TCU has a bed. She is aware that RN AZALEA will see her in the morning and she will have therapy and a final plan will be made. She denies further needs at this time. at bedside.
[2021-11-18] MEDS: Aspirin 81 MG TAB.CHEW PO (16:59)
[2021-11-18 17:00] LABS: Bedside Glucose 158 mg/dL (74-106)
[2021-11-18] MEDS: Atorvastatin Calcium 40 MG Tablet PO (21:11)
[2021-11-18] MEDS: Senna/Docusate Sodium 1 Tablet 2 TABLET PO (21:12)
[2021-11-18] MEDS: Insulin Glargine-YFGN 100 UNIT/ML Pen 85 UNIT SC (21:19)
[2021-11-18 23:25] LABS: Bedside Glucose 172 mg/dL (74-106)
[2021-11-19] VITALS (17 sets, daily range): BP systolic 124–210; BP diastolic 68–95; PULSE 67–88; RESP 18; TEMP 36.7–37.1; O2SAT 93–96
[2021-11-19] MEDS: oxyCODONE 5 MG Tablet PO ×5 (02:37→21:36)
--- NOTE | 2021-11-19 02:51 | EKG12_ITS ---
Test Reason : CP Blood Pressure : / mmHG Vent. Rate : 084 BPM Atrial Rate : 084 BPM P-R Int : 158 ms QRS Dur : 098 ms QT Int : 376 ms P-R-T Axes : 237 -15 041 degrees QTc Int : 444 ms Unusual P axis, possible ectopic atrial rhythm Abnormal ECG When compared with ECG of 05-NOV-2021 13:35, Ectopic atrial rhythm has replaced Sinus rhythm Confirmed by DARRICK MATHEW, ALBER ([id number]), scientific publications editor AWA RUEDA ([id number]) on 11/19/2021 10:41:53 AM Referred By: Dominic Olsen Confirmed By:ALBER HOLLINGSWORTH MD
--- NOTE | 2021-11-19 03:16 | NURSING ---
Late entry - 0245 - pt C/O dull aching left chest & mid chest pain. No SOB, no radiation, VSS. Dr Christianson made aware. Order for EKG & troponin.
[2021-11-19 04:07] LABS: Troponin-I HS 168 pg/mL (3.0-54.0)
[2021-11-19] MEDS: Aspirin 325 MG Tablet PO (04:18)
--- NOTE | 2021-11-19 04:21 | NURSING ---
Pt troponin high sensitivity 168 - Dr Sammy careyifed. Pt given ASA 325mg po as ordered. Ortho pagelakshmi.
--- NOTE | 2021-11-19 04:40 | NURSING ---
LATE ENTRY - 0420 - TELE APPLIED. PT C/O NAUSEA. BP 209/68.
--- NOTE | 2021-11-19 04:40 | PCM.PN.HOSP ---
Subjective Subjective Patient is an 81-year-old female with a significant history of stage I diastolic dysfunction; hypertension; paroxysmal A. fib; type 2 diabetes mellitus who is postop day 1 for left total knee replacements now with chest pain. Patient is chest pain began while lying in a semirecumbent a position in the hospital bed. Her chest pain was located at her left chest. The pain was nonradiating. The pain was mild. She described the pain as dull and aching. There was no aggravating or ameliorating factors to the pain. Associated with symptom is nausea. Internal medicine service has been consulted to manage patient's chest pain. At the time of evaluation patient had been given a full dose aspirin and reports that only discomforts in her chest without any caitie pain. She was complaining of left knee pain. Objective Data Objective Data Vital Signs: Vital Signs Temp Pulse Resp BP Pulse Ox 98.2 F 84 18 209/68 H 95 11/19/21 04:10 11/19/21 04:10 11/19/21 04:10 11/19/21 04:29 11/19/21 04:10 Oxygen Flow Rate (L/min) 2 Oxygen Delivery Method Nasal Cannula Weight: 95.254 kg Body Mass Index (BMI) 41.0 Intake & Output: Intake and Output for Last 24 Hours 11/17/21 11/18/21 11/19/21 23:59 23:59 23:59 Intake Total 2755.00 / 2755.00 Balance 2755.00 / 2755.00 Lab / Micro Data Result Diagrams: 11/19/21 04:57 11/05/21 13:21 Labs: Laboratory Results - last 24 hr 11/18/21 06:02: POC Glucose 207 H 11/18/21 10:10: POC Glucose 196 H 11/18/21 11:13: POC Glucose 233 H 11/18/21 16:52: POC Glucose 158 H 11/18/21 21:17: POC Glucose 172 H 11/19/21 03:33: Troponin I High Sens 168 H* Micro: Microbiology 11/05/21 13:21 Swab (Method) Nasal Screen MRSA/MSSA - Final Radiography Diagnostic Testing: Radiology Impression Knee X-Ray 11/18/21 09:40 IMPRESSION: Uncomplicated left total knee arthroplasty. Electronically Signed: Pako Coleman MD at 10:39 EDT , Physical Exam Narrative Physical exam: General: Well-nourished, well-developed. Head: Normocephalic, atraumatic, no tenderness Eyes: Vision is grossly intact. EOMI ENT, no trauma, moist mucous membranes, no rhinorrhea Neck: Nontender, full range of motion, no spinal tenderness, deformities. CVS: Regular rate and rhythm. S1-S2 present. No murmur, gallop or rub. Respiratory : clear to auscultation bilaterally, chest wall nontender, no wheezing Abdomen: Soft, nontender, nondistended, normal bowel sounds, no masses : Deferred Back: Nontender, no CVA tenderness, no midline spinal tenderness, deformities. Extremities: Left knee with a Polar Care; nontender to touch. Skin: Normal color, no trauma, abrasions Neuro: Alert, oriented, cranial nerves II through XII grossly intact. Psychiatry: Normal mood. Normal affect. Not depressed. Not anxious. Assessment & Plan Assessment/Plan (1) Chest pain: QUALIFIERS: Chest pain type: unspecified Qualified Code(s): R07.9 - Chest pain, unspecified (2) Elevated troponin: (3) Hypertensive emergency: PLAN: Chest pain with elevated troponin High sensitive troponin ordered returned elevated. Trend. Could be secondary to NSTEMI from hypertensive emergency. EKG reviewed showed sinus rhythm with no ST or T wave abnormalities. Aspirin 35 mg x 1 ordered. Continue daily twice daily baby aspirin. We will check lipid panel. Continue high intensity statin. Heart cath on 04/30/2020. Heart cath results showed normal coronary arteries, normal left ventricular size, wall motion and systolic function. Medical therapy was recommended at that time. Last echocardiogram on file was on 07/25/2019. Echocardiogram at that time showed ejection fraction of 70% with stage I diastolic dysfunction. Echocardiogram ordered. Chest x-ray was visualized and independent interpreted. Chest x-ray with hypoventilatory changes with minimal basilar atelectasis. Encouraged patient to use incentive spirometer. Hypertensive emergency Patient with systolic blood pressure in the 200s. Could be secondary to patient's notes receiving medication as scheduled secondary to recent surgery. Etiology could also be secondary to pain from recent knee surgery. On metoprolol and losartan and will be continued. As needed hydralazine ordered. Osteoarthritis status post left total knee replacement Adequate pain control needed to control blood pressure. Management by primary. Diabetes mellitus Blood glucose is now within goal. Agrees with Accu-Chek QA [facility] with correction scale insulin ordered.; And basal insulin regimen. Paroxysmal A. fib Patient currently in sinus rhythm. From review of cardiology notes anticoagulation has not been suggested as long as patient remains in sinus rhythm. Placed on telemetry. DVT prophylaxis: SCD, and SONALI hose in place. Patient on scheduled twice daily aspirin. Charges/Coding Visit Charges Inpatient E&M: 53015 Subs Hosp L3
--- NOTE | 2021-11-19 04:41 | NURSING ---
PT RESTING QUIETLY W/EYES CLOSED, RESP EASY. O2 2L NC.
--- NOTE | 2021-11-19 04:48 | ECHOCS_ITS ---
Reason For Study: CP Procedure This was a 2D Doppler, Color Flow transthoracic echocardiogram. Technically difficult study, patient scanned supine due to knee surgery 11/18/2021. Contrast injection performed. Exam performed portable in patient room. Left Ventricle Normal LV size. Moderate concentric left ventricular hypertrophy. Left ventricular systolic function is normal. The estimated ejection fraction is 70 %. Stage 2 diastolic dysfunction. No regional wall motion abnormalities noted. Right Ventricle Normal RV size. Normal systolic function. Atria Normal left atrium. Normal right atrium. Mitral Valve Normal mitral valve. Tricuspid Valve Normal tricuspid valve. Mild tricuspid valve insufficiency. Pulmonary artery systolic pressure is 44 mmHg. Aortic Valve Trisinus/trileaflet aortic valve. Pulmonic Valve Normal pulmonic valve. Great Vessels Normal aortic root. The pulmonary artery is normal size. Normal inferior vena cava. Pericardium/Pleural No pericardial effusion. Medication Diluted definity 2ml given slow IV push to enhance endocardial definition. MMode/2D Measurements & Calculations LVIDd: 4.1 cm IVSd: 1.4 cm LA dimension: 4.0 cm LVIDs: 2.5 cm LVPWd: 1.3 cm RVDd: 2.9 cm FS: 39.3 % LAV(MOD-bp): 49.5 ml LA A4 area: 19.6 cm2 RA A4 area: 14.1 cm2 LAV(MOD-bp) Indexed: 26.0 ml/m2 LAV(MOD-sp2): 42.9 ml LAV(MOD-sp4): 54.2 ml Time Measurements MV dec time: 0.21 sec Doppler Measurements & Calculations MV E max pk: 127.9 cm/sec Lat Peak E' Pk: 11.0 cm/sec Med Peak E' Pk: 8.5 cm/sec MV A max pk: 70.1 cm/sec E/E' lat: 11.7 E/E' med: 15.0 MV E/A: 1.8 MV V2 max: 128.3 cm/sec MV P1/2t max pk: 127.6 cm/sec Ao V2 max: 182.3 cm/sec MV max P.6 mmHg MV P1/2t: 60.0 msec Ao max P.3 mmHg MV V2 mean: 65.4 cm/sec MV dec slope: 622.8 cm/sec2 MV mean P.1 mmHg MV V2 VTI: 30.2 cm MVA(P1/2t): 3.7 cm2 LV V1 max: 143.7 cm/sec PA V2 max: 104.0 cm/sec TR max pk: 315.5 cm/sec LV V1 max P.3 mmHg TR max P.1 mmHg ECHO/Echo Complete W/ Contrast Interpretation Summary Normal LV size. Left ventricular systolic function is normal. The estimated ejection fraction is 70 %. Pulmonary artery systolic pressure is 44 mmHg. Moderate concentric left ventricular hypertrophy. Stage 2 diastolic dysfunction. Contrast injection was performed. Ordering Physician: Ulysses Christianson Referring Physician: Dominic Olsen Performed By: Alexander Harrington RCS
[2021-11-19] MEDS: hydrALAZINE 20 MG/ML Vial 10 MG IV (04:51)
[2021-11-19] MEDS: 0.9% Saline Lock 10 ML Syringe IV (04:52)
--- NOTE | 2021-11-19 04:54 | NURSING ---
APRESOLINE GIVEN PER PRN ORDER
--- NOTE | 2021-11-19 04:55 | RAD_ITS ---
STUDY: X-RAY CHEST REASON FOR EXAM: Female, 81 years old. Chest Pain TECHNIQUE: AP portable. 4:58 AM. COMPARISON: 04/24/2020. FINDINGS: LUNGS: Low lung volumes. Minimal opacities in the lung bases. No consolidation. No pneumothorax. MEDIASTINUM: Aorta tortuous and atherosclerotic.. CARDIAC SILHOUETTE: Not enlarged. BONES AND SOFT TISSUES: No acute abnormalities. RAD/Chest 1 View (Portable) IMPRESSION: Hypoventilatory changes with minimal basilar atelectasis. Electronically Signed: Luna Sanford MD at 5:26 EDT ,
--- NOTE | 2021-11-19 04:58 | NURSING ---
RADIOLOGY IN ROOM. PT STATES NAUSEA SUBSIDED.
[2021-11-19 05:05] LABS: Hematocrit 38.5 % (37-47); Hemoglobin 12.9 g/dL (12.0-15.0); Mean Corp Hgb Conc 33.5 g/dL (32-36); Mean Corpuscular Hgb 34.3 pg (27.0-32.0); Mean Corpuscular Volume 102.4 fL (81-99); Mean Platelet Vol. 9.8 fl (6.2-12.0); Platelet Count 162 K/mm3 (150-450); RBC Distribution Width CV 12.4 % (11.6-14.6); RBC Distribution Width SD 46.5 fl (35.1-43.9); Red Blood Count 3.76 M/mm3 (4.2-5.4); White Blood Count 9.8 K/mm3 (4.4-11.0)
--- NOTE | 2021-11-19 05:07 | NURSING ---
RECEIVED RETURN CALL FROM DR LAGUNAS. UPDATED HIM ON PT C/O CHEST PAIN & NEW ORDERS.
--- NOTE | 2021-11-19 05:12 | NURSING ---
DR THOMPSON HERE SEEING PT. PT STATES CHEST PAIN HAS SUBSIDED.
[2021-11-19 05:44] LABS: Anion Gap 6 (5-15); BUN 14 mg/dL (7-18); BUN/Creat Ratio 15.2 RATIO (10-20); Calcium,Total 8.7 mg/dL (8.5-10.1); Chloride 107 mmol/L (98-107); Creatinine, Serum 0.92 mg/dL (0.55-1.02); EST Glomerular Filtration Rate 62 mL/min (>60); Est Glom Filt Rate - Afr Amer 75 mL/min (>60); Estimated Creatinine Clearance 33.86 ml/min; Glucose 214 mg/dL (74-106); Potassium 4.3 mmol/L (3.5-5.1); Sodium Level 136 mmol/L (136-145)
[2021-11-19 05:55] LABS: Cholesterol 107 mg/dL (200); High Density Lipoprotein 53 mg/dL; Triglycerides 105 mg/dL; Troponin-I HS 167 pg/mL (3.0-54.0); Very Low Density Lipoprotein 21 mg/dL (5-40)
--- NOTE | 2021-11-19 07:12 | PN.HOSP_ITS ---
Subjective Subjective Chest pain this AM with elevated troponins. BP has been elevated this AM with SBP >200. Denies any further chest pain. Objective Data Objective Data Vital Signs: Vital Signs Temp Pulse Resp BP Pulse Ox 36.8 C 82 18 200/74 H 93 11/19/21 06:12 11/19/21 06:12 11/19/21 06:12 11/19/21 06:12 11/19/21 06:12 Oxygen Flow Rate (L/min) 2 Oxygen Delivery Method Nasal Cannula Weight: 95.254 kg Body Mass Index (BMI) 41.0 Intake & Output: Intake and Output for Last 24 Hours 11/17/21 11/18/21 11/19/21 23:59 23:59 23:59 Intake Total 2755.00 / 2755.00 300 / 300 Balance 2755.00 / 2755.00 300 / 300 Lab / Micro Data Result Diagrams: 11/19/21 04:57 11/19/21 04:57 Labs: Laboratory Results - last 24 hr 11/18/21 10:10: POC Glucose 196 H 11/18/21 11:13: POC Glucose 233 H 11/18/21 16:52: POC Glucose 158 H 11/18/21 21:17: POC Glucose 172 H 11/19/21 03:33: Troponin I High Sens 168 H* 11/19/21 04:57: WBC 9.8, RBC 3.76 L, Hgb 12.9, Hct 38.5, MCV 102.4 H, MCH 34.3 H , MCHC 33.5, RDW Std Deviation 46.5 H, RDW Coeff of Dalia 12.4, Plt Count 162, MPV 9.8 11/19/21 04:57: Sodium 136, Potassium 4.3, Chloride 107, Carbon Dioxide 23.0, Anion Gap 6, BUN 14, Creatinine 0.92, Estim Creat Clear Calc 33.86, Est GFR (MDRD) Af Amer 75, Est GFR (MDRD) Non-Af 62, BUN/Creatinine Ratio 15.2, Glucose 214 H, Calcium 8.7 11/19/21 04:57: Troponin I High Sens 167 H*, Triglycerides 105, Cholesterol 107, LDL Cholesterol 33, VLDL Cholesterol 21, HDL Cholesterol 53 Micro: Microbiology 11/05/21 13:21 Swab (Method) Nasal Screen MRSA/MSSA - Final Radiography Diagnostic Testing: Radiology Impression Knee X-Ray 11/18/21 09:40 IMPRESSION: Uncomplicated left total knee arthroplasty. Electronically Signed: Pako Coleman MD at 10:39 EDT , Chest X-Ray 11/19/21 04:55 IMPRESSION: Hypoventilatory changes with minimal basilar atelectasis. Electronically Signed: Luna Sanford MD at 5:26 EDT , Physical Exam Resp normal respiratory effort, no retractions, no use of accessory muscles and clear to auscultation bilaterally Cardio regular rate, regular rhythm, S1 normal heart sound and S2 normal heart sound GI normal to inspection, nondistended, normoactive bowel sounds, soft to palpation, non-tender and non-distended Extremity normal to inspection Neuro Sensorium / Orientation: awake and alert Assessment & Plan Assessment/Plan (1) Chest pain: QUALIFIERS: Chest pain type: unspecified Qualified Code(s): R07.9 - Chest pain, unspecified (2) Elevated troponin: (3) Hypertensive emergency: PLAN: 1. Chest pain with elevated troponin * High sensitive troponin ordered returned elevated. Trending down. * Likely due hypertensive urgency. * Aspirin 35 mg x 1 ordered. Continue daily twice daily baby aspirin. We will check lipid panel. Continue high intensity statin. * Heart cath on 04/30/2020. Heart cath results showed normal coronary arteries, normal left ventricular size, wall motion and systolic function. Medical therapy was recommended at that time. * Last echocardiogram on file was on 07/25/2019. Echocardiogram at that time showed ejection fraction of 70% with stage I diastolic dysfunction. Echocardiogram ordered. * Chest x-ray was visualized and independent interpreted. Chest x-ray with hypoventilatory changes with minimal basilar atelectasis. Encouraged patient to use incentive spirometer. * 2d echo shows an EF of 70% with moderate LVH and stage 2 DD. * Would recommend outpt cardiology follow up with Dr. Marie. 2. Hypertensive emergency * improved * Patient with systolic blood pressure in the 200s. * Could be secondary to patient's not receiving medication as scheduled secondary to recent surgery. Etiology could also be secondary to pain from recent knee surgery. * On metoprolol and losartan and will be continued. As needed hydralazine ordered. * start amlodipine 3. Osteoarthritis status post left total knee replacement * Adequate pain control needed to control blood pressure. * Management by primary. 4. Diabetes mellitus * Blood glucose is now within goal. * Agrees with Accu-Chek QA [facility] with correction scale insulin ordered.; And basal insulin regimen. 5. Paroxysmal A. fib * Patient currently in sinus rhythm. From review of cardiology notes anticoagulation has not been suggested as long as patient remains in sinus rhythm. Placed on telemetry. 6. DVT prophylaxis: SCD, and SONALI hose in place. Patient on scheduled twice daily aspirin. Charges/Coding Visit Charges Inpatient E&M: 48494 Subs Hosp L2
[2021-11-19] MEDS: Ondansetron 4 MG/2 ML Vial IV (07:37)
--- NOTE | 2021-11-19 07:37 | PN.ORTHO_ITS ---
Subjective Subjective Patient lying in bed awake. Patient states that she had some chest pain last night, but is feeling much better this morning. Patient feels her pain has been very well managed. Patient denies shortness of breath, nausea vomiting. Patient has no other complaints at this time. Objective Data Objective Data Vital Signs: Vital Signs Temp Pulse Resp BP Pulse Ox 98.3 F 82 18 200/74 H 93 11/19/21 06:12 11/19/21 06:12 11/19/21 06:12 11/19/21 06:12 11/19/21 06:12 Oxygen Flow Rate (L/min) 2 Oxygen Delivery Method Nasal Cannula Weight: 95.254 kg Body Mass Index (BMI) 41.0 Intake & Output: Intake and Output for Last 24 Hours 11/17/21 11/18/21 11/19/21 23:59 23:59 23:59 Intake Total 2755.00 / 2755.00 300 / 300 Balance 2755.00 / 2755.00 300 / 300 Lab / Micro Data Result Diagrams: 11/19/21 04:57 11/19/21 04:57 Labs: Laboratory Results - last 24 hr 11/18/21 10:10: POC Glucose 196 H 11/18/21 11:13: POC Glucose 233 H 11/18/21 16:52: POC Glucose 158 H 11/18/21 21:17: POC Glucose 172 H 11/19/21 03:33: Troponin I High Sens 168 H* 11/19/21 04:57: WBC 9.8, RBC 3.76 L, Hgb 12.9, Hct 38.5, MCV 102.4 H, MCH 34.3 H , MCHC 33.5, RDW Std Deviation 46.5 H, RDW Coeff of Dalia 12.4, Plt Count 162, MPV 9.8 11/19/21 04:57: Sodium 136, Potassium 4.3, Chloride 107, Carbon Dioxide 23.0, Anion Gap 6, BUN 14, Creatinine 0.92, Estim Creat Clear Calc 33.86, Est GFR ( MDRD) Af Amer 75, Est GFR (MDRD) Non-Af 62, BUN/Creatinine Ratio 15.2, Glucose 214 H, Calcium 8.7 11/19/21 04:57: Troponin I High Sens 167 H*, Triglycerides 105, Cholesterol 107, LDL Cholesterol 33, VLDL Cholesterol 21, HDL Cholesterol 53 Micro: Microbiology 11/05/21 13:21 Swab (Method) Nasal Screen MRSA/MSSA - Final Radiography Diagnostic Testing: Radiology Impression Knee X-Ray 11/18/21 09:40 IMPRESSION: Uncomplicated left total knee arthroplasty. Electronically Signed: Pako Coleman MD at 10:39 EDT , Chest X-Ray 11/19/21 04:55 IMPRESSION: Hypoventilatory changes with minimal basilar atelectasis. Electronically Signed: Luna Sanford MD at 5:26 EDT , Physical Exam Narrative Patient lying in bed awake. Patient is in no respiratory distress, speaking in full sentences. Patient moving her upper extremities without limitations. Patient's reports that her chest pain is resolving. Patient is afebrile. Labs were reviewed and noted in medical record. Patient's troponin is elevated. Patient has no calf tenderness. No signs or symptoms of DVT. The dressing is clean dry intact. Neurovascular patient is intact to lower extremities. Const alert and oriented x3 Eyes PERRL Neuro CN's II-XII intact bilaterally Psych mental status grossly normal and affect normal Assessment & Plan Assessment/Plan (1) Status post total knee replacement, left: PLAN: 1. Continue all pain medications as prescribed 2. Aspirin 81 mg 1 p.o. every 12 hours x30 days postop DVT prophylaxis 3. Encourage incentive spirometry 4. Medicine will continue to manage patient medically and patient's chest pain 5. Patient can weight-bear and ambulate with use of the walker 6. Patient to TCU when cleared by medicine and cleared by insurance
[2021-11-19] MEDS: Acetaminophen 500 MG Tablet 1000 MG PO ×3 (07:45→21:40)
[2021-11-19] MEDS: Insulin Lispro 100 UNIT/ML INSULN.PEN 25 UNIT SC ×3 (07:48→17:25)
[2021-11-19 08:11] LABS: Bedside Glucose 266 mg/dL (74-106)
--- NOTE | 2021-11-19 08:37 | NURSING ---
echo at bedside doing procedure
[2021-11-19] MEDS: Folic Acid 1 MG Tablet PO (09:12)
[2021-11-19] MEDS: Aspirin 81 MG TAB.CHEW PO ×2 (09:12→17:25)
[2021-11-19] MEDS: Levothyroxine 100 MCG Tablet PO (09:13)
[2021-11-19 09:33] LABS: Troponin-I HS 140 pg/mL (3.0-54.0)
[2021-11-19] MEDS: Citalopram 20 MG Tablet PO (11:17)
--- NOTE | 2021-11-19 11:31 | CASEMGMT ---
ILIANA TRISTAN Assessment: Face to Face with pt for initial transition planning/care coordination assessment. ILIANA TRISTAN introduced self and role at [facility], pt voices understanding and consents to assessment. Pt is A/O x4 and answers all questions appropriately at this time. Pt sitting up in chair in no distress. Care providers, pharmacy, and demographics verified/updated. Admitting Dx: Lt Total knee robotic PCP:Dakota Specialists:Knapic, ortho; Frank, cardio; Basali, pain mgmt Preferred Pharmacy: [facility] Insurance: [facility], [employer] Prescription Benefit: yes LW/HPOA: Pt states she has a LW/DPOA and her is her DPOA. She is aware this is not on file at [facility] and she may bring in to be scanned into her chart. LNOK: Sebas Jones, ; Heidi Jones, dtr Living Arrangements: Pt lives with in a single story house with 2 steps to enter without a rail. Pt reports she was I in ADL's prior to surgery. Transportation: Pt states she has her drivers license but her does not let her drive. He provides transportation. DME/HHC/SNF: Pt has a cane she uses when she goes out, a FWW she uses in the home. Pt also has a shower chair and grab bars in the bathroom. Pt denies hx of HHC and has been at [facility] Rehab Unit. Patient was provided a list of SNF providers including quality and resource use data and consistent with the patient?s preferred geographic region, medical needs, and insurance network. Pt would like to go to [facility] TCU upon dc. She is aware that there is a bed available and accepted per conversation yesterday. Pt states no further concerns/needs. CM to follow. Advised pt to ask CM if any further question/concerns/needs arise, voices understanding. Pt Goal: [facility] TCU Plan: [facility] TCU
[2021-11-19] MEDS: amLODIPine 5 MG Tablet PO (11:36)
[2021-11-19] MEDS: Metoprolol Tartrate 25 MG Tablet 12.5 MG PO ×2 (11:36→21:37)
[2021-11-19] MEDS: Losartan Potassium 100 MG Tablet PO (12:09)
[2021-11-19 12:11] LABS: Bedside Glucose 285 mg/dL (74-106)
--- NOTE | 2021-11-19 12:27 | CASEMGMT ---
Social Work SW received referral that pt would like to go to TCU at discharge. Phone call to Sonja in TCU and referral made. TCU is able to accept and pt can go when medically ready. RNCM updated. Plan: TCU, when medically ready MINDY Davey
--- NOTE | 2021-11-19 15:45 | CASEMGMT ---
Social Work Pt not ready for discharge today but will likely discharge tomorrow. Phone call to Sonja in TCU and updated on discharge plan. Plan: TCU, when medically ready MINDY Davey
--- NOTE | 2021-11-19 15:51 | CASEMGMT ---
Addendum entered by Micki Han 11/19/21 15:54: ILIANA TRISTAN back into pt room to make aware that pt will go to TCU tomorrow. She verbalizes understanding. Original Note: ILIANA TRISTAN in to discuss JI form with patient. ILIANA TRISTAN explained JI form, patient voiced understanding. Pt signed form and filed in chart. Pt provided with a copy of signed JI form. Patient had no further questions or concerns at this time.
[2021-11-19 16:20] LABS: Bedside Glucose 280 mg/dL (74-106)
[2021-11-19] MEDS: Atorvastatin Calcium 40 MG Tablet PO (21:39)
[2021-11-19] MEDS: Senna/Docusate Sodium 1 Tablet 2 TABLET PO (21:39)
[2021-11-19] MEDS: Insulin Glargine-YFGN 100 UNIT/ML Pen 85 UNIT SC (21:43)
[2021-11-19 21:51] LABS: Bedside Glucose 188 mg/dL (74-106)
[2021-11-20 02:00] VITALS: BP 156/63; PULSE 75; PULSE 76; RESP 18; TEMP 36.8; O2SAT 91
[2021-11-20] MEDS: oxyCODONE 5 MG Tablet PO ×4 (02:22→15:48)
[2021-11-20 05:57] VITALS: PULSE 87
[2021-11-20] MEDS: Levothyroxine 100 MCG Tablet PO (06:04)
[2021-11-20] MEDS: Acetaminophen 500 MG Tablet 1000 MG PO ×2 (06:04→15:39)
--- NOTE | 2021-11-20 07:03 | PN.HOSP_ITS ---
Subjective Subjective Feels much better overall, but her knee started bothering her when she moved it. Objective Data Objective Data Vital Signs: Vital Signs Temp Pulse Resp BP Pulse Ox 36.8 C 87 18 156/63 H 91 11/20/21 02:00 11/20/21 05:57 11/20/21 02:00 11/20/21 02:00 11/20/21 02:00 Oxygen Flow Rate (L/min) 2 Oxygen Delivery Method Room Air Weight: 95.254 kg Body Mass Index (BMI) 41.0 Intake & Output: Intake and Output for Last 24 Hours 11/18/21 11/19/21 11/20/21 23:59 23:59 23:59 Intake Total 2755.00 / 2755.00 850 / 850 200 / 200 Balance 2755.00 / 2755.00 850 / 850 200 / 200 Lab / Micro Data Result Diagrams: 11/19/21 04:57 11/19/21 04:57 Labs: Laboratory Results - last 24 hr 11/19/21 08:08: POC Glucose 266 H 11/19/21 08:50: Troponin I High Sens 140 H* 11/19/21 12:06: POC Glucose 285 H 11/19/21 16:14: POC Glucose 280 H 11/19/21 21:42: POC Glucose 188 H Micro: Microbiology 11/05/21 13:21 Swab (Method) Nasal Screen MRSA/MSSA - Final Radiography Diagnostic Testing: Radiology Impression Echocardiogram 11/19/21 04:48 Interpretation Summary Normal LV size. Left ventricular systolic function is normal. The estimated ejection fraction is 70 %. Pulmonary artery systolic pressure is 44 mmHg. Moderate concentric left ventricular hypertrophy. Stage 2 diastolic dysfunction. Contrast injection was performed. Ordering Physician: Ulysses Christianson Referring Physician: Dominic Olsen Performed By: Alexander Harrington RCS Physical Exam Const alert and no apparent distress Resp normal respiratory effort, no retractions, no use of accessory muscles and clear to auscultation bilaterally Cardio regular rate, regular rhythm, S1 normal heart sound and S2 normal heart sound GI normal to inspection, nondistended, normoactive bowel sounds, soft to palpation, non-tender and non-distended Extremity normal to inspection Assessment & Plan Assessment/Plan (1) Chest pain: QUALIFIERS: Chest pain type: unspecified Qualified Code(s): R07.9 - Chest pain, unspecified (2) Elevated troponin: (3) Hypertensive emergency: PLAN: 1. Chest pain with elevated troponin * High sensitive troponin ordered returned elevated. Trending down. * Likely due hypertensive urgency. * Aspirin 35 mg x 1 ordered. Continue daily twice daily baby aspirin. We will check lipid panel. Continue high intensity statin. * Heart cath on 04/30/2020. Heart cath results showed normal coronary arteries, normal left ventricular size, wall motion and systolic function. Medical therapy was recommended at that time. * Last echocardiogram on file was on 07/25/2019. Echocardiogram at that time showed ejection fraction of 70% with stage I diastolic dysfunction. Echocardiogram ordered. * Chest x-ray was visualized and independent interpreted. Chest x-ray with hypoventilatory changes with minimal basilar atelectasis. Encouraged patient to use incentive spirometer. * 2d echo shows an EF of 70% with moderate LVH and stage 2 DD. * Would recommend outpt cardiology follow up with Dr. Marie. I did make Dr. Marie aware and he is agreeable with this plan. 2. Hypertensive emergency * improved * Patient with systolic blood pressure in the 200s. * Could be secondary to patient's not receiving medication as scheduled secondary to recent surgery. Etiology could also be secondary to pain from recent knee surgery. * On metoprolol and losartan and will be continued. As needed hydralazine ordered. * start amlodipine * BP better, but still elevated 3. Osteoarthritis status post left total knee replacement * Adequate pain control needed to control blood pressure. * Management by primary. 4. Diabetes mellitus * Blood glucose is now within goal. * Agrees with Accu-Chek QA CHS with correction scale insulin ordered.; And basal insulin regimen. 5. Paroxysmal A. fib * Patient currently in sinus rhythm. From review of cardiology notes anticoagulation has not been suggested as long as patient remains in sinus rhythm. Placed on telemetry. 6. DVT prophylaxis: SCD, and SONALI hose in place. Patient on scheduled twice daily aspirin. Medically stable for discharge. Recommend follow up with Dr. Marie as outpatient. Charges/Coding Visit Charges Inpatient E&M: 18848 Subs Hosp L2
[2021-11-20 08:04] VITALS: PULSE 83
[2021-11-20] MEDS: Senna/Docusate Sodium 1 Tablet 2 TABLET PO (08:29)
[2021-11-20] MEDS: amLODIPine 5 MG Tablet PO (08:29)
[2021-11-20] MEDS: Citalopram 20 MG Tablet PO (08:29)
[2021-11-20] MEDS: Folic Acid 1 MG Tablet PO (08:29)
[2021-11-20] MEDS: Aspirin 81 MG TAB.CHEW PO (08:29)
[2021-11-20 08:30] VITALS: BP 164/69; PULSE 83; RESP 18; TEMP 37.2; O2SAT 95
[2021-11-20] MEDS: Losartan Potassium 100 MG Tablet PO (08:30)
[2021-11-20] MEDS: Metoprolol Tartrate 25 MG Tablet 12.5 MG PO (08:30)
[2021-11-20] MEDS: Multivitamins,Therapeutic Tablet 1 TABLET PO (08:30)
[2021-11-20] MEDS: Insulin Lispro 100 UNIT/ML INSULN.PEN 25 UNIT SC ×2 (08:38→12:08)
[2021-11-20] MEDS: 0.9% Saline Lock 10 ML Syringe IV (08:44)
[2021-11-20 08:46] LABS: Bedside Glucose 159 mg/dL (74-106)
--- NOTE | 2021-11-20 10:36 | PCM.PN.ORT ---
Subjective Subjective Patient sitting at bedside with her at her side. Patient states her chest pain has resolved. Patient denies chest pain, shortness of breath, calf pain, nausea vomiting. Patient has no other complaints at this time. States she is ready to be discharged and admitted to [facility] transitional care unit. Objective Data Objective Data Vital Signs: Vital Signs Temp Pulse Resp BP Pulse Ox 99 F 83 18 164/69 H 95 11/20/21 08:30 11/20/21 08:30 11/20/21 08:30 11/20/21 08:30 11/20/21 08:30 Oxygen Flow Rate (L/min) 2 Oxygen Delivery Method Room Air Weight: 95.254 kg Body Mass Index (BMI) 41.0 Intake & Output: Intake and Output for Last 24 Hours 11/18/21 11/19/21 11/20/21 23:59 23:59 23:59 Intake Total 2755.00 / 2755.00 850 / 850 200 / 200 Balance 2755.00 / 2755.00 850 / 850 200 / 200 Lab / Micro Data Result Diagrams: 11/19/21 04:57 11/19/21 04:57 Labs: Laboratory Results - last 24 hr 11/19/21 12:06: POC Glucose 285 H 11/19/21 16:14: POC Glucose 280 H 11/19/21 21:42: POC Glucose 188 H 11/20/21 08:22: POC Glucose 159 H Micro: Microbiology 11/05/21 13:21 Swab (Method) Nasal Screen MRSA/MSSA - Final Radiography Diagnostic Testing: Radiology Impression Echocardiogram 11/19/21 04:48 Interpretation Summary Normal LV size. Left ventricular systolic function is normal. The estimated ejection fraction is 70 %. Pulmonary artery systolic pressure is 44 mmHg. Moderate concentric left ventricular hypertrophy. Stage 2 diastolic dysfunction. Contrast injection was performed. Ordering Physician: Ulysses Christianson Referring Physician: Dominic Olsen Performed By: Alexander Harrington RCS Physical Exam Narrative Patient sitting comfortably at bedside in a chair. Patient is alert oriented. Patient in no respiratory distress, speaking in full sentences. Patient moving upper extremities with out limitations with good muscle tone and strength. Left knee was cool to touch nonerythematous. The dressing was clean dry intact. Patient had no calf tenderness. Neurovascular is otherwise intact. Patient was afebrile. Vitals and labs were all reviewed and noted medical record Const alert and oriented x3 Eyes PERRL Neuro CN's II-XII intact bilaterally Psych mental status grossly normal and affect normal Assessment & Plan Assessment/Plan (1) Status post total knee replacement, left: PLAN: 1. Continue all pain medications as prescribed 2. Continue aspirin 81 mg 1 p.o. every 12 hours x30 days for postop DVT prophylaxis 3. Encourage incentive spirometry 4. Continue ice with SONALI castillo and SCDs. 5. Discharge to TCU today 6. Dolores out 12/02/2021 7. Patient can shower 11/22/2021 8. Remove and replace dressing 11/25/2021 9. Patient to follow-up in 2 weeks with Gregor Humphries PA-C at [facility]
--- NOTE | 2021-11-20 10:40 | DCINST_ITS ---
Discharge Instructions Diet Discharge Diet: No restrictions Activity Discharge Activity: May Not Drive, May Shower and Use Walker May shower in (days): 2 May resume sexual activity in: No Restrictions Ice area for (Minutes): 30 Weight Bearing Status: Weight bearing as tolerated Keep extremity elevated above heart level: Operative Extremity Dressing / Incision Call your doctor if your incision/area has: Continuous Slow Oozing, Sudden Increased Bleeding, Increased Pain/ Swelling, Increased Redness, Foul Smelling Discharge and Swelling at the incision site Call your doctor if you observe: Fever of 101 or Higher and Change in Color Suture Line Care: Avoid Pulling/Pushing Change Dressing in: 1 week Cleanse incision/area with: Soap & Water Follow Up Care Please Follow Up With: Gregor Humphries PA-C When: 2 weeks, as scheduled Test Results: Test results from this visit will be discussed in further detail at your follow-up appointment, if applicable. Discharge Plan Admission Admit Date/Time: 11/18/21 15:38 Primary Reason for Your Visit: Left total knee arthroplasty Attending Provider: Dominic Olsen Primary Care Provider: Bud Duncan [employer] Providers: Dominic Olsen Discharge Orders/Prescriptions Prescriptions: New acetaminophen 500 mg Tablet 1,000 mg PO Q8 30 Days Qty: 180 RF: 0 aspirin 81 mg Tablet,Chewable 81 mg PO BIDCM 30 Days Qty: 60 RF: 0 oxycodone 5 mg Tablet 5 - 10 mg PO Q4H PRN MDD pain PRN (Reason: Pain Score 4-10) 7 Days Qty: 56 RF: 0 Continued atorvastatin 40 mg tablet 40 mg PO QDAY RF: 0 citalopram 20 mg tablet 20 mg PO QDAY RF: 0 losartan 100 mg tablet 100 mg PO QDAY RF: 0 folic acid 1 mg tablet 1 mg PO QDAY RF: 0 metoprolol tartrate 25 mg tablet 12.5 mg PO BID RF: 0 biotin 1 mg capsule 1 mg PO DAILY RF: 0 glucosamine-chondroitin 900 mg tablet 1 tab PO DAILY RF: 0 multivitamin Tablet 1 tab PO DAILY RF: 0 levothyroxine 100 mcg tablet 100 mcg PO DAILY RF: 0 cholecalciferol (vitamin D3) 75 mcg (3,000 unit) tablet 50,000 unit PO WE RF: 0 Toujeo Max U-300 SoloStar 300 unit/mL (3 mL) Insulin Pen 85 unit SUBCUT QHS RF: 0 acetaminophen 500 MG tablet 1,000 mg PO PRN PRN (Reason: Pain) RF: 0 insulin lispro 100 unit/mL insulin pen 25 unit SC TIDAC Qty: 75 RF: 3 Discontinued hydrocodone-acetaminophen 5-325 mg tablet 1 tab PO TID RF: 0 Referrals / Follow Up: Trent Marie MD [STAFF PHYSICIAN] - Within 1 Month Bud Duncan Chi, MD [Primary Care Provider] - Disposition Disposition (needs filled in before D/C Order can be placed): [facility]
--- NOTE | 2021-11-20 11:05 | CASEMGMT ---
Social Work Pt ready for discharge today. Orders faxed to TCU and Sonja in TCU notified of discharge today. SW met with pt and discussed d/c plan. Pt is agreeable and denied SW contact pt spouse stating she has made him aware of the plan. Disposition: TCU skilled level of care MINDY Davey
[2021-11-20 14:04] VITALS: PULSE 83
[2021-11-20 15:38] VITALS: BP 124/61; PULSE 90; RESP 20; TEMP 37.1; O2SAT 93
== END 2021-11-20 16:23 | disposition skilled nursing facility (03) ==
LOC: SDC 15:50 → MS3 11-19 07:16
PROVIDERS: Anesthesiology; Hospitalist; Admitting Provider Orthopaedic Surgery; PCP Family Medicine Geriatric Medicine; Referring Provider Orthopaedic Surgery; Visit Provider Orthopaedic Surgery
PROC: 0SRD0JZ Replacement of Left Knee Joint with Synthetic Substitute, Open Approach (ICD-10-PCS; CPT 27447; principal; 2021-11-18 07:00)
DX: M17.12 Unilateral primary osteoarthritis, left knee (principal); I48.0 Paroxysmal atrial fibrillation; E66.01 Morbid (severe) obesity due to excess calories; E11.9 Type 2 diabetes mellitus without complications; Z79.4 Long term (current) use of insulin; R77.8 Other specified abnormalities of plasma proteins; I16.1 Hypertensive emergency; I10 Essential (primary) hypertension; E03.9 Hypothyroidism, unspecified; E78.00 Pure hypercholesterolemia, unspecified; Z79.899 Other long term (current) drug therapy; Z79.890 Hormone replacement therapy; K21.9 Gastro-esophageal reflux disease without esophagitis; F32.A Depression, unspecified; R23.8 Other skin changes; K76.0 Fatty (change of) liver, not elsewhere classified; F42.9 Obsessive-compulsive disorder, unspecified
CPT/HCPCS: 27447; 01402; 64447; S2900; 36415; 71045; 73560; 80048; 80061; 82962; 83036; 83735; 84484; 85027; 85610; 85730; 87081; 87426; 88305; 88311; 93005; 93306; 96365; 96366; 96375; 97110; 97116; 97162; 97166; 97530; 99218; 99251; C1776; J7120; Q9957; A4216; C8929; G0378; G0463; J2405

== ENCOUNTER 2021-11-20 16:28 | Inpatient (IN) | payer MEDICARE, OTHER, SELFPAY ==
[2021-11-20 16:36] VITALS: BP 139/58; PULSE 87; RESP 16; TEMP 37.2; O2SAT 91
[2021-11-20 16:58] VITALS: BMI 38.1
[2021-11-20 18:09] VITALS: BP 139/58; PULSE 87
[2021-11-20] MEDS: Aspirin 81 MG TAB.CHEW PO (18:09)
[2021-11-20] MEDS: Metoprolol Tartrate 25 MG Tablet 12.5 MG PO (18:09)
[2021-11-20 19:00] VITALS: BP 101/55; PULSE 79; RESP 17; TEMP 36.4; O2SAT 92
[2021-11-20 19:30] VITALS: PULSE 79; RESP 17; O2SAT 98
[2021-11-20] MEDS: Atorvastatin Calcium 40 MG Tablet PO (20:19)
[2021-11-20] MEDS: Acetaminophen 500 MG Tablet 1000 MG PO (20:20)
[2021-11-20] MEDS: oxyCODONE 5 MG Tablet PO (20:20)
[2021-11-20] MEDS: Insulin Glargine-YFGN 100 UNIT/ML Pen 85 UNIT SC (21:31)
[2021-11-20 21:46] LABS: Bedside Glucose 231 mg/dL (74-106)
--- NOTE | 2021-11-20 22:09 | HP.PCM_ITS ---
HPI - General General Date of Admission: 11/20/21 HPI Narrative 11/18/2021 BEN SHAFFER, is a 81 Female who presents with followin11/05/2021 EKG normal sinus rhythm, left axis deviation, poor R wave progression. 11/18/2021 Dr. Olsen performed robotic assisted left total knee replacement. 11/19/2021 Chest pain, left, dull, aching, nausea. Aspirin given. Troponin elevated consistent with NSTEMI secondary to hypertensive urgency, trend troponin. Metoprolol, Losartan PRN hydralazine for blood pressure. Systolic blood pressure > 200. Chest X-ray showed hypoventilatory changes, incentive spirometer encouraged. 11/19/2021 Feeling better. Aspirin 81mg q12h x 30 days for DVT prophylaxis. Weight bearing as tolerated with walker. 11/19/2021 Troponin trending down. Blood pressure improved. 11/19/2021 Echo Normal Left ventricle size. Left ventricular systolic function normal. EF 70%. Pulmonary artery systolic pressure 44mm HG. Moderate left ventricular hypertrophy. Stage 2 diastolic dysfunction. 11/20/2021 Blood pressure 156/63. 11/20/2021 Admit to TCU with debility, here for rehabilitation, strengthening, prior to discharge home with . [facility] Medical History (Updated 11/20/21 @ 22:[address] Bud Duncan MD) Abnormal electrocardiogram Ambulates with cane Anxiety Arthritis Back pain Blackout Bladder disease Cardiology follow-up encounter Carotid stenosis, bilateral Concentric left ventricular hypertrophy DDD (degenerative disc disease), lumbar Debility Degenerative disc disease Depression Diabetes mellitus type 2 in obese Dietary restriction Easy bruising Essential (primary) hypertension Facet arthritis of lumbar region Falls frequently Family history of sudden cardiac Gastric reflux Grade I diastolic dysfunction Headache Hepatic steatosis High cholesterol History of echocardiogram History of pain when walking History of renal disease History of stress test Hx of pleurisy Hyperlipidemia Hypothyroidism Insulin dependent diabetes mellitus Left carotid bruit Leg cramps Lumbar canal stenosis Lumbar foraminal stenosis Macrocytosis Morbid (severe) obesity due to excess calories Non-smoker Obsessive compulsive disorder Orthostatic hypotension Osteoarthritis Osteopenia Paroxysmal atrial fibrillation Post-menopausal Radiculitis, lumbosacral Syncope Type 2 diabetes mellitus with chronic kidney disease Walker as ambulation aid Wears dentures Wears glasses Home Medications atorvastatin 40 mg tablet 40 mg PO QDAY 08/26/17 [History Last Taken 07/25/19 22:00 40 mg] citalopram 20 mg tablet 20 mg PO QDAY 08/26/17 [History Last Taken 07/26/19 10:00] losartan 100 mg tablet 100 mg PO QDAY 08/26/17 [History Last Taken 04/30/20] folic acid 1 mg tablet 1 mg PO QDAY 09/01/17 [History Last Taken 07/26/19 08:00 1 mg] antiarthritic combination no.2 900 mg tablet 1 tab PO DAILY tab 09/10/18 [History Last Taken Unknown] biotin 1 mg capsule 1 mg PO DAILY 09/10/18 [History Last Taken Unknown] levothyroxine 100 mcg tablet 100 mcg PO DAILY 12/01/19 [History Last Taken 11/18/21] multivitamin 1 tab PO DAILY 12/22/19 [History Last Taken Unknown] cholecalciferol (vitamin D3) 75 mcg (3,000 unit) tablet 50,000 unit PO WE 10/25/20 [History Last Taken Unknown] metoprolol tartrate 25 mg tablet 12.5 mg PO BID tab 10/25/20 [History Last Taken Unknown] Toujeo Max U-300 SoloStar 85 unit SUBCUT QHS 11/04/21 [History Last Taken Unknown] acetaminophen 1,000 mg PO Q8 30 Days #180 tab 11/20/21 [Rx Last Taken Unknown] aspirin 81 mg PO BIDCM 30 Days #60 tab 11/20/21 [Rx Last Taken Unknown] insulin lispro 25 unit SC TIDAC 11/20/21 [History Last Taken Unknown] oxycodone 5 - 10 mg PO Q4H PRN PRN 7 Days #56 tab MDD pain 11/20/21 [Rx Last Taken Unknown] Allergy/AdvReac Type Severity Reaction Status Date / Time Latex, Natural Rubber Allergy Mild Rash Verified 11/18/21 06:35 atenolol [From Tenormin] AdvReac Severe Other Verified 11/18/21 06:35 Family History Father H/O carotid endarterectomy, Onset Age: 70 Mother Diabetes Brother , age 69 CAD (coronary artery disease) Myocardial infarction Sudden cardiac Daughter Hypertension Hyperlipidemia Other Family history of hyperlipidemia Family history of hypertension Family history of sudden cardiac Surgical History (Updated 11/20/21 @ 22:[address] Bud Duncan MD) History of carpal tunnel surgery of left wrist History of left heart catheterization (04/30/20) History of total left knee replacement Hx of colonoscopy Hx of dilation and curettage Hx of left cataract extraction Hx of repair of left rotator cuff Hx of repair of rotator cuff Hx of right cataract extraction Hx of vein stripping Social History (Updated 11/20/21 @ 22:[address] Bud Duncan MD) household members: spouse pets and animals: Yes (2) pets and animals: dog(s) Smoking Status: Never smoker alcohol intake: never substance use type: does not use ROS Constitutional Constitutional: Denies chills, fever(s) or weight gain ENT HEENT: Denies headache(s), nasal congestion or nasal discharge Cardiovascular Cardiovascular: Denies chest pain or palpitations Respiratory/Chest Respiratory/Chest: Denies cough, excessive phlegm production or shortness of breath with exertion Gastrointestinal Gastrointestinal: Denies abdominal pain, nausea or vomiting Genitourinary Genitourinary: Denies dysuria Musculoskeletal Musculoskeletal: Denies joint pain or joint swelling Integumentary Integumentary: Denies rash or wounds Neurologic Neurologic: Denies focal weakness, numbness or tingling Psychiatric Psychiatric: Denies anxiety, auditory hallucinations, depression, homicidal ideation or suicidal ideation Vital Signs Vital Signs Vital Signs: 11/20/21 16:36 11/20/21 18:09 11/20/21 19:00 Temperature 98.9 F 97.5 F L Temperature Source Temporal Oral Pulse Rate 87 87 79 Respiratory Rate 16 17 Blood Pressure 139/58 H 139/58 H 101/55 L Blood Pressure Mean 85 70 Blood Pressure Source Monitor Monitor Blood Pressure Position Semi-Fowlers Semi-Fowlers Blood Pressure Location Right Arm Left Forearm Pulse Ox 91 92 Oxygen Delivery Method Room Air Room Air Weight Weight: 94.574 kg Body Mass Index (BMI) 38.1 Physical Exam Const alert General Appearance: cooperative HEENT normocephalic Eyes PERRL and EOMs intact bilaterally Neck supple, no JVD and no carotid bruits Resp normal respiratory effort, normal air movement and clear to auscultation bilaterally Cardio regular rate and regular rhythm GI normal to inspection, nondistended, normoactive bowel sounds, non-tender and non-distended Extremity normal capillary refill General Extremity: Negative for edema Skin no rashes or lesions noted General Skin Exam: no breakdown Psych affect normal Appearance: appropriate Results Lab / Micro Data Labs: Laboratory Results - last 24 hr 11/20/21 21:30: POC Glucose 231 H Assessment & Plan Assessment/Plan (1) Debility: (2) Status post total knee replacement, left: (3) Elevated troponin: (4) Hypertensive emergency: (5) Sacroiliitis: (6) Depression: (7) Diabetes mellitus: (8) Atrial fibrillation: (9) Coronary artery disease: (10) Hypertension: (11) Hyperlipidemia: (12) Hypothyroidism: PLAN: 81 year old female with below past medical history hospitalized for left total knee replacement 11/18/[address] Olsen, complicated by NSTEMI secondary to hypertensive urgency, admitted to TCU with debility, here for rehabilitation, strengthening, prior to discharge home with . * Debility - PT/OT. * Pain - Tylenol 1000mg q8h, Oxycodone 5mg q4h prn pain (4-10). * Bowel - Senna/colace 2 tablets bid, Dulcolax 10mg daily prn, MOM 30ml po daily prn. * Adult immunization - Administer pneumonia vaccine, covid19 vaccine, flu vaccine. * DVT prophylaxis - Aspirin 81mg twice daily thru 12/19/2021. * Hyperlipidemia - Atorvastatin 40mg qhs. * Depression - Citalopram 20mg daily, stable chronic intermission coordinator use, GDR not recommended. * Vitamin D deficiency - D3 25mcg daily. * Diabetes Mellitus II - Glargine 85 units qhs, Humalog 25 units tidac. * Hypothyroidism - Levothyroxine 100mcg daily. * Hypertension - Metoprolol 12.5mg bid, Losartan 100mg daily.
[2021-11-21] MEDS: oxyCODONE 5 MG Tablet PO ×5 (02:22→22:21)
[2021-11-21 05:57] LABS: Absolute Lymphocyte Count 2.49 X10^3/uL (0.83-4.51); Basophil# 0.04 X10^3/uL; Basophil% 0.4 % (0-1); Eosinophil# 0.24 X10^3/uL; Eosinophils% 2.5 % (0-5); Hematocrit 36.6 % (37-47); Hemoglobin 11.9 g/dL (12.0-15.0); Lymphocyte # 2.49 X10^3/ul (0.83-4.51); Mean Corp Hgb Conc 32.5 g/dL (32-36); Mean Corpuscular Hgb 33.9 pg (27.0-32.0); Mean Corpuscular Volume 104.3 fL (81-99); Mean Platelet Vol. 10.1 fl (6.2-12.0); Monocyte% 8.4 % (0-10); NRBC Flagged by Analyzer 0 % (0-5); Neutrophil # 5.95 X10^3/uL (2.7-7.7); Neutrophil % 62.2 % (47-70); Platelet Count 168 K/mm3 (150-450); RBC Distribution Width CV 12.9 % (11.6-14.6); RBC Distribution Width SD 49.1 fl (35.1-43.9); Red Blood Count 3.51 M/mm3 (4.2-5.4); White Blood Count 9.6 K/mm3 (4.4-11.0)
[2021-11-21 06:27] LABS: Anion Gap 3 (5-15); BUN 20 mg/dL (7-18); BUN/Creat Ratio 21.5 RATIO (10-20); Calcium,Total 8.9 mg/dL (8.5-10.1); Chloride 102 mmol/L (98-107); Creatinine, Serum 0.93 mg/dL (0.55-1.02); EST Glomerular Filtration Rate 61 mL/min (>60); Est Glom Filt Rate - Afr Amer 74 mL/min (>60); Estimated Creatinine Clearance 36.89 ml/min; Glucose 177 mg/dL (74-106); Potassium 4.3 mmol/L (3.5-5.1); Sodium Level 136 mmol/L (136-145)
[2021-11-21 06:30] LABS: Bedside Glucose 186 mg/dL (74-106)
[2021-11-21 06:48] VITALS: BP 150/59; PULSE 81
[2021-11-21] MEDS: Levothyroxine 100 MCG Tablet PO (06:48)
[2021-11-21] MEDS: Acetaminophen 500 MG Tablet 1000 MG PO ×3 (06:48→20:30)
[2021-11-21] MEDS: Citalopram 20 MG Tablet PO (06:48)
[2021-11-21] MEDS: Metoprolol Tartrate 25 MG Tablet 12.5 MG PO ×2 (06:48→17:42)
[2021-11-21] MEDS: Senna/Docusate Sodium 1 Tablet 2 TABLET PO ×2 (06:49→17:42)
[2021-11-21] MEDS: Cholecalciferol (VIT D3) 25 MCG TABLET (1,000 UNITS) PO (06:50)
[2021-11-21] MEDS: Insulin Lispro 100 UNIT/ML INSULN.PEN 25 UNIT SC ×3 (07:45→17:39)
[2021-11-21] MEDS: Aspirin 81 MG TAB.CHEW PO ×2 (07:48→17:42)
[2021-11-21] MEDS: Losartan Potassium 100 MG Tablet PO (07:48)
[2021-11-21 07:49] VITALS: BP 134/48; PULSE 75
[2021-11-21 10:00] VITALS: PULSE 69; RESP 18; O2SAT 93
[2021-11-21] MEDS: Tuberculin,Purif.prot.deriv. 50 TU/ML Vial 0.1 ML ID (10:00)
[2021-11-21 11:16] LABS: Bedside Glucose 131 mg/dL (74-106)
--- NOTE | 2021-11-21 11:18 | CASEMGMT ---
Social Work Met with patient to complete initial assessment. Introduced self and role. Pt wishes to have and primary contact and dtr as secondary. Discussed code status and MOLST form. Pt wishes to be DNR-CCA, no intubation. Purple bracelet applied, DNR form signed by pt and in Dr. folder to sign, notified nursing to change order. MOLST communicated to and placed in chart. Explained Medicare benefit. Encouraged to contact secondary insurance to ensure copay coverage. The goal is for pt to return home with assist. SW to continue to follow for DC planning. MARIETTA RodriguezW
--- NOTE | 2021-11-21 12:08 | PCM.PN.RX ---
Progress Note - Pharmacy Subjective: TCU Admission. 81 YOF admitted to the hospital for knee replacement complicated by NSTEMI secondary to hypertensive urgency. Admitted to TCU with debility for rehabilitation and strengthening. Objective: Allergies Latex, Natural Rubber Allergy (Mild, Verified 11/18/21 06:35) Rash atenolol [From Tenormin] Adverse Reaction (Severe, Verified 11/18/21 06:35) Other Hair loss Current Medications Generic Name Dose Route Start Last Admin Trade Name Freq PRN Reason Stop Dose Admin Acetaminophen 1,000 mg 11/20/21 22:00 11/21/21 06:48 Acetaminophen 500 Mg Tablet PO 1,000 mg Q8 MAYRA Administration Aspirin 81 mg 11/20/21 17:00 11/21/21 07:48 Aspirin 81 Mg Tab.Chew PO 12/19/21 23:55 81 mg BIDCM MAYRA Administration Atorvastatin Calcium 40 mg 11/20/21 22:00 11/20/21 20:19 Atorvastatin Calcium 40 Mg Tablet PO 40 mg QHS MAYRA Administration Bisacodyl 10 mg 11/20/21 22:28 Bisacodyl 5 Mg Tablet PO DAILY PRN CONSTIPATION Cholecalciferol 25 mcg 11/21/21 06:00 11/21/21 06:50 Cholecalciferol (Vit D3) 25 Mcg Tablet (1,000 Units) PO 25 mcg DAILY MAYRA Administration Citalopram Hydrobromide 20 mg 11/21/21 06:00 11/21/21 06:48 Citalopram 20 Mg Tablet PO 20 mg DAILY MAYRA Administration Insulin Glargine 85 unit 11/20/21 22:00 11/20/21 21:31 Insulin Glargine-Yfgn 100 Unit/Ml Pen SC 85 unit QHS MAYRA Administration Insulin Human Lispro 25 unit 11/21/21 06:45 11/21/21 12:00 Insulin Lispro 100 Unit/Ml Insuln.Pen SC 25 u TIDAC MAYRA Administration Levothyroxine Sodium 100 mcg 11/21/21 06:00 11/21/21 06:48 Levothyroxine 100 Mcg Tablet PO 100 mcg DAILY@0600 MAYRA Administration Losartan Potassium 100 mg 11/21/21 08:00 11/21/21 07:48 Losartan Potassium 100 Mg Tablet PO 100 mg DAILY@0800 MAYRA Administration Magnesium Hydroxide 30 ml 11/20/21 22:28 Magnesium Hydroxide 30 Ml Udc PO DAILY PRN CONSTIPATION Metoprolol Tartrate 12.5 mg 11/20/21 18:00 11/21/21 06:48 Metoprolol Tartrate 25 Mg Tablet PO 12.5 mg BID MAYRA Administration Oxycodone HCl 5 mg 11/20/21 22:30 11/21/21 11:06 Oxycodone 5 Mg Tablet PO 5 mg Q4H PRN PRN Administration Pain Score 4-10 Senna/Docusate Sodium 2 tablet 11/20/21 22:30 11/21/21 06:49 Senna/Docusate Sodium 1 Tablet PO 2 tablet BID MAYRA Administration Tuberculin PPD 0.1 ml 11/28/21 10:00 Tuberculin,Purif.Prot.Deriv. 50 Tu/Ml Vial ID 11/28/21 10:01 X1 ONE Problem List (Last Reviewed 11/20/21 @ 22:[address] Bud Duncan MD) Hypothyroidism (Acute) Hyperlipidemia (Acute) Hypertension (Chronic) Coronary artery disease (Acute) Atrial fibrillation (Acute) Diabetes mellitus (Acute) Depression (Acute) Sacroiliitis (Acute) Debility (Acute) Status post total knee replacement, left (Acute) Hypertensive emergency (Acute) Elevated troponin (Acute) Vital Signs Temp Pulse Resp BP Pulse Ox 97.5 F L 75 17 134/48 H 98 11/20/21 19:00 11/21/21 07:49 11/20/21 19:30 11/21/21 07:49 11/20/21 19:30 Oxygen Delivery Method Room Air Weight: 94.574 kg Body Mass Index (BMI) 38.1 Sodium 136 mmol/L (136-145) 11/21/21 05:20 Potassium 4.3 mmol/L (3.5-5.1) 11/21/21 05:20 Chloride 102 mmol/L (98-107) 11/21/21 05:20 Carbon Dioxide 31.0 mmol/L (21.0-32.0) 11/21/21 05:20 Anion Gap 3 (5-15) L 11/21/21 05:20 BUN 20 mg/dL (7-18) H 11/21/21 05:20 Creatinine 0.93 mg/dL (0.55-1.02) 11/21/21 05:20 Est GFR (MDRD) Af Amer 74 mL/min (>60) 11/21/21 05:20 Est GFR (MDRD) Non-Af 61 mL/min (>60) 11/21/21 05:20 BUN/Creatinine Ratio 21.5 RATIO (10-20) H 11/21/21 05:20 Glucose 177 mg/dL (74-106) H 11/21/21 05:20 Assessment/Plan: 1. Pain: acetaminophen 1000mg PO Q8 and oxycodone 5mg PO Q4H PRN pain 4-10. Resident has required 3 doses of oxycodone for pain 7/10 in the knee. Please continue to monitor for increased pain, PRN usage, constipation and respiratory depression. 2. DVT prophylaxis: aspirin 81mg PO BIDCM thru 12/19/21. Please continue to monitor for S/S of bleeding/DVT and hemoglobin (last 11.9g/dL). 3. Hyperlipidemia: atorvastatin 40mg PO QHS. Please continue to monitor lipid panel (last 11/19/21) at least annually and for muscle pain. 4. Diabetes mellitus II: insulin glargine 85units SC QHS and insulin lispro 25units SC TIDAC. Please continue to monitor for S/S of hypoglycemia, hemoglobin A1c (last 7.5% on 11/05/21) every 3 months or as clinically appropriate and glucose (last 131mg/dL). 5. Hypothyroidism: levothyroxine 100mcg PO daily. Please continue to monitor for S/S of hypothyroidism and TSH (last 09/19/21). 6. Hypertension: metoprolol tartrate 12.5mg PO BID and losartan 100mg PO daily. Please continue to monitor BP (last 134/48), HR (last 75), renal function and potassium (last 4.3mmol/L). 7. Vitamin D deficiency: cholecalciferol 25mcg PO daily. Please continue to monitor vitamin D levels (last 09/19/21) at least annually. Psychotropic Medications: 1. Depression: citalopram 20mg PO daily. Please see physician note regarding GDR. Unnecessary Medications: None Bowel Regimen: senna/docusate 2T PO BID, bisacodyl 10mg PO daily PRN constipation and MOM 30mL PO daily PRN constipation. Please continue to monitor for S/S of constipation/diarrhea and PRN usage. Date of Note:: 11/21/21
[2021-11-21] MEDS: Bisacodyl 5 MG Tablet 10 MG PO (13:17)
--- NOTE | 2021-11-21 13:21 | NURSING ---
PT HAS NOT HAD BM IN 4 DAYS. PRN DULCOLAX GIVEN,WILL CONTINUE TO MONITOR.
[2021-11-21 14:26] VITALS: BP 142/56; PULSE 82; RESP 20; TEMP 37.5; O2SAT 90
[2021-11-21 16:30] LABS: Bedside Glucose 173 mg/dL (74-106)
[2021-11-21 17:42] VITALS: BP 142/56; PULSE 82
[2021-11-21] MEDS: Atorvastatin Calcium 40 MG Tablet PO (20:30)
[2021-11-21 21:26] LABS: Bedside Glucose 175 mg/dL (74-106)
[2021-11-21] MEDS: Insulin Glargine-YFGN 100 UNIT/ML Pen 85 UNIT SC (22:20)
[2021-11-22] VITALS (7 sets, daily range): BP systolic 114–154; BP diastolic 72–73; PULSE 73–86; RESP 17–20; TEMP 35.8–36.7; O2SAT 93–97
[2021-11-22] MEDS: Acetaminophen 500 MG Tablet 1000 MG PO ×3 (05:37→20:06)
[2021-11-22] MEDS: Cholecalciferol (VIT D3) 25 MCG TABLET (1,000 UNITS) PO (05:38)
[2021-11-22] MEDS: Levothyroxine 100 MCG Tablet PO (05:38)
[2021-11-22] MEDS: Citalopram 20 MG Tablet PO (05:38)
[2021-11-22] MEDS: Senna/Docusate Sodium 1 Tablet 2 TABLET PO ×2 (05:38→16:57)
[2021-11-22] MEDS: Metoprolol Tartrate 25 MG Tablet 12.5 MG PO ×2 (05:41→16:56)
[2021-11-22 06:35] LABS: Bedside Glucose 198 mg/dL (74-106)
[2021-11-22] MEDS: Aspirin 81 MG TAB.CHEW PO ×2 (08:41→16:57)
[2021-11-22] MEDS: Losartan Potassium 100 MG Tablet PO (08:41)
[2021-11-22] MEDS: Insulin Lispro 100 UNIT/ML INSULN.PEN 25 UNIT SC ×3 (08:41→16:57)
[2021-11-22] MEDS: oxyCODONE 5 MG Tablet PO ×2 (10:07→20:08)
[2021-11-22 10:16] LABS: Bedside Glucose 282 mg/dL (74-106)
--- NOTE | 2021-11-22 11:35 | NS ---
Provided copy of daily specials/first choice menu and instructions on how to order.
[2021-11-22 16:27] LABS: Bedside Glucose 159 mg/dL (74-106)
[2021-11-22] MEDS: Atorvastatin Calcium 40 MG Tablet PO (20:07)
[2021-11-22 21:46] LABS: Bedside Glucose 152 mg/dL (74-106)
[2021-11-22] MEDS: Insulin Glargine-YFGN 100 UNIT/ML Pen 85 UNIT SC (22:12)
[2021-11-23] VITALS (7 sets, daily range): BP systolic 162–198; BP diastolic 50–86; PULSE 68–88; RESP 16; TEMP 36.1; O2SAT 91–96
[2021-11-23] MEDS: oxyCODONE 5 MG Tablet PO ×4 (06:16→20:55)
[2021-11-23] MEDS: Citalopram 20 MG Tablet PO (06:17)
[2021-11-23] MEDS: Acetaminophen 500 MG Tablet 1000 MG PO ×3 (06:17→20:50)
[2021-11-23] MEDS: Metoprolol Tartrate 25 MG Tablet 12.5 MG PO (06:17)
[2021-11-23] MEDS: Cholecalciferol (VIT D3) 25 MCG TABLET (1,000 UNITS) PO (06:17)
[2021-11-23] MEDS: Levothyroxine 100 MCG Tablet PO (06:17)
[2021-11-23] MEDS: Senna/Docusate Sodium 1 Tablet 2 TABLET PO ×2 (06:17→17:20)
[2021-11-23 06:26] LABS: Bedside Glucose 171 mg/dL (74-106)
[2021-11-23] MEDS: Losartan Potassium 100 MG Tablet PO (07:07)
[2021-11-23] MEDS: Insulin Lispro 100 UNIT/ML INSULN.PEN 25 UNIT SC ×3 (08:31→17:19)
[2021-11-23] MEDS: Aspirin 81 MG TAB.CHEW PO ×2 (08:34→17:20)
[2021-11-23] MEDS: hydrALAZINE 10 MG Tablet PO (10:12)
[2021-11-23 11:36] LABS: Bedside Glucose 170 mg/dL (74-106)
[2021-11-23 16:31] LABS: Bedside Glucose 149 mg/dL (74-106)
[2021-11-23] MEDS: Metoprolol Tartrate 25 MG Tablet PO (17:20)
[2021-11-23] MEDS: Atorvastatin Calcium 40 MG Tablet PO (20:51)
[2021-11-23] MEDS: Insulin Glargine-YFGN 100 UNIT/ML Pen 85 UNIT SC (21:02)
[2021-11-23 21:07] LABS: Bedside Glucose 156 mg/dL (74-106)
[2021-11-24] VITALS (8 sets, daily range): BP systolic 142–198; BP diastolic 53–96; PULSE 64–88; RESP 16; TEMP 36.1; O2SAT 95–98
[2021-11-24] MEDS: oxyCODONE 5 MG Tablet PO ×4 (04:50→22:21)
[2021-11-24] MEDS: Acetaminophen 500 MG Tablet 1000 MG PO ×3 (04:51→19:51)
[2021-11-24] MEDS: Senna/Docusate Sodium 1 Tablet 2 TABLET PO ×2 (04:52→17:43)
[2021-11-24] MEDS: Levothyroxine 100 MCG Tablet PO (04:53)
[2021-11-24] MEDS: Cholecalciferol (VIT D3) 25 MCG TABLET (1,000 UNITS) PO (04:53)
[2021-11-24] MEDS: Metoprolol Tartrate 25 MG Tablet PO ×2 (04:53→17:42)
[2021-11-24] MEDS: Citalopram 20 MG Tablet PO (04:54)
[2021-11-24 06:41] LABS: Bedside Glucose 198 mg/dL (74-106)
[2021-11-24] MEDS: Aspirin 81 MG TAB.CHEW PO ×2 (07:38→17:43)
[2021-11-24] MEDS: Insulin Lispro 100 UNIT/ML INSULN.PEN 25 UNIT SC ×3 (07:39→17:41)
[2021-11-24] MEDS: Losartan Potassium 100 MG Tablet PO (07:40)
[2021-11-24] MEDS: hydrALAZINE 10 MG Tablet PO (10:08)
[2021-11-24 11:26] LABS: Bedside Glucose 142 mg/dL (74-106)
[2021-11-24 17:41] LABS: Bedside Glucose 129 mg/dL (74-106)
[2021-11-24] MEDS: Atorvastatin Calcium 40 MG Tablet PO (19:52)
[2021-11-24] MEDS: Insulin Glargine-YFGN 100 UNIT/ML Pen 85 UNIT SC (22:08)
[2021-11-24 22:10] LABS: Bedside Glucose 167 mg/dL (74-106)
[2021-11-25] MEDS: Acetaminophen 500 MG Tablet 1000 MG PO ×3 (05:11→21:29)
[2021-11-25] MEDS: Senna/Docusate Sodium 1 Tablet 2 TABLET PO (05:12)
[2021-11-25] MEDS: Levothyroxine 100 MCG Tablet PO (05:12)
[2021-11-25] MEDS: Citalopram 20 MG Tablet PO (05:12)
[2021-11-25] MEDS: Cholecalciferol (VIT D3) 25 MCG TABLET (1,000 UNITS) PO (05:12)
[2021-11-25 05:13] VITALS: BP 183/74; PULSE 79
[2021-11-25] MEDS: Metoprolol Tartrate 25 MG Tablet PO ×2 (05:13→17:11)
[2021-11-25] MEDS: oxyCODONE 5 MG Tablet PO ×4 (05:16→21:29)
[2021-11-25 06:36] LABS: Bedside Glucose 170 mg/dL (74-106)
[2021-11-25] MEDS: Aspirin 81 MG TAB.CHEW PO ×2 (07:55→17:11)
[2021-11-25] MEDS: Losartan Potassium 100 MG Tablet PO (07:55)
[2021-11-25] MEDS: Insulin Lispro 100 UNIT/ML INSULN.PEN 25 UNIT SC ×3 (07:55→17:13)
[2021-11-25 10:45] LABS: Bedside Glucose 241 mg/dL (74-106)
[2021-11-25 13:37] VITALS: BP 133/77; PULSE 75; RESP 17; TEMP 36.3; O2SAT 92
[2021-11-25 16:31] LABS: Bedside Glucose 215 mg/dL (74-106)
[2021-11-25 17:11] VITALS: PULSE 75
[2021-11-25 21:26] LABS: Bedside Glucose 149 mg/dL (74-106)
[2021-11-25] MEDS: Insulin Glargine-YFGN 100 UNIT/ML Pen 85 UNIT SC (21:30)
[2021-11-25] MEDS: Atorvastatin Calcium 40 MG Tablet PO (21:30)
[2021-11-25 22:20] VITALS: BP 165/68; PULSE 64
[2021-11-25] MEDS: hydrALAZINE 10 MG Tablet PO (22:20)
[2021-11-26] MEDS: oxyCODONE 5 MG Tablet PO ×5 (02:46→22:26)
[2021-11-26 06:13] VITALS: BP 158/82; PULSE 74
[2021-11-26] MEDS: Citalopram 20 MG Tablet PO (06:13)
[2021-11-26] MEDS: Acetaminophen 500 MG Tablet 1000 MG PO ×3 (06:13→22:26)
[2021-11-26] MEDS: Senna/Docusate Sodium 1 Tablet 2 TABLET PO ×2 (06:13→16:45)
[2021-11-26] MEDS: Cholecalciferol (VIT D3) 25 MCG TABLET (1,000 UNITS) PO (06:13)
[2021-11-26] MEDS: Metoprolol Tartrate 25 MG Tablet PO ×2 (06:13→16:45)
[2021-11-26] MEDS: Levothyroxine 100 MCG Tablet PO (06:13)
[2021-11-26 06:21] LABS: Bedside Glucose 178 mg/dL (74-106)
[2021-11-26] MEDS: Insulin Lispro 100 UNIT/ML INSULN.PEN 25 UNIT SC ×3 (08:03→18:04)
[2021-11-26] MEDS: Losartan Potassium 100 MG Tablet PO (08:04)
[2021-11-26] MEDS: Aspirin 81 MG TAB.CHEW PO ×2 (08:04→16:45)
[2021-11-26 10:41] VITALS: PULSE 65; RESP 20; TEMP 36; O2SAT 95
[2021-11-26 11:16] LABS: Bedside Glucose 165 mg/dL (74-106)
[2021-11-26 16:45] VITALS: PULSE 68
[2021-11-26 17:05] LABS: Bedside Glucose 195 mg/dL (74-106)
[2021-11-26 21:31] LABS: Bedside Glucose 139 mg/dL (74-106)
[2021-11-26] MEDS: Atorvastatin Calcium 40 MG Tablet PO (22:27)
[2021-11-26] MEDS: Insulin Glargine-YFGN 100 UNIT/ML Pen 85 UNIT SC (22:30)
[2021-11-26 22:35] VITALS: PULSE 66; RESP 18; O2SAT 98
[2021-11-26 23:10] VITALS: BP 136/96; PULSE 66; RESP 18; TEMP 36.1; O2SAT 98
[2021-11-27] MEDS: Citalopram 20 MG Tablet PO (05:44)
[2021-11-27 05:45] VITALS: BP 136/96; PULSE 66
[2021-11-27] MEDS: Metoprolol Tartrate 25 MG Tablet PO ×2 (05:45→17:00)
[2021-11-27] MEDS: Levothyroxine 100 MCG Tablet PO (05:47)
[2021-11-27] MEDS: oxyCODONE 5 MG Tablet PO ×4 (05:47→21:19)
[2021-11-27] MEDS: Acetaminophen 500 MG Tablet 1000 MG PO ×3 (05:47→21:20)
[2021-11-27] MEDS: Senna/Docusate Sodium 1 Tablet 2 TABLET PO (05:47)
[2021-11-27] MEDS: Cholecalciferol (VIT D3) 25 MCG TABLET (1,000 UNITS) PO (05:48)
[2021-11-27 05:50] VITALS: BP 139/72; PULSE 68; RESP 18; TEMP 35.7; O2SAT 97
[2021-11-27 06:16] LABS: Bedside Glucose 164 mg/dL (74-106)
[2021-11-27] MEDS: Insulin Lispro 100 UNIT/ML INSULN.PEN 25 UNIT SC ×3 (06:54→17:00)
[2021-11-27 08:06] VITALS: BP 144/68
[2021-11-27] MEDS: Losartan Potassium 100 MG Tablet PO (08:07)
[2021-11-27] MEDS: Aspirin 81 MG TAB.CHEW PO ×2 (08:07→17:00)
--- NOTE | 2021-11-27 08:48 | PT ---
Pt is now up ad cong in her room with FWW during the day. She is to have assistance at night. Pt in agreement.
--- NOTE | 2021-11-27 09:25 | CASEMGMT ---
Social Work BIMS and PHQ-9 complete for MDS assessment. Julianna Bah, IRRIGATION ENGINEER STEWARD DISHWASHER
--- NOTE | 2021-11-27 10:10 | CASEMGMT ---
Social Work IDT met with patient and for care plan meeting. Discussed patient's progress in PT/OT/SN. Pt progressing well. Explained Medicare benefit. Pt lives at home with . Pt requesting to DC home. IDT agreeable. purchased handrails around the toilet and SW provided information on purchasing half-bed rail. Pt requesting Pt requesting DC date 11/29 with [facility]. Referral made to [facility]. to transport. Plan: DC home with 11/29, [facility], [facility] Julianna Bah, MEASURING MACHINE OPERATOR LEVEE SUPERINTENDENT
--- NOTE | 2021-11-27 10:45 | NURSING ---
Dr. Olsen's office called and updated on pt being discharged on thursday and emile scheduled to be removed on 12/02/21. Pt does not have f/u appointment with office until 12/17/21. N.O. to remove emile and sutures to left knee on 11/29/21 before pt discharges home.
[2021-11-27 11:05] LABS: Bedside Glucose 130 mg/dL (74-106)
[2021-11-27 12:23] VITALS: PULSE 63; RESP 20; TEMP 35.6; O2SAT 95
--- NOTE | 2021-11-27 12:53 | NURSING ---
Chair Frame Builder Note: Interview and Section F of MDS complete for PRIMO of 11/27/21.
[2021-11-27 14:02] VITALS: BP 135/51
[2021-11-27 17:00] VITALS: BP 131/51; PULSE 88
[2021-11-27 17:05] LABS: Bedside Glucose 114 mg/dL (74-106)
--- NOTE | 2021-11-27 19:32 | PCM.DC.SUM ---
Providers Date of Admission: 11/20/21 Primary Care Physician: Dr. Bud Duncan MD Reason For Visit: LEFT TOTAL KNEE Diagnosis Discharge Diagnosis (1) Debility: Status: Acute Code(s): R53.81 - Other malaise (2) Status post total knee replacement, left: Status: Acute Code(s): Z96.652 - Presence of left artificial knee joint (3) Elevated troponin: Status: Acute Code(s): R77.8 - Other specified abnormalities of plasma proteins (4) Hypertensive emergency: Status: Acute Code(s): I16.1 - Hypertensive emergency (5) Sacroiliitis: Status: Acute Code(s): M46.1 - Sacroiliitis, not elsewhere classified (6) Depression: Status: Acute Code(s): F32.A - Depression, unspecified (7) Diabetes mellitus: Status: Acute Code(s): E11.9 - Type 2 diabetes mellitus without complications (8) Atrial fibrillation: Status: Acute Code(s): I48.91 - Unspecified atrial fibrillation (9) Coronary artery disease: Status: Acute Code(s): I25.10 - Atherosclerotic heart disease of [place] coronary artery without angina pectoris (10) Hypertension: Status: Chronic Code(s): I10 - Essential (primary) hypertension (11) Hyperlipidemia: Status: Acute Code(s): E78.5 - Hyperlipidemia, unspecified (12) Hypothyroidism: Status: Acute Code(s): E03.9 - Hypothyroidism, unspecified Medications at Discharge Home Medications atorvastatin 40 mg tablet 40 mg PO QDAY 08/26/17 citalopram 20 mg tablet 20 mg PO QDAY 08/26/17 losartan 100 mg tablet 100 mg PO QDAY 08/26/17 levothyroxine 100 mcg tablet 100 mcg PO DAILY 12/01/19 Toujeo Max U-300 SoloStar 85 unit SUBCUT QHS 11/04/21 acetaminophen 1,000 mg PO Q8 30 Days #180 tab 11/20/21 aspirin 81 mg PO BIDCM 30 Days #60 tab 11/20/21 insulin lispro 25 unit SC TIDAC 11/20/21 cholecalciferol (vitamin D3) 25 mcg PO DAILY 30 Days #30 tab 11/27/21 metoprolol tartrate 25 mg PO BID #0 tab 06/01/22 oxycodone 5 mg PO Q4H PRN PRN 7 Days #42 tab 11/27/21 sennosides-docusate sodium [Stool Softener-Stimulant Laxat] 2 tab PO BID 30 Days #120 tab 11/27/21 Hospital Course Operations total knee replacement (Left.) Procedures None Summary of Care Provided Minutes Spent on Discharge: 35 Hospital Course: 81 year old female with below past medical history hospitalized for left total knee replacement 11/18/[address] Olsen, complicated by NSTEMI secondary to hypertensive urgency, admitted to TCU with debility, here for rehabilitation, strengthening, prior to discharge home with . Discharge home with 11/29/2021, [facility], [facility]. Aspirin 81mg twice daily thru 12/19/2021 for DVT prophylaxis. Physical Exam Const alert General Appearance: cooperative HEENT normocephalic Eyes PERRL and EOMs intact bilaterally Neck supple, no JVD and no carotid bruits Resp normal respiratory effort, normal air movement and clear to auscultation bilaterally Cardio regular rate and regular rhythm GI normal to inspection, nondistended, normoactive bowel sounds, non-tender and non-distended Extremity normal capillary refill General Extremity: Negative for edema Skin no rashes or lesions noted General Skin Exam: no breakdown Psych affect normal Appearance: appropriate Weight / BMI Weight Weight: 93.95 kg Body Mass Index (BMI) 38.1 ABG / Lab / Microbiology Data Result Diagrams: 11/21/21 05:20 11/21/21 05:20 Laboratory: Laboratory Results - last 24 hr 11/26/21 21:18: POC Glucose 139 H 11/27/21 06:03: POC Glucose 164 H 11/27/21 10:57: POC Glucose 130 H 11/27/21 16:45: POC Glucose 114 H Microbiology: Microbiology 11/27/21 06:06 Nasal Secretion SARS-CoV-2 Antigen (Rapid) - Final D/C Instructions Discharge Diet: No restrictions Discharge Activity: Return to Normal Activity, May Shower and Use Walker Weight Bearing Status: Weight bearing as tolerated Call your doctor if you observe: Fever of 101 or Higher, Inability to urinate, Inability to have a bowel movement, Shortness of breath, Dizziness, Fainting spells, Swelling in the ankles, Chest pain and Uncontrolled pain Additional Instructions: Discharge home with 11/29/2021, [facility], [facility]. Please Follow Up With: Gregor Conde PA-C When: As scheduled. Meaningful Use Info Meaningful Use Diagnoses (Choose all that apply): None applicable Discharge Plan Admission Admit Date/Time: 11/20/21 16:28 Primary Reason for Your Visit: Debility. Attending Provider: Bud Duncan Chi Primary Care Provider: Bud Duncan Chi Instructions Additional Instructions / Restrictions: Discharge home with 11/29/2021, [facility], [facility]. Discharge Orders/Prescriptions Prescriptions: New sennosides-docusate sodium [Stool Softener-Stimulant Laxat] 8.6-50 mg Tablet 2 tab PO BID 30 Days Qty: 120 RF: 0 oxycodone 5 mg Tablet 5 mg PO Q4H PRN PRN (Reason: Pain Score 4-10) 7 Days Qty: 42 RF: 0 metoprolol tartrate 25 mg Tablet 25 mg PO BID Qty: 0 RF: 0 cholecalciferol (vitamin D3) 25 mcg (1,000 unit) Tablet 25 mcg PO DAILY 30 Days Qty: 30 RF: 0 Continued atorvastatin 40 mg tablet 40 mg PO QDAY RF: 0 citalopram 20 mg tablet 20 mg PO QDAY RF: 0 losartan 100 mg tablet 100 mg PO QDAY RF: 0 levothyroxine 100 mcg tablet 100 mcg PO DAILY RF: 0 Toujeo Max U-300 SoloStar 300 unit/mL (3 mL) Insulin Pen 85 unit SUBCUT QHS RF: 0 acetaminophen 500 mg Tablet 1,000 mg PO Q8 30 Days Qty: 180 RF: 0 aspirin 81 mg Tablet,Chewable 81 mg PO BIDCM 30 Days Qty: 60 RF: 0 insulin lispro 100 unit/mL insulin pen 25 unit SC TIDAC RF: 0 Discontinued folic acid 1 mg tablet 1 mg PO QDAY RF: 0 metoprolol tartrate 25 mg tablet 12.5 mg PO BID RF: 0 biotin 1 mg capsule 1 mg PO DAILY RF: 0 glucosamine-chondroitin 900 mg tablet 1 tab PO DAILY RF: 0 multivitamin Tablet 1 tab PO DAILY RF: 0 cholecalciferol (vitamin D3) 75 mcg (3,000 unit) tablet 50,000 unit PO WE RF: 0 oxycodone 5 mg Tablet 5 - 10 mg PO Q4H PRN MDD pain PRN (Reason: Pain Score 4-10) 7 Days Qty: 56 RF: 0 Referrals / Follow Up: gregor conde [Other] - 12/17/21 1:45 pm Bud Duncan Chi, MD [Primary Care Provider] - 12/02/21 2:00 pm Disposition Disposition (needs filled in before D/C Order can be placed): Home, Self Care
[2021-11-27] MEDS: Insulin Glargine-YFGN 100 UNIT/ML Pen 85 UNIT SC (21:15)
[2021-11-27] MEDS: Atorvastatin Calcium 40 MG Tablet PO (21:19)
[2021-11-27 22:00] LABS: Bedside Glucose 179 mg/dL (74-106)
[2021-11-28] MEDS: Cholecalciferol (VIT D3) 25 MCG TABLET (1,000 UNITS) PO (05:07)
[2021-11-28] MEDS: Levothyroxine 100 MCG Tablet PO (05:08)
[2021-11-28] MEDS: Citalopram 20 MG Tablet PO (05:08)
[2021-11-28] MEDS: Acetaminophen 500 MG Tablet 1000 MG PO ×3 (05:08→21:02)
[2021-11-28 05:13] VITALS: BP 128/66; PULSE 63
[2021-11-28] MEDS: Metoprolol Tartrate 25 MG Tablet PO ×2 (05:13→17:50)
[2021-11-28] MEDS: oxyCODONE 5 MG Tablet PO ×3 (05:18→22:07)
[2021-11-28 06:11] LABS: Absolute Lymphocyte Count 3.61 X10^3/uL (0.83-4.51); Absolute Neutrophil Count 5.5 X10^3/uL (2.0-7.7); Basophil# 0.06 X10^3/uL; Basophil% 0.6 % (0-1); Eosinophils% 1.9 % (0-5); Hemoglobin 13.1 g/dL (12.0-15.0); Lymphocyte # 3.61 X10^3/ul (0.83-4.51); Lymphocyte % 34.8 % (19-41); Mean Corp Hgb Conc 32.8 g/dL (32-36); Mean Corpuscular Hgb 33.8 pg (27.0-32.0); Mean Corpuscular Volume 103.1 fL (81-99); Mean Platelet Vol. 9.7 fl (6.2-12.0); Monocyte# 0.89 X10^3/uL; Monocyte% 8.6 % (0-10); NRBC Flagged by Analyzer 0 % (0-5); Neutrophil # 5.52 X10^3/uL (2.7-7.7); Neutrophil % 53.3 % (47-70); Platelet Count 311 K/mm3 (150-450); RBC Distribution Width CV 12.6 % (11.6-14.6); RBC Distribution Width SD 47.6 fl (35.1-43.9); Red Blood Count 3.88 M/mm3 (4.2-5.4); White Blood Count 10.4 K/mm3 (4.4-11.0)
[2021-11-28 06:31] LABS: Anion Gap 8 (5-15); BUN 30 mg/dL (7-18); Calcium,Total 9.3 mg/dL (8.5-10.1); Chloride 106 mmol/L (98-107); Creatinine, Serum 1.07 mg/dL (0.55-1.02); EST Glomerular Filtration Rate 52 mL/min (>60); Est Glom Filt Rate - Afr Amer 63 mL/min (>60); Estimated Creatinine Clearance 32.06 ml/min; Glucose 220 mg/dL (74-106); Sodium Level 138 mmol/L (136-145)
[2021-11-28 06:31] LABS: Bedside Glucose 243 mg/dL (74-106)
[2021-11-28] MEDS: Insulin Lispro 100 UNIT/ML INSULN.PEN 25 UNIT SC ×3 (08:07→17:48)
[2021-11-28] MEDS: Losartan Potassium 100 MG Tablet PO (08:14)
[2021-11-28] MEDS: Aspirin 81 MG TAB.CHEW PO ×2 (08:14→17:49)
[2021-11-28 08:16] VITALS: BP 141/56; PULSE 59
--- NOTE | 2021-11-28 09:32 | NURSING ---
PT AND FAMILY NOTIFIED OF A STAFF MEMBER TESTED POSITIVE FOR COVID.
[2021-11-28 10:40] LABS: Bedside Glucose 183 mg/dL (74-106)
[2021-11-28 15:15] VITALS: BP 141/60; PULSE 67; RESP 15; TEMP 36.3; O2SAT 93
[2021-11-28 16:45] LABS: Bedside Glucose 183 mg/dL (74-106)
[2021-11-28] MEDS: Senna/Docusate Sodium 1 Tablet 2 TABLET PO (17:49)
[2021-11-28 17:50] VITALS: BP 141/60; PULSE 67
[2021-11-28] MEDS: Atorvastatin Calcium 40 MG Tablet PO (21:02)
[2021-11-28 21:31] LABS: Bedside Glucose 203 mg/dL (74-106)
[2021-11-28] MEDS: Insulin Glargine-YFGN 100 UNIT/ML Pen 85 UNIT SC (22:04)
[2021-11-29 06:21] LABS: Bedside Glucose 154 mg/dL (74-106)
[2021-11-29] MEDS: Cholecalciferol (VIT D3) 25 MCG TABLET (1,000 UNITS) PO (06:27)
[2021-11-29] MEDS: Citalopram 20 MG Tablet PO (06:27)
[2021-11-29] MEDS: Senna/Docusate Sodium 1 Tablet 2 TABLET PO (06:27)
[2021-11-29] MEDS: Levothyroxine 100 MCG Tablet PO (06:27)
[2021-11-29 06:28] VITALS: BP 169/61; PULSE 70
[2021-11-29] MEDS: Metoprolol Tartrate 25 MG Tablet PO (06:28)
[2021-11-29] MEDS: Acetaminophen 500 MG Tablet 1000 MG PO (06:28)
[2021-11-29] MEDS: Insulin Lispro 100 UNIT/ML INSULN.PEN 25 UNIT SC (06:29)
[2021-11-29] MEDS: Losartan Potassium 100 MG Tablet PO (07:54)
[2021-11-29] MEDS: Aspirin 81 MG TAB.CHEW PO (07:54)
[2021-11-29 07:56] VITALS: BP 144/52; PULSE 60
[2021-11-29] MEDS: LORazepam 1 MG Tablet PO (08:56)
[2021-11-29 09:35] VITALS: PULSE 60; RESP 18; O2SAT 95
[2021-11-29 10:00] VITALS: BP 144/52; PULSE 60; RESP 18; TEMP 36.9; O2SAT 95
--- NOTE | 2021-11-29 11:10 | NURSING ---
THIS NURSE REMOVED ELIUD AND SUTURES TO PT LEFT KNEE AND RUIZ PER DR. POOLE. PT TOLERATED WELL,STRI STRIPS , DRY STERILE DRESSING APPLIED TO AREAS.
--- NOTE | 2021-12-02 08:47 | MDS.RN ---
Information for the mds was obtained from review of the clinical record, interview of resident, staff, and direct observation of resident's care.
== END 2021-11-29 10:40 | disposition home or self-care (01) | DRG 559 ==
PROVIDERS: Admitting Provider Family Medicine Geriatric Medicine; PCP Family Medicine Geriatric Medicine; Visit Provider Family Medicine Geriatric Medicine
DX: Z47.1 Aftercare following joint replacement surgery (principal); I21.4 Non-ST elevation (NSTEMI) myocardial infarction; E11.9 Type 2 diabetes mellitus without complications; I48.0 Paroxysmal atrial fibrillation; Z79.4 Long term (current) use of insulin; E66.01 Morbid (severe) obesity due to excess calories; M46.1 Sacroiliitis, not elsewhere classified; E03.9 Hypothyroidism, unspecified; E78.5 Hyperlipidemia, unspecified; I10 Essential (primary) hypertension; I25.10 Atherosclerotic heart disease of native coronary artery without angina pectoris; E55.9 Vitamin D deficiency, unspecified; K21.9 Gastro-esophageal reflux disease without esophagitis; F41.9 Anxiety disorder, unspecified; F32.A Depression, unspecified; Z96.652 Presence of left artificial knee joint; Z79.899 Other long term (current) drug therapy; Z79.82 Long term (current) use of aspirin; Z79.890 Hormone replacement therapy; Z68.38 Body mass index [BMI] 38.0-38.9, adult
CPT/HCPCS: 36415; 80048; 82962; 85025; 87426; 97110; 97116; 97162; 97166; 97530; 97535

== ENCOUNTER → 2022-03-20 | Outpatient (CLI) | payer MEDICARE, OTHER, SELFPAY ==
[2022-03-20 11:58] LABS: Absolute Neutrophil Count 3.8 X10^3/uL (2.0-7.7); Basophil# 0.04 X10^3/uL; Basophil% 0.6 % (0-1); Eosinophil# 0.12 X10^3/uL; Eosinophils% 1.8 % (0-5); Hematocrit 38.9 % (37-47); Hemoglobin 13.3 g/dL (12.0-15.0); Lymphocyte % 30.7 % (19-41); Mean Corp Hgb Conc 34.2 g/dL (32-36); Mean Corpuscular Hgb 33.3 pg (27.0-32.0); Mean Corpuscular Volume 97.3 fL (81-99); Mean Platelet Vol. 10.2 fl (6.2-12.0); Monocyte# 0.51 X10^3/uL; Monocyte% 7.8 % (0-10); NRBC Flagged by Analyzer 0 % (0-5); Neutrophil # 3.84 X10^3/uL (2.7-7.7); Neutrophil % 58.9 % (47-70); Platelet Count 167 K/mm3 (150-450); RBC Distribution Width CV 12.3 % (11.6-14.6); RBC Distribution Width SD 44.4 fl (35.1-43.9); White Blood Count 6.5 K/mm3 (4.4-11.0)
[2022-03-20 12:25] LABS: ALB/GLOB Ratio 0.8 RATIO (0.9-2.4); AST(SGOT) 21 U/L (15-37); Alanine Aminotransfer ALT/SGPT 22 U/L (13-56); Albumin, Serum 3.1 g/dL (3.2-5.0); Alkaline Phosphatase 58 U/L (45-117); Anion Gap 4 (5-15); BUN 18 mg/dL (7-18); BUN/Creat Ratio 18.9 RATIO (10-20); Calcium,Total 9.3 mg/dL (8.5-10.1); Chloride 105 mmol/L (98-107); Creatinine, Serum 0.95 mg/dL (0.55-1.02); EST Glomerular Filtration Rate 60 mL/min (>60); Est Glom Filt Rate - Afr Amer 72 mL/min (>60); Globulin 3.9 g/dL (2.2-4.2); Glucose 129 mg/dL (74-106); Potassium 4.1 mmol/L (3.5-5.1); Sodium Level 139 mmol/L (136-145); Thyroid Stim Hormone (TSH) 0.54 uIU/mL (0.358-3.74)
== END | disposition home or self-care (01) ==
LOC: POLAB3 09:29
PROVIDERS: PCP Family Medicine Geriatric Medicine; Visit Provider Family Medicine Geriatric Medicine
DX: I10 Essential (primary) hypertension (principal); E11.9 Type 2 diabetes mellitus without complications; E55.9 Vitamin D deficiency, unspecified
CPT/HCPCS: 36415; 80053; 82306; 84443; 85025

== ENCOUNTER → 2022-06-11 | Outpatient (CLI) | payer MEDICARE, OTHER, SELFPAY ==
--- NOTE | 2022-06-11 16:25 | RAD_ITS ---
EXAM: XR RIGHT WRIST COMPLETE, 3 OR MORE VIEWS CLINICAL INDICATION: OSTEOARTHRITIS TECHNIQUE: Frontal, lateral and oblique views of the right wrist. This report was created using [employer] report generation technology. COMPARISON: None. FINDINGS: BONES/JOINTS: Severe osteoarthrosis of the triscaphe joint. Tiny corticated ossific fragment adjacent to the lateral aspect of the head of the distal ulna. This may represent nonunited fracture. No evidence for acute or healing fracture or malalignment. Widening of scapholunate interosseous interval is concerning for scapholunate interosseous ligament tear. No other osseous or soft tissue abnormalities. No sclerotic or destructive changes observed. Moderate osteoarthrosis involving the first interphalangeal joint. SOFT TISSUES: Unremarkable. No soft tissue swelling or gas. No radiopaque foreign body. RAD/Wrist min 3 Views IMPRESSION: Widening of scapholunate interosseous interval is concerning for scapholunate interosseous ligament tear. Severe osteoarthrosis of the triscaphe joint. Electronically Signed: Alan Burton MD at 2:48 EST ,
== END | disposition home or self-care (01) ==
LOC: RAD 16:15
PROVIDERS: PCP Family Medicine Geriatric Medicine; Visit Provider Family Medicine Geriatric Medicine
DX: M19.031 Primary osteoarthritis, right wrist (principal)
CPT/HCPCS: 73110

== ENCOUNTER → 2022-09-18 | Outpatient (CLI) | payer MEDICARE, OTHER, SELFPAY ==
[2022-09-18 16:59] LABS: Absolute Lymphocyte Count 2.75 X10^3/uL (0.83-4.51); Absolute Neutrophil Count 4.3 X10^3/uL (2.0-7.7); Basophil# 0.05 X10^3/uL; Basophil% 0.6 % (0-1); Eosinophil# 0.41 X10^3/uL; Hematocrit 40.2 % (37-47); Hemoglobin 13.1 g/dL (12.0-15.0); Lymphocyte # 2.75 X10^3/ul (0.83-4.51); Lymphocyte % 33.4 % (19-41); Mean Corp Hgb Conc 32.6 g/dL (32-36); Mean Corpuscular Hgb 32.6 pg (27.0-32.0); Mean Platelet Vol. 9.9 fl (6.2-12.0); Monocyte# 0.69 X10^3/uL; Monocyte% 8.4 % (0-10); NRBC Flagged by Analyzer 0 % (0-5); Neutrophil # 4.32 X10^3/uL (2.7-7.7); Neutrophil % 52.4 % (47-70); Platelet Count 184 K/mm3 (150-450); RBC Distribution Width CV 12.9 % (11.6-14.6); RBC Distribution Width SD 47.7 fl (35.1-43.9); Red Blood Count 4.02 M/mm3 (4.2-5.4); White Blood Count 8.2 K/mm3 (4.4-11.0)
[2022-09-18 17:14] LABS: Vitamin D,25 Hydroxy 39.9 ng/mL
[2022-09-18 17:24] LABS: AST(SGOT) 20 U/L (15-37); Alanine Aminotransfer ALT/SGPT 27 U/L (13-56); Albumin, Serum 3.3 g/dL (3.2-5.0); Alkaline Phosphatase 55 U/L (45-117); Anion Gap 7 (5-15); BUN 19 mg/dL (7-18); BUN/Creat Ratio 20.2 RATIO (10-20); Calcium,Total 9.3 mg/dL (8.5-10.1); Chloride 107 mmol/L (98-107); Creatinine, Serum 0.94 mg/dL (0.55-1.02); EST Glomerular Filtration Rate 60 mL/min (>60); Est Glom Filt Rate - Afr Amer 73 mL/min (>60); Globulin 3.4 g/dL (2.2-4.2); Glucose 119 mg/dL (74-106); Potassium 4.1 mmol/L (3.5-5.1); Protein, Total 6.7 g/dL (6.4-8.2); Sodium Level 141 mmol/L (136-145); Thyroid Stim Hormone (TSH) 1.18 uIU/mL (0.358-3.74)
== END | disposition home or self-care (01) ==
LOC: POLAB3 13:07
PROVIDERS: PCP Family Medicine Geriatric Medicine; Visit Provider Family Medicine Geriatric Medicine
DX: I10 Essential (primary) hypertension (principal); E11.9 Type 2 diabetes mellitus without complications; E55.9 Vitamin D deficiency, unspecified
CPT/HCPCS: 36415; 80053; 82306; 84443; 85025

== ENCOUNTER → 2022-10-31 | Outpatient (CLI) | payer MEDICARE, OTHER, SELFPAY ==
--- NOTE | 2022-10-31 13:51 | CDU_ITS ---
Reason For Study: Left carotid bruit Rt. Velocities/BP Lt. Velocities/BP Prox CCA 106.7/9.6 cm/sec. Prox CCA 115.6/9.7 cm/sec. Mid CCA 166.8/13.3 cm/sec. Mid CCA 121.1/9.7 cm/sec. Dist CCA 103.5/10.2 cm/sec. Dist CCA 75.3/9 cm/sec. Prox ICA 90.1/13.9 cm/sec. Prox ICA 46.6/9.7 cm/sec. Mid ICA 107.2/23.7 cm/sec. Mid ICA 90/20 cm/sec. Dist ICA 93.7/18.8 cm/sec. Dist ICA 96.1/20 cm/sec. Rt. ICA/CCA = 1.00. Lt. ICA/CCA = 0.83. Prox ECA 90 cm/sec. Prox ECA 110.9 cm/sec. Rt. Vert. 66.7/11.4 cm/sec. Lt. Vert. 17.6/4.1 cm/sec. Right Extracranial There is homogeneous, smooth atherosclerotic plaque noted in the right common carotid artery. There is heterogeneous, irregular atherosclerotic plaque noted in the right internal carotid artery. There is intimal thickening but no significant atherosclerotic plaque noted in the right external carotid artery. Antegrade flow is noted in the right vertebral artery. Left Extracranial There is homogeneous, smooth atherosclerotic plaque noted in the left common carotid artery. There is homogeneous, smooth atherosclerotic plaque noted in the left internal carotid artery. There is intimal thickening but no significant atherosclerotic plaque noted in the left external carotid artery. Antegrade flow is noted in the left vertebral artery. Procedure Carotid Duplex [id number]. This is a Carotid Duplex examination using B-mode, color flow and specral Doppler. Exam performed in department. VL/Carotid Duplex Ultrasound Interpretation Summary Irregular plaque at the proximal right internal carotid artery with less than 5 0% stenosis Less than 50% stenosis right external carotid artery Smooth plaque at the proximal left internal carotid artery with less than 50% s tenosis Less than 50% stenosis left external carotid artery Patent and antegrade vertebral arteries bilaterally although with diminished an tegrade flow on the left Ordering Physician: Davina Rodríguez Referring Physician: Bud Duncan Chi Performed By: Margo Guardado RVT
== END | disposition home or self-care (01) ==
PROVIDERS: PCP Family Medicine Geriatric Medicine; Referring Provider Physician Assistant Medical; Visit Provider Physician Assistant Medical
DX: I65.23 Occlusion and stenosis of bilateral carotid arteries (principal)
CPT/HCPCS: 93880

== ENCOUNTER → 2023-03-26 | Outpatient (CLI) | payer MEDICARE, OTHER, SELFPAY ==
[2023-03-26 16:08] LABS: Absolute Lymphocyte Count 3.14 X10^3/uL (0.83-4.51); Absolute Neutrophil Count 4.2 X10^3/uL (2.0-7.7); Basophil# 0.05 X10^3/uL; Basophil% 0.6 % (0-1); Eosinophil# 0.21 X10^3/uL; Eosinophils% 2.5 % (0-5); Hematocrit 41.7 % (37-47); Hemoglobin 13.5 g/dL (12.0-15.0); Lymphocyte # 3.14 X10^3/ul (0.83-4.51); Lymphocyte % 37.6 % (19-41); Mean Corp Hgb Conc 32.4 g/dL (32-36); Mean Corpuscular Hgb 32.5 pg (27.0-32.0); Mean Corpuscular Volume 100.5 fL (81-99); Mean Platelet Vol. 9.5 fl (6.2-12.0); Monocyte# 0.73 X10^3/uL; Monocyte% 8.8 % (0-10); NRBC Flagged by Analyzer 0 % (0-5); Neutrophil # 4.18 X10^3/uL (2.7-7.7); Neutrophil % 50.1 % (47-70); Platelet Count 189 K/mm3 (150-450); RBC Distribution Width CV 12.7 % (11.6-14.6); RBC Distribution Width SD 47.1 fl (35.1-43.9); Red Blood Count 4.15 M/mm3 (4.2-5.4); White Blood Count 8.3 K/mm3 (4.4-11.0)
[2023-03-26 16:49] LABS: Vitamin D,25 Hydroxy 32.7 ng/mL
[2023-03-26 16:56] LABS: ALB/GLOB Ratio 0.9 RATIO (0.9-2.4); AST(SGOT) 21 U/L (15-37); Alanine Aminotransfer ALT/SGPT 33 U/L (13-56); Albumin, Serum 3.3 g/dL (3.2-5.0); Alkaline Phosphatase 62 U/L (45-117); Anion Gap 2 (5-15); BUN 31 mg/dL (7-18); BUN/Creat Ratio 32.3 RATIO (10-20); Calcium,Total 8.9 mg/dL (8.5-10.1); Chloride 107 mmol/L (98-107); Creatinine, Serum 0.96 mg/dL (0.55-1.02); EST Glomerular Filtration Rate 59 mL/min (>60); Est Glom Filt Rate - Afr Amer 71 mL/min (>60); Globulin 3.8 g/dL (2.2-4.2); Glucose 86 mg/dL (74-106); Potassium 3.8 mmol/L (3.5-5.1); Protein, Total 7.1 g/dL (6.4-8.2); Sodium Level 137 mmol/L (136-145); Thyroid Stim Hormone (TSH) 1.39 uIU/mL (0.358-3.74)
== END | disposition home or self-care (01) ==
LOC: LAB 15:22
PROVIDERS: PCP Family Medicine Geriatric Medicine; Referring Provider Family Medicine Geriatric Medicine; Visit Provider Family Medicine Geriatric Medicine
DX: I10 Essential (primary) hypertension (principal); E11.65 Type 2 diabetes mellitus with hyperglycemia; E55.9 Vitamin D deficiency, unspecified
CPT/HCPCS: 36415; 80053; 82306; 84443; 85025

== ENCOUNTER 2023-05-11 16:15 | Emergency (ER) | payer MEDICARE, OTHER, SELFPAY ==
[2023-05-11 16:16] VITALS: BP 171/74; PULSE 95; RESP 20; TEMP 37.4; O2SAT 94
--- NOTE | 2023-05-11 16:30 | EX.ED.DYSGE1 ---
HPI <IBIS Zamora - Last Filed: 05/11/23 17:50> History of Present Illness Chief Complaint: Cold Sx Narrative Narrative: 82-year-old female had 11 bottom teeth extracted on 05/07. The next day she developed a runny nose, sore throat, and productive cough. She is here to check if she has COVID. She denies fever or chills. She has been able to eat soft foods and is on penicillin from the dentist [facility] <IBIS Zamora - Last Filed: 05/11/23 17:50> [facility] Medical History Abnormal electrocardiogram Ambulates with cane Anxiety Arthritis Back pain Blackout Bladder disease Cardiology follow-up encounter Carotid stenosis, bilateral Concentric left ventricular hypertrophy DDD (degenerative disc disease), lumbar Debility Degenerative disc disease Depression Diabetes mellitus type 2 in obese Dietary restriction Easy bruising Essential (primary) hypertension Facet arthritis of lumbar region Falls frequently Family history of sudden cardiac Gastric reflux Grade I diastolic dysfunction Headache Hepatic steatosis High cholesterol History of echocardiogram History of pain when walking History of renal disease History of stress test Hx of pleurisy Hyperlipidemia Hypothyroidism Insulin dependent diabetes mellitus Left carotid bruit Leg cramps Lumbar canal stenosis Lumbar foraminal stenosis Macrocytosis Morbid (severe) obesity due to excess calories Non-smoker Obsessive compulsive disorder Orthostatic hypotension Osteoarthritis Osteopenia Paroxysmal atrial fibrillation Post-menopausal Radiculitis, lumbosacral Syncope Type 2 diabetes mellitus with chronic kidney disease Walker as ambulation aid Wears dentures Wears glasses Home Medications atorvastatin 40 mg tablet 40 mg PO QDAY cholesterol 08/26/17 [History Last Taken 07/25/19 22:00 40 mg] citalopram 20 mg tablet 20 mg PO QDAY ocd 08/26/17 [History Last Taken 07/26/19 10:00] losartan 100 mg tablet 100 mg PO QDAY BP 08/26/17 [History Last Taken 04/30/20] levothyroxine 100 mcg tablet 100 mcg PO DAILY hypothyroid 12/01/19 [History Last Taken 11/18/21] acetaminophen 500 mg tablet 1,000 mg (2 x 500 mg) PO Q8 pain 30 days #180 tabs 11/20/21 [Rx Last Taken Unknown] aspirin 81 mg chewable tablet 81 mg PO BIDCM Postop DVT prophylaxis 30 days #60 tabs 11/20/21 [Rx Last Taken Unknown] cholecalciferol (vitamin D3) 25 mcg (1,000 unit) tablet 25 mcg PO DAILY 30 days #30 tabs 11/27/21 [Rx Last Taken Unknown] metoprolol tartrate 25 mg tablet 25 mg PO BID #0 tabs 11/27/21 [Rx Last Taken Unknown] hydrocodone 7.5 mg-acetaminophen 325 mg tablet 1 tab PO TID 03/27/22 [History Last Taken Unknown] insulin glargine U-300 conc 300 unit/mL (3 mL) subcutaneous pen (Toujeo Max U-300 SoloStar) 80 unit subcut QHS diabetes 03/27/22 [History Last Taken Unknown] insulin lispro 100 unit/mL subcutaneous pen 35 unit subcut TIDAC diabetes 03/27/22 [History Last Taken Unknown] sennosides 8.6 mg capsule (senna) 8.6 mg PO DAILY 03/27/22 [History Last Taken Unknown] triamcinolone acetonide 0.1 % topical cream 1 applic topical DAILY PRN 03/27/22 [History Last Taken Unknown] Allergy/AdvReac Type Severity Reaction Status Date / Time Latex, Natural Rubber Allergy Mild Rash Verified 05/11/23 16:15 atenolol [From Tenormin] AdvReac Severe Other Verified 05/11/23 16:15 Family History Father H/O carotid endarterectomy, Onset Age: 70 Mother Diabetes Brother , age 69 CAD (coronary artery disease) Myocardial infarction Sudden cardiac Daughter Hypertension Hyperlipidemia Other Family history of hyperlipidemia Family history of hypertension Family history of sudden cardiac Surgical History History of carpal tunnel surgery of left wrist History of left heart catheterization (04/30/20) History of total left knee replacement (~11/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 ENT: Positive for sore throat, rhinorrhea. CVS: Negative for chest pain. Respiratory: Positive for cough. Negative for shortness of breath. GI: Negative for abdominal pain, nausea, vomiting, diarrhea. Neuro: Negative for headache. EXAM <IBIS Zamora - Last Filed: 05/11/23 17:50> Physical Exam Narrative Exam Narrative: CONST: Patient sitting in no acute distress. EYES: Normal inspection. ENT: Nares clear, normal TMs bilaterally, mucous membranes. All teeth have been extracted. Recent lower extraction sites are slightly red but there are no signs of abscess, sublingual space is soft, no trismus or tongue elevation, handling secretions normally. NECK: Normal inspection. Trachea midline, no stridor. RESP: No respiratory distress, CTAB. CVS: Regular rate and rhythm, no murmur, no gallop. SKIN: Color normal, no rash, warm, dry, intact. EXTREMITIES: Normal appearance, no pedal edema. NEURO: Oriented x4. PSYCH: Normal affect. Const Vital Signs: 05/11/23 16:16 05/11/23 16:26 Temperature 99.4 F H Temperature Source Temporal Pulse Rate 95 Respiratory Rate 20 H Respiratory Effort Normal Non-Labored Respiratory Pattern Normal Blood Pressure 171/74 H Blood Pressure Mean 106 Pulse Ox 94 Oxygen Delivery Method Room Air <Pete Tidwell MD - Last Filed: 05/11/23 19:40> Physical Exam Const Vital Signs: 05/11/23 16:16 05/11/23 16:26 Temperature 99.4 F H Temperature Source Temporal Pulse Rate 95 Respiratory Rate 20 H Respiratory Effort Normal Non-Labored Respiratory Pattern Normal Blood Pressure 171/74 H Blood Pressure Mean 106 Pulse Ox 94 Oxygen Delivery Method Room Air MDM <IBIS Zamora - Last Filed: 05/11/23 17:50> MDM MDM Narrative Medical decision making narrative: History gathered from: Patient and Patient has had a few days of upper respiratory symptoms. She also had recent dental extractions which are healing as expected. She appears well and nontoxic. Afebrile stable vital signs. HEENT exam shows lower extraction sites are healing without evidence of abscess or infection. Normal posterior oropharynx. Normal cardiopulmonary exam; abdomen soft and nontender. Differential includes viral URI or pneumonia. CXR shows no evidence of infiltrates. Radiology noted a T12 compression fracture which is chronic. COVID/influenza swab is positive for COVID-19. With normal vital signs she does not require admission and was counseled on symptomatic management and discharged in stable condition. Radiography Diagnostic Testing: Clinical Impression(s) from Imaging Studies Chest X-Ray 05/11/23 16:43 IMPRESSION: [Compression fracture T12. No acute disease. Electronically Signed: Raheel Looney MD at 17:08 EST , ED attending interpretation of 2-view chest x-ray shows normal heart size, no acute infiltrate, edema, or effusion. <Pete Tidwell MD - Last Filed: 05/11/23 19:40> MDM MDM Narrative Medical decision making narrative: History gathered from: Patient and Patient has had a few days of upper respiratory symptoms. She also had recent dental extractions which are healing as expected. She appears well and nontoxic. Afebrile stable vital signs. HEENT exam shows lower extraction sites are healing without evidence of abscess or infection. Normal posterior oropharynx. Normal cardiopulmonary exam; abdomen soft and nontender. Differential includes viral URI or pneumonia. CXR shows no evidence of infiltrates. Radiology noted a T12 compression fracture which is chronic. COVID/influenza swab is positive for COVID-19. With normal vital signs she does not require admission and was counseled on symptomatic management and discharged in stable condition. Dr. Tidwell: I have personally performed a face to face assessment of the patient and have reviewed the MARCO A Note. I performed a substantive portion of the visit including all aspects of the following. My davis findings include: History is upper respiratory infection type symptoms since after dental extraction. Exam is slightly elevated temperature, nontoxic-appearing. Regular rate and rhythm. Lungs clear to auscultation bilaterally. Abdomen soft and nontender. Airway patent. No Jaguar angina. Medical Decision Making: Check chest x-ray. Check respiratory swabs. Chest x-ray in 2 views interpreted by myself shows no evidence of consolidation or pneumonia. I do not feel antibiotics are indicated. Respiratory swab positive for COVID-19. Treat will be symptomatic. She is already 5 days out. I do not feel Paxlovid is indicated. Treatment is symptomatic with [id number] medications. I do not feel she requires admission at this time. Disposition is discharged home in stable condition. Other additions or changes: [None] Radiography Chest X-Ray - ED: 2 View and Read by ED Physician Diagnostic Testing: Clinical Impression(s) from Imaging Studies Chest X-Ray 05/11/23 16:43 IMPRESSION: [Compression fracture T12. No acute disease. Electronically Signed: Raheel Looney MD at 17:08 EST Reading Location ID and State: [facility] / [place] Tel , Service support , Discharge Plan Triage Chief Complaint: Cold Sx ED Midlevel Provider: Cindy Sagastume ED Provider: Pete Tidwell Dx/Rx/DC Orders Clinical Impression: COVID-19 Instructions: Coronavirus Disease 2019 (COVID-19): Caring for Yourself or Others Prescriptions: No Action atorvastatin 40 mg tablet 40 mg PO QDAY citalopram 20 mg tablet 20 mg PO QDAY losartan 100 mg tablet 100 mg PO QDAY levothyroxine 100 mcg tablet 100 mcg PO DAILY hydrocodone-acetaminophen 7.5-325 mg tablet 1 tab PO TID senna 8.6 mg capsule 8.6 mg PO DAILY triamcinolone acetonide 0.1 % cream 1 applic topical DAILY PRN acetaminophen 500 mg Tablet 1,000 mg PO Q8 30 Days Qty: 180 0RF aspirin 81 mg Tablet,Chewable 81 mg PO BIDCM 30 Days Qty: 60 0RF Toujeo Max U-300 SoloStar 300 unit/mL (3 mL) insulin pen 80 unit SUBCUT QHS metoprolol tartrate 25 mg Tablet 25 mg PO BID Qty: 0 0RF cholecalciferol (vitamin D3) 25 mcg (1,000 unit) Tablet 25 mcg PO DAILY 30 Days Qty: 30 0RF insulin lispro 100 unit/mL insulin pen 35 unit SC TIDAC Primary Care Provider: Bud Duncan Chi Referrals: Bud Duncan Chi, MD [Primary Care Provider] - Activity Restrictions/Additional Instructions: Rest, stay hydrated, and take Tylenol as needed for pain or fever. Return to the ER if you have difficulty breathing or worsening symptoms. Disposition Disposition: Home, Self Care Discharge Date/Time: 05/11/23 18:21
--- NOTE | 2023-05-11 16:43 | RAD_ITS ---
STUDY: X-RAY CHEST REASON FOR EXAM: Female, 82 years old. cough TECHNIQUE: Frontal and lateral views of the chest. COMPARISON: Chest x-ray November 19, 2021 and April 24, 2020 FINDINGS: The lungs are clear and expanded. There is no demonstrated pleural abnormality. Normal size heart. Normal mediastinum and angela. Normal visualized pulmonary arteries. Normal visualized aortic arch and descending thoracic aorta. Compression fracture T12 unchanged. Normal visualized ribs, clavicles, and shoulders. There is no demonstrated abnormality of the visualized soft tissue structures of the upper abdomen. RAD/Chest PA and Lateral IMPRESSION: [Compression fracture T12. No acute disease. Electronically Signed: Raheel Looney MD at 17:08 [facility] ,
[2023-05-11] MEDS: Acetaminophen 325 MG Tablet 650 MG PO (17:43)
== END 2023-05-11 18:21 | disposition home or self-care (01) ==
PROVIDERS: Emergency Provider Emergency Medicine; PCP Family Medicine Geriatric Medicine; Visit Provider Emergency Medicine
DX: U07.1 COVID-19 (principal); E11.22 Type 2 diabetes mellitus with diabetic chronic kidney disease; I12.9 Hypertensive chronic kidney disease with stage 1 through stage 4 chronic kidney disease, or unspecified chronic kidney disease; N18.9 Chronic kidney disease, unspecified; E78.00 Pure hypercholesterolemia, unspecified
CPT/HCPCS: 71046; 87428; 99282

== ENCOUNTER → 2023-09-21 | Outpatient (CLI) | payer MEDICARE, OTHER, SELFPAY ==
[2023-09-21 14:10] LABS: Absolute Lymphocyte Count 2.47 X10^3/uL (0.83-4.51); Absolute Neutrophil Count 3.2 X10^3/uL (2.0-7.7); Basophil# 0.04 X10^3/uL; Basophil% 0.6 % (0-1); Eosinophil# 0.16 X10^3/uL; Eosinophils% 2.5 % (0-5); Hematocrit 39.8 % (37-47); Hemoglobin 13.2 g/dL (12.0-15.0); Lymphocyte # 2.47 X10^3/ul (0.83-4.51); Lymphocyte % 38.8 % (19-41); Mean Corp Hgb Conc 33.2 g/dL (32-36); Mean Corpuscular Hgb 32.2 pg (27.0-32.0); Mean Corpuscular Volume 97.1 fL (81-99); Mean Platelet Vol. 9.9 fl (6.2-12.0); Monocyte# 0.48 X10^3/uL; Monocyte% 7.5 % (0-10); NRBC Flagged by Analyzer 0 % (0-5); Neutrophil # 3.21 X10^3/uL (2.7-7.7); Neutrophil % 50.4 % (47-70); Platelet Count 182 K/mm3 (150-450); RBC Distribution Width CV 12.1 % (11.6-14.6); RBC Distribution Width SD 43.6 fl (35.1-43.9); White Blood Count 6.4 K/mm3 (4.4-11.0)
[2023-09-21 14:24] LABS: Vitamin D,25 Hydroxy 41.2 ng/mL
[2023-09-21 14:34] LABS: ALB/GLOB Ratio 0.8 RATIO (0.9-2.4); AST(SGOT) 21 U/L (15-37); Alanine Aminotransfer ALT/SGPT 23 U/L (13-56); Alkaline Phosphatase 60 U/L (45-117); Anion Gap 5 (5-15); BUN 20 mg/dL (7-18); BUN/Creat Ratio 18.5 RATIO (10-20); Calcium,Total 9.2 mg/dL (8.5-10.1); Chloride 105 mmol/L (98-107); Creatinine, Serum 1.08 mg/dL (0.55-1.02); EST Glomerular Filtration Rate 51 mL/min (>60); Est Glom Filt Rate - Afr Amer 62 mL/min (>60); Globulin 3.7 g/dL (2.2-4.2); Glucose 230 mg/dL (74-106); Potassium 4.3 mmol/L (3.5-5.1); Protein, Total 6.7 g/dL (6.4-8.2); Sodium Level 137 mmol/L (136-145); Thyroid Stim Hormone (TSH) 0.95 uIU/mL (0.358-3.74)
== END | disposition home or self-care (01) ==
LOC: POLAB3 13:09
PROVIDERS: PCP Family Medicine Geriatric Medicine; Visit Provider Family Medicine Geriatric Medicine
DX: I10 Essential (primary) hypertension (principal); E11.65 Type 2 diabetes mellitus with hyperglycemia; E55.9 Vitamin D deficiency, unspecified
CPT/HCPCS: 36415; 80053; 82306; 84443; 85025

== ENCOUNTER → 2023-11-25 | Outpatient (CLI) | payer MEDICARE, OTHER, SELFPAY ==
--- NOTE | 2023-11-25 16:08 | MRI_ITS ---
EXAM: MR LUMBAR SPINE WITHOUT INTRAVENOUS CONTRAST CLINICAL INDICATION: Pain TECHNIQUE: Multiplanar and multisequence MR images of the lumbar spine without intravenous contrast. COMPARISON: MR Lumbar Spine dated 03/16/2020 FINDINGS: VERTEBRAE: Stable chronic fracture deformity of the T12 vertebral body. Stable prominent anterior osteophytosis at the T11-12 level. No acute fracture. No bone marrow edema. Lumbar lordosis is maintained. SPINAL CORD: Normal. Normal position and signal intensity of the conus medullaris. SOFT TISSUES: Normal. DISCS/SPINAL CANAL/NEURAL FORAMINA: T11-T12: Posterior protrusion of the superior posterior portion of the T12 vertebral body and facet arthropathy again noted resulting in stable mild spinal stenosis. Prominent narrowing of the neural foramina related to bony hypertrophy. T12-L1: Disc space narrowing again noted with less prominent Modic type I endplate changes. Stable mild disc protrusion without spinal stenosis. Intact neural foramina. L1-L2: L1-2: Stable disc space narrowing with Modic type II endplate changes. Mild disc bulging without spinal stenosis on the moderate narrowing of the neural foramina related to bony hypertrophy. L2-L3: Mild disc space narrowing with Modic type I endplate changes. No disc impingement on the spinal canal. Posterior ligamentous hypertrophy and facet arthropathy cause mild compression of the thecal sac. Moderate narrowing of the neural foramina related to posterolateral disc osteophyte complexes. L3-L4: No significant disc space narrowing. Prominent posterior ligamentous hypertrophy and facet arthropathy result in mild to moderate spinal stenosis and mild left neural foraminal narrowing. L4-L5: Significant disc space narrowing with Modic type II endplate changes. No disc protrusion. Normal caliber spinal canal and neural foramina. L5-S1: Normal. Normal disc height and morphology. Normal spinal canal and lateral recesses. Normal neuroforamina. MRI/Spine Lumbar (Routine) IMPRESSION: 1. Stable compression fracture of the T12 vertebral body. 2. Mild to moderate L3-4 spinal stenosis related to prominent posterior ligamentous hypertrophy and facet arthropathy. 3. Multilevel neural foraminal narrowing as described. Electronically Signed: Teofilo Geronimo MD at 16:20 EDT ,
== END | disposition home or self-care (01) ==
LOC: MRI 16:07
PROVIDERS: PCP Family Medicine Geriatric Medicine; Referring Provider Orthopaedic Surgery Orthopaedic Surgery of the Spine; Visit Provider Orthopaedic Surgery Orthopaedic Surgery of the Spine
DX: M43.16 Spondylolisthesis, lumbar region (principal)
CPT/HCPCS: 72148

== ENCOUNTER → 2024-03-28 | Outpatient (CLI) | payer MEDICARE, OTHER, SELFPAY ==
[2024-03-28 13:45] LABS: Absolute Lymphocyte Count 2.96 X10^3/uL (0.83-4.51); Absolute Neutrophil Count 4.1 X10^3/uL (2.0-7.7); Basophil# 0.04 X10^3/uL; Basophil% 0.5 % (0-1); Eosinophil# 0.16 X10^3/uL; Hematocrit 39.3 % (37-47); Hemoglobin 12.9 g/dL (12.0-15.0); Lymphocyte # 2.96 X10^3/ul (0.83-4.51); Lymphocyte % 37.2 % (19-41); Mean Corp Hgb Conc 32.8 g/dL (32-36); Mean Corpuscular Hgb 32.3 pg (27.0-32.0); Mean Corpuscular Volume 98.5 fL (81-99); Mean Platelet Vol. 9.7 fl (6.2-12.0); Monocyte# 0.56 X10^3/uL; NRBC Flagged by Analyzer 0 % (0-5); Neutrophil # 4.12 X10^3/uL (2.7-7.7); Neutrophil % 51.9 % (47-70); Platelet Count 175 K/mm3 (150-450); RBC Distribution Width CV 12.5 % (11.6-14.6); RBC Distribution Width SD 45.1 fl (35.1-43.9); Red Blood Count 3.99 M/mm3 (4.2-5.4)
[2024-03-28 14:19] LABS: ALB/GLOB Ratio 0.7 RATIO (0.9-2.4); AST(SGOT) 22 U/L (15-37); Alanine Aminotransfer ALT/SGPT 28 U/L (13-56); Albumin, Serum 2.9 g/dL (3.2-5.0); Alkaline Phosphatase 64 U/L (45-117); Anion Gap 5 (5-15); BUN 21 mg/dL (7-18); BUN/Creat Ratio 21.3 RATIO (10-20); Calcium,Total 9.3 mg/dL (8.5-10.1); Chloride 106 mmol/L (98-107); Creatinine, Serum 0.99 mg/dL (0.55-1.02); EST Glomerular Filtration Rate 57 mL/min (>60); Est Glom Filt Rate - Afr Amer 69 mL/min (>60); Glucose 90 mg/dL (74-106); Potassium 4.1 mmol/L (3.5-5.1); Protein, Total 6.9 g/dL (6.4-8.2); Sodium Level 140 mmol/L (136-145)
== END | disposition home or self-care (01) ==
LOC: POLAB3 13:31
PROVIDERS: PCP Family Medicine Geriatric Medicine; Visit Provider Family Medicine Geriatric Medicine
DX: E11.65 Type 2 diabetes mellitus with hyperglycemia (principal); E55.9 Vitamin D deficiency, unspecified; I10 Essential (primary) hypertension
CPT/HCPCS: 36415; 80053; 82306; 84443; 85025

== ENCOUNTER → 2024-06-09 | Outpatient (CLI) | payer MEDICARE, OTHER, SELFPAY | END | disposition home or self-care (01) | LOC: POLAB3 11:17 | PROVIDERS: PCP Family Medicine Geriatric Medicine; Visit Provider Family Medicine Geriatric Medicine | DX: E03.9 Hypothyroidism, unspecified (principal) | CPT/HCPCS: 36415; 84443 ==

== ENCOUNTER → 2024-08-11 | Outpatient (CLI) | payer MEDICARE, OTHER, SELFPAY ==
--- NOTE | 2024-08-11 13:47 | CDU_ITS ---
Reason For Study Reason For Study: Bruit Rt. Velocities/BP Lt. Velocities/BP Prox CCA 70.2/7.6 cm/sec. Prox CCA 119.1/10.8 cm/sec. Mid CCA 118.0/15.7 cm/sec. Mid CCA 95.7/5.7 cm/sec. Dist CCA 88.8/15.7 cm/sec. Dist CCA 91.3/10.1 cm/sec. Prox ICA 55.1/2.8 cm/sec. Prox ICA 77.8/13.9 cm/sec. Mid ICA 70.1/13.2 cm/sec. Mid ICA 92.8/27.2 cm/sec. Dist ICA 94.8/21.7 cm/sec. Dist ICA 53.4/11.9 cm/sec. Rt. ICA/CCA = 0.8. Lt. ICA/CCA = 1.0. Prox ECA 91.4/0.0 cm/sec. Prox ECA 103.4/8.4 cm/sec. Rt. Vert. 85.7/8.9 cm/sec. Lt. Vert. 44.1/10.9 cm/sec. Right Extracranial There is intimal thickening but no significant atherosclerotic plaque noted in the right common carotid artery. There is heterogeneous, irregular atherosclerotic plaque noted in the right internal carotid artery. There is intimal thickening but no significant atherosclerotic plaque noted in the right external carotid artery. Antegrade flow is noted in the right vertebral artery. Left Extracranial There is intimal thickening but no significant atherosclerotic plaque noted in the left common carotid artery. There is heterogeneous, irregular atherosclerotic plaque noted in the left internal carotid artery. There is intimal thickening but no significant atherosclerotic plaque noted in the left external carotid artery. Antegrade flow is noted in the left vertebral artery. Abnomral waveform morphology noted in the left vertebral artery. Procedure Carotid Duplex [id number]. This is a Carotid Duplex examination using B-mode, color flow and specral Doppler. Exam performed in department. VL/Carotid Duplex Ultrasound Interpretation Summary Mild (<50%) stenosis right extracranial internal carotid. Mild (<50%) stenosis left extracranial internal carotid. The Right vertebral is patent and antegrade. The Left vertebral is patent with pre-steal morphology. Ordering Physician: Davina Rodríguez Referring Physician: Bud Duncan Chi Performed By: Bert Herbert RVT and Student
== END | disposition home or self-care (01) ==
LOC: CVS 13:45
PROVIDERS: PCP Family Medicine Geriatric Medicine; Referring Provider Physician Assistant Medical; Visit Provider Physician Assistant Medical
DX: I65.23 Occlusion and stenosis of bilateral carotid arteries (principal)
CPT/HCPCS: 93880

== ENCOUNTER → 2024-09-26 | Outpatient (CLI) | payer MEDICARE, OTHER, SELFPAY ==
--- NOTE | 2024-09-26 14:25 | RAD_ITS ---
EXAM: XR Abdomen, 2 Views CLINICAL INDICATION: FECAL IMPACTION TECHNIQUE: Frontal view of the abdomen/pelvis with upright view of the abdomen. COMPARISON: No relevant prior studies available. FINDINGS: INTRAPERITONEAL SPACE: No free air. GASTROINTESTINAL TRACT: Fecal retention in the colon consistent with constipation. No dilation. BONES/JOINTS: Unremarkable. No acute fracture. RAD/Abd Inc Decub and/or Erect IMPRESSION: Fecal retention in the colon consistent with constipation. Reading Location: [facility]
[2024-09-26 15:50] LABS: Absolute Neutrophil Count 2.5 X10^3/uL (2.0-7.7); Basophil# 0.03 X10^3/uL; Basophil% 0.5 % (0-1); Eosinophil# 0.13 X10^3/uL; Eosinophils% 2.4 % (0-5); Hemoglobin 12.7 g/dL (12.0-15.0); Lymphocyte % 43.8 % (19-41); Mean Corp Hgb Conc 33.4 g/dL (32-36); Mean Corpuscular Hgb 32.1 pg (27.0-32.0); Mean Platelet Vol. 9.7 fl (6.2-12.0); Monocyte# 0.44 X10^3/uL; NRBC Flagged by Analyzer 0 % (0-5); Neutrophil # 2.47 X10^3/uL (2.7-7.7); Neutrophil % 45.1 % (47-70); Platelet Count 155 K/mm3 (150-450); RBC Distribution Width CV 12.4 % (11.6-14.6); RBC Distribution Width SD 43.9 fl (35.1-43.9); Red Blood Count 3.96 M/mm3 (4.2-5.4); White Blood Count 5.5 K/mm3 (4.4-11.0)
[2024-09-26 16:34] LABS: ALB/GLOB Ratio 1.3 RATIO (0.9-2.4); AST(SGOT) 22 U/L (<=31); Alanine Aminotransfer ALT/SGPT 10 U/L (<=34); Albumin, Serum 3.6 g/dL (3.4-4.8); Alkaline Phosphatase 58 U/L (35-104); Anion Gap 12 (5-15); BUN 19 mg/dL (4-19); BUN/Creat Ratio 22.8 RATIO (10-20); Carbon Dioxide 21.4 mmol/L (21.0-32.0); Chloride 105 mmol/L (98-108); Creatinine, Serum 0.85 mg/dL (0.70-1.20); EST Glomerular Filtration Rate 68 (>60); Globulin 2.6 g/dL (2.2-4.2); Glucose 85 mg/dL (70-99); Potassium 4.2 mmol/L (3.3-5.1); Protein, Total 6.2 g/dL (5.9-8.4); Sodium Level 138 mmol/L (133-145); Thyroid Stim Hormone (TSH) 0.818 uIU/mL (0.300-4.200); Vitamin D,25 Hydroxy 22.3 ng/mL (30-100)
== END | disposition home or self-care (01) ==
LOC: RAD 14:23
PROVIDERS: PCP Family Medicine Geriatric Medicine; Referring Provider Family Medicine Geriatric Medicine; Visit Provider Family Medicine Geriatric Medicine
DX: I10 Essential (primary) hypertension (principal); K56.41 Fecal impaction; E55.9 Vitamin D deficiency, unspecified
CPT/HCPCS: 36415; 74019; 80053; 82306; 84443; 85025

== ENCOUNTER → 2025-03-30 | Outpatient (CLI) | payer MEDICARE, OTHER, SELFPAY ==
[2025-03-30 13:49] LABS: Hematocrit 39.3 % (37-47); Hemoglobin 13.6 g/dL (12.0-15.0); Immature Granulocytes Count 0.010 X10^3/uL (0.0-0.0); Mean Corp Hgb Conc 34.6 g/dL (32-36); Mean Corpuscular Volume 96.6 fL (81-99); Mean Platelet Vol. 9.1 fl (6.2-12.0); NRBC Flagged by Analyzer 0 % (0-5); Platelet Count 156 K/mm3 (150-450); RBC Distribution Width CV 12.6 % (11.6-14.6); RBC Distribution Width SD 45.1 fl (35.1-43.9); Red Blood Count 4.07 M/mm3 (4.2-5.4); White Blood Count 6.8 K/mm3 (4.4-11.0)
[2025-03-30 14:15] LABS: AST(SGOT) 25 U/L (<=31); Alanine Aminotransfer ALT/SGPT 19 U/L (<=34); Albumin, Serum 3.8 g/dL (3.4-4.8); Alkaline Phosphatase 52 U/L (35-104); Anion Gap 11 (5-15); BUN 17 mg/dL (4-19); BUN/Creat Ratio 20.3 RATIO (10-20); Calcium,Total 9.4 mg/dL (7.6-11.0); Carbon Dioxide 25.0 mmol/L (21.0-32.0); Chloride 104 mmol/L (98-108); Globulin 2.9 g/dL (2.2-4.2); Glucose 83 mg/dL (70-99); Potassium 4.1 mmol/L (3.3-5.1); Vitamin D,25 Hydroxy 23.7 ng/mL (30-100)
[2025-03-30 20:47] LABS: Xtra Tube Kwok EXTRA TUBE
== END | disposition home or self-care (01) ==
LOC: POLAB3 12:47
PROVIDERS: PCP Family Medicine Geriatric Medicine; Visit Provider Family Medicine Geriatric Medicine
DX: I10 Essential (primary) hypertension (principal); E03.9 Hypothyroidism, unspecified; E55.9 Vitamin D deficiency, unspecified
CPT/HCPCS: 36415; 80053; 82306; 84443; 85025

== ENCOUNTER → 2025-04-03 | Outpatient (CLI) | payer MEDICARE, OTHER, SELFPAY ==
[2025-04-03 11:46] LABS: Creatinine, Urine (random) 83.50 mg/dL (28.00-217.00); Microalbumin,Random Urine < 12.0 mg/L (<20 mg/L)
== END | disposition home or self-care (01) ==
LOC: LABSPEC 04-11 08:07
PROVIDERS: PCP Family Medicine Geriatric Medicine; Visit Provider Family Medicine Geriatric Medicine
DX: E11.65 Type 2 diabetes mellitus with hyperglycemia (principal)
CPT/HCPCS: 82043; 82570

== ENCOUNTER → 2025-06-08 | Outpatient (CLI) | payer MEDICARE, OTHER, SELFPAY | END | disposition home or self-care (01) | LOC: POLAB3 13:56 | PROVIDERS: PCP Family Medicine Geriatric Medicine; Visit Provider Family Medicine Geriatric Medicine | DX: E03.9 Hypothyroidism, unspecified (principal) | CPT/HCPCS: 36415; 84443 ==